=== PATIENT | female | born 1950 | race Caucasian/White ===

== ENCOUNTER 2021-02-03 12:51 | Inpatient (IN) | payer MEDICARE, MEDICAID, SELFPAY ==
--- NOTE | ~2021-02-03 | XR_ITS ---
EXAMINATION: XR HAND, RIGHT CLINICAL INFORMATION: CAD bite COMPARISON: None TECHNIQUE: PA, lateral, and oblique views of the right hand. FINDINGS: Visualized bones and joint space is maintained normal. No radiopaque foreign body seen. There is no soft tissue gas or soft tissue swelling seen. XR/XR hand RT 2V IMPRESSION: Unremarkable right hand exam.
[2021-02-03 14:16] VITALS: BP 129/49; PULSE 67; RESP 17; TEMP 35.9; BMI 33.6
--- NOTE | 2021-02-03 15:43 | ED_ITS ---
HPI - Animal Bite General Chief Complaint: Animal Bite Stated Complaint: cat bite Time Seen by Provider: 02/03/21 15:22 Source: patient Mode of arrival: ambulatory Limitations: no limitations History of Present Illness HPI narrative: 70-year-old female presents for cap bite to her right hand that occurred 2 days ago. She has had these cats for 2 months, they were straight A's that she took in, they are not ever had shots. Patient has had no fevers. However, her right hand is red, swollen, warm, and tender. MD complaint: animal bite Onset (ago): day(s) (2) Animal: cat Description of animal: household pet Mechanism: bite Location - Extremities: right: hand Pain description: dull Severity scale (1-10): 3 Context: unprovoked Associated symptoms: erythema and rash Related Data Patient tetanus UTD: No Home Medications Medication Instructions Recorded Confirmed insulin lispro protamine-lispro 30 unit SUBCUT BID 02/03/21 02/03/21 100 unit/mL (75-25) subcutaneous pen (Humalog Mix 75-25 KwikPen) levothyroxine 137 mcg tablet 1 tab PO DAILY 02/03/21 02/03/21 pramipexole 0.125 mg tablet 1 tab PO DAILY 02/03/21 02/03/21 sertraline 100 mg tablet 1 tab PO DAILY 02/03/21 02/03/21 simvastatin 40 mg tablet 1 tab PO BEDTIME 02/03/21 02/03/21 tizanidine 2 mg tablet 2 mg PO TID PRN 02/03/21 02/03/21 Allergies Allergy/AdvReac Type Severity Reaction Status Date / Time No Known Allergies Allergy Verified 02/03/21 15:34 Review of Systems Constitutional: Constitutional: Denies body ache(s), Denies chills, Denies fatigue, Denies fever(s), Denies headache(s), Denies malaise and Denies weakness Eyes: Eyes: Denies diplopia ENT: Denies vertigo, Denies dizziness, Denies otalgia, Denies headache(s), Denies mouth pain, Denies post nasal drip, Denies sinus pain, Denies sinus pressure, Denies sore throat and Denies throat swelling Cardiovascular: Cardiovascular: Denies chest pain, Denies syncope, Denies leg edema, Denies lightheadedness, Denies Loss of Consciousness, Denies palpitations and Denies dyspnea Respiratory: Respiratory: Denies chest congestion, Denies cough and Denies dyspnea Gastrointestinal: Gastrointestinal: Reports abdominal pain, Denies hematochezia, Denies constipation, Denies diarrhea and Denies vomiting Musculoskeletal: Musculoskeletal: Reports no additional musculoskeletal complaints Integumentary/Breasts: Skin/Breast: Reports erythema, Reports rash, Reports skin pain, Reports skin swelling and Reports wounds Neurologic: Denies confusion, Denies vertigo, Denies dizziness, Denies syncope, Denies headache(s) and Denies weakness Psychiatric: Psychiatric: Denies anxiety, Denies confusion and Denies depression Endocrine: Endocrine: Denies fatigue and Denies palpitations Allergic/Immunologic: Allergic/Immunologic: Denies throat swelling PMFSH Past Medical History Medical History Anxiety Depression Diabetes Hypothyroidism Social History Social History Advance Directives: No Advance Directives Information Provided: No Physical Exam Vital Signs: Vital Signs: Last Vital Signs Temp 98.6 F 02/03/21 17:39 Pulse 64 02/03/21 17:39 Resp 16 02/03/21 17:39 BP 143/60 H 02/03/21 17:39 Pulse Ox 96 02/03/21 17:39 Body Mass Index 33.6 Const: General: no acute distress, alert and awake; No confusion Nutritional Appearance: obese centrally obese Orientation/consciousness: patient oriented x3 and No confusion Limitations: no limitations HENMT: Head: Yes normal to inspection, Yes normocephalic and Yes atraumatic Ears: other ([place] General nose exam: Normal external nose present Face and sinus: Yes normal facial exam Mouth: Normal oral and palatal mucosa present Eyes: Conjunctivae: conjunctivae normal Pupils: Equal, round and reactive pupils present EOM: EOMs intact bilaterally Neck: Neck: Yes full ROM, Yes no lymphadenopathy and Yes supple Resp: Effort & Inspection: normal respiratory effort and able to speak in complete sentences Auscultation: clear to auscultation bilaterally, no crackles, no rales, no rhonchi and no wheezes Cardio: Rate: regular rate Rhythm: regular rhythm Heart sounds: S1 normal heart sound present and S2 normal heart sound present GI: Inspection: Yes normal to inspection Palpation (GI): Soft to palpation, nontender, no guarding and not rigid Percussion: Yes normal to percussion Auscultation: normal bowel sounds Skin: Other: Red, warm, swollen dorsum of right hand, redness extends to right thumb, and right 2nd 3rd and 4th fingers. Patient swollen at right thumb MCP joint, exquisitely tender to palpation there. Patient has reduced range of motion of fingers. Intact right upper extremity pulses and sensations. Neuro: General: patient oriented x3 and No confusion Cranial nerves: Yes Equal, round and reactive pupils present Extrem: General: Yes normal to inspection and Yes full ROM Psych: Appearance: grossly normal Affect: normal affect Attitude: cooperative Thought process: Normal thought process present Course Course Course Narrative: 70-year-old diabetic female who was bitten by a cat that has never had any rabies shots 2 days ago presents with right hand pain. No fevers. On exam, red, warm, swollen dorsum of right hand, redness extends to right thumb, and right 2nd 3rd and 4th fingers. Patient swollen at right thumb MCP joint, exquisitely tender to palpation there. Gave tetanus, rabies vaccination, rabies immunoglobulin. Getting blood cultures, lactic acid, labs. Getting x-ray of right hand. Will start antibiotics once blood cultures are drawn. Discussed with Dr. Pham, orthopedics, who agrees that patient needs to be admitted for IV antibiotics. Patient states she has an allergy to a food, but she does not know what food that is. No known drug allergies Reevaluation(s) Reevaluation #1: XR shows: Visualized bones and joint space is maintained normal. No radiopaque foreign body seen. There is no soft tissue gas or soft tissue swelling seen. Reevaluation #2: Patient given Vanco and Zosyn, admitted to the hospitalist serv [facility] - Animal Bite Lab Data Result diagrams: 02/03/21 16:00 02/03/21 16:00 Labs: Lab Results 02/03/21 02/03/21 02/03/21 Range/Units 16:00 16:00 16:00 WBC 11.3 H (4.8-10.8) X10*3/uL RBC 4.38 (4.20-5.50) X10*6/uL Hgb 13.3 (12.0-16.0) g/dl Hct 39.8 (37-47) % MCV 90.9 (80-98) fL MCH 30.4 (27.0-33.0) pg MCHC 33.4 (31.0-35.0) g/dl RDW 13.4 (11.0-16.0) % Plt Count 260 (160-400) X10*3/uL MPV 10.6 (9.4-12.3) fL Immature Gran % (Auto) 0.4 (0.0-0.4) % Neut % (Auto) 67.9 (45-73) % Lymph % (Auto) 22.0 (20-40) % [place] % (Auto) 6.8 (2-11) % Eos % (Auto) 2.3 (0-4) % Baso % (Auto) 0.6 (0-2) % Lymph # (Auto) 2.5 (1.2-4.9) X10*3/uL [place] # (Auto) 0.8 (0.1-1.2) X10*3/uL Eos # (Auto) 0.3 (0.0-0.4) X10*3/uL Baso # (Auto) 0.1 (0.0-0.2) X10*3/uL Abs Immat Gran (auto) 0.04 H (0.00-0.03) X10*3/uL Absolute Neuts (auto) 7.7 (2.0-8.3) X10*3/uL Absolute Nucleated RBC 0.000 (0.0-0.012) X10*3/uL Nucleated RBC % (auto) 0.0 (0.0-0.2) /100WBC Sodium 137 (135-145) mmol/L Potassium 4.1 (3.3-5.1) mmol/L Chloride 102 (96-108) mmol/L Carbon Dioxide 25 (22-29) mmol/L Anion Gap 14 (12-20) BUN 18 H (9-16) mg/dL Creatinine 0.96 (0.5-1.4) mg/dL Estim Creat Clear Calc 60.1 Estimated GFR 57 Random Glucose 217 H (60-115) mg/dL Lactic Acid 1.7 (0.5-2.0) mmol/L Calcium 9.4 (8.4-10.2) mg/dL Total Bilirubin 0.7 (0.0-1.0) mg/dL AST 15 (5-31) U/L ALT 12 (0-31) U/L Alkaline Phosphatase 85 (39-117) U/L C-Reactive Protein 3.62 H (< or = 0.50) mg/dL Total Protein 7.2 (6.5-8.0) g/dL Albumin 4.5 (3.5-5.0) g/dL COVID-19 (LINDA) (Negative) COVID-19 Clin Com 02/03/21 Range/Units 17:39 WBC (4.8-10.8) X10*3/uL RBC (4.20-5.50) X10*6/uL Hgb (12.0-16.0) g/dl Hct (37-47) % MCV (80-98) fL MCH (27.0-33.0) pg MCHC (31.0-35.0) g/dl RDW (11.0-16.0) % Plt Count (160-400) X10*3/uL MPV (9.4-12.3) fL Immature Gran % (Auto) (0.0-0.4) % Neut % (Auto) (45-73) % Lymph % (Auto) (20-40) % [place] % (Auto) (2-11) % Eos % (Auto) (0-4) % Baso % (Auto) (0-2) % Lymph # (Auto) (1.2-4.9) X10*3/uL [place] # (Auto) (0.1-1.2) X10*3/uL Eos # (Auto) (0.0-0.4) X10*3/uL Baso # (Auto) (0.0-0.2) X10*3/uL Abs Immat Gran (auto) (0.00-0.03) X10*3/uL Absolute Neuts (auto) (2.0-8.3) X10*3/uL Absolute Nucleated RBC (0.0-0.012) X10*3/uL Nucleated RBC % (auto) (0.0-0.2) /100WBC Sodium (135-145) mmol/L Potassium (3.3-5.1) mmol/L Chloride (96-108) mmol/L Carbon Dioxide (22-29) mmol/L Anion Gap (12-20) BUN (9-16) mg/dL Creatinine (0.5-1.4) mg/dL Estim Creat Clear Calc Estimated GFR Random Glucose (60-115) mg/dL Lactic Acid (0.5-2.0) mmol/L Calcium (8.4-10.2) mg/dL Total Bilirubin (0.0-1.0) mg/dL AST (5-31) U/L ALT (0-31) U/L Alkaline Phosphatase (39-117) U/L C-Reactive Protein (< or = 0.50) mg/dL Total Protein (6.5-8.0) g/dL Albumin (3.5-5.0) g/dL COVID-19 (LINDA) Negative (Negative) COVID-19 Clin Com See Note Discharge Plan Discharge Clinical Impression: Cat bite Qualifiers: Encounter type: initial encounter Qualified Code(s): W55.01XA - Bitten by cat, initial encounter Cellulitis Qualifiers: Site of cellulitis: extremity Site of cellulitis of extremity: upper extremity Laterality: right Qualified Code(s): L03.113 - Cellulitis of right upper limb Patient Disposition: Admitted As Inpatient
[2021-02-03] MEDS: 0.9 % Sodium Chloride 1,000 ML 999 ML IV (16:03)
[2021-02-03 16:08] LABS: MANUAL DIFF FLAG NO
[2021-02-03 16:10] VITALS: BP 146/65; PULSE 68; RESP 20; TEMP 37; O2SAT 98
[2021-02-03 16:15] LABS: Basophils Absolute Auto 0.1 X10*3/uL (0.0-0.2); Basophils Percent Auto 0.6 % (0-2); Eosinophils Absolute Auto 0.3 X10*3/uL (0.0-0.4); Eosinophils Percent Auto 2.3 % (0-4); Hematocrit 39.8 % (37-47); Hemoglobin 13.3 g/dl (12.0-16.0); Imm Gran Abs Auto 0.04 X10*3/uL (0.00-0.03); Imm Gran Pct Auto 0.4 % (0.0-0.4); Lymphocytes Absolute Auto 2.5 X10*3/uL (1.2-4.9); Mean Corpuscular HGB Conc 33.4 g/dl (31.0-35.0); Mean Corpuscular Hemoglobin 30.4 pg (27.0-33.0); Mean Corpuscular Volume 90.9 fL (80-98); Mean Platelet Volume 10.6 fL (9.4-12.3); Monocytes Absolute Auto 0.8 X10*3/uL (0.1-1.2); Monocytes Percent Auto 6.8 % (2-11); Neutrophils Absolute Auto 7.7 X10*3/uL (2.0-8.3); Neutrophils Percent Auto 67.9 % (45-73); Platelet Count 260 X10*3/uL (160-400); Red Blood Count 4.38 X10*6/uL (4.20-5.50); Red Cell Distribution Width 13.4 % (11.0-16.0); White Blood Count 11.3 X10*3/uL (4.8-10.8)
[2021-02-03 16:22] LABS: Lactic Acid 1.7 mmol/L (0.5-2.0)
[2021-02-03 16:27] LABS: Alanine Aminotransferase 12 U/L (0-31); Albumin Level 4.5 g/dL (3.5-5.0); Alkaline Phosphatase 85 U/L (39-117); Anion Gap 14 (12-20); Aspartate Amino Transferase 15 U/L (5-31); Bilirubin Total 0.7 mg/dL (0.0-1.0); Blood Urea Nitrogen 18 mg/dL (9-16); Calcium 9.4 mg/dL (8.4-10.2); Carbon Dioxide 25 mmol/L (22-29); Chloride 102 mmol/L (96-108); Creatinine Clr Calc Pharmacy 60.1; Estimated Glomerular Filt Rate 57; Glucose Random 217 mg/dL (60-115); Potassium 4.1 mmol/L (3.3-5.1); Sodium 137 mmol/L (135-145); Total Protein 7.2 g/dL (6.5-8.0)
[2021-02-03] MEDS: Piperacillin Sodium/Tazobactam 3.375 GM in 0.9 % Sodium Chloride 50 ML IV ×2 (17:17→23:44)
[2021-02-03] MEDS: Diphth,Pertus(ACell),Tet Adult 0.5 ML SYRINGE IM (17:18)
--- NOTE | 2021-02-03 17:20 | PHA.MEDREC ---
Pharmacy Consult ? Medication Reconciliation Pharmacy has completed the medication reconciliation. Patient reports she has no started the trulicity yet, it is a new prescription. She reports she has not taken any pills in over a week. Indu Pedroza, PharmD
[2021-02-03] MEDS: Rabies Vaccine (PCEC)/PF 1 ML VIAL IM (17:28)
[2021-02-03] MEDS: Rabies Immune Globulin/PF 900 UNIT/3 ML VIAL 1832.52 UNIT IM (17:34)
--- NOTE | 2021-02-03 17:36 | PC.NURSE ---
pt transferred to t/w from [facility] for admit to the hospital. pt brought over with medications already put in and due. late admin necessary.
[2021-02-03 17:39] VITALS: BP 143/60; PULSE 64; RESP 16; TEMP 37; O2SAT 96
[2021-02-03] MEDS: vancomycin HCL 1,250 MG in 0.9 % Sodium Chloride 250 ML 166.67 MG IV (17:50)
--- NOTE | 2021-02-03 17:58 | P.HPHOSP_ITS ---
History of Present Illness Date of Service: 02/03/21 Attending physician on admission: Odilia Kunz Chief Complaint: right hand cellulitis/tinosynovitis 70-year-old female with history of diabetes, hyperlipidemia, hypothyroidism, rest rest leg syndrome: She said that 2 days back she was scratched by her cat- subsequently she had could scratch on the both hands-her left hand seems to be fine but her right hand is now having lot of pain and swelling as well, as erythema. She says her cat is domestic but not well behaved. She says from last 2 days is slowly is becoming difficult move her rigth hand pain, erythema, swelling and movements of right hand. She denies any fever but has chills. Denies any new complaint of chest pain or shortness of breath or abdominal pain or nausea or vomiting Denies any recent travel or any family member with similar symptoms, or any new rash Denies any cough Denies any weakness or numbness. Past medical history as above. Denies any past surgical history. Lives alone. Denies any smoking, recreational drugs, alcohol use. Family history lacy: Her sister had diabetes as per the patient. Lab imaging data personally reviewed and interpreted-patient has mild leukocytosis, mild tachycardia-does not qualify for sepsis. Hand x-ray: Seems unremarkable. ED physician given Susan and discussed the case with Dr. Pham from [facility] recommended admission for inpatient hospitalist service. Review of Systems Review of Systems: Yes all other systems are reviewed and are negative [facility] Medical History Anxiety Depression Diabetes Hypothyroidism Pertinent family history: As above. Sister has diabetes Social History Advance Directives: No Advance Directives Information Provided: No Meds Allergies Allergy/AdvReac Type Severity Reaction Status Date / Time No Known Allergies Allergy Verified 02/03/21 15:34 Active Medications: Current Medications Dextrose (Dextrose 50 % 25 Gm/50 Ml Vial) 25 gm IVPUSH Q15M PRN; Protocol PRN Reason: per Hypoglycemia Standing Ord. Enoxaparin Sodium (Enoxaparin Sodium 40 Mg/0.4 Ml Syringe) 40 mg SUBCUT DAILY VITALIY Glucose (Glucose Gel 15 Gm Gel..Gram.) 15 gm PO Q15M PRN; Protocol PRN Reason: per Hypoglycemia Standing Ord. Vancomycin HCl 1,250 mg/ (Sodium Chloride) 250 mls @ 166.667 mls/hr IV ONCE ONE Stop: 02/03/21 18:42 Last Admin: 02/03/21 17:50 Dose: 166.67 mls/hr Documented by: Lactated Ringer's (Lr) 1,000 mls @ 80 mls/hr IVCONT .[id number] [facility] Piperacillin Sod/Tazobactam (Sod 3.375 gm/ Sodium Chloride) 50 mls @ 100 mls/hr IV Q6H [facility] Insulin Human Lispro (Insulin Lispro 100 Unit/Ml 3 Ml Vial) 0 unit SUBCUT QIDACHS VITALIY; Protocol Non-Formulary Medication (Levothyroxine) 1 tab PO DAILY [facility] Non-Formulary Medication (Simvastatin) 1 tab PO BEDTIME [facility] Pharmacy Consult (Consult Rx Perform Med Rec) 1 each MISCELLANE ONCE PRN PRN Reason: Consult order Pharmacy Consult (Consult Rx Vancomycin Dosing) 1 each MISCELLANE DAILY PRN PRN Reason: Consult order Pharmacy Consult (Consult Rx Vancomycin Dosing) 1 each MISCELLANE DAILY PRN PRN Reason: Consult order Pramipexole Dihydrochloride (Pramipexole Di-Hcl 0.125 Mg Tablet) 0.125 mg PO DAILY [facility] Sertraline HCl (Sertraline Hcl 100 Mg Tablet) 100 mg PO DAILY [facility] Tizanidine HCl (Tizanidine Hcl 4 Mg Tablet) 2 mg PO TID PRN PRN Reason: Muscle Spasm Home Medications Medication Instructions Recorded Confirmed Last Taken Type insulin lispro protamine-lispro 30 unit SUBCUT BID 02/03/21 02/03/21 02/03/21 History 100 unit/mL (75-25) subcutaneous pen (Humalog Mix 75-25 KwikPen) levothyroxine 137 mcg tablet 1 tab PO DAILY 02/03/21 02/03/21 01/27/21 History pramipexole 0.125 mg tablet 1 tab PO DAILY 02/03/21 02/03/21 01/27/21 History sertraline 100 mg tablet 1 tab PO DAILY 02/03/21 02/03/21 01/27/21 History simvastatin 40 mg tablet 1 tab PO BEDTIME 02/03/21 02/03/21 01/27/21 History tizanidine 2 mg tablet 2 mg PO TID PRN 02/03/21 02/03/21 Unknown History Physical Exam Vital Signs and Narrative: Vital Signs: Last Vital Signs Temp 98.6 F 02/03/21 17:39 Pulse 64 02/03/21 17:39 Resp 16 02/03/21 17:39 BP 143/60 H 02/03/21 17:39 Pulse Ox 96 02/03/21 17:39 Body Mass Index 33.6 Physical exam: Appearance: Alert.? Oriented X3.? not in distress.? Eyes: Pupils equal, round and reactive to light.? Sclera nonicteric.? ENT: Pharynx normal.? Moist mucous membranes. cvs: rrr, [id number] , no murmur res: clear to auscultation ,no rhonchii or wheezing abd: no rebound or guarding ,nt, bs present. ext pulses present , no cyanosis ,Gait well balanced well coordinated. right hand -swelling , erythema , espcially rigght thumb area-extension still seems somewhat intact but flexion is particularly difficult, could able to make the fist but cannot hold the thumb due to pain. Has erythema and swelling of lower thumb back as well as hand area. neuro: axo3 , nonfocal. Results Labs CBC and Chem 7: 02/03/21 16:00 02/03/21 16:00 Labs: Laboratory Results - last 24 hr 02/03/21 02/03/21 02/03/21 16:00 16:00 16:00 MCV 90.9 MCH 30.4 MCHC 33.4 RDW 13.4 Plt Count 260 MPV 10.6 Immature Gran % (Auto) 0.4 Neut % (Auto) 67.9 Lymph % (Auto) 22.0 [place] % (Auto) 6.8 Eos % (Auto) 2.3 Baso % (Auto) 0.6 Lymph # (Auto) 2.5 [place] # (Auto) 0.8 Eos # (Auto) 0.3 Baso # (Auto) 0.1 Abs Immat Gran (auto) 0.04 H Absolute Neuts (auto) 7.7 Absolute Nucleated RBC 0.000 Nucleated RBC % (auto) 0.0 Anion Gap 14 Estim Creat Clear Calc 60.1 Estimated GFR 57 Random Glucose 217 H Lactic Acid 1.7 Calcium 9.4 Total Bilirubin 0.7 AST 15 ALT 12 Alkaline Phosphatase 85 Total Protein 7.2 Albumin 4.5 Imaging Radiologist's Impressions: Impressions Hand X-Ray 02/03/21 15:34 IMPRESSION: Unremarkable right hand exam. Assessment and Plan (1) Cellulitis: Qualifiers: Laterality: right Site of cellulitis: extremity Site of cellulitis of extremity: upper extremity Qualified Code(s): L03.113 - Cellulitis of right upper limb Status: Acute (2) Cat bite: Qualifiers: Encounter type: initial encounter Qualified Code(s): W55.01XA - Bitten by cat, initial encounter Status: Acute 1. Cellulitis of right hand /cat scartech/ Tenosynovitis: wbc 11k , mild tachy lactic acid normal, blood cultures sent no sepsis ed started patient on vanco zosyn , iv f ID and ortho evaluation in the morning. 2. Diabetes: Diabetic diet Fingersticks with sliding scale coverage 3. Hyperlipidemia: continue statin 4. Hypothyroidism: Continue levothyroxine. 5. Rest rest leg syndrome: Continue pramipexole. DVT prophylaxis with Lovenox. Above management discussed with the patient in detail length including cellu litis and possibility of tenosynovitis-it is also explained to her that she might need to stay couple of days you depending upon how she respond to antibiotic, also antibiotic side effect discussed in detail -total time is in assessment and plan coordination as well as counseling was around 70 minutes. Quality Stroke Does the patient have a stroke diagnosis?: No VTE Prior VTE?: No VTE Risk Level:: Medical - moderate - high VTE Device Contraindication: N/A - Device Ordered VTE Drug Contraindication: N/A - Med Ordered
[2021-02-03 18:14] LABS: COVID-19 Test Negative (Negative)
[2021-02-03 18:24] LABS: C Reactive Protein 3.62 mg/dL (< or = 0.50)
--- NOTE | 2021-02-03 18:27 | PHA.PROG ---
Admission Date/Time: February 03, 2021 17:47 Indication: Skin & Soft Tissue Weight in k.626 kg Adjusted body weight in K.85 mg [place] body weight in K kg Obesity Dosing Indication % IBW: Y - 157 % Serum Creatinine - Last 168 Hours 02/03/21 16:00 Creatinine 0.96 Estimated CrCl and GFR - Last 168 Hours 02/03/21 16:00 Estim Creat Clear Calc 60.1 Estimated GFR 57 Vancomycin Loading Dose: N/A - one dose 1250 mg given in the ED at 1755 Current Vancomycin Dosing Regimen: 1250 mg Q24H Date and Time for next Vancomycin Level to be drawn: 02/06 @ 1600 Pharmacist Comments on Vancomycin Plan: Start vanco 1250 mg Q24H. Expected AUC 537 with a trough of 14.6 Will monitor SCr daily trough to be drawn 02/06 @ 1600 before 4th dose Indu Pedroza PharmD Vancomycin dosing will take advantage of [employer] as a clinical decision support tool that uses Bayesian modeling to calculate individual patient's pharmacokinetic parameters and forecast the patient's drug concentration time course with the target goal AUC 24 range of 400 - 600 mg/L/hr.
[2021-02-03] MEDS: Enoxaparin Sodium 40 MG/0.4 ML SYRINGE SUBCUT (18:52)
[2021-02-03] MEDS: Lactated Ringers 1,000 ML 80 ML IVCONT (18:54)
[2021-02-03 18:57] VITALS: RESP 20; O2SAT 97
[2021-02-03 19:00] LABS: Glucose, Whole Blood 121 mg/dL (60-115)
[2021-02-03 19:29] LABS: Erythrocyte Sedimentation Rate 32 MM/HR (0-20)
[2021-02-03 20:52] VITALS: BP 160/66; PULSE 71; RESP 17; TEMP 36.3; O2SAT 98
[2021-02-03 21:02] VITALS: BMI 35.3
[2021-02-03 21:03] LABS: Glucose, Whole Blood 190 mg/dL (60-115)
[2021-02-03] MEDS: Insulin Lispro 100 UNIT/ML 3 ML VIAL SUBCUT (21:17)
[2021-02-03] MEDS: Atorvastatin Calcium 20 MG TABLET PO (21:20)
[2021-02-04] VITALS (14 sets, daily range): BP systolic 121–155; BP diastolic 47–70; PULSE 58–84; RESP 16–20; TEMP 36–37.2; O2SAT 90–100
[2021-02-04 05:52] LABS: Creatinine Clr Calc Pharmacy 70.5; Estimated Glomerular Filt Rate > 60
[2021-02-04] MEDS: Lactated Ringers 1,000 ML 80 ML IVCONT ×3 (05:52→21:18)
[2021-02-04] MEDS: Piperacillin Sodium/Tazobactam 3.375 GM in 0.9 % Sodium Chloride 50 ML IV ×2 (05:53→09:54)
[2021-02-04] MEDS: Levothyroxine Sodium 25 MCG TABLET PO (05:53)
[2021-02-04] MEDS: Levothyroxine Sodium 112 MCG TABLET PO (05:53)
[2021-02-04 07:13] LABS: Glucose, Whole Blood 223 mg/dL (60-115)
[2021-02-04] MEDS: Insulin Lispro 100 UNIT/ML 3 ML VIAL SUBCUT ×4 (08:03→21:18)
[2021-02-04] MEDS: Enoxaparin Sodium 40 MG/0.4 ML SYRINGE SUBCUT (08:05)
[2021-02-04] MEDS: Sertraline HCL 100 MG TABLET PO (08:09)
--- NOTE | 2021-02-04 09:16 | MHC.CM.PN ---
CM met with Patient at bedside. Patient lives alone in a condo and she uses a cane on occasion, to assist with mobility. Patient's Niece/Heidy @ [phone] and Niece/Alice @ [phone] are the HCP. PCP is Dr. Beatriz Nichole. Patient's goal is to return home/no services and CM has initiated and will follow for dc planning.
[2021-02-04] MEDS: Pramipexole Di-HCL 0.25 MG TABLET 0.125 MG PO (09:52)
--- NOTE | 2021-02-04 10:24 | PM.CNOR ---
History of Present Illness HPI Consult date: 02/04/21 Chief complaint: R hand cat bite Narrative: 70 yo female s/p selwyn bite 2 days ago. She states the cat bit her and would not release. She was able to get it off. She noticed increased redness, swelling and pain with movement of the hand. She came to the ED yesterday and was admitted on IV abx. Orthopedics consulted for further recommendations. She is NPO. Review of Systems Review of Systems: Yes all other systems are reviewed and are negative [facility] Past Medical History Medical History Anxiety Depression Diabetes Hypothyroidism Social History Social History Household Members: None Housing: Apartment Do you presently have visiting nurse or other home services: No Patient Tobacco Use Status: Former Tobacco user Tobacco use type: Cigarette Substance Use Type: Marijuana service: No Current occupational status: retired [employer] Allergies Allergy/AdvReac Type Severity Reaction Status Date / Time No Known Allergies Allergy Verified 02/03/21 15:34 Active Medications: Current Medications Atorvastatin Calcium (Atorvastatin Calcium 20 Mg Tablet) 20 mg PO BEDTIME [facility] Last Admin: 02/03/21 21:20 Dose: 20 mg Documented by: Dextrose (Dextrose 50 % 25 Gm/50 Ml Vial) 25 gm IVPUSH Q15M PRN; Protocol PRN Reason: per Hypoglycemia Standing Ord. Enoxaparin Sodium (Enoxaparin Sodium 40 Mg/0.4 Ml Syringe) 40 mg SUBCUT DAILY [facility] Last Admin: 02/04/21 08:05 Dose: 40 mg Documented by: Glucose (Glucose Gel 15 Gm Gel..Gram.) 15 gm PO Q15M PRN; Protocol PRN Reason: per Hypoglycemia Standing Ord. Lactated Ringer's (Lr) 1,000 mls @ 80 mls/hr IVCONT .[id number] [facility] Last Admin: 02/04/21 08:15 Dose: 80 mls/hr Documented by: Vancomycin HCl 1,250 mg/ (Sodium Chloride) 250 mls @ 166.667 mls/hr IV Q24H [facility] Piperacillin Sod/Tazobactam (Sod 3.375 gm/ Sodium Chloride) 50 mls @ 100 mls/hr IV Q6H [facility] Last Admin: 02/04/21 09:54 Dose: 100 mls/hr Documented by: Insulin Human Lispro (Insulin Lispro 100 Unit/Ml 3 Ml Vial) 0 unit SUBCUT QIDACHS [facility]; Protocol Last Admin: 02/04/21 08:03 Dose: 4 unit Documented by: Levothyroxine Sodium (Levothyroxine Sodium 112 Mcg Tablet) 112 mcg PO DAILY@0600 [facility] Last Admin: 02/04/21 05:53 Dose: 112 mcg Documented by: Levothyroxine Sodium (Levothyroxine Sodium 25 Mcg Tablet) 25 mcg PO DAILY@0600 [facility] Last Admin: 02/04/21 05:53 Dose: 25 mcg Documented by: Pharmacy Consult (Consult Rx Perform Med Rec) 1 each MISCELLANE ONCE PRN PRN Reason: Consult order Pharmacy Consult (Consult Rx Vancomycin Dosing) 1 each MISCELLANE DAILY PRN PRN Reason: Consult order Pramipexole Dihydrochloride (Pramipexole Di-Hcl 0.25 Mg Tablet) 0.125 mg PO DAILY [facility] Last Admin: 02/04/21 09:52 Dose: 0.125 mg Documented by: Sertraline HCl (Sertraline Hcl 100 Mg Tablet) 100 mg PO DAILY [facility] Last Admin: 02/04/21 08:09 Dose: 100 mg Documented by: Tizanidine HCl (Tizanidine Hcl 4 Mg Tablet) 2 mg PO TID PRN PRN Reason: Muscle Spasm Home Medications Medication Instructions Recorded Confirmed Last Taken Type insulin lispro protamine-lispro 30 unit SUBCUT BID 02/03/21 02/03/21 02/03/21 History 100 unit/mL (75-25) subcutaneous pen (Humalog Mix 75-25 KwikPen) levothyroxine 137 mcg tablet 1 tab PO DAILY 02/03/21 02/03/21 01/27/21 History pramipexole 0.125 mg tablet 1 tab PO DAILY 02/03/21 02/03/21 01/27/21 History sertraline 100 mg tablet 1 tab PO DAILY 02/03/21 02/03/21 01/27/21 History simvastatin 40 mg tablet 1 tab PO BEDTIME 02/03/21 02/03/21 01/27/21 History tizanidine 2 mg tablet 2 mg PO TID PRN 02/03/21 02/03/21 Unknown History Physical Exam Vital Signs: Vital Signs: Last Vital Signs Temp 98.3 F 02/04/21 07:03 Pulse 61 02/04/21 07:03 Resp 16 02/04/21 07:03 BP 125/61 02/04/21 07:03 Pulse Ox 98 02/04/21 07:03 Body Mass Index 35.3 Const: General: cooperative, healthy appearing, comfortable, no acute distress, well developed and alert Orientation/consciousness: patient oriented x3 HENMT: Head: Yes normal to inspection, Yes normocephalic and Yes atraumatic Eyes: General: appearance normal, both eyes and all related structures Neck: Neck: Yes normal visual inspection and Yes no lymphadenopathy Resp: Effort & Inspection: normal respiratory effort and able to speak in complete sentences Cardio: Rate: regular rate Peripheral pulses: Peripheral pulses 2+ throughout GI: Inspection: Yes normal to inspection Palpation (GI): Soft to palpation Skin: General skin exam: no rashes or lesions noted Neuro: General: patient oriented x3 Extrem: Other: Right hand is red , warm, swollen, redness extends to right thumb and travels proximally.? MCP joint is tender, no significant tenderness with axial loading. More tenderness over the soft tissue of the hand. No pain along the felxor tendons or thenar space. Patient has reduced range of motion of the index and thumb.? Intact right upper extremity pulses and sensations. Psych: Appearance: grossly normal Mental Status: mental status grossly normal Results Labs Result Diagrams: 02/03/21 16:00 02/04/21 05:14 Labs: Abnormal lab results 02/03/21 02/03/21 02/03/21 Range/Units 16:00 16:00 16:00 WBC 11.3 H (4.8-10.8) X10*3/uL Abs Immat Gran (auto) 0.04 H (0.00-0.03) X10*3/uL ESR 32 H (0-20) MM/HR BUN 18 H (9-16) mg/dL POC Glucose (60-115) mg/dL Random Glucose 217 H (60-115) mg/dL C-Reactive Protein 3.62 H (< or = 0.50) mg/dL 02/03/21 02/03/21 02/04/21 Range/Units 18:56 20:57 07:06 WBC (4.8-10.8) X10*3/uL Abs Immat Gran (auto) (0.00-0.03) X10*3/uL ESR (0-20) MM/HR BUN (9-16) mg/dL POC Glucose 121 H 190 H 223 H (60-115) mg/dL Random Glucose (60-115) mg/dL C-Reactive Protein (< or = 0.50) mg/dL H & H 02/03/21 Range/Units 16:00 Hgb 13.3 (12.0-16.0) g/dl Hct 39.8 (37-47) % All other labs normal. Assessment and Plan (1) Infection of right hand due to bite: Status: Acute Dr Harris was available to see the patient with me at bedside. We discussed the extent of the injury to the patient and options available. Given the extent of the infection and possibility for worsening symptoms without intervention, it is recommended to under go I&D in the OR. We discussed risk , benefits and alternatives, risk including but not limited to ongoing infection, pain, swelling, nerve or or tissue damage. She is content with this plan and would like to proceed. Procedures Date of Service Date of Service: 02/04/21
--- NOTE | 2021-02-04 10:34 | P.PNIM_ITS ---
Subjective Subjective Date of Service: 02/05/21 Interval History: f/u on cat scrath cellulitis Review of Systems no fever pain in the hand Physical Exam Vital Signs: Vital Signs: Last Vital Signs Temp 98.3 F 02/04/21 07:03 Pulse 61 02/04/21 07:03 Resp 16 02/04/21 07:03 BP 125/61 02/04/21 07:03 Pulse Ox 98 02/04/21 07:03 Body Mass Index 35.3 General: AO X 3, no acute distress Resp: CTA bilateral CVS: S1,S2,RRR GI: +BS, NT, no distention Skin: No rash, right hand -swelling , erythema , espcially rigght thumb area- extension still seems somewhat intact but flexion is particularly difficult, difficulty to make fist Neuro: motor grossly intact Psych: appropriate affect Objective Data Active Medications Atorvastatin Calcium (Atorvastatin Calcium 20 Mg Tablet) 20 mg PO BEDTIME [facility] Last Admin: 02/03/21 21:20 Dose: 20 mg Documented by: VANDANA Dextrose (Dextrose 50 % 25 Gm/50 Ml Vial) 25 gm IVPUSH Q15M PRN; Protocol PRN Reason: per Hypoglycemia Standing Ord. Enoxaparin Sodium (Enoxaparin Sodium 40 Mg/0.4 Ml Syringe) 40 mg SUBCUT DAILY [facility] Last Admin: 02/04/21 08:05 Dose: 40 mg Documented by: TOREY Glucose (Glucose Gel 15 Gm Gel..Gram.) 15 gm PO Q15M PRN; Protocol PRN Reason: per Hypoglycemia Standing Ord. Lactated Ringer's (Lr) 1,000 mls @ 80 mls/hr IVCONT .[id number] [facility] Last Admin: 02/04/21 08:15 Dose: 80 mls/hr Documented by: TOREY Vancomycin HCl 1,250 mg/ (Sodium Chloride) 250 mls @ 166.667 mls/hr IV Q24H [facility] Piperacillin Sod/Tazobactam (Sod 3.375 gm/ Sodium Chloride) 50 mls @ 100 mls/hr IV Q6H [facility] Last Admin: 02/04/21 09:54 Dose: 100 mls/hr Documented by: TOREY Insulin Human Lispro (Insulin Lispro 100 Unit/Ml 3 Ml Vial) 0 unit SUBCUT QIDACHS [facility]; Protocol Last Admin: 02/04/21 08:03 Dose: 4 unit Documented by: TOREY Levothyroxine Sodium (Levothyroxine Sodium 112 Mcg Tablet) 112 mcg PO DAILY@0600 [facility] Last Admin: 02/04/21 05:53 Dose: 112 mcg Documented by: VANDANA Levothyroxine Sodium (Levothyroxine Sodium 25 Mcg Tablet) 25 mcg PO DAILY@0600 [facility] Last Admin: 02/04/21 05:53 Dose: 25 mcg Documented by: VANDANA Pharmacy Consult (Consult Rx Perform Med Rec) 1 each MISCELLANE ONCE PRN PRN Reason: Consult order Pharmacy Consult (Consult Rx Vancomycin Dosing) 1 each MISCELLANE DAILY PRN PRN Reason: Consult order Pramipexole Dihydrochloride (Pramipexole Di-Hcl 0.25 Mg Tablet) 0.125 mg PO DAILY [facility] Last Admin: 02/04/21 09:52 Dose: 0.125 mg Documented by: TOREY Sertraline HCl (Sertraline Hcl 100 Mg Tablet) 100 mg PO DAILY [facility] Last Admin: 02/04/21 08:09 Dose: 100 mg Documented by: TOREY Tizanidine HCl (Tizanidine Hcl 4 Mg Tablet) 2 mg PO TID PRN PRN Reason: Muscle Spasm Labs CBC & Chem 7: 02/03/21 16:00 02/04/21 05:14 Assessment and Plan (1) Infection of right hand due to bite: Status: Acute (2) Cat bite: Status: Acute (3) Cellulitis: Status: Acute Assessment and Plan: ? 70/ with diabetes here with cat scrath cellulitis and possible tenosynovitis 1. Cellulitis of right hand /cat scartech and possible Tenosynovitis: -Continue Zosyn, DC Vanco -ID and Ortho consult pending. 2. Diabetes: SSI, diabetic diet 3. Hyperlipidemia: continue statin 4. Hypothyroidism:? Continue levothyroxine. 5. Rest rest leg syndrome:? Continue pramipexole. DVT prophylaxis with Lovenox. Quality Stroke Does the patient have a stroke diagnosis?: No VTE Prior VTE?: No VTE Risk Level:: Medical - moderate - high VTE Device Contraindication: N/A - Device Ordered VTE Drug Contraindication: N/A - Med Ordered
[2021-02-04 11:18] LABS: Glucose, Whole Blood 200 mg/dL (60-115)
--- NOTE | 2021-02-04 13:42 | MHC.SHP ---
Pre-Procedural Eval Section A Date of Service: 02/04/21 The patient is an INPATIENT: Yes Changes since office visit: No Cold of Flu in the past 2 weeks, No New Medical Problems, No Changes in Medication and No Patient answered all questions Section B Chief Complaint: R hand cat bite Details of Present Illness: The patient is a 70-year-old woman who was bitten by a cat about 3 days ago. The bite wound involves the dorsal radial aspect of her right hand. She developed increasing swelling redness and tenderness primarily over the dorsal aspect of the 1st metacarpal of her right hand. She was admitted to the hospital on the hospitalist service and placed on IV antibiotics. Allergies: Allergies Allergy/AdvReac Type Severity Reaction Status Date / Time No Known Allergies Allergy Verified 02/03/21 15:34 Exam Exam Comment: Regarding her right Hand: Sensation is intact to the tips of all digits. She can extend all of her fingers and bring them closed to a fist. She can also actively flex and extend her right thumb. She has no tenderness along the flexor tendon sheath of the right thumb and no tenderness over the thenar eminence. She has erythema and swelling over the dorsal aspect of the 1st metacarpal. There are several bite wounds over the dorsal aspect of the 1st and 2nd metacarpals. The area of swelling is primarily over the 1st metacarpal, and there was an infected wound with a localized area of swelling in this area. No tenderness over the 1st dorsal compartment tendon sheath. Mild tenderness over the bite wounds over the 2nd metacarpal. She did not appear to have pain with axial loading of the thumb through the IP MCP and basal joints. Plan I have reviewed the history and physical and performed a pertinent physical examination on my patient. No changes have occurred unless specified. 1. Right hand infection secondary to a cat bite with evidence of a possible abscess over the dorsal aspect of the 1st metacarpal. I educated the patient about this condition We discussed operative and non operative treatment options I am recommending an I and D The risks and benefits of operative treatment were discussed with the patient and the patient wishes to proceed with surgery. These risks include, but are not limited to risk of damage to blood vessels, nerves, tendons, infection, recurrence, incomplete relief of preoperative symptoms, persistent pain, possible need for further surgery and the risks associated with regional blocks and anesthesia. The plan is to take the patient to the operating room today for the following procedures: 1. Right hand I&D 2. [ ] All of the preoperative paperwork including the consent was filled out today. All the patient's questions were answered. The patient understands that they will be contacted by our regulatory intern soon to schedule this procedure
--- NOTE | 2021-02-04 13:48 | W.PM.OPN ---
Operative Note Operative Note Date of Service: 02/04/21 Narrative: Operative Note Narrative: Preop diagnosis: 1. Right hand infection secondary to cat bite Postop diagnosis: Same Procedure: 1. Right hand I&D Surgeon: Lyn Harris MD Anesthesia: Mac plus regional block Findings: Opaque orange fluid dorsal to the 1st and 2nd metacarpals Tourniquet time: 15 minutes EBL: 5.0 ml Specimen: Cultures from right hand wound over dorsal aspect of 1st metacarpal Drains: Iodoform x2 Complications: None Disposition: Brought to the recovery room in stable condition Plan: Admit back to floor, continue IV antibiotics per Infectious Disease recommendations. Check cultures Wound check tomorrow Indications: The patient is a 70 year old woman with right hand infection primarily over the dorsal aspect of the 1st metacarpal secondary to a cat bite . The risks and benefits of operative treatment, including but not limited to risk of damage to blood vessels, nerves, tendons, infection, recurrence, persistent pain or numbness, incomplete resolution of preoperative symptoms, or need for further surgery were discussed with the patient and they wished to proceed with surgery. Procedure: Once consent was obtained patient was brought back to the operating suite and placed in the operating table in a supine position. Anesthesia was administered by the anesthesia team. A tourniquet was applied to the proximal aspect of the right upper extremity and the limb was prepped and draped in a standard surgical fashion. The limb was elevated and the tourniquet inflated to 250 mm of mercury for a total tourniquet time of 15 minutes. There is a 5 mm wide longitudinal laceration over the dorsal base of the 1st metacarpal. I then extended this distally radially and proximally ulnarly by about 5 mm on each end. The incisions were made using a 15. Blade through the skin to the subcutaneous tissues. I then carefully dissected down into the subcutaneous tissue and down to the 1st metacarpal. There was a copious amount of our [place] opaque fluid in this area. Cultures were taken. There is a 2nd bite wound over the dorsal aspect of the 2nd metacarpal. I made a 1 cm longitudinal incision over the center of this bite wound using a 15. Blade. I then carefully dissected down to the level of the 2nd metacarpal. Again I found copious amounts of orange opaque fluid. Both wounds were copiously irrigated with normal saline. Each wound had 1 5 0 Prolene suture placed for loose reapproximation of the skin. In each wound was placed and iodoform gauze drain. At this point the tourniquet was deflated and hemostasis obtained with a brief period of local pressure . A local block was performed by infiltrating with some 1% lidocaine with epinephrine about the superficial radial nerve at the wrist for postop pain control and a sterile dressing was applied. The patient appears to have tolerated the procedure well and with no complications. All digits were well vascularized conclusion of the case.
--- NOTE | 2021-02-04 14:19 | HO.ANESPROP2 ---
HPI - Anesthesia Eval Consult details Narrative: 70 yo female patient for I&D of Right hand PMFSH Active Problems Active Problems: All Active Problems (Updated 02/04/21 @ 10:29 by Dejon Winter PA-C) Infection of right hand due to bite (Acute) Cat bite (Acute) Cellulitis (Acute) Increased BMI Hearing aid Past Medical History Medical History Anxiety Depression Diabetes Hypothyroidism Family History Family history of problems with anesthesia: No Surgical History Surgical History (Updated 02/04/21 @ 14:28 by Isabela Lara MD) History of ankle surgery History of carpal tunnel surgery History of tonsillectomy and adenoidectomy History of Problems with Anesthesia: No Social History Social History Household Members: None Housing: Apartment Do you presently have visiting nurse or other home services: No Patient Tobacco Use Status: Former Tobacco user Tobacco use type: Cigarette Substance Use Type: Marijuana service: No Current occupational status: retired [employer] Allergies Allergy/AdvReac Type Severity Reaction Status Date / Time No Known Allergies Allergy Verified 02/03/21 15:34 Active Medications: Current Medications Atorvastatin Calcium (Atorvastatin Calcium 20 Mg Tablet) 20 mg PO BEDTIME [facility] Last Admin: 02/03/21 21:20 Dose: 20 mg Documented by: Dextrose (Dextrose 50 % 25 Gm/50 Ml Vial) 25 gm IVPUSH Q15M PRN; Protocol PRN Reason: per Hypoglycemia Standing Ord. Enoxaparin Sodium (Enoxaparin Sodium 40 Mg/0.4 Ml Syringe) 40 mg SUBCUT DAILY [facility] Last Admin: 02/04/21 08:05 Dose: 40 mg Documented by: Glucose (Glucose Gel 15 Gm Gel..Gram.) 15 gm PO Q15M PRN; Protocol PRN Reason: per Hypoglycemia Standing Ord. Lactated Ringer's (Lr) 1,000 mls @ 80 mls/hr IVCONT .[id number] [facility] Last Admin: 02/04/21 08:15 Dose: 80 mls/hr Documented by: Insulin Human Lispro (Insulin Lispro 100 Unit/Ml 3 Ml Vial) 0 unit SUBCUT QIDACHS [facility]; Protocol Last Admin: 02/04/21 11:36 Dose: 2 unit Documented by: Levothyroxine Sodium (Levothyroxine Sodium 112 Mcg Tablet) 112 mcg PO DAILY@0600 [facility] Last Admin: 02/04/21 05:53 Dose: 112 mcg Documented by: Levothyroxine Sodium (Levothyroxine Sodium 25 Mcg Tablet) 25 mcg PO DAILY@0600 [facility] Last Admin: 02/04/21 05:53 Dose: 25 mcg Documented by: Pharmacy Consult (Consult Rx Perform Med Rec) 1 each MISCELLANE ONCE PRN PRN Reason: Consult order Pharmacy Consult (Consult Rx Vancomycin Dosing) 1 each MISCELLANE DAILY PRN PRN Reason: Consult order Pramipexole Dihydrochloride (Pramipexole Di-Hcl 0.25 Mg Tablet) 0.125 mg PO DAILY [facility] Last Admin: 02/04/21 09:52 Dose: 0.125 mg Documented by: Sertraline HCl (Sertraline Hcl 100 Mg Tablet) 100 mg PO DAILY [facility] Last Admin: 02/04/21 08:09 Dose: 100 mg Documented by: Tizanidine HCl (Tizanidine Hcl 4 Mg Tablet) 2 mg PO TID PRN PRN Reason: Muscle Spasm Home Medications Medication Instructions Recorded Confirmed Last Taken Type insulin lispro protamine-lispro 30 unit SUBCUT BID 02/03/21 02/03/21 02/03/21 History 100 unit/mL (75-25) subcutaneous pen (Humalog Mix 75-25 KwikPen) levothyroxine 137 mcg tablet 1 tab PO DAILY 02/03/21 02/03/21 01/27/21 History pramipexole 0.125 mg tablet 1 tab PO DAILY 02/03/21 02/03/21 01/27/21 History sertraline 100 mg tablet 1 tab PO DAILY 02/03/21 02/03/21 01/27/21 History simvastatin 40 mg tablet 1 tab PO BEDTIME 02/03/21 02/03/21 01/27/21 History tizanidine 2 mg tablet 2 mg PO TID PRN 02/03/21 02/03/21 Unknown History Exam Exam Date and Time: February 04, 2021 141 Height,Weight and Vital Signs: Height 5 ft 5 in Weight 96.3 kg Last Vital Signs Temp 97.8 F 02/04/21 13:42 Pulse 84 02/04/21 13:42 Resp 16 02/04/21 13:42 BP 137/63 02/04/21 13:42 Pulse Ox 95 02/04/21 13:42 Pertinent Lab Results Pertinent Lab Results: Laboratory Tests 02/03/21 02/03/21 02/03/21 16:00 16:00 16:00 WBC 11.3 H RBC 4.38 Hgb 13.3 Hct 39.8 MCV 90.9 MCH 30.4 MCHC 33.4 RDW 13.4 Plt Count 260 MPV 10.6 Immature Gran % (Auto) 0.4 Neut % (Auto) 67.9 Lymph % (Auto) 22.0 [place] % (Auto) 6.8 Eos % (Auto) 2.3 Baso % (Auto) 0.6 Lymph # (Auto) 2.5 [place] # (Auto) 0.8 Eos # (Auto) 0.3 Baso # (Auto) 0.1 Abs Immat Gran (auto) 0.04 H Absolute Neuts (auto) 7.7 Absolute Nucleated RBC 0.000 Nucleated RBC % (auto) 0.0 ESR Sodium 137 Potassium 4.1 Chloride 102 Carbon Dioxide 25 Anion Gap 14 BUN 18 H Creatinine 0.96 Estim Creat Clear Calc 60.1 Estimated GFR 57 POC Glucose Random Glucose 217 H Lactic Acid 1.7 Calcium 9.4 Total Bilirubin 0.7 AST 15 ALT 12 Alkaline Phosphatase 85 C-Reactive Protein 3.62 H Total Protein 7.2 Albumin 4.5 COVID-19 (LINDA) COVID-[employer] 02/03/21 02/03/21 02/03/21 16:00 17:39 18:56 WBC RBC Hgb Hct MCV MCH MCHC RDW Plt Count MPV Immature Gran % (Auto) Neut % (Auto) Lymph % (Auto) [place] % (Auto) Eos % (Auto) Baso % (Auto) Lymph # (Auto) [place] # (Auto) Eos # (Auto) Baso # (Auto) Abs Immat Gran (auto) Absolute Neuts (auto) Absolute Nucleated RBC Nucleated RBC % (auto) ESR 32 H Sodium Potassium Chloride Carbon Dioxide Anion Gap BUN Creatinine Estim Creat Clear Calc Estimated GFR POC Glucose 121 H Random Glucose Lactic Acid Calcium Total Bilirubin AST ALT Alkaline Phosphatase C-Reactive Protein Total Protein Albumin COVID-19 (LINDA) Negative COVID-19 Clin Com See Note 02/03/21 02/04/21 02/04/21 20:57 05:14 07:06 WBC RBC Hgb Hct MCV MCH MCHC RDW Plt Count MPV Immature Gran % (Auto) Neut % (Auto) Lymph % (Auto) [place] % (Auto) Eos % (Auto) Baso % (Auto) Lymph # (Auto) [place] # (Auto) Eos # (Auto) Baso # (Auto) Abs Immat Gran (auto) Absolute Neuts (auto) Absolute Nucleated RBC Nucleated RBC % (auto) ESR Sodium Potassium Chloride Carbon Dioxide Anion Gap BUN Creatinine 0.84 Estim Creat Clear Calc 70.5 Estimated GFR > 60 POC Glucose 190 H 223 H Random Glucose Lactic Acid Calcium Total Bilirubin AST ALT Alkaline Phosphatase C-Reactive Protein Total Protein Albumin COVID-19 (LINDA) COVID-19 [employer] 02/04/21 11:13 WBC RBC Hgb Hct MCV MCH MCHC RDW Plt Count MPV Immature Gran % (Auto) Neut % (Auto) Lymph % (Auto) [place] % (Auto) Eos % (Auto) Baso % (Auto) Lymph # (Auto) [place] # (Auto) Eos # (Auto) Baso # (Auto) Abs Immat Gran (auto) Absolute Neuts (auto) Absolute Nucleated RBC Nucleated RBC % (auto) ESR Sodium Potassium Chloride Carbon Dioxide Anion Gap BUN Creatinine Estim Creat Clear Calc Estimated GFR POC Glucose 200 H Random Glucose Lactic Acid Calcium Total Bilirubin AST ALT Alkaline Phosphatase C-Reactive Protein Total Protein Albumin COVID-19 (LINDA) COVID-19 [employer] Com Airway Mallampati Class: II TM Dist: >3cm Neck ROM: Full Denture: Upper and Lower Heart: RRR Lungs: CTAB Assessment and Plan Assessment Anesthesia Assessment: Anesthesia Plan Discussed and Chart Reviewed Final Anesthetic Review Family History of Problems with Anesthesia: No History of Problems with Anesthesia: No NPO: Yes ASA Class: II Final Preanesthetic Review: No Changes in Pt Med Stat, Meds/Allgs Chart Reviewed, Consent Obtained/Reviewed and Anes Risks/Benef Reviewed Patient Risk: Low Procedure Risk: Low Assessment/Block/Sedation in SS: Assess/Block/Sedation-SS Anesthetic Plan Anesthetic Plan: GA Disposition: Standard PACU and Inp. Admit - Standard Bed
[2021-02-04 16:31] LABS: Glucose, Whole Blood 301 mg/dL (60-115)
[2021-02-04] MEDS: Lactated Ringers 1,000 ML 100 ML IVCONT (17:20)
[2021-02-04] MEDS: Clindamycin Phosphate/D5W 600 MG/50 ML PIGGYBACK 100 MG IV (17:20)
[2021-02-04] MEDS: HYDROcodone Bit/Acetam 5/325 TABLET 2 TAB PO (17:23)
[2021-02-04 20:31] LABS: Glucose, Whole Blood 381 mg/dL (60-115)
[2021-02-04] MEDS: Atorvastatin Calcium 20 MG TABLET PO (21:18)
[2021-02-05] MEDS: Clindamycin Phosphate/D5W 600 MG/50 ML PIGGYBACK 100 MG IV ×3 (00:28→16:15)
[2021-02-05] MEDS: HYDROcodone Bit/Acetam 5/325 TABLET 2 TAB PO ×3 (00:28→19:23)
[2021-02-05 03:29] VITALS: BP 120/58; PULSE 68; RESP 16; TEMP 36.6; O2SAT 93
[2021-02-05] MEDS: levoFLOXacin/D5W 750 MG/150 ML PIGGYBACK 100 MG IV ×2 (03:35→21:44)
[2021-02-05] MEDS: oxyCODONE HCl Immed Release 5 MG TABLET PO (03:35)
[2021-02-05] MEDS: Levothyroxine Sodium 112 MCG TABLET PO (05:51)
[2021-02-05] MEDS: Levothyroxine Sodium 25 MCG TABLET PO (05:51)
[2021-02-05 07:10] VITALS: BP 108/47; PULSE 68; RESP 16; TEMP 37.2; O2SAT 96
[2021-02-05 07:26] LABS: Glucose, Whole Blood 315 mg/dL (60-115)
[2021-02-05] MEDS: Pramipexole Di-HCL 0.25 MG TABLET 0.125 MG PO (07:42)
[2021-02-05] MEDS: Enoxaparin Sodium 40 MG/0.4 ML SYRINGE SUBCUT (07:42)
[2021-02-05] MEDS: Sertraline HCL 100 MG TABLET PO (07:43)
[2021-02-05] MEDS: Insulin Lispro 100 UNIT/ML 3 ML VIAL SUBCUT ×4 (07:43→21:44)
--- NOTE | 2021-02-05 09:43 | HO.PM.IMPN ---
Subjective Subjective Date of Service: 02/05/21 Interval History: Seen in f/u for cat scratch cellulitis of the right hand, s/p I and D yesterday, has excruciating pain toda Review of Systems No fever right hand pain Physical Exam Vital Signs: Vital Signs: Last Vital Signs Temp 98.9 F 02/05/21 07:10 Pulse 68 02/05/21 07:10 Resp 16 02/05/21 07:10 BP 108/47 L 02/05/21 07:10 Pulse Ox 96 02/05/21 07:10 Body Mass Index 35.3 General: AO X 3, no acute distress Resp: CTA bilateral CVS: S1,S2,RRR GI: +BS, NT, no distention Skin: right hand dressing was just done by ortho--see their exam, finger look fine Neuro: motor grossly intact Psych: appropriate affect Objective Data Active Medications Acetaminophen (Acetaminophen 325 Mg Tablet) 650 mg PO ONCE PRN PRN Reason: Pain, Mild (Pain Scale 1-3) Hydrocodone Bitart/Acetaminophen (Hydrocodone Bit/Acetam 5/325 Tablet) 2 tab PO Q6H PRN PRN Reason: Pain, Moderate (Pain Scale 4-6 Last Admin: 02/05/21 07:42 Dose: 2 tab Documented by: TANVI Atorvastatin Calcium (Atorvastatin Calcium 20 Mg Tablet) 20 mg PO BEDTIME [facility] Last Admin: 02/04/21 21:18 Dose: 20 mg Documented by: VANDANA Dextrose (Dextrose 50 % 25 Gm/50 Ml Vial) 25 gm IVPUSH Q15M PRN; Protocol PRN Reason: per Hypoglycemia Standing Ord. Enoxaparin Sodium (Enoxaparin Sodium 40 Mg/0.4 Ml Syringe) 40 mg SUBCUT DAILY [facility] Last Admin: 02/05/21 07:42 Dose: 40 mg Documented by: TANVI Fentanyl (Fentanyl Citrate/Pf 100 Mcg/2 Ml Vial) 25 mcg IVPUSH Q5M PRN; Protocol PRN Reason: Pain, Moderate (Pain Scale 4-6 Glucose (Glucose Gel 15 Gm Gel..Gram.) 15 gm PO Q15M PRN; Protocol PRN Reason: per Hypoglycemia Standing Ord. Lactated Ringer's (Lr) 1,000 mls @ 80 mls/hr IVCONT .[id number] [facility] Last Admin: 02/05/21 07:43 Dose: Not Given Documented by: TANVI Non-Admin Reason: IV Running Lactated Ringer's (Lr) 1,000 mls @ 100 mls/hr IVCONT .Q10H [facility] Last Infusion: 02/05/21 04:35 Dose: 100 mls/hr Documented by: VANDANA Clindamycin Phosphate (Cleocin) 600 mg in 50 mls @ 100 mls/hr IV Q8H [facility] Last Infusion: 02/05/21 08:19 Dose: 0 mls/hr Documented by: TANVI Levofloxacin (Levaquin) 750 mg in 150 mls @ 100 mls/hr IV Q24H [facility] Insulin Human Lispro (Insulin Lispro 100 Unit/Ml 3 Ml Vial) 0 unit SUBCUT QIDACHS [facility]; Protocol Last Admin: 02/05/21 07:43 Dose: 8 unit Documented by: TANVI Levothyroxine Sodium (Levothyroxine Sodium 112 Mcg Tablet) 112 mcg PO DAILY@0600 [facility] Last Admin: 02/05/21 05:51 Dose: 112 mcg Documented by: VANDANA Levothyroxine Sodium (Levothyroxine Sodium 25 Mcg Tablet) 25 mcg PO DAILY@0600 [facility] Last Admin: 02/05/21 05:51 Dose: 25 mcg Documented by: VANDANA Ondansetron HCl (Ondansetron Hcl 4 Mg/2 Ml Vial) 4 mg IVPUSH ONCE PRN PRN Reason: Nausea and Vomiting Pharmacy Consult (Consult Rx Perform Med Rec) 1 each MISCELLANE ONCE PRN PRN Reason: Consult order Pharmacy Consult (Consult Rx Vancomycin Dosing) 1 each MISCELLANE DAILY PRN PRN Reason: Consult order Pramipexole Dihydrochloride (Pramipexole Di-Hcl 0.25 Mg Tablet) 0.125 mg PO DAILY [facility] Last Admin: 02/05/21 07:42 Dose: 0.125 mg Documented by: TANVI Sertraline HCl (Sertraline Hcl 100 Mg Tablet) 100 mg PO DAILY [facility] Last Admin: 02/05/21 07:43 Dose: 100 mg Documented by: TANVI Tizanidine HCl (Tizanidine Hcl 4 Mg Tablet) 2 mg PO TID PRN PRN Reason: Muscle Spasm Labs CBC & Chem 7: 02/03/21 16:00 02/04/21 05:14 Labs: Laboratory Results - last 24 hr 02/04/21 02/04/21 02/04/21 11:13 16:26 20:24 POC Glucose 200 H 301 H 381 H* 02/05/21 07:13 POC Glucose 315 H Microbiology Microbiology Results: Microbiology 02/03/21 16:41 Blood Culture - Preliminary Blood - Venous No growth after 24 hours. 02/03/21 16:00 Blood Culture - Preliminary Blood - Venous No growth after 24 hours. Assessment and Plan (1) Infection of right hand due to bite: Status: Acute (2) Cat bite: Status: Acute (3) Cellulitis: Status: Acute Assessment and Plan: ? 70/ with diabetes here with cat scrath cellulitis and possible tenosynovitis 1. Cellulitis of right hand /cat scartech and possible Tenosynovitis s/p I and D in OR yesterday -ID changed Vanco and Zosyn to Levaquin and Clindamycin -ID and Ortho following 2. Diabetes: SSI, diabetic diet 3. Hyperlipidemia: continue statin 4. Hypothyroidism:? Continue levothyroxine. 5. Rest rest leg syndrome:? Continue pramipexole. DVT prophylaxis with Lovenox. Quality Stroke Does the patient have a stroke diagnosis?: No VTE Prior VTE?: No VTE Risk Level:: Medical - moderate - high VTE Device Contraindication: N/A - Device Ordered VTE Drug Contraindication: N/A - Med Ordered
--- NOTE | 2021-02-05 09:43 | PM.EVENT ---
Event Note Date of Service: 02/05/21 Event Note: Postop day 1 status post I and D of the right hand. Patient denies worsening symptoms. Denies fever or chills. Right hand packing removed. No drainage. There is resolving redness and swelling. She is able to move all fingers with limitations in the index finger and thumb due to pain. Dry dressing applied. She will continue IV antibiotics. Recommend motion of the hand as tolerated. Will continue to follow.
[2021-02-05 11:19] VITALS: BP 106/46; PULSE 85; RESP 17; TEMP 36.3; O2SAT 97
[2021-02-05] MEDS: Lactated Ringers 1,000 ML 100 ML IVCONT ×2 (11:20→19:23)
--- NOTE | 2021-02-05 11:20 | HO.POSTANES ---
Post Anesthesia Evaluation Post Anesthesia Evaluation Vital Signs: Vital Signs Temp Pulse Resp BP Pulse Ox 02/05/21 11:19 97.4 F 85 17 106/46 L 97 02/05/21 07:10 98.9 F 68 16 108/47 L 96 02/05/21 03:29 98 F 68 16 120/58 L 93 02/04/21 23:57 97.8 F 59 18 136/61 93 Anesthesia: General Mental Status: Awake Pain Control: Satisfactory Nausea/Vomiting: None Hydration: Adequate Anesthesia-Related Issues: No Anes. Related Issues
[2021-02-05 11:36] LABS: Glucose, Whole Blood 310 mg/dL (60-115)
[2021-02-05 15:22] VITALS: BP 116/57; PULSE 81; RESP 18; TEMP 36.9; O2SAT 96
[2021-02-05 16:17] LABS: Glucose, Whole Blood 326 mg/dL (60-115)
[2021-02-05 19:14] VITALS: BP 117/49; PULSE 73; RESP 18; TEMP 36.8; O2SAT 96
[2021-02-05 20:13] LABS: Glucose, Whole Blood 337 mg/dL (60-115)
[2021-02-05] MEDS: Atorvastatin Calcium 20 MG TABLET PO (21:44)
[2021-02-05 23:53] VITALS: BP 121/53; PULSE 67; RESP 16; TEMP 37.2; O2SAT 93
[2021-02-06] MEDS: Clindamycin Phosphate/D5W 600 MG/50 ML PIGGYBACK 100 MG IV ×3 (01:09→16:12)
[2021-02-06 03:44] VITALS: BP 109/52; PULSE 65; RESP 16; TEMP 36.6; O2SAT 95
[2021-02-06] MEDS: Levothyroxine Sodium 112 MCG TABLET PO (05:49)
[2021-02-06] MEDS: Levothyroxine Sodium 25 MCG TABLET PO (05:49)
[2021-02-06 07:31] VITALS: BP 137/64; PULSE 65; RESP 18; TEMP 36.2; O2SAT 95
[2021-02-06 07:34] LABS: Glucose, Whole Blood 370 mg/dL (60-115)
[2021-02-06] MEDS: Insulin Lispro 100 UNIT/ML 3 ML VIAL SUBCUT ×3 (07:41→21:12)
[2021-02-06] MEDS: Pramipexole Di-HCL 0.25 MG TABLET 0.125 MG PO (07:42)
[2021-02-06] MEDS: Enoxaparin Sodium 40 MG/0.4 ML SYRINGE SUBCUT (07:43)
[2021-02-06] MEDS: Lactated Ringers 1,000 ML 100 ML IVCONT ×2 (07:45→18:19)
[2021-02-06] MEDS: ondansetron HCL 4 MG/2 ML VIAL IVPUSH (07:45)
[2021-02-06] MEDS: Sertraline HCL 100 MG TABLET PO (07:56)
--- NOTE | 2021-02-06 09:55 | PM.EVENT ---
Event Note Date of Service: 02/06/21 Event Note: Patient seen today at bedside status post I and D of the right hand Pain and swelling continues to improve there is still some localized redness at the base of the thumb No drainage from either incision site She does have the ability to move the hands she cannot fully make a closed fist bringing the index and thumb down but it is at least 2 cm above the palm Continue antibiotics Culture show no growth after 2 days Will continue to follow as needed
--- NOTE | 2021-02-06 11:04 | P.PNIM_ITS ---
Subjective Subjective Date of Service: 02/06/21 Interval History: Seen in f/u for hand cellulitis as result of cat bite Review of Systems Pain in the hand no fever has some nausea Physical Exam Vital Signs: Vital Signs: Last Vital Signs Temp 97.2 F 02/06/21 07:31 Pulse 65 02/06/21 07:31 Resp 18 02/06/21 07:31 BP 137/64 02/06/21 07:31 Pulse Ox 95 02/06/21 07:31 Body Mass Index 35.3 Objective Data Active Medications Acetaminophen (Acetaminophen 325 Mg Tablet) 650 mg PO ONCE PRN PRN Reason: Pain, Mild (Pain Scale 1-3) Hydrocodone Bitart/Acetaminophen (Hydrocodone Bit/Acetam 5/325 Tablet) 2 tab PO Q6H PRN PRN Reason: Pain, Moderate (Pain Scale 4-6 Last Admin: 02/05/21 19:23 Dose: 2 tab Documented by: VANDANA Atorvastatin Calcium (Atorvastatin Calcium 20 Mg Tablet) 20 mg PO BEDTIME [facility] Last Admin: 02/05/21 21:44 Dose: 20 mg Documented by: VANDANA Dextrose (Dextrose 50 % 25 Gm/50 Ml Vial) 25 gm IVPUSH Q15M PRN; Protocol PRN Reason: per Hypoglycemia Standing Ord. Enoxaparin Sodium (Enoxaparin Sodium 40 Mg/0.4 Ml Syringe) 40 mg SUBCUT DAILY [facility] Last Admin: 02/06/21 07:43 Dose: 40 mg Documented by: JANETH Fentanyl (Fentanyl Citrate/Pf 100 Mcg/2 Ml Vial) 25 mcg IVPUSH Q5M PRN; Protocol PRN Reason: Pain, Moderate (Pain Scale 4-6 Glucose (Glucose Gel 15 Gm Gel..Gram.) 15 gm PO Q15M PRN; Protocol PRN Reason: per Hypoglycemia Standing Ord. Lactated Ringer's (Lr) 1,000 mls @ 80 mls/hr IVCONT .[id number] [facility] Last Admin: 02/06/21 07:03 Dose: Not Given Documented by: JANETH Non-Admin Reason: duplicate Lactated Ringer's (Lr) 1,000 mls @ 100 mls/hr IVCONT .Q10H [facility] Last Admin: 02/06/21 07:45 Dose: 100 mls/hr Documented by: JANETH Clindamycin Phosphate (Cleocin) 600 mg in 50 mls @ 100 mls/hr IV Q8H [facility] Last Infusion: 02/06/21 10:28 Dose: 100 mls/hr Documented by: JANETH Levofloxacin (Levaquin) 750 mg in 150 mls @ 100 mls/hr IV Q24H [facility] Last Infusion: 02/05/21 23:39 Dose: 0 mls/hr Documented by: VANDANA Insulin Human Lispro (Insulin Lispro 100 Unit/Ml 3 Ml Vial) 0 unit SUBCUT QIDACHS [facility]; Protocol Last Admin: 02/06/21 07:41 Dose: 10 unit Documented by: JANETH Levothyroxine Sodium (Levothyroxine Sodium 112 Mcg Tablet) 112 mcg PO DAILY@0600 [facility] Last Admin: 02/06/21 05:49 Dose: 112 mcg Documented by: VANDANA Levothyroxine Sodium (Levothyroxine Sodium 25 Mcg Tablet) 25 mcg PO DAILY@0600 [facility] Last Admin: 02/06/21 05:49 Dose: 25 mcg Documented by: VANDANA Ondansetron HCl (Ondansetron Hcl 4 Mg/2 Ml Vial) 4 mg IVPUSH ONCE PRN PRN Reason: Nausea and Vomiting Last Admin: 02/06/21 07:45 Dose: 4 mg Documented by: JANETH Pharmacy Consult (Consult Rx Perform Med Rec) 1 each MISCELLANE ONCE PRN PRN Reason: Consult order Pharmacy Consult (Consult Rx Vancomycin Dosing) 1 each MISCELLANE DAILY PRN PRN Reason: Consult order Pramipexole Dihydrochloride (Pramipexole Di-Hcl 0.25 Mg Tablet) 0.125 mg PO DAILY [facility] Last Admin: 02/06/21 07:42 Dose: 0.125 mg Documented by: JANETH Sertraline HCl (Sertraline Hcl 100 Mg Tablet) 100 mg PO DAILY [facility] Last Admin: 02/06/21 07:56 Dose: 100 mg Documented by: JANETH Tizanidine HCl (Tizanidine Hcl 4 Mg Tablet) 2 mg PO TID PRN PRN Reason: Muscle Spasm Labs CBC & Chem 7: 02/03/21 16:00 02/04/21 05:14 Labs: Laboratory Results - last 24 hr 02/05/21 02/05/21 02/05/21 11:16 16:09 20:09 POC Glucose 310 H 326 H 337 H 02/06/21 07:30 POC Glucose 370 H* Microbiology Microbiology Results: Microbiology 02/04/21 Unknown Gram Stain - Final Hand Right Routine Culture - Final No growth after 2 days 02/03/21 16:41 Blood Culture - Preliminary Blood - Venous No growth after 48 hours. 02/03/21 16:00 Blood Culture - Preliminary Blood - Venous No growth after 48 hours. Assessment and Plan (1) Infection of right hand due to bite: Status: Acute (2) Cat bite: Status: Acute (3) Cellulitis: Status: Acute Assessment and Plan: ? 70/ with diabetes here with cat scrath cellulitis and possible tenosynovitis 1. Cellulitis of right hand /cat scartech and possible Tenosynovitis--improving s/p I and D in OR yesterday -ID changed Vanco and Zosyn to Levaquin and Clindamycin -ID and Ortho following -IV Abx for one more day then change to PO 2. Diabetes: SSI, uncontrolled, give more insulin, at home she was on insulin 75/25 30 bid, will convert to Lantus 3. Hyperlipidemia: continue statin 4. Hypothyroidism:? Continue levothyroxine. 5. Rest rest leg syndrome:? Continue pramipexole. DVT prophylaxis with Lovenox. Quality Stroke Does the patient have a stroke diagnosis?: No VTE Prior VTE?: No VTE Risk Level:: Medical - moderate - high VTE Device Contraindication: N/A - Device Ordered VTE Drug Contraindication: N/A - Med Ordered
[2021-02-06 11:26] VITALS: BP 119/47; PULSE 70; RESP 17; TEMP 36.6; O2SAT 95
[2021-02-06 11:29] LABS: Glucose, Whole Blood 414 mg/dL (60-115)
[2021-02-06] MEDS: Insulin Lispro 100 UNIT/ML 3 ML VIAL 15 UNIT SUBCUT ×2 (12:22→17:18)
[2021-02-06 15:59] VITALS: BP 124/52; PULSE 65; RESP 18; TEMP 36.8; O2SAT 92
[2021-02-06] MEDS: HYDROcodone Bit/Acetam 5/325 TABLET 2 TAB PO (16:11)
[2021-02-06 16:34] LABS: Vancomycin Trough < 3.0 mcg/mL (10.0-20.0)
[2021-02-06 17:00] LABS: Glucose, Whole Blood 313 mg/dL (60-115)
[2021-02-06] MEDS: Rabies Vaccine (PCEC)/PF 1 ML VIAL IM (19:14)
[2021-02-06 19:48] VITALS: BP 119/58; PULSE 66; RESP 18; TEMP 36.8; O2SAT 93
[2021-02-06 20:52] LABS: Glucose, Whole Blood 280 mg/dL (60-115)
[2021-02-06] MEDS: Insulin Glargine,Hum.rec.anlog 100 UNIT/ML 10 ML VIAL 36 UNIT SUBCUT (21:11)
[2021-02-06] MEDS: levoFLOXacin/D5W 750 MG/150 ML PIGGYBACK 100 MG IV (21:13)
[2021-02-06] MEDS: Atorvastatin Calcium 20 MG TABLET PO (21:13)
[2021-02-06 23:58] VITALS: BP 129/60; PULSE 73; RESP 14; TEMP 36.2; O2SAT 93
[2021-02-07] MEDS: Clindamycin Phosphate/D5W 600 MG/50 ML PIGGYBACK 100 MG IV (00:08)
[2021-02-07] MEDS: Lactated Ringers 1,000 ML 100 ML IVCONT (03:09)
[2021-02-07] MEDS: HYDROcodone Bit/Acetam 5/325 TABLET 2 TAB PO ×2 (03:13→13:07)
[2021-02-07 03:51] VITALS: BP 119/58; PULSE 61; RESP 17; TEMP 36.2; O2SAT 93
[2021-02-07] MEDS: Levothyroxine Sodium 25 MCG TABLET PO (05:26)
[2021-02-07] MEDS: Levothyroxine Sodium 112 MCG TABLET PO (05:26)
[2021-02-07 07:27] LABS: Glucose, Whole Blood 219 mg/dL (60-115)
[2021-02-07 07:32] VITALS: BP 135/62; PULSE 63; RESP 16; TEMP 36.9; O2SAT 95
[2021-02-07] MEDS: Insulin Lispro 100 UNIT/ML 3 ML VIAL SUBCUT ×2 (08:59→12:10)
[2021-02-07] MEDS: Insulin Lispro 100 UNIT/ML 3 ML VIAL 15 UNIT SUBCUT (08:59)
[2021-02-07] MEDS: Enoxaparin Sodium 40 MG/0.4 ML SYRINGE SUBCUT (09:00)
[2021-02-07] MEDS: Clindamycin Phosphate/D5W 600 MG/50 ML PIGGYBACK 50 MG IV (09:00)
[2021-02-07] MEDS: Pramipexole Di-HCL 0.125 MG TABLET PO (09:02)
[2021-02-07] MEDS: Sertraline HCL 100 MG TABLET PO (09:03)
--- NOTE | 2021-02-07 11:11 | P.DS_ITS ---
DS: Providers Provider Date of Service: 02/07/21 Date of admission: 02/03/21 17:47 Primary care physician: Nonstaff Physician Consults: 02/03/21 17:49 Consult to Infectious Diseases Routine Consulting Provider: Kaitlin Villalobos Reason for consultation: hand cellulitis/cat bite, tinosynovitis Has provider been notified: No Consult to Orthopedics Routine Consulting Provider: Wale Pham Reason for consultation: hand cellulitis/tinosynovitis Has provider been notified: No DS: Diagnosis Discharge Diagnosis (1) Infection of right hand due to bite: Status: Acute (2) Cat bite: Status: Acute (3) Cellulitis: Status: Acute DS: Summary Hospital Course Hospital Course: Chief Complaint: right hand cellulitis/tinosynovitis 70-year-old female with history of diabetes, hyperlipidemia, hypothyroidism, rest rest leg syndrome:? She said that 2 days back she was scratched by her cat- subsequently she had could scratch on the both hands-her left hand seems to be fine but her right hand is now having lot of pain and swelling as well, as erythema.? She says her cat? is domestic but not well behaved. She says from last 2 days is slowly is becoming difficult move her rigth hand pain, erythema, swelling and movements of right hand. She denies any fever but has chills. Denies any new complaint of chest pain or shortness of breath or abdominal pain or nausea or vomiting Denies any recent travel or any family member with similar symptoms, or any new rash Denies any cough Denies any weakness or numbness. Past medical history as above. Denies any past surgical history. Lives alone.? Denies any smoking, recreational drugs, alcohol use. Family history lacy:? Her sister had diabetes as per the patient. Lab imaging data personally reviewed and interpreted-patient has mild leukocytosis, mild tachycardia-does not qualify for sepsis. Hand x-ray:? Seems unremarkable. ED physician given Vanco and Zosyn and discussed the case with Dr. Pham from [facility] recommended admission for inpatient hospitalist service. Hospital course: patient was admitted with cat scratch and possible bite that resulted in cellulitis of the right hand. She was initially treated with Zosyn and Vancomycin and subsequently changed to Levaquin and Clindamycin by ID. Patient underwent I and D of the wound the next day by Dr. Navarro, overall the erythema has sigificantly reduced, swelling has gone down. She is now able to move hand and fingers more. I am changing to oral Clindamycin for 1week and levaquin for total of 14 days per ID recommendation. Of note she was given rabies vaccine and will complete cousre on outpatient basis. Follow up with hand surgery in a week Time Spent with Patient Time attestation: Total time spent providing and/or coordinating discharge services: Discharge coordination time: Greater than 30 minutes Quality: Stroke Does the patient have a stroke diagnosis?: No Physical Exam Vital Signs: Vital Signs: Last Vital Signs Temp 98.5 F 02/07/21 07:32 Pulse 63 02/07/21 07:32 Resp 16 02/07/21 07:32 BP 135/62 02/07/21 07:32 Pulse Ox 95 02/07/21 07:32 Body Mass Index 35.3 DS: Data Data Completed and Pending Labs on day of discharge: Laboratory Results - last 24 hr 02/06/21 02/06/21 02/06/21 11:25 15:56 16:56 POC Glucose 414 H* 313 H Vancomycin Trough < 3.0 L 02/06/21 02/07/21 19:51 07:23 POC Glucose 280 H 219 H Vancomycin Trough Preliminary micro results at discharge 02/03/21 16:41 Blood Culture - Preliminary Blood - Venous No growth after 48 hours. 02/03/21 16:00 Blood Culture - Preliminary Blood - Venous No growth after 48 hours. Discharge Plan Discharge Anticipated Discharge Date/Time: 02/07/21 11:05 Patient Disposition: Home Health Service Discharge Diagnosis: Cellulitis of the right hand due to cat bite. Referrals: Physician,Nonstaff [Primary Care Provider] - 1 Week Lyn Harris MD [Physician] - 1 Week Discharge Medications: New levofloxacin 750 mg tablet 750 mg PO DAILY 7 Days Qty: 11 RF: 0 clindamycin HCl 300 mg capsule 300 mg PO Q8H 4 Days Qty: 12 RF: 0 Continued levothyroxine 137 mcg tablet 1 tab PO DAILY RF: 0 sertraline 100 mg tablet 1 tab PO DAILY RF: 0 simvastatin 40 mg tablet 1 tab PO BEDTIME RF: 0 pramipexole 0.125 mg tablet 1 tab PO DAILY RF: 0 insulin lispro protamin-lispro [Humalog Mix 75-25 KwikPen] 100 unit/mL (75-25) insulin pen 30 unit subcut BID RF: 0 tizanidine 2 mg Tablet 2 mg PO TID PRN (Reason: Muscle Spasm) RF: 0 Discharge Orders: Discharge Order (Routine); Ordered 02/07/21 Ordered By: Justin Zamora Diet: advance to usual diet Activity on Discharge: As tolerated Stand Alone Forms: Patient Portal Discharge page Care Plan Goals: Full recovery from CAT by cellulitis. Health Concerns: Cellulitis of the right hand due to cat bite Plan of Treatment: Take Clindamycin and Levaquin as directed and follow up with your primary care doctor, follow-up with Dr. Harris in hand surgeon. Keep dry dressing on the wound daily, if notice any worsening or increasing redness, please return to ED, Follow up with rabied shots as previously scheduled Assessment: As above.
[2021-02-07 11:29] LABS: Glucose, Whole Blood 212 mg/dL (60-115)
[2021-02-07 11:33] VITALS: BP 131/62; PULSE 71; RESP 18; TEMP 36.6; O2SAT 93
--- NOTE | 2021-02-07 12:55 | P.F2F_ITS ---
Service Date Service Date: 02/07/21 Reasons for Services Reason for chcf: wound care Homebound: Leaving the home is medically contraindicated at this time without the asist of a device and/or another person due th the listed conditions above and below. Homebound supporting statement: Wound bound due infected dominant righ hand with cellulitis due to cat scratch, unable to do ADLS and therefore needs the assistance of another person Certification: Based on the above findings, I certify that this patient is confined to the home and needs intermittent chcf care, physical therapy and/or speech therapy, or continues to need occupational therapy. The patient is under my care, and I have initiated the establishment of the plan of care. The patient will be followed by a physician who will periodically review the plan of care.
== END 2021-02-07 13:24 | disposition home health service (06) | DRG 603 ==
LOC: HO.ED 16:22 → HO.EDOVER 18:25 → HO.S3 18:40
PROVIDERS: Orthopaedic Surgery; Physician Assistant; Admitting Provider Internal Medicine; Emergency Provider Emergency Medicine; Visit Provider Internal Medicine
PROC: 0J9J0ZZ Drainage of Right Hand Subcutaneous Tissue and Fascia, Open Approach (ICD-10-PCS; CPT 26010; principal; 2021-02-04 14:30)
DX: L03.113 Cellulitis of right upper limb (principal); S61.431A Puncture wound without foreign body of right hand, initial encounter; W55.01XA Bitten by cat, initial encounter; Y93.9 Activity, unspecified; Y92.9 Unspecified place or not applicable; Y99.9 Unspecified external cause status; E03.9 Hypothyroidism, unspecified; E78.5 Hyperlipidemia, unspecified; E11.9 Type 2 diabetes mellitus without complications; G25.81 Restless legs syndrome; Z23 Encounter for immunization; Z20.822 Contact with and (suspected) exposure to COVID-19; Z87.891 Personal history of nicotine dependence; Z79.890 Hormone replacement therapy; Z79.899 Other long term (current) drug therapy
CPT/HCPCS: 26010; 36415; 73120; 80053; 80202; 82565; 82947; 83605; 85025; 85652; 86140; 87040; 87071; 87205; 87635; 90375; 90471; 90472; 90675; 90715; 96361; 96365; 96372; 96375; 99285; J1650; J1956; J2250; J2370; J2405; J2543; J3010; J3370

== ENCOUNTER → 2021-02-18 11:17 | Outpatient (BNVA) | payer OTHER, MEDICAID, SELFPAY | PROVIDERS: Visit Provider Physician Assistant ==

== ENCOUNTER → 2021-02-25 13:14 | Outpatient (BNVA) | payer OTHER, MEDICAID, SELFPAY | PROVIDERS: Visit Provider Physician Assistant ==

== ENCOUNTER 2021-08-14 15:14 | Emergency (ER) | payer MEDICARE, MEDICAID, SELFPAY ==
[2021-08-14 15:35] VITALS: BP 122/50; PULSE 72; RESP 18; TEMP 36.6; O2SAT 98; BMI 32.8
[2021-08-14 16:44] VITALS: BP 99/61; PULSE 78; RESP 16; TEMP 36.6; O2SAT 99
[2021-08-14] MEDS: Lidocaine HCl 2 % MPF 5 ML VIAL INFILTRATI (16:46)
--- NOTE | 2021-08-14 18:24 | ED.WOUNDLAC ---
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 Admits tetanus is up-to-date. Denies numbness, tingling, weakness, injury to the area. Admits can was dirty Onset (ago): hour(s) Related Data Home Medications Medication Instructions Recorded Confirmed insulin lispro protamine-lispro 30 unit SUBCUT BID 02/03/21 02/03/21 100 unit/mL (75-25) subcutaneous pen (Humalog Mix 75-25 KwikPen) levothyroxine 137 mcg tablet 1 tab PO DAILY 02/03/21 02/03/21 pramipexole 0.125 mg tablet 1 tab PO DAILY 02/03/21 02/03/21 sertraline 100 mg tablet 1 tab PO DAILY 02/03/21 02/03/21 simvastatin 40 mg tablet 1 tab PO BEDTIME 02/03/21 02/03/21 tizanidine 2 mg tablet 2 mg PO TID PRN 02/03/21 02/03/21 Previous Rx's Medication Instructions Recorded levofloxacin 750 mg tablet 750 mg PO DAILY 7 Days #11 tab 02/07/21 clindamycin HCl 300 mg capsule 300 mg PO Q8H 7 Days #21 cap 02/18/21 bacitracin 500 unit/gram topical 1 appl TOPICAL BID #30 g 08/14/21 ointment cephalexin 500 mg capsule 500 mg PO QID 5 Days #20 cap 08/14/21 Allergies Allergy/AdvReac Type Severity Reaction Status Date / Time No Known Allergies Allergy Verified 02/25/21 13:28 Review of Systems Review of Systems: Constitutional: No Fever, No Chills ENT/Mouth: No Ear Pain, No sore throat, No Rhinorrhea, No Swallowing Difficulty Cardiovascular: No Chest Pain, No SOB Respiratory: No Cough, No Sputum, No Wheezing Gastrointestinal: No Nausea, No Vomiting, No Diarrhea, No Constipation, No Abdominal pain Genitourinary:, No Dysuria, No Urinary Frequency, No Flank Pain Musculoskeletal: + joint pain, No Myalgias, No Joint Swelling Skin: + Skin Lesions, No rash Neuro: No Weakness, No Numbness, No Paresthesias Yes all other systems are reviewed and are negative Neurologic: Denies Sensory deficit (Neuro) [facility] Past Medical History Attestation statement: The following information was validated with the patient. Medical History Anxiety Cat bite Depression Diabetes Hypothyroidism Surgical History History of ankle surgery History of carpal tunnel surgery History of tonsillectomy and adenoidectomy Social History Social History Household Members: None Housing: Apartment Do you presently have visiting nurse or other home services: No Patient Tobacco Use Status: Former Tobacco user Tobacco use type: Cigarette Substance Use Type: Marijuana Advance Directives: No Advance Directives Information Provided: No service: No Current occupational status: retired Current occupation: rt handed Physical Exam Vital Signs: Vital Signs: Last Vital Signs Temp 97.8 F 08/14/21 16:44 Pulse 78 08/14/21 16:44 Resp 16 08/14/21 16:44 BP 99/61 08/14/21 16:44 Pulse Ox 99 08/14/21 16:44 BMI result Body Mass Index 32.8 Const: General: cooperative, healthy appearing and no acute distress Orientation/consciousness: patient oriented x3 Limitations: no limitations HEENT: Head: Yes normal to inspection and Yes atraumatic Ears: hearing grossly normal bilaterally General nose exam: Normal external nose present Face and sinus: Yes normal facial exam Eyes: General: appearance normal, both eyes and all related structures EOM: EOMs intact bilaterally Neck: Neck: Yes normal visual inspection and Yes no meningeal signs Resp: Effort & Inspection: normal respiratory effort and no respiratory distress Cardio: Rate: regular rate Peripheral pulses: radial pulses present Skin: Other: + 2 cm laceration noted to medial aspect of distal left thumb. No underlying structure involvement. Cap refill WNL. FROM intact. 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 On exam VSS, NAD/well-appearing, physical exam as above, will repair wound Differential Diagnosis Differential diagnosis: Likely laceration Medical Records Attestation: I reviewed the patient's medical records. Lab Data Attestation: I reviewed the patient's lab results. Procedures Laceration Laceration 1: Site: hand Side (If applicable): left Size (cm): 2 Description: linear Depth: simple, single layer Local Anesthetic: lidocaine 1% and other anesthetic (Digital block) Amount of anesthesia used (mL): 4 Pre-repair: wound explored, irrigated extensively and deep structures intact Size (cm): 4-0 Number of sutures: 8 Technique: simple, interrupted Discharge Plan Discharge Clinical Impression: Laceration Patient Disposition: Home, Self-Care Instructions: Laceration (ED) Additional Instructions: Return to any emergency department or urgent care in 7 to 10 days to have her sutures removed Apply bacitracin and Neosporin at home Keflex as an antibiotic please take as prescribed to prevent infection Keep a close eye on the area, if becomes red, has pus drainage, streaking, or you develop fever please return to the ED Please keep sutures dry and clean Prescriptions: New cephalexin 500 mg capsule 500 mg PO QID 5 Days Qty: 20 0RF bacitracin 500 unit/gram ointment 1 appl topical BID Qty: 30 0RF No Action levothyroxine 137 mcg tablet 1 tab PO DAILY 0RF sertraline 100 mg tablet 1 tab PO DAILY 0RF simvastatin 40 mg tablet 1 tab PO BEDTIME 0RF pramipexole 0.125 mg tablet 1 tab PO DAILY 0RF insulin lispro protamin-lispro [Humalog Mix 75-25 KwikPen] 100 unit/mL (75-25) insulin pen 30 unit subcut BID 0RF tizanidine 2 mg Tablet 2 mg PO TID PRN (Reason: Muscle Spasm) 0RF levofloxacin 750 mg tablet 750 mg PO DAILY 7 Days Qty: 11 0RF clindamycin HCl 300 mg capsule 300 mg PO Q8H 7 Days Qty: 21 0RF Referrals: Bucky Castle MD [Emergency Provider] - 1 week (7-10 days to have sutures removed)
== END 2021-08-14 18:32 | disposition home or self-care (01) ==
PROVIDERS: Emergency Provider Internal Medicine
DX: S61.012A Laceration without foreign body of left thumb without damage to nail, initial encounter (principal); W26.8XXA Contact with other sharp object(s), not elsewhere classified, initial encounter; E11.9 Type 2 diabetes mellitus without complications; Y93.89 Activity, other specified; Y92.9 Unspecified place or not applicable; Y99.9 Unspecified external cause status; Z79.4 Long term (current) use of insulin
CPT/HCPCS: 12001; 99283; 99284

== ENCOUNTER 2021-08-24 17:43 | Emergency (ER) | payer MEDICARE, MEDICAID, SELFPAY ==
[2021-08-24 17:58] VITALS: BP 134/41; PULSE 72; RESP 12; TEMP 36.1; O2SAT 94; BMI 33.4
--- NOTE | 2021-08-24 18:42 | ED.GENADULT ---
HPI - General Adult General Chief complaint: General Medical Stated complaint: suture removal Time Seen by Provider: 08/24/21 18:41 Source: patient Mode of arrival: ambulatory Limitations: no limitations History of Present Illness HPI narrative: 71-year-old female presenting to the emergency department for suture removal, sutures were placed to the left thumb on 08/14/2021. She denies any complaints. Area healed well. Denies numbness or tingling. Full range of motion. Relieving factors: none Exacerbating factors: none Associated symptoms: denies other symptoms Treatments prior to arrival: none Related Data Home Medications Medication Instructions Recorded Confirmed insulin lispro protamine-lispro 30 unit SUBCUT BID 02/03/21 02/03/21 100 unit/mL (75-25) subcutaneous pen (Humalog Mix 75-25 KwikPen) levothyroxine 137 mcg tablet 1 tab PO DAILY 02/03/21 02/03/21 pramipexole 0.125 mg tablet 1 tab PO DAILY 02/03/21 02/03/21 sertraline 100 mg tablet 1 tab PO DAILY 02/03/21 02/03/21 simvastatin 40 mg tablet 1 tab PO BEDTIME 02/03/21 02/03/21 tizanidine 2 mg tablet 2 mg PO TID PRN 02/03/21 02/03/21 Previous Rx's Medication Instructions Recorded levofloxacin 750 mg tablet 750 mg PO DAILY 7 Days #11 tab 02/07/21 clindamycin HCl 300 mg capsule 300 mg PO Q8H 7 Days #21 cap 02/18/21 bacitracin 500 unit/gram topical 1 appl TOPICAL BID #30 g 08/14/21 ointment cephalexin 500 mg capsule 500 mg PO QID 5 Days #20 cap 08/14/21 Allergies Allergy/AdvReac Type Severity Reaction Status Date / Time No Known Allergies Allergy Verified 08/24/21 18:41 Review of Systems Review of Systems: Constitutional : No Fever, No Chills, Cardiovascular : No Chest Pain, No SOB Respiratory : No Dyspnea Gastrointestinal : No abdominal pain Musculoskeletal : No Joint Swelling Skin : No rash, positive skin laceration with overlying suture Neuro : No Weakness, No Numbness Psych : No SI/HI Yes all other systems are reviewed and are negative PMFSH Past Medical History Attestation statement: The following information was validated with the patient. Source: old records reviewed and nursing notes reviewed Medical History Anxiety Cat bite Depression Diabetes Hypothyroidism Surgical History History of ankle surgery History of carpal tunnel surgery History of tonsillectomy and adenoidectomy Social History Social History Household Members: None Housing: Apartment Do you presently have visiting nurse or other home services: No Patient Tobacco Use Status: Former Tobacco user Tobacco use type: Cigarette Substance Use Type: Marijuana Advance Directives: No Advance Directives Information Provided: No service: No Current occupational status: retired Current occupation: rt handed Physical Exam ED Vital Signs: Vital Signs - 24 hr 08/24/21 17:58 Temperature 97 F Pulse Rate 72 Respiratory Rate 12 Blood Pressure 134/41 L Pulse Oximetry 94 BMI result Body Mass Index 33.4 Vital signs stable Appearance: Alert.? Oriented X3.? No acute distress.? Head: Normocephalic, atraumatic, no step-offs or deformities Eyes: Pupils equal, round and reactive to light.? Neck: Normal inspection.? Neck supple.? CVS: Normal heart rate and rhythm.? Pulses normal.? Respiratory: No respiratory distress.? Breath sounds normal.? Abdomen: Soft and nontender.? Skin: Skin warm and dry.? Normal skin color.? Normal skin turgor.? Extremities: No lower extremity edema.? No calf ttp. 5/5 strength to bilateral upper and lower extremities + 8 intact sutures to the left thumb, no overlying signs of infection, no discharge. Edges well approximated. Neuro: Oriented X 3.? No motor deficit.? No sensory deficit. CN 2-12 intact Course Reevaluation(s) Reevaluation #1: Successfully removed 8 sutures. No complications. At this time patient will be discharged home with PCP follow-up. Educated her on signs of infection. Comfortable discharge home. Neurovascular intact on discharge Time: 19:03 Medical Decision Making [facility] Narrative Medical decision making narrative: 1900 71 yo f presents for suture removal Physical exam with 8 intact sutures to the left thumb. No signs of infection. Plan at this time is suture removal Medical Records Medical records reviewed: Yes I reviewed the patient's medical records. Lab Data Lab results reviewed: Yes I reviewed the patient's lab results. Critical Care Time Critical Care Time Critical Care Time: No Discharge Plan Discharge Clinical Impression: Encounter for removal of sutures Patient Disposition: Home, Self-Care Instructions: Stitches Removal (ED) Additional Instructions: Take your medications as prescribed. If you were prescribed antibiotics today, it is important that you take your medication to their entirety, do not skip any doses, do not finish them early. Follow-up with your primary care provider this week. Return to the emergency department with new or worsening symptoms. Such as fevers, chills, chest pain, shortness of breath, nausea, vomiting, dizziness, headache, vision changes, lethargy In case of emergency call 911 Prescriptions: No Action levothyroxine 137 mcg tablet 1 tab PO DAILY 0RF sertraline 100 mg tablet 1 tab PO DAILY 0RF simvastatin 40 mg tablet 1 tab PO BEDTIME 0RF pramipexole 0.125 mg tablet 1 tab PO DAILY 0RF insulin lispro protamin-lispro [Humalog Mix 75-25 KwikPen] 100 unit/mL (75-25) insulin pen 30 unit subcut BID 0RF tizanidine 2 mg Tablet 2 mg PO TID PRN (Reason: Muscle Spasm) 0RF levofloxacin 750 mg tablet 750 mg PO DAILY 7 Days Qty: 11 0RF cephalexin 500 mg capsule 500 mg PO QID 5 Days Qty: 20 0RF bacitracin 500 unit/gram ointment 1 appl topical BID Qty: 30 0RF clindamycin HCl 300 mg capsule 300 mg PO Q8H 7 Days Qty: 21 0RF Referrals: Physician,Unknown J [Physician] - 3 days
== END 2021-08-24 19:21 | disposition home or self-care (01) ==
LOC: HO.ED 18:47
PROVIDERS: Emergency Provider Emergency Medicine Emergency Medical Services
DX: Z48.02 Encounter for removal of sutures (principal)
CPT/HCPCS: 99283

== ENCOUNTER 2022-04-23 21:38 | Observation (INO) | payer MEDICARE, OTHER, SELFPAY ==
[2022-04-23 21:49] VITALS: BP 100/56; PULSE 84; RESP 17; TEMP 37; O2SAT 94; BMI 34.9
--- NOTE | 2022-04-23 22:02 | ED.ALLEREA ---
HPI - Allergic Reaction General Chief complaint: Allergic Reaction Stated complaint: allergic reaction Time Seen by Provider: 04/23/22 21:54 Source: patient and EMS Mode of arrival: EMS Limitations: no limitations History of Present Illness HPI narrative: Patient comes to the emergency room complaining of tongue swelling. Patient states that 2 hours ago prior to arrival, patient was eating a frozen meal Hungry man , shortly after, patient started noticing some numbness and tingling in the tongue and swelling. Patient states that she has no difficulty breathing. Patient states that this has happened multiple times in the past, she has been asked by previews providers to get an allergy test which she has not done so. Patient states that approximately 2 weeks ago she had a similar episode, took 50 mg of Benadryl and her symptoms resolved. This time, patient took 50 mg of Benadryl at home, did not help, call 911. EMS gave her 0.3 mg of epinephrine. She denies any chest pain or shortness of breath. Related Data Home Medications Medication Instructions Recorded Confirmed insulin lispro protamine-lispro 30 unit subcut BID 02/03/21 02/03/21 100 unit/mL (75-25) subcutaneous pen (Humalog Mix 75-25 KwikPen) levothyroxine 137 mcg tablet 1 tab PO DAILY 02/03/21 02/03/21 pramipexole 0.125 mg tablet 1 tab PO DAILY 02/03/21 02/03/21 sertraline 100 mg tablet 1 tab PO DAILY 02/03/21 02/03/21 simvastatin 40 mg tablet 1 tab PO BEDTIME 02/03/21 02/03/21 tizanidine 2 mg tablet 2 mg PO TID PRN Muscle Spasm 02/03/21 02/03/21 Previous Rx's Medication Instructions Recorded levofloxacin 750 mg tablet 750 mg PO DAILY 7 days #11 tabs 02/07/21 clindamycin HCl 300 mg capsule 300 mg PO Q8H 7 days #21 caps 02/18/21 bacitracin 500 unit/gram topical 1 appl topical BID #30 grams 08/14/21 ointment cephalexin 500 mg capsule 500 mg PO QID 5 days #20 caps 08/14/21 Allergies Allergy/AdvReac Type Severity Reaction Status Date / Time No Known Allergies Allergy Verified 08/24/21 18:41 Review of Systems Review of Systems: Constitutional : No Weight loss, No Fever, No Chills, No Night Sweats, No Fatigue, No Malaise ENT/Mouth : No Hearing loss, No Ear Pain, No Nasal Congestion, No Sinus Pain, No Hoarseness, No sore throat, No Rhinorrhea, No Swallowing Difficulty, tongue swelling Eyes: No Eye Pain, No Swelling, No Redness, No Foreign Body, No Discharge, No Vision Changes Cardiovascular : No Chest Pain, No SOB, No Dyspnea on Exertion, No Orthopnea, No Edema, No Palpitations Respiratory : No Cough, No Sputum, No Wheezing, No Smoke Exposure, No Dyspnea Gastrointestinal : No Nausea, No Vomiting, No Diarrhea, No Constipation, No abdominal Pain, No Hematochezia, No Melena Genitourinary : no irregular bleeding, No Dysuria, No Urinary Frequency, No Hematuria, No Urinary Incontinence, No Urgency, No Flank Pain, No Urinary Flow Changes, No Hesitancy Musculoskeletal : No joint pain, No Myalgias, No Joint Swelling Skin : No Skin Lesions, No rash Neuro : No Weakness, No Numbness, No Paresthesias, No Loss of Consciousness, No Dizziness, No Headache Psych : No Anxiety/Panic, No Depression, No SI/HI/AH/VH, No Social Issues, Heme/Lymph: No Bruising, No Bleeding,No Lymphadenopathy Endocrine : No Polyuria, No Polydipsia, No Temperature Intolerance PMFSH Past Medical History Medical History Anxiety Cat bite Depression Diabetes Hypothyroidism Surgical History History of ankle surgery History of carpal tunnel surgery History of tonsillectomy and adenoidectomy Social History Social History Household Members: None Housing: Apartment Do you presently have visiting nurse or other home services: No Alcohol intake: never Patient Tobacco Use Status: Former Tobacco user Tobacco use type: Cigarette Smoked in Last 30 Days: No Use of substances other than those prescribed or required for medical reasons: Yes Substance Use Type: Marijuana Substance Use Frequency: Daily Advance Directives: No service: No Current occupational status: retired Current occupation: rt handed Physical Exam ED Vital Signs: Vital Signs - 24 hr 04/23/22 21:49 04/23/22 22:21 04/24/22 00:21 Temperature 98.6 F 98.7 F 97.9 F Pulse Rate 84 90 85 Respiratory Rate 17 12 18 Blood Pressure 100/56 L 133/58 L 118/40 L Pulse Oximetry 94 94 94 Oxygen Delivery Method Room Air Room Air Room Air BMI result Body Mass Index 34.9 Const Other: Appearance: Alert. Oriented X3. No acute distress. Eyes: Pupils equal, round and reactive to light. ENT: Moderate tongue swelling, no uvula edema, no lip swelling Neck: Normal inspection. Neck supple. No lymph nodes noted. No crepitus CVS: Normal heart rate and rhythm. Pulses normal. Normal S1 and S2 Respiratory: No respiratory distress. Breath sounds normal. No Wheezing. No rales Abdomen: Soft and nontender. No rigidity. No distention. Skin: Skin warm and dry. Normal skin color. Normal skin turgor. Extremities: No lower extremity edema. No Lacerations. No Rash Neuro: Oriented X 3. No motor deficit. No sensory deficit. Moving all extremities. No slurred speech. CN 2 through 12 grossly intact Psych: calm, cooperative, normal affect Course Course Course Narrative: At this time, the patient's tongue is moderately swelling, no lip swelling, no uvula swelling, patent airway, no respiratory distress. Patient already received 50 p.o. of Benadryl which self-medicated, 0.3 mg of epinephrine by EMS, no patient is receiving 125 mg of Solu-Medrol, 20 mg of Pepcid and 50 mg additional of IV Benadryl. I discussed with the patient that we will monitor her, if she has good response to the medication, she may be able to go home. However, if she has no good response to the medication, we will consider admitting her to the hospital. In the meantime, we will observe the patient in the ED and continue treatment. Patient's white blood cell count is elevated, likely secondary to IV steroids. Patient states that she feels overall better, states that now she is able to swallow comfortably. However, the tongue still enlarged. No airway compromise at this time Patient will benefit from more IV steroids. I discussed the patient with Dr. Malagon., patient will be admitted for observation and treatment Medications Administered Discontinued Medications Generic Name Dose Route Start Last Admin Trade Name Freq PRN Reason Stop Dose Admin Diphenhydramine HCl 50 mg 04/23/22 22:00 04/23/22 22:03 Diphenhydramine Hcl 50 Mg/Ml Vial IVPUSH 04/23/22 22:01 50 mg ONCE ONE Administration Famotidine 20 mg 04/23/22 22:00 04/23/22 22:03 Famotidine/Pf 20 Mg/2 Ml Vial IVPUSH 04/23/22 22:01 20 mg ONCE ONE Administration Famotidine 20 mg 04/24/22 00:03 04/24/22 00:07 Famotidine/Pf 20 Mg/2 Ml Vial IVPUSH 04/24/22 00:04 20 mg ONCE ONE Administration Methylprednisolone Sodium Succinate 125 mg 04/23/22 22:00 04/23/22 22:03 Methylprednisolone Sod Succ 125 Mg/2 Ml Vial IVPUSH 04/23/22 22:01 125 mg ONCE ONE Administration Medical Decision Making Differential Diagnosis Differential Diagnoses: The differential diagnosis associated with the presentation includes (Allergic reaction, hereditary angioedema) Admission/Observation Consideration of admission/observation: Escalation of care including admission/observation considered (Patient's tongue looks about the same. However, patient states that she is breathing comfortably, patient states that she is swallowing now comfortably, whereas before she was having trouble swallowing.) Consult Healthcare Provider Management of the patient was discussed with: Hospitalist I discussed the above-mentioned with our hospitalist, symptomatic, patient is feeling better. However, the tongue does not seem to be decreasing in size. Lab Data MDM Lab Attestation statement: I reviewed the patient's lab results. (White blood cell count likely secondary to steroids) Result Diagrams: 04/24/22 00:09 04/24/22 00:09 Labs: Lab Results 04/24/22 04/24/22 Range/Units 00:09 00:09 WBC 15.9 H (4.8-10.8) X10*3/uL RBC 3.97 L (4.20-5.50) X10*6/uL Hgb 11.8 L (12.0-16.0) g/dl Hct 35.6 L (37.0-47.0) % MCV 89.7 (80.0-98.0) fL MCH 29.7 (27.0-33.0) pg MCHC 33.1 (31.0-35.0) g/dl RDW 13.2 (11.0-16.0) % Plt Count 272 (160-400) X10*3/uL MPV 9.9 (9.4-12.3) fL Immature Gran % (Auto) 0.4 (0.0-0.4) % Neut % (Auto) 89.5 H (45-73) % Lymph % (Auto) 7.0 L (20-40) % [place] % (Auto) 2.5 (2-11) % Eos % (Auto) 0.3 (0-4) % Baso % (Auto) 0.3 (0-2) % Lymph # (Auto) 1.1 L (1.2-4.9) X10*3/uL [place] # (Auto) 0.4 (0.1-1.2) X10*3/uL Eos # (Auto) 0.0 (0.0-0.4) X10*3/uL Baso # (Auto) 0.1 (0.0-0.2) X10*3/uL Abs Immat Gran (auto) 0.06 H (0.00-0.03) X10*3/uL Absolute Neuts (auto) 14.2 H (2.0-8.3) x10*3/uL Absolute Nucleated RBC 0.000 (0.0-0.012) X10*3/uL Nucleated RBC % (auto) 0.0 (0.0-0.2) /100WBC Sodium 141 (135-145) mmol/L Potassium 3.3 (3.3-5.1) mmol/L Chloride 111 H (96-108) mmol/L Carbon Dioxide 23 (22-29) mmol/L Anion Gap 10 L (12-20) BUN 18 H (9-16) mg/dL Creatinine 0.76 (0.5-1.4) mg/dL Estim Creat Clear Calc 75.2 Estimated GFR > 60 Random Glucose 159 H (60-115) mg/dL Calcium 7.8 L D (8.4-10.2) mg/dL Tests considered The following testing was considered but not selected: CT scan of the soft neck tissue was considered. However, patient has symptomatic improvement, is swallowing more comfortably without any discomfort. Vital stable. Prescription Management I considered prescription management with: Other (FFP was considered and discussed with Dr. Malagon, overall, symptomatically patient is improving. If patient does not improve in the next few hours, we will consider giving FFP) Critical Care Time Critical Care Time Critical Care Time: Yes Total Critical Care Time: 60 Attestation: I have personally provided critical care time. Time includes review of lab data, radiology results, discussion with consultants, and monitoring for potential decompensation. Intervention performed as documented. Discharge Plan Discharge Clinical Impression: Allergic reaction, Angioedema Patient Disposition: Admitted as Observation
[2022-04-23] MEDS: diphenhydrAMINE HCL 50 MG/ML VIAL IVPUSH (22:03)
[2022-04-23] MEDS: Famotidine/PF 20 MG/2 ML VIAL IVPUSH (22:03)
[2022-04-23] MEDS: methylPREDNISolone Sod Succ 125 MG/2 ML VIAL IVPUSH (22:03)
--- NOTE | 2022-04-23 22:04 | PC.NURSE ---
Addendum entered by Mayda Henry RN 04/23/22 22:05: Patient on continuous telemetry and O2 monitoring. Original Note: Patient with significant tongue swelling, drooling. MD Pereira made aware and bedside. Anaphylaxis kit pulled from [employer]. O2 saturations >96% on room air, patient speaking full sentences with garbled voice. call paris within reach.
--- NOTE | 2022-04-23 22:20 | PC.NURSE ---
Patient resting quietly. No apparent distress. VS assessed.
[2022-04-23 22:21] VITALS: BP 133/58; PULSE 90; RESP 12; TEMP 37.1; O2SAT 94
--- NOTE | 2022-04-23 22:40 | PC.NURSE ---
Patient is able to speak in full sentences,absence of drooling, swelling of tongue showing improvement, call light within patient reach. No respiratory distress, no facial swelling, lips no longer swollen.
[2022-04-24] MEDS: Famotidine/PF 20 MG/2 ML VIAL IVPUSH ×2 (00:07→08:58)
[2022-04-24 00:16] LABS: MANUAL DIFF FLAG NO
[2022-04-24 00:17] LABS: Basophils Absolute Auto 0.1 X10*3/uL (0.0-0.2); Basophils Percent Auto 0.3 % (0-2); Eosinophils Percent Auto 0.3 % (0-4); Hematocrit 35.6 % (37.0-47.0); Hemoglobin 11.8 g/dl (12.0-16.0); Imm Gran Abs Auto 0.06 X10*3/uL (0.00-0.03); Imm Gran Pct Auto 0.4 % (0.0-0.4); Lymphocytes Absolute Auto 1.1 X10*3/uL (1.2-4.9); Mean Corpuscular HGB Conc 33.1 g/dl (31.0-35.0); Mean Corpuscular Hemoglobin 29.7 pg (27.0-33.0); Mean Corpuscular Volume 89.7 fL (80.0-98.0); Mean Platelet Volume 9.9 fL (9.4-12.3); Monocytes Absolute Auto 0.4 X10*3/uL (0.1-1.2); Monocytes Percent Auto 2.5 % (2-11); Neutrophils Absolute Auto 14.2 x10*3/uL (2.0-8.3); Neutrophils Percent Auto 89.5 % (45-73); Platelet Count 272 X10*3/uL (160-400); Red Blood Count 3.97 X10*6/uL (4.20-5.50); Red Cell Distribution Width 13.2 % (11.0-16.0); White Blood Count 15.9 X10*3/uL (4.8-10.8)
[2022-04-24 00:21] VITALS: BP 118/40; PULSE 85; RESP 18; TEMP 36.6; O2SAT 94
[2022-04-24 00:38] LABS: Anion Gap 10 (12-20); Blood Urea Nitrogen 18 mg/dL (9-16); Calcium 7.8 mg/dL (8.4-10.2); Carbon Dioxide 23 mmol/L (22-29); Chloride 111 mmol/L (96-108); Creatinine Clr Calc Pharmacy 75.2; Estimated Glomerular Filt Rate > 60; Glucose Random 159 mg/dL (60-115); Potassium 3.3 mmol/L (3.3-5.1); Sodium 141 mmol/L (135-145)
--- NOTE | 2022-04-24 00:48 | PC.NURSE ---
Patient asleep, no apparent distress. Patient awakened to view tongue swelling. Swelling of tongue continues to improve. Will continue to monitor.
--- NOTE | 2022-04-24 01:35 | PM.IMHP ---
History of Present Illness Date of Service: 04/24/22 Chief Complaint: tongue swelling 72-year-old female with past medical history of depression, diabetes, hypothyroidism, presents to the hospital with complaints of tongue swelling. Patient reports that she has history of angioedema unknown etiology, she was supposed to follow-up with lead mobile developer but has not, today about 4 hours prior to presentation started developing tongue swelling, she eventually starts developing swelling of her lives and difficulty swallowing. She denies any difficulty breathing. she believes he was because of eating chicken. she took Benadryl at home, received epinephrine by the EMS, On arrival to the ED patient received Solu-Medrol, Benadryl as well as Pepcid with improvement in her symptoms. Patient reports that she now is able to swallow, and feels that her systolic swelling is slightly less. She denies any chest pain, no shortness of breath, no cough, no your recent use of Duy inhibitors, denies any abdominal pain nausea or vomiting, no diarrhea constipation, no urinary symptoms and no lower extremity edema. On arrival hemodynamically stable and in no abnormal vitals labs are significant for WBC count of 15.9, hemoglobin of 11.8, hematocrit 35.6, patient given more Solu-Medrol will be admitted for further monitoring Review of Systems Review of Systems: Yes all other systems are reviewed and are negative [facility] Medical History Anxiety Cat bite Depression Diabetes Hypothyroidism Family History Other No family history of coronary artery disease Surgical History History of ankle surgery History of carpal tunnel surgery History of tonsillectomy and adenoidectomy Social History Household Members: None Housing: Apartment Do you presently have visiting nurse or other home services: No Alcohol intake: never Patient Tobacco Use Status: Former Tobacco user Tobacco use type: Cigarette Smoked in Last 30 Days: No Use of substances other than those prescribed or required for medical reasons: Yes Substance Use Type: Marijuana Substance Use Frequency: Daily Advance Directives: No Advance Directives Information Provided: No (declined) service: No Current occupational status: retired Current occupation: rt handed [employer] Allergies Allergy/AdvReac Type Severity Reaction Status Date / Time No Known Allergies Allergy Verified 08/24/21 18:41 Home Medications Medication Instructions Recorded Confirmed Last Taken Type insulin lispro protamine-lispro 30 unit subcut BID 02/03/21 02/03/21 02/03/21 History 100 unit/mL (75-25) subcutaneous pen (Humalog Mix 75-25 KwikPen) levothyroxine 137 mcg tablet 1 tab PO DAILY 02/03/21 02/03/21 01/27/21 History pramipexole 0.125 mg tablet 1 tab PO DAILY 02/03/21 02/03/21 01/27/21 History sertraline 100 mg tablet 1 tab PO DAILY 02/03/21 02/03/21 01/27/21 History simvastatin 40 mg tablet 1 tab PO BEDTIME 02/03/21 02/03/21 01/27/21 History tizanidine 2 mg tablet 2 mg PO TID PRN Muscle Spasm 02/03/21 02/03/21 Unknown History Physical Exam Vital Signs and Narrative: Vital Signs: Last Vital Signs Temp 97.9 F 04/24/22 00:21 Pulse 85 04/24/22 00:21 Resp 18 04/24/22 00:21 BP 118/40 L 04/24/22 00:21 Pulse Ox 94 04/24/22 00:21 O2 Del Method 04/24/22 00:21 BMI result Body Mass Index 34.9 Const: General: cooperative and no acute distress Orientation/consciousness: patient oriented x3 HEENT: Other: tongue swelling, no stridor, lips swollen, no drooling Eyes: General: appearance normal, both eyes and all related structures Pupils: Equal, round and reactive pupils present Resp: Other: no stridor Effort & Inspection: normal respiratory effort Auscultation: clear to auscultation bilaterally Cardio: Rate: regular rate Rhythm: regular rhythm GI: Palpation (GI): Soft to palpation Auscultation: normal bowel sounds Skin: General skin exam: no rashes or lesions noted Neuro: General: patient oriented x3 Cranial nerves: Yes Equal, round and reactive pupils present Cognition (Neuro): normal cognition Extrem: General: Yes normal to inspection and Yes no pedal edema Results Labs CBC and Chem 7: 04/24/22 00:09 04/24/22 00:09 Labs: Laboratory Results - last 24 hr 04/24/22 04/24/22 00:09 00:09 MCV 89.7 MCH 29.7 MCHC 33.1 RDW 13.2 Plt Count 272 MPV 9.9 Immature Gran % (Auto) 0.4 Neut % (Auto) 89.5 H Lymph % (Auto) 7.0 L [place] % (Auto) 2.5 Eos % (Auto) 0.3 Baso % (Auto) 0.3 Lymph # (Auto) 1.1 L [place] # (Auto) 0.4 Eos # (Auto) 0.0 Baso # (Auto) 0.1 Abs Immat Gran (auto) 0.06 H Absolute Neuts (auto) 14.2 H Absolute Nucleated RBC 0.000 Nucleated RBC % (auto) 0.0 Anion Gap 10 L Estim Creat Clear Calc 75.2 Estimated GFR > 60 Random Glucose 159 H Calcium 7.8 L D Assessment and Plan (1) Angioedema: Status: Acute Plan 72-year-old female with past medical history of diabetes, hypothyroidism, depression presents to the hospital with complaints of angioedema # angioedema - unclear underlying etiology - not on Duy inhibitors - patient was to be seen by lead mobile developer but has not made an appointment - received Solu-Medrol, Pepcid, Benadryl as well as epinephrine with improvement in her symptoms - no stridor - no difficulty swallowing at this time - will admit for monitoring - Pepcid b.i.d., Solu-Medrol b.i.d. # diabetes - continue insulin - low-dose sliding scale insulin # hypothyroidism - continue levothyroxine # depression - continue home medications DVT prophylaxis: Early ambulation Time Spent With Patient Time: Total time managing care of this patient today ____ minutes. Quality Stroke Does the patient have a stroke diagnosis?: No VTE Prior VTE?: No VTE Risk Level:: Medical - low VTE Device Contraindication: N/A - Device Ordered VTE Drug Contraindication: Treatment Not Indicated
[2022-04-24 02:11] LABS: COVID-19 Test Negative (Negative); IDNOW Serial# 16C4AD1C
--- NOTE | 2022-04-24 03:11 | PC.NURSE ---
Gave report to RONALD Freire ([id number]). Patiet to go to room 354-1.
--- NOTE | 2022-04-24 03:12 | PC.NURSE ---
Patient is a&o, no respiratory distress, denies difficulty breathing, able to speak in full sentences.
[2022-04-24 03:16] VITALS: BP 124/60; PULSE 81; RESP 12; TEMP 36.8; O2SAT 94
[2022-04-24 04:00] VITALS: BP 115/58; PULSE 63; RESP 17; TEMP 36.6; O2SAT 95
[2022-04-24 05:58] LABS: Basophils Percent Auto 0.2 % (0-2); Hematocrit 39.4 % (37.0-47.0); Hemoglobin 12.9 g/dl (12.0-16.0); Imm Gran Abs Auto 0.03 X10*3/uL (0.00-0.03); Imm Gran Pct Auto 0.3 % (0.0-0.4); Lymphocytes Absolute Auto 0.6 X10*3/uL (1.2-4.9); Lymphocytes Percent Auto 6.7 % (20-40); MANUAL DIFF FLAG SCAN; Mean Corpuscular HGB Conc 32.7 g/dl (31.0-35.0); Mean Corpuscular Volume 91.6 fL (80.0-98.0); Mean Platelet Volume 10.3 fL (9.4-12.3); Monocytes Absolute Auto 0.1 X10*3/uL (0.1-1.2); Monocytes Percent Auto 0.7 % (2-11); Neutrophils Absolute Auto 8.1 x10*3/uL (2.0-8.3); Neutrophils Percent Auto 92.1 % (45-73); Platelet Count 277 X10*3/uL (160-400); Red Cell Distribution Width 13.3 % (11.0-16.0); SCAN SMEAR FLAG 1; White Blood Count 8.8 X10*3/uL (4.8-10.8)
[2022-04-24 06:33] LABS: SLIDE REVIEW VERIFIED
[2022-04-24 06:39] LABS: Anion Gap 14 (12-20); Blood Urea Nitrogen 19 mg/dL (9-16); Calcium 9.4 mg/dL (8.4-10.2); Carbon Dioxide 25 mmol/L (22-29); Chloride 106 mmol/L (96-108); Creatinine Clr Calc Pharmacy 64.9; Estimated Glomerular Filt Rate > 60; Glucose Random 209 mg/dL (60-115); Potassium 5.4 mmol/L (3.3-5.1); Sodium 140 mmol/L (135-145)
--- NOTE | 2022-04-24 07:54 | PHA.MEDREC ---
Pharmacy Consult ? Medication Reconciliation Pharmacy has completed the medication reconciliation. Patient states she is taking pramipexole and simvastatin in spite of the fact that they have not been filled since July. It's unclear if she has had a gap in therapy and resumed taking them but she has the pills on her so she is still able to take them at this time (had them in a pill minder she brought from home). She is using the bacitracin that was prescribed for her on numerous areas that she says are not healing well without the bacitracin.
[2022-04-24 07:57] VITALS: BP 122/62; PULSE 67; RESP 18; TEMP 37.7; O2SAT 96
[2022-04-24] MEDS: methylPREDNISolone Sod Succ 40 MG/ML VIAL IVPUSH (08:58)
[2022-04-24] MEDS: 0.9 % Sodium Chloride Flush 3 ML SYRINGE IVFLUSH (09:00)
--- NOTE | 2022-04-24 10:13 | PM.DS ---
DS: Providers Provider Date of Service: 04/24/22 Date of admission: 04/24/22 01:30 Date of discharge: 04/24/22 Primary care physician: Unknown Physician DS: Diagnosis Discharge Diagnosis (1) Angioedema: Status: Acute DS: Summary Hospital Course Hospital Course: 72-year-old female with past medical history of depression, diabetes, hypothyroidism, presents to the hospital with complaints of tongue swelling.? Patient reports that she has history of angioedema unknown etiology, she was supposed to follow-up with high tension tester but has not, today about 4 hours prior to presentation started developing? tongue swelling, she eventually starts developing swelling of her lives and difficulty swallowing.? She denies any difficulty breathing.? she believes he was because of eating chicken. she took Benadryl at home, received epinephrine by the EMS, On arrival to the ED patient received Solu-Medrol, Benadryl as well as Pepcid with improvement in her symptoms.? Patient reports that she now is able to swallow, and feels that her systolic swelling is slightly less.? Hospital Course Admitted to general medical floor where she continued on IV Solu-Medrol and Pepcid. Over the 24 hours admission she has returned to normal and is wishing DC to home. Discussed at length the need for her to get an high tension tester to prevent this from happening again. She is instructed on completing a prednisone taper and will follow-up with her PCP as scheduled Time Spent with Patient Time attestation: Total time managing care of this patient today __30__ minutes. Discharge coordination time: Greater than 30 minutes Quality: Safe Use of Opioids Does Pt have an Active Cancer Diagnosis on the Problem List?: No Quality: Stroke Does the patient have a stroke diagnosis?: No Physical Exam Vital Signs: Vital Signs: Last Vital Signs Temp 99.8 F 04/24/22 07:57 Pulse 67 04/24/22 07:57 Resp 18 04/24/22 07:57 BP 122/62 04/24/22 07:57 Pulse Ox 96 04/24/22 07:57 O2 Del Method 04/24/22 07:57 BMI result Body Mass Index 34.9 Const: Other: Awake alert no respiratory distress HEENT: Other: No circumoral edema or tongue edema. Speech fluid without restriction. Resp: Other: Clear to auscultation bilaterally no rales rhonchi or wheezes Cardio: Other: No S4; positive S1-S2; no S3 murmurs rubs or gallops GI: Other: Soft nontender nondistended normoactive bowel sounds Extrem: Other: No edema bilaterally DS: Data Data Completed and Pending Completed studies during hospitalization [Text1]: Procedures Drainage of Right Hand Subcutaneous Tissue and Fascia, Open Approach (02/03/21) Labs on day of discharge: Laboratory Results - last 24 hr 04/24/22 04/24/22 04/24/22 00:09 00:09 01:43 WBC 15.9 H RBC 3.97 L Hgb 11.8 L Hct 35.6 L MCV 89.7 MCH 29.7 MCHC 33.1 RDW 13.2 Plt Count 272 MPV 9.9 Immature Gran % (Auto) 0.4 Neut % (Auto) 89.5 H Lymph % (Auto) 7.0 L Floyd % (Auto) 2.5 Eos % (Auto) 0.3 Baso % (Auto) 0.3 Lymph # (Auto) 1.1 L Floyd # (Auto) 0.4 Eos # (Auto) 0.0 Baso # (Auto) 0.1 Abs Immat Gran (auto) 0.06 H Absolute Neuts (auto) 14.2 H Absolute Nucleated RBC 0.000 Nucleated RBC % (auto) 0.0 Smear Tech's Comments Sodium 141 Potassium 3.3 Chloride 111 H Carbon Dioxide 23 Anion Gap 10 L BUN 18 H Creatinine 0.76 Estim Creat Clear Calc 75.2 Estimated GFR > 60 Random Glucose 159 H Calcium 7.8 L D COVID-19 (LINDA) Negative COVID-19 Clin Com See Note 04/24/22 04/24/22 05:37 05:37 WBC 8.8 RBC 4.30 Hgb 12.9 Hct 39.4 MCV 91.6 MCH 30.0 MCHC 32.7 RDW 13.3 Plt Count 277 MPV 10.3 Immature Gran % (Auto) 0.3 Neut % (Auto) 92.1 H Lymph % (Auto) 6.7 L Floyd % (Auto) 0.7 L Eos % (Auto) 0.0 Baso % (Auto) 0.2 Lymph # (Auto) 0.6 L Floyd # (Auto) 0.1 Eos # (Auto) 0.0 Baso # (Auto) 0.0 Abs Immat Gran (auto) 0.03 Absolute Neuts (auto) 8.1 Absolute Nucleated RBC 0.000 Nucleated RBC % (auto) 0.0 Smear Tech's Comments VERIFIED Sodium 140 Potassium 5.4 H D Chloride 106 Carbon Dioxide 25 Anion Gap 14 BUN 19 H Creatinine 0.88 Estim Creat Clear Calc 64.9 Estimated GFR > 60 Random Glucose 209 H Calcium 9.4 D COVID-19 (LINDA) COVID-19 Clin Com Discharge Plan Discharge Patient Disposition: Home, Self-Care Referrals: Physician,Unknown J [Primary Care Provider] - 1 Week Discharge Medications: New prednisone 20 mg tablet See Rx Instructions .Route .COMPLEX Qty: 18 0RF Rx Instructions: 20 mg orally; 3 tabs daily for 3 days, 2 tabs daily for 3 days, 1 tab daily for 3 days Continued levothyroxine 137 mcg tablet 137 mcg PO DAILY@0600 sertraline 100 mg tablet 100 mg PO DAILY bacitracin 500 unit/gram ointment 1 appl topical BID Qty: 30 0RF aspirin 81 mg tablet,chewable 81 mg PO DAILY@1700 insulin asp prt-insulin aspart [Novolog Mix 70-30FlexPen U-100] 100 unit/mL (70-30) insulin pen 38 unit subcut BID Trulicity 1.5 mg/0.5 mL pen injector 1.5 mg subcut WE simvastatin 40 mg tablet 40 mg PO BEDTIME pramipexole 0.125 mg tablet 0.125 mg PO DAILY@1800 Discharge Orders: Discharge Order (Routine); Ordered 04/24/22 Ordered By: Shimon Acosta Diet: Advance to usual diet Activity on Discharge: As tolerated Stand Alone Forms: Patient Portal Discharge page Care Plan Goals: Complete course of prednisone as ordered. Health Concerns: Follow-up with PCP; should seek an high tension tester Plan of Treatment: Resume all pre-hospital medications and therapies Assessment: See discharge summary
[2022-04-24 10:19] LABS: Glucose, Whole Blood 293 mg/dL (60-115)
[2022-04-24] MEDS: Insulin Lispro 100 UNIT/ML 3 ML VIAL SUBCUT ×2 (11:04→12:07)
[2022-04-24] MEDS: Levothyroxine Sodium 25 MCG TABLET PO (11:05)
[2022-04-24] MEDS: Levothyroxine Sodium 112 MCG TABLET PO (11:05)
--- NOTE | 2022-04-24 11:08 | MHC.CM.PN ---
IMM 04/24/22, Emr reviewed, pt admitted w/angioedema, cm met w/pt who reports she lives alone, is indep w/all care, has diabetic supplies and insulin for dme, no home services and still drives and would like [facility] home, pt discharging today home no services w/[facility] at 11:10am. Pt verifies [facility] x4, pcp as Beatriz Nichole and HCP is sister Lakeisha Lopez and alternate is elba Lopez, numbers on file as primary and secondary contacts.
[2022-04-24 11:38] LABS: Glucose, Whole Blood 411 mg/dL (60-115)
[2022-04-24 12:12] LABS: Glucose, Whole Blood 440 mg/dL (60-115)
== END 2022-04-24 13:31 | disposition home or self-care (01) ==
LOC: HO.ED 04-24 00:43 → HO.EDOVER 04-24 02:01 → HO.S3 04-24 02:31
PROVIDERS: Admitting Provider Internal Medicine; Emergency Provider Emergency Medicine; Visit Provider Hospitalist
DX: T78.3XXA Angioneurotic edema, initial encounter (principal); K14.0 Glossitis; E11.9 Type 2 diabetes mellitus without complications; F33.1 Major depressive disorder, recurrent, moderate; Z20.822 Contact with and (suspected) exposure to COVID-19; Z79.4 Long term (current) use of insulin; Z79.899 Other long term (current) drug therapy; Z87.891 Personal history of nicotine dependence; Z23 Encounter for immunization
CPT/HCPCS: 36415; 80048; 82947; 85025; 87635; 90471; 90686; 96372; 96374; 96375; 96376; 99218; 99284; J1200; J2920; J2930

== ENCOUNTER 2022-06-09 17:16 | Observation (INO) | payer MEDICARE, OTHER, SELFPAY ==
--- NOTE | ~2022-06-09 | CT_ITS ---
EXAMINATION: CTA CHEST CT ABDOMEN AND PELVIS WITH CONTRAST CLINICAL INFORMATION: Shortness of breath. Abdominal pain. Nausea and vomiting. COMPARISON: None. TECHNIQUE: A noncontrast localizer was performed, followed by the administration of 85 mL Omnipaque [address] of the chest was then performed. Coronal and sagittal reformatted and 3-D technique MIP images of the chest were completed at the CT scanner and reviewed on the PACS workstation. No adverse effects were reported. Images were then performed through the abdomen and pelvis. Coronal and sagittal reformatted images performed at CT scanner by technologist. [This CT examination was performed using dose optimization techniques as appropriate, variously including the following: *Automated exposure control *Adjustment of mA and/or kV according to patient size (this includes techniques or standardized protocols for targeted exams where dose is matched to indication/reason for exam; i.e. extremities or head) *Use of iterative reconstruction technique] DLP: 1061 mGy-cm. FINDINGS: CTA CHEST Vascular: The main pulmonary artery, secondary and tertiary branches of the pulmonary artery are normally opacified with no evidence of pulmonary embolism. No aneurysm of the thoracic aorta. Small volume of scattered vascular calcifications of aortic arch. Mediastinum: No mediastinal mass. No significant lymphadenopathy. There is no pericardial effusion. CORONARY ARTERIES: Volume of coronary calcification:Small volume of Lungs: The lungs are clear. No nodule or infiltrate. Central bronchial airways open. Fluid: There is no pericardial effusion. There is no pleural effusion. Axilla: No significant lymphadenopathy. CT SCAN ABDOMEN/PELVIS: Liver, Gallbladder and Biliary Tree: No focal liver lesion. No intrahepatic bile duct dilatation. The gallbladder is unremarkable with no evidence of radiopaque gallstones, gallbladder wall thickening, or obvious pericholecystic inflammatory changes. Pancreas: Unremarkable. Spleen: Unremarkable. Adrenal Glands: Unremarkable. Kidneys and Ureters: Kidneys and ureter are normal. There is normal enhancement of the kidneys. No calculus or hydronephrosis. No renal mass. Bladder: Unremarkable. Gastrointestinal Tract: The small and large bowel are unremarkable. The appendix is unremarkable. Abdominal Wall: No significant hernia is appreciated. Lymph Nodes: Normal. Vascular: Atherosclerotic vascular calcifications in abdomen and pelvis. No aneurysm. Pelvic Viscera: Unremarkable. Osseous Structures: Unremarkable. CT/CT angio chest PE protocol IMPRESSION: CT CHEST: No evidence of pulmonary embolism. No acute abnormality of the chest. CT ABDOMEN PELVIS: No acute abnormality the abdomen or pelvis.
--- NOTE | ~2022-06-09 | XR_ITS ---
EXAMINATION: XR CHEST CLINICAL INFORMATION: 72-year-old female with chest pain COMPARISON: None TECHNIQUE: Frontal view of the chest was obtained. FINDINGS: No significant abnormality is noted involving the heart, lungs, mediastinum, bony thorax or soft tissues. XR/XR chest 1V IMPRESSION: Unremarkable examination.
--- NOTE | 2022-06-09 17:35 | ECG_ITS ---
Test Reason : VOMITTING Blood Pressure : / mmHG Vent. Rate : 066 BPM Atrial Rate : 066 BPM P-R Int : 136 ms QRS Dur : 080 ms QT Int : 428 ms P-R-T Axes : 032 -22 051 degrees QTc Int : 448 ms Normal sinus rhythm Normal ECG No previous ECGs available Referred By: Sujata Mueller Electronically Signed By:Montez Hollins
--- NOTE | 2022-06-09 17:38 | ED.NAVMDI ---
HPI - Nausea/Vomiting/Diarrhea General Chief complaint: General Medical Stated complaint: NAUSEA,VOMITING SINCE THIS AM PER EMS Time Seen by Provider: 06/09/22 17:24 History of Present Illness HPI Narrative: Patient is a 72-year-old female with a history of diabetes, hypertension, hyperlipidemia, history of angioedema in the past. Presents today with having nausea all day. Vomiting food content. Positive generalized malaise. Patient denies any abdominal surgery in the past. No hysterectomy no cholecystectomy no appendectomy no bowel surgery. No abdominal pain. [place] short of breath. Patient from home. No history of blood clots in the past. No new leg swelling. No changes to her medications. Related Data Home Medications Medication Instructions Recorded Confirmed levothyroxine 137 mcg tablet 137 mcg PO DAILY@0600 02/03/21 04/24/22 sertraline 100 mg tablet 100 mg PO DAILY 02/03/21 04/24/22 aspirin 81 mg chewable tablet 81 mg PO DAILY@1700 04/24/22 04/24/22 dulaglutide 1.5 mg/0.5 mL 1.5 mg subcut WE 04/24/22 04/24/22 subcutaneous pen injector (Trulicity) insulin aspar prot-insulin aspart 38 unit subcut BID 04/24/22 04/24/22 100 unit/mL (70-30) subcutaneous pen (Novolog Mix 70-30FlexPen U-100) pramipexole 0.125 mg tablet 0.125 mg PO DAILY@1800 04/24/22 04/24/22 simvastatin 40 mg tablet 40 mg PO BEDTIME 04/24/22 04/24/22 Previous Rx's Medication Instructions Recorded bacitracin 500 unit/gram topical 1 appl topical BID #30 grams 08/14/21 ointment prednisone 20 mg tablet See Rx Instructions .Route 04/24/22 .COMPLEX #18 tabs Allergies Allergy/AdvReac Type Severity Reaction Status Date / Time No Known Allergies Allergy Verified 08/24/21 18:41 Review of Systems Review of Systems: Positive nausea positive shortness of breath positive generalized malaise positive history of anxiety Yes all other systems are reviewed and are negative PMFSH Past Medical History Attestation statement: The following information was validated with the patient. Medical History Anxiety Cat bite Depression Diabetes Hypothyroidism Surgical History History of ankle surgery History of carpal tunnel surgery History of tonsillectomy and adenoidectomy Family History Family History Other No family history of coronary artery disease Social History Social History Household Members: None Housing: Apartment Do you presently have visiting nurse or other home services: No Alcohol intake: never Patient Tobacco Use Status: Former Tobacco user Tobacco use type: Cigarette Smoked in Last 30 Days: No Use of substances other than those prescribed or required for medical reasons: Yes Substance Use Type: Marijuana Advance Directives: No Advance Directives Information Provided: Yes service: No Current occupational status: retired Current occupation: rt handed Physical Exam Vital Signs: Vital Signs: Last Vital Signs Temp 98.1 F 06/09/22 23:50 Pulse 79 06/09/22 23:50 Resp 17 06/09/22 23:50 BP 147/70 H 06/09/22 23:50 Pulse Ox 96 06/09/22 23:50 O2 Del Method 06/09/22 23:50 BMI result Body Mass Index 31.2 Medications Administered Discontinued Medications Generic Name Dose Route Start Last Admin Trade Name Freq PRN Reason Stop Dose Admin Sodium Chloride 1,000 mls @ 999 mls/hr 06/09/22 17:45 06/09/22 19:00 Ns IV 06/09/22 18:45 Infused .Q1H1M VITALIY Infusion Sodium Chloride 500 mls @ 999 mls/hr 06/09/22 22:15 06/09/22 22:15 Ns IV 06/09/22 22:45 999 mls/hr .Q31M VITALIY Administration Iohexol 100 ml 06/09/22 22:48 06/09/22 22:48 Iohexol 350 Mg/Ml 100 Ml Infus..Btl IV 06/09/22 22:49 85 ml ONCE ONE Administration Lorazepam 0.5 mg 06/09/22 17:34 06/09/22 18:19 Lorazepam 2 Mg/Ml Vial IVPUSH 06/09/22 17:35 0.5 mg ONCE ONE Administration Metoclopramide HCl 10 mg 06/09/22 22:14 06/09/22 22:19 Metoclopramide Hcl 10 Mg/2 Ml Vial IVPUSH 06/09/22 22:15 10 mg ONCE ONE Administration Ondansetron HCl 4 mg 06/09/22 17:34 06/09/22 18:19 Ondansetron Hcl 4 Mg/2 Ml Vial IVPUSH 06/09/22 17:35 4 mg ONCE ONE Administration Ondansetron HCl 4 mg 06/09/22 20:29 06/09/22 20:36 Ondansetron Hcl 4 Mg/2 Ml Vial IVPUSH 06/09/22 20:30 4 mg ONCE ONE Administration Medical Decision Making Medical Decision Making MDM Narrative: Patient presented in extremis with increased heart rate, increased respiratory rate complaining of extreme nausea. Chest x-ray showed no focal infiltrate no pneumothorax. Patient's EKG showed a sinus pattern heart rate is 70 NC QRS QT within normal limits there is no acute ST segment elevation noted. Patient's D-dimer was slightly elevated. A CTA of the chest was done. It did not show any acute evidence of pulmonary emboli. There is no pneumonia there is no pneumothorax there is no rib fractures noted. Patient's BNP is 67. No evidence for congestive heart failure. Patient has a repetitive nausea vomiting. CT of the abdomen pelvis was done. There is no evidence of obstruction abscess perforation. Question gastroparesis. Given multiple doses of Zofran and also Reglan with only moderate relief. Will admit patient for observation. Case discussed with hospitalist team. Patient's hemoglobin is 14.8 no evidence for severe GI bleed. Differential Diagnosis Differential Diagnoses: The differential diagnosis associated with the presentation includes PE, pneumonia, rib fracture, obstruction, abscess, perforation Admission/Observation Consideration of admission/observation: Escalation of care including admission/observation considered Because patient is unable to keep down fluids patient be admitted for observation Consult Healthcare Provider Management of the patient was discussed with: Hospitalist Lab Data [facility] Lab Attestation statement: I reviewed the patient's lab results. 06/09/22 18:13 06/09/22 19:18 Labs: Lab Results 06/09/22 06/09/22 06/09/22 Range/Units 17:49 18:13 18:13 WBC 11.1 H (4.8-10.8) X10*3/uL RBC 4.96 (4.20-5.50) X10*6/uL Hgb 14.8 (12.0-16.0) g/dl Hct 43.3 (37.0-47.0) % MCV 87.3 (80.0-98.0) fL MCH 29.8 (27.0-33.0) pg MCHC 34.2 (31.0-35.0) g/dl RDW 13.2 (11.0-16.0) % Plt Count 264 (160-400) X10*3/uL MPV 11.5 (9.4-12.3) fL Immature Gran % (Auto) 0.5 H (0.0-0.4) % Neut % (Auto) 82.5 H (45-73) % Lymph % (Auto) 11.8 L (20-40) % Mchenry % (Auto) 4.1 (2-11) % Eos % (Auto) 0.6 (0-4) % Baso % (Auto) 0.5 (0-2) % Lymph # (Auto) 1.3 (1.2-4.9) X10*3/uL Mchenry # (Auto) 0.5 (0.1-1.2) X10*3/uL Eos # (Auto) 0.1 (0.0-0.4) X10*3/uL Baso # (Auto) 0.1 (0.0-0.2) X10*3/uL Abs Immat Gran (auto) 0.05 H (0.00-0.03) X10*3/uL Absolute Neuts (auto) 9.1 H (2.0-8.3) x10*3/uL Absolute Nucleated RBC 0.000 (0.0-0.012) X10*3/uL Nucleated RBC % (auto) 0.0 (0.0-0.2) /100WBC D-Dimer High Sensitivty NG/ML Sodium (135-145) mmol/L Potassium (3.3-5.1) mmol/L Chloride (96-108) mmol/L Carbon Dioxide (22-29) mmol/L Anion Gap (12-20) BUN (9-16) mg/dL Creatinine (0.5-1.4) mg/dL Estim Creat Clear Calc Estimated GFR POC Glucose 220 H (60-115) mg/dL Random Glucose (60-115) mg/dL Calcium (8.4-10.2) mg/dL Total Bilirubin (0.0-1.0) mg/dL Direct Bilirubin (0.0-0.5) mg/dL AST (5-31) U/L ALT (0-31) U/L Alkaline Phosphatase (39-117) U/L Troponin I High Sens (<3.5-17.0) ng/L B-Natriuretic Peptide 67 (<100) pg/mL Total Protein (6.5-8.0) g/dL Albumin (3.5-5.0) g/dL Lipase (8-78) U/L TSH (0.32-4.0) uIU/mL Influenza Type A (PCR) (Negative) Influenza Type B (PCR) (Negative) RSV RNA Qual (PCR) (Negative) SARS-CoV-2 RNA (RT-PCR) (Negative) 06/09/22 06/09/22 06/09/22 Range/Units 18:13 19:09 19:18 WBC (4.8-10.8) X10*3/uL RBC (4.20-5.50) X10*6/uL Hgb (12.0-16.0) g/dl Hct (37.0-47.0) % MCV (80.0-98.0) fL MCH (27.0-33.0) pg MCHC (31.0-35.0) g/dl RDW (11.0-16.0) % Plt Count (160-400) X10*3/uL MPV (9.4-12.3) fL Immature Gran % (Auto) (0.0-0.4) % Neut % (Auto) (45-73) % Lymph % (Auto) (20-40) % Mchenry % (Auto) (2-11) % Eos % (Auto) (0-4) % Baso % (Auto) (0-2) % Lymph # (Auto) (1.2-4.9) X10*3/uL Mchenry # (Auto) (0.1-1.2) X10*3/uL Eos # (Auto) (0.0-0.4) X10*3/uL Baso # (Auto) (0.0-0.2) X10*3/uL Abs Immat Gran (auto) (0.00-0.03) X10*3/uL Absolute Neuts (auto) (2.0-8.3) x10*3/uL Absolute Nucleated RBC (0.0-0.012) X10*3/uL Nucleated RBC % (auto) (0.0-0.2) /100WBC D-Dimer High Sensitivty 396 NG/ML Sodium 140 (135-145) mmol/L Potassium 4.2 D (3.3-5.1) mmol/L Chloride 103 (96-108) mmol/L Carbon Dioxide 20 L (22-29) mmol/L Anion Gap 21 H (12-20) BUN 28 H (9-16) mg/dL Creatinine 0.90 (0.5-1.4) mg/dL Estim Creat Clear Calc 59.9 Estimated GFR > 60 POC Glucose (60-115) mg/dL Random Glucose 240 H (60-115) mg/dL Calcium 9.8 (8.4-10.2) mg/dL Total Bilirubin 0.9 (0.0-1.0) mg/dL Direct Bilirubin 0.2 (0.0-0.5) mg/dL AST 19 (5-31) U/L ALT 14 (0-31) U/L Alkaline Phosphatase 86 (39-117) U/L Troponin I High Sens (<3.5-17.0) ng/L B-Natriuretic Peptide (<100) pg/mL Total Protein 6.9 (6.5-8.0) g/dL Albumin 4.4 (3.5-5.0) g/dL Lipase 15 (8-78) U/L TSH (0.32-4.0) uIU/mL Influenza Type A (PCR) NEGATIVE (Negative) Influenza Type B (PCR) NEGATIVE (Negative) RSV RNA Qual (PCR) NEGATIVE (Negative) SARS-CoV-2 RNA (RT-PCR) NEGATIVE (Negative) 06/09/22 06/09/22 Range/Units 19:18 19:18 WBC (4.8-10.8) X10*3/uL RBC (4.20-5.50) X10*6/uL Hgb (12.0-16.0) g/dl Hct (37.0-47.0) % MCV (80.0-98.0) fL MCH (27.0-33.0) pg MCHC (31.0-35.0) g/dl RDW (11.0-16.0) % Plt Count (160-400) X10*3/uL MPV (9.4-12.3) fL Immature Gran % (Auto) (0.0-0.4) % Neut % (Auto) (45-73) % Lymph % (Auto) (20-40) % Mchenry % (Auto) (2-11) % Eos % (Auto) (0-4) % Baso % (Auto) (0-2) % Lymph # (Auto) (1.2-4.9) X10*3/uL Mchenry # (Auto) (0.1-1.2) X10*3/uL Eos # (Auto) (0.0-0.4) X10*3/uL Baso # (Auto) (0.0-0.2) X10*3/uL Abs Immat Gran (auto) (0.00-0.03) X10*3/uL Absolute Neuts (auto) (2.0-8.3) x10*3/uL Absolute Nucleated RBC (0.0-0.012) X10*3/uL Nucleated RBC % (auto) (0.0-0.2) /100WBC D-Dimer High Sensitivty NG/ML Sodium (135-145) mmol/L Potassium (3.3-5.1) mmol/L Chloride (96-108) mmol/L Carbon Dioxide (22-29) mmol/L Anion Gap (12-20) BUN (9-16) mg/dL Creatinine (0.5-1.4) mg/dL Estim Creat Clear Calc Estimated GFR POC Glucose (60-115) mg/dL Random Glucose (60-115) mg/dL Calcium (8.4-10.2) mg/dL Total Bilirubin (0.0-1.0) mg/dL Direct Bilirubin (0.0-0.5) mg/dL AST (5-31) U/L ALT (0-31) U/L Alkaline Phosphatase (39-117) U/L Troponin I High Sens 3.8 (<3.5-17.0) ng/L B-Natriuretic Peptide (<100) pg/mL Total Protein (6.5-8.0) g/dL Albumin (3.5-5.0) g/dL Lipase (8-78) U/L TSH 0.64 (0.32-4.0) uIU/mL Influenza Type A (PCR) (Negative) Influenza Type B (PCR) (Negative) RSV RNA Qual (PCR) (Negative) SARS-CoV-2 RNA (RT-PCR) (Negative) Independent Interpretation I performed an independent interpretation of an: EKG Interpretation: Patient's EKG showed a sinus pattern NC QRS QT within normal limits is no acute ST segment elevation. Radiology Impression Discussion of test interpretation with radiology: I have reviewed the radiologist's reading. Independent Historian Clinical information obtained from an independent historian. History obtained from or confirmed by: EMS External Record Review External record reviewed: Inpatient record Chronic Conditions Patient?s care impacted by: Diabetes and Hypertension Social Determinants Patient?s care significantly limited by Social Determinants of Health including: Problems related to primary support group Critical Care Time Critical Care Time Critical Care Time: Yes Total Critical Care Time: 40 Attestation: I have personally provided 40 minutes of critical care time exclusive of time spent on separately billable procedures. Time includes review of lab data, radiology results, discussion with consultants, and monitoring for potential decompensation. Interventions were performed as documented above Discharge Plan Discharge Clinical Impression: Vomiting Patient Disposition: Admitted as Observation Prescriptions: No Action levothyroxine 137 mcg tablet 137 mcg PO DAILY@0600 sertraline 100 mg tablet 100 mg PO DAILY bacitracin 500 unit/gram ointment 1 appl topical BID Qty: 30 0RF aspirin 81 mg tablet,chewable 81 mg PO DAILY@1700 insulin asp prt-insulin aspart [Novolog Mix 70-30FlexPen U-100] 100 unit/mL (70-30) insulin pen 38 unit subcut BID Trulicity 1.5 mg/0.5 mL pen injector 1.5 mg subcut WE simvastatin 40 mg tablet 40 mg PO BEDTIME pramipexole 0.125 mg tablet 0.125 mg PO DAILY@1800 prednisone 20 mg tablet See Rx Instructions .Route .COMPLEX Qty: 18 0RF Rx Instructions: 20 mg orally; 3 tabs daily for 3 days, 2 tabs daily for 3 days, 1 tab daily for 3 days
[2022-06-09 17:45] VITALS: BP 180/90; PULSE 66; PULSE 67; RESP 16; TEMP 36.4; O2SAT 100; BMI 31.2
[2022-06-09 17:52] LABS: Glucose, Whole Blood 220 mg/dL (60-115)
[2022-06-09 18:18] LABS: MANUAL DIFF FLAG NO
[2022-06-09 18:19] LABS: Basophils Absolute Auto 0.1 X10*3/uL (0.0-0.2); Basophils Percent Auto 0.5 % (0-2); Eosinophils Absolute Auto 0.1 X10*3/uL (0.0-0.4); Eosinophils Percent Auto 0.6 % (0-4); Hematocrit 43.3 % (37.0-47.0); Hemoglobin 14.8 g/dl (12.0-16.0); Imm Gran Abs Auto 0.05 X10*3/uL (0.00-0.03); Imm Gran Pct Auto 0.5 % (0.0-0.4); Lymphocytes Absolute Auto 1.3 X10*3/uL (1.2-4.9); Lymphocytes Percent Auto 11.8 % (20-40); Mean Corpuscular HGB Conc 34.2 g/dl (31.0-35.0); Mean Corpuscular Hemoglobin 29.8 pg (27.0-33.0); Mean Corpuscular Volume 87.3 fL (80.0-98.0); Mean Platelet Volume 11.5 fL (9.4-12.3); Monocytes Absolute Auto 0.5 X10*3/uL (0.1-1.2); Monocytes Percent Auto 4.1 % (2-11); Neutrophils Absolute Auto 9.1 x10*3/uL (2.0-8.3); Neutrophils Percent Auto 82.5 % (45-73); Platelet Count 264 X10*3/uL (160-400); Red Blood Count 4.96 X10*6/uL (4.20-5.50); Red Cell Distribution Width 13.2 % (11.0-16.0); White Blood Count 11.1 X10*3/uL (4.8-10.8)
[2022-06-09] MEDS: 0.9 % Sodium Chloride 1,000 ML 999 ML IV (18:19)
[2022-06-09] MEDS: LORazepam 2 MG/ML VIAL 0.5 MG IVPUSH (18:19)
[2022-06-09] MEDS: ondansetron HCL 4 MG/2 ML VIAL IVPUSH ×2 (18:19→20:36)
[2022-06-09 18:26] LABS: D Dimer High Sensitivity 396 NG/ML
[2022-06-09 18:49] LABS: B Type Natriuretic Peptide 67 pg/mL (<100)
[2022-06-09 19:50] LABS: Influenza A PCR NEGATIVE (Negative); Influenza B PCR NEGATIVE (Negative); Resp Syncy Virus RNA Qual PCR NEGATIVE (Negative); SARS COV2 PCR INHOUSE NEGATIVE (Negative)
[2022-06-09 19:52] LABS: Troponin-I High Sensitivity 3.8 ng/L (<3.5-17.0)
[2022-06-09 20:05] LABS: TSH reflex Free T4 0.64 uIU/mL (0.32-4.0)
[2022-06-09 20:10] VITALS: BP 168/60; PULSE 60; RESP 12; TEMP 36.8; O2SAT 99
[2022-06-09 21:59] LABS: Alanine Aminotransferase 14 U/L (0-31); Albumin Level 4.4 g/dL (3.5-5.0); Alkaline Phosphatase 86 U/L (39-117); Anion Gap 21 (12-20); Aspartate Amino Transferase 19 U/L (5-31); Bilirubin Direct 0.2 mg/dL (0.0-0.5); Bilirubin Total 0.9 mg/dL (0.0-1.0); Blood Urea Nitrogen 28 mg/dL (9-16); Calcium 9.8 mg/dL (8.4-10.2); Carbon Dioxide 20 mmol/L (22-29); Chloride 103 mmol/L (96-108); Creatinine Clr Calc Pharmacy 59.9; Estimated Glomerular Filt Rate > 60; Glucose Random 240 mg/dL (60-115); Lipase 15 U/L (8-78); Potassium 4.2 mmol/L (3.3-5.1); Sodium 140 mmol/L (135-145); Total Protein 6.9 g/dL (6.5-8.0)
[2022-06-09] MEDS: 0.9 % Sodium Chloride 500 ML 999 ML IV (22:15)
[2022-06-09] MEDS: Metoclopramide HCl 10 MG/2 ML VIAL IVPUSH (22:19)
[2022-06-09] MEDS: iohexoL 350 MG/ML 100 ML INFUS..BTL IV (22:48)
[2022-06-09 23:50] VITALS: BP 147/70; PULSE 79; RESP 17; TEMP 36.7; O2SAT 96
--- NOTE | 2022-06-10 00:56 | P.HPHOSP_ITS ---
History of Present Illness Date of Service: 06/10/22 Chief Complaint: Nausea/vomiting This is a 72-year-old female with pertinent history of mood disorder, gvx-xdbleah-kqlsmqgdp diabetes mellitus, hypothyroidism, mixed hyperlipidemia who presents to the emergency department for evaluation of nausea and vomiting. She states she started having nausea and nonbloody emesis yesterday. No provoking factor. No abdominal pain. No fever or chills. Patient states since yesterday she has not been able to keep anything down due to nausea and nonbloody emesis. Patient denies any abdominal surgery in the recent past. Had a normal bowel movement yesterday morning. No changes to medication. Patient denies chest discomfort, palpitations, shortness of breath, changes in urinary habits In the emergency department, patient with nausea and vomiting even after IV Zofran x2. Review of Systems Constitutional: Constitutional: Reports lethargy and Reports malaise Cardiovascular: Cardiovascular: Reports no additional cardiovascular complaints Respiratory: Respiratory: Reports no additional respiratory complaints Gastrointestinal: Gastrointestinal: Reports nausea and Reports vomiting Genitourinary: Genitourinary: Reports no additional female genitourinary complaints [facility] Medical History Anxiety Cat bite Depression Diabetes Hypothyroidism Family History Other No family history of coronary artery disease Surgical History History of ankle surgery History of carpal tunnel surgery History of tonsillectomy and adenoidectomy Social History Household Members: None Housing: Apartment Do you presently have visiting nurse or other home services: No Alcohol intake: never Patient Tobacco Use Status: Former Tobacco user Tobacco use type: Cigarette Smoked in Last 30 Days: No Use of substances other than those prescribed or required for medical reasons: Yes Substance Use Type: Marijuana Advance Directives: No Advance Directives Information Provided: Yes service: No Current occupational status: retired Current occupation: rt handed Meds Allergies Allergy/AdvReac Type Severity Reaction Status Date / Time No Known Allergies Allergy Verified 08/24/21 18:41 Active Medications: Current Medications Pharmacy Consult (Consult Rx Perform Med Rec) 1 each MISCELLANE ONCE PRN PRN Reason: Consult order Home Medications Medication Instructions Recorded Confirmed Last Taken Type levothyroxine 137 mcg tablet 137 mcg PO DAILY@0600 02/03/21 04/24/22 04/23/22 History sertraline 100 mg tablet 100 mg PO DAILY 02/03/21 04/24/22 04/23/22 History aspirin 81 mg chewable tablet 81 mg PO DAILY@1700 04/24/22 04/24/22 04/23/22 History dulaglutide 1.5 mg/0.5 mL 1.5 mg subcut WE 04/24/22 04/24/22 04/22/22 History subcutaneous pen injector (Trulicity) insulin aspar prot-insulin aspart 38 unit subcut BID 04/24/22 04/24/22 04/23/22 History 100 unit/mL (70-30) subcutaneous pen (Novolog Mix 70-30FlexPen U-100) pramipexole 0.125 mg tablet 0.125 mg PO DAILY@1800 04/24/22 04/24/22 04/23/22 History simvastatin 40 mg tablet 40 mg PO BEDTIME 04/24/22 04/24/22 04/23/22 History Physical Exam Vital Signs and Narrative: Vital Signs: Last Vital Signs Temp 98.1 F 06/09/22 23:50 Pulse 79 06/09/22 23:50 Resp 17 06/09/22 23:50 BP 147/70 H 06/09/22 23:50 Pulse Ox 96 06/09/22 23:50 O2 Del Method 06/09/22 23:50 BMI result Body Mass Index 31.2 Elderly female lying in bed in mild distress Neck supple, no JVD Regular rate and rhythm, S1-S2 heard Regular breath sounds bilaterally, no wheezing or crackles appreciated Abdomen soft nontender, no guarding, no rigidity, no rebound tenderness Patient is awake, alert and oriented to self, place, time and person ; no focal motor deficit Psych: Normal mood No pedal edema Results Labs 06/09/22 18:13 06/09/22 19:18 Labs: Laboratory Results - last 24 hr 06/09/22 06/09/22 06/09/22 17:49 18:13 18:13 MCV 87.3 MCH 29.8 MCHC 34.2 RDW 13.2 Plt Count 264 MPV 11.5 Immature Gran % (Auto) 0.5 H Neut % (Auto) 82.5 H Lymph % (Auto) 11.8 L Morehouse % (Auto) 4.1 Eos % (Auto) 0.6 Baso % (Auto) 0.5 Lymph # (Auto) 1.3 Morehouse # (Auto) 0.5 Eos # (Auto) 0.1 Baso # (Auto) 0.1 Abs Immat Gran (auto) 0.05 H Absolute Neuts (auto) 9.1 H Absolute Nucleated RBC 0.000 Nucleated RBC % (auto) 0.0 D-Dimer High Sensitivty Anion Gap Estim Creat Clear Calc Estimated GFR POC Glucose 220 H Random Glucose Calcium Total Bilirubin Direct Bilirubin AST ALT Alkaline Phosphatase Troponin I High Sens B-Natriuretic Peptide 67 Total Protein Albumin Lipase TSH Influenza Type A (PCR) Influenza Type B (PCR) RSV RNA Qual (PCR) SARS-CoV-2 RNA (RT-PCR) 06/09/22 06/09/22 06/09/22 18:13 19:09 19:18 MCV MCH MCHC RDW Plt Count MPV Immature Gran % (Auto) Neut % (Auto) Lymph % (Auto) Morehouse % (Auto) Eos % (Auto) Baso % (Auto) Lymph # (Auto) Morehouse # (Auto) Eos # (Auto) Baso # (Auto) Abs Immat Gran (auto) Absolute Neuts (auto) Absolute Nucleated RBC Nucleated RBC % (auto) D-Dimer High Sensitivty 396 Anion Gap 21 H Estim Creat Clear Calc 59.9 Estimated GFR > 60 POC Glucose Random Glucose 240 H Calcium 9.8 Total Bilirubin 0.9 Direct Bilirubin 0.2 AST 19 ALT 14 Alkaline Phosphatase 86 Troponin I High Sens B-Natriuretic Peptide Total Protein 6.9 Albumin 4.4 Lipase 15 TSH Influenza Type A (PCR) NEGATIVE Influenza Type B (PCR) NEGATIVE RSV RNA Qual (PCR) NEGATIVE SARS-CoV-2 RNA (RT-PCR) NEGATIVE 06/09/22 06/09/22 19:18 19:18 MCV MCH MCHC RDW Plt Count MPV Immature Gran % (Auto) Neut % (Auto) Lymph % (Auto) Morehouse % (Auto) Eos % (Auto) Baso % (Auto) Lymph # (Auto) Morehouse # (Auto) Eos # (Auto) Baso # (Auto) Abs Immat Gran (auto) Absolute Neuts (auto) Absolute Nucleated RBC Nucleated RBC % (auto) D-Dimer High Sensitivty Anion Gap Estim Creat Clear Calc Estimated GFR POC Glucose Random Glucose Calcium Total Bilirubin Direct Bilirubin AST ALT Alkaline Phosphatase Troponin I High Sens 3.8 B-Natriuretic Peptide Total Protein Albumin Lipase TSH 0.64 Influenza Type A (PCR) Influenza Type B (PCR) RSV RNA Qual (PCR) SARS-CoV-2 RNA (RT-PCR) Imaging Radiologist's Impressions: Impressions Chest X-Ray 06/09/22 17:49 IMPRESSION: Unremarkable examination. Abdomen/Pelvis CT 06/09/22 22:40 IMPRESSION: CT CHEST: No evidence of pulmonary embolism. No acute abnormality of the chest. CT ABDOMEN PELVIS: No acute abnormality the abdomen or pelvis. Chest CTA 06/09/22 22:40 IMPRESSION: CT CHEST: No evidence of pulmonary embolism. No acute abnormality of the chest. CT ABDOMEN PELVIS: No acute abnormality the abdomen or pelvis. Assessment and Plan (1) Vomiting: Status: Acute Plan This is a 72-year-old female with pertinent history of mood disorder, fyz-aqniost-zgmpxjlyj diabetes mellitus, hypothyroidism, mixed hyperlipidemia who presents to the emergency department for evaluation of nausea and vomiting. #. Intractable nausea and vomiting, likely acute viral gastritis: Will admit patient for observation. IV Zofran p.r.n. Full liquid diet and advance as tolerated. Resuscitated with IV crystalloid in the ER. Imaging without any acute abnormality. No concern for bacterial superinfection, defer antibiotics #. Sum-kokqdwn-putwpbytk diabetes mellitus with hyperglycemia: Initiate Accu- Cheks with sliding scale insulin. Reduce basal regimen #. Hypothyroidism: On Synthroid. Obtain TSH #. Mood disorder: Continue home p.o. medications #. Mixed hyperlipidemia: On statin Med rec pending DVT prophylaxis: Lovenox 40 mg daily Full code Full liquid diet. Advance as tolerated Time Spent With Patient Time: Total time managing care of this patient today ____ minutes. Quality Stroke Does the patient have a stroke diagnosis?: No VTE Prior VTE?: No VTE Risk Level:: Medical - moderate - high VTE Device Contraindication: Treatment Not Indicated VTE Drug Contraindication: N/A - Med Ordered
--- NOTE | 2022-06-10 00:59 | PC.NURSE ---
Re- assessment: Pt's is on the monitor and it shows NSR, Pt is hypertensive on the monitor. Pt was changed due to pt was projectile vomiting w/ blood. Provider was at bedside. Pt IVF are running as order. Pt meds were administered. [facility] nurse install a commode on her left side for her to utilized and avoid accidents.
[2022-06-10] MEDS: Insulin Glargine,Hum.rec.anlog 100 UNIT/ML 10 ML VIAL 35 UNIT SUBCUT ×2 (01:40→21:06)
[2022-06-10] MEDS: Pantoprazole Sodium 40 MG/10 ML VIAL 80 MG IVPUSH (01:41)
[2022-06-10] MEDS: 0.9 % Sodium Chloride 1,000 ML 100 ML IVCONT ×3 (01:42→23:24)
[2022-06-10 01:52] VITALS: BP 167/47; PULSE 78; RESP 20; TEMP 37.7; O2SAT 96
[2022-06-10 05:55] LABS: MANUAL DIFF FLAG NO
[2022-06-10 06:10] LABS: Basophils Percent Auto 0.2 % (0-2); Hemoglobin 12.7 g/dl (12.0-16.0); Imm Gran Abs Auto 0.03 X10*3/uL (0.00-0.03); Imm Gran Pct Auto 0.3 % (0.0-0.4); Lymphocytes Absolute Auto 1.1 X10*3/uL (1.2-4.9); Lymphocytes Percent Auto 11.2 % (20-40); Mean Corpuscular HGB Conc 32.6 g/dl (31.0-35.0); Mean Corpuscular Hemoglobin 29.4 pg (27.0-33.0); Mean Corpuscular Volume 90.3 fL (80.0-98.0); Mean Platelet Volume 12.8 fL (9.4-12.3); Monocytes Absolute Auto 0.3 X10*3/uL (0.1-1.2); Monocytes Percent Auto 3.1 % (2-11); Neutrophils Percent Auto 85.2 % (45-73); Platelet Count 172 X10*3/uL (160-400); Red Blood Count 4.32 X10*6/uL (4.20-5.50); Red Cell Distribution Width 13.5 % (11.0-16.0); White Blood Count 9.3 X10*3/uL (4.8-10.8)
[2022-06-10 06:25] LABS: Anion Gap 23 (12-20); Blood Urea Nitrogen 27 mg/dL (9-16); Carbon Dioxide 15 mmol/L (22-29); Chloride 106 mmol/L (96-108); Creatinine Clr Calc Pharmacy 46.9; Estimated Glomerular Filt Rate 46; Glucose Random 350 mg/dL (60-115); Sodium 139 mmol/L (135-145)
--- NOTE | 2022-06-10 06:58 | PC.NURSE ---
assumed care of patient, pt resting comfortably in bed, VSS, awaiting inpt bed
[2022-06-10 07:01] VITALS: BP 121/34; PULSE 78; RESP 20; O2SAT 96
[2022-06-10 07:13] LABS: Glucose, Whole Blood 317 mg/dL (60-115)
[2022-06-10 07:13] LABS: Glucose, Whole Blood 325 mg/dL (60-115)
[2022-06-10] MEDS: Insulin Lispro 100 UNIT/ML 3 ML VIAL SUBCUT ×4 (07:17→21:07)
--- NOTE | 2022-06-10 08:39 | PHA.MEDREC ---
Pharmacy Consult ? Medication Reconciliation Pharmacy has completed the medication reconciliation. Pt unarousable when I went to speak with her twice, I reviewed the med rec done by nursing however the pramipexole has not been filled since July of 2021 and the prednisone taper was filled 04/24/22 for a short taper supply. Left these unacknowledged.
--- NOTE | 2022-06-10 08:43 | MHC.CM.PN ---
Addendum entered by Ronda Salinas 06/11/22 10:16: CM MET WITH PT THIS MORNING, PT REPORTS SHE DOES NOT HAVE A PCP IN THE AREA SHE SAYS SHE HAS A PROVIDER IN [facility] FOLLOWING HER BUT HAS BEEN TRYING TO GET TRANSFERRED FOR SEVERAL MONTHS SHE ASKS IF SHE COULD BE [facility] THE [facility] SHE IS ALSO WILLING TO GO TO [facility] TASK SENT TO [facility] TO ASSIST IN SCHEDULING A NEW PCP APPT SHE CONFIRMS SHE HAS A CANE A WALKER AT HOME SHE HAS NO SERVICES IN THE HOME Original Note: CM ATTEMPTED TO WAKE PT SEVERAL TIMES, PT DOES NOT WAKE NOTES FROM PREVIOUS VISIT INDICATE PTS SISTER, MARCY [phone] IS HER HCP CM CALLED MARCY WHO REPORTS THE PT LIVES ALONE SHE SAYS SHE THINKS THE PT HAS SOME KIND OF SERVICES, BUT SHE DOES NOT KNOW WHAT SHE DOES NOT BELIEVE THE PT HAS A PCP AND WANTS HER TO BE CONNECTED WITH ONE MARCY DOES NOT HAVE A COPY OF PTS HCP PT HAS DM SUPPLIES, MARCY ALSO THINKS SHE HAS A CANE AND WALKER PT IS COVID VAX AND BOOSTED OBSERVATION NOTICE DELIVERED VIA T/C, COPY PLACED BEDSIDE FOR PT REVIEW, AND COPY SENT TO [facility] CURRENT DC PLAN IS HOME WITH NO NEW SERVICES PT MAY NEED TRANSPORT
[2022-06-10 10:13] LABS: Venous Blood Gas Refer to POC result
[2022-06-10 10:13] LABS: VBG Base Excess -0.5 mmol/L; VBG HCO3 22 mmol/L (22-26); VBG pCO2 33 mmHg; VBG pH 7.44 (7.32-7.43); VBG pO2 100 mmHg
[2022-06-10 10:25] LABS: Lactic Acid 1.8 mmol/L (0.5-2.0)
[2022-06-10 10:32] LABS: Acetone, serum QL Negative (Negative)
--- NOTE | 2022-06-10 10:36 | PM.GICN ---
History of Present Illness Data of Consult Service Date: 06/10/22 Requesting physician: Nikolas Leahy Primary Care Provider: Unknown Physician HPI Reason for consult: Hematemesis This is a 72-year-old female with past medical history of type 2 diabetes, hypothyroidism, hyperlipidemia, depression, who presented to the hospital for nausea and vomiting complicated by hematemesis. States that on the day of presentation to the hospital, she had a bowl of cereal for breakfast, and within a couple hours started having projectile vomiting without any abdominal pain, fevers, chills, diarrhea. By the time she came to the hospital, she had 3-4 episodes. In the hospital, she had 2 more episodes of vomiting which were noted to be coffee grounds, whereas previous episodes at home were non-bloody per patient's report. Vitals remained stable overnight, in fact a bit hypertensive. Labs were significant for hemoconcentration on arrival, and this morning, back to baseline hemoglobin. LFTs and lipase normal, BG high in 200s on arrival and progressively increased to 300s. CT Abd/pelvis without evidence of gastric distention/GOO, or enteritis. Patient currently reports no further episodes of nausea or vomiting since this morning, was noted to be resting comfortably in the stretcher. Lives by herself, does not recall any sick contacts in the last few days. Review of Systems Review of Systems: Yes all other systems are reviewed and are negative [facility] Past Medical History Medical History Anxiety Cat bite Depression Diabetes Hypothyroidism Family History Family History Other No family history of coronary artery disease Surgical History Surgical History History of ankle surgery History of carpal tunnel surgery History of tonsillectomy and adenoidectomy Social History Social History Household Members: None Housing: Apartment Do you presently have visiting nurse or other home services: No Alcohol intake: never Patient Tobacco Use Status: Former Tobacco user Tobacco use type: Cigarette Smoked in Last 30 Days: No Use of substances other than those prescribed or required for medical reasons: Yes Substance Use Type: Marijuana Advance Directives: No Advance Directives Information Provided: Yes service: No Current occupational status: retired Current occupation: rt handed Meds Allergies Allergy/AdvReac Type Severity Reaction Status Date / Time No Known Allergies Allergy Verified 08/24/21 18:41 Active Medications: Current Medications Acetaminophen (Acetaminophen 325 Mg Tablet) 650 mg PO Q6H PRN PRN Reason: Pain, Mild (Pain Scale 1-3) Aspirin (Aspirin 81 Mg Tab.Chew) 81 mg PO DAILY@1700 [facility] Atorvastatin Calcium (Atorvastatin Calcium 20 Mg Tablet) 20 mg PO BEDTIME [facility] Dextrose (Dextrose 50 % 25 Gm/50 Ml Syringe) 25 gm IVPUSH Q15M PRN; Protocol PRN Reason: per Hypoglycemia Standing Ord. Glucose (Glucose Gel 15 Gm Gel..Gram.) 15 gm PO Q15M PRN; Protocol PRN Reason: per Hypoglycemia Standing Ord. Sodium Chloride (Ns) 1,000 mls @ 100 mls/hr IVCONT .Q10H [facility] Last Infusion: 06/10/22 10:36 Dose: Infused Insulin Glargine (Insulin Glargine,Hum.Rec.Anlog 100 Unit/Ml 10 Ml Vial) 35 unit SUBCUT BEDTIME [facility] Last Admin: 06/10/22 01:40 Dose: 35 unit Insulin Human Lispro (Insulin Lispro 100 Unit/Ml 3 Ml Vial) 0.1 - 10 unit SUBCUT QIDACHS [facility]; Protocol Last Admin: 06/10/22 07:17 Dose: 8 unit Levothyroxine Sodium (Levothyroxine Sodium 112 Mcg Tablet) 112 mcg PO DAILY@0600 [facility] Levothyroxine Sodium (Levothyroxine Sodium 25 Mcg Tablet) 25 mcg PO DAILY@0600 [facility] Melatonin (Melatonin 3 Mg Tablet) 6 mg PO BEDTIME PRN PRN Reason: Insomnia Ondansetron HCl (Ondansetron Hcl 4 Mg/2 Ml Vial) 4 mg IVPUSH Q8H PRN PRN Reason: Nausea and Vomiting Pharmacy Consult (Consult Rx Perform Med Rec) 1 each MISCELLANE ONCE PRN PRN Reason: Consult order Sertraline HCl (Sertraline Hcl 100 Mg Tablet) 100 mg PO DAILY [facility] Sodium Chloride (0.9 % Sodium Chloride Flush 3 Ml Syringe) 3 ml IVFLUSH QSHIFT [facility] Last Admin: 06/10/22 07:06 Dose: Not Given Home Medications Medication Instructions Recorded Confirmed Last Taken Type levothyroxine 137 mcg tablet 137 mcg PO DAILY@0600 02/03/21 06/10/22 04/23/22 History sertraline 100 mg tablet 100 mg PO DAILY 02/03/21 06/10/22 04/23/22 History aspirin 81 mg chewable tablet 81 mg PO DAILY@1700 04/24/22 06/10/22 04/23/22 History dulaglutide 1.5 mg/0.5 mL 1.5 mg subcut WE 04/24/22 06/10/22 04/22/22 History subcutaneous pen injector (Trulicity) insulin aspar prot-insulin aspart 38 unit subcut BID 04/24/22 06/10/22 04/23/22 History 100 unit/mL (70-30) subcutaneous pen (Novolog Mix 70-30FlexPen U-100) pramipexole 0.125 mg tablet 0.125 mg PO DAILY@1800 04/24/22 04/24/22 04/23/22 History simvastatin 40 mg tablet 40 mg PO BEDTIME 04/24/22 06/10/22 04/23/22 History Physical Exam Vital Signs: Vital Signs: Last Vital Signs Temp 99.8 F 06/10/22 01:52 Pulse 78 06/10/22 07:01 Resp 20 06/10/22 07:01 BP 121/34 L 06/10/22 07:01 Pulse Ox 96 06/10/22 07:01 O2 Del Method 06/10/22 07:01 BMI result Body Mass Index 31.2 Gen appear: No acute distress, well nourished HEENT: no icterus, no cervical lymphadenopathy Chest: No overt resp distress CVS: S1/S2, regular Abd: soft, nontender, nondistended Psych: Stable affect, answering questions appropriately Neuro: A/Ox3, hard of hearing, noted to move all extremities spontaneously Ext: no peripheral edema Results Labs 06/10/22 05:40 06/10/22 05:40 Labs: Short CBC 06/09/22 06/10/22 Range/Units 18:13 05:40 WBC 11.1 H 9.3 (4.8-10.8) X10*3/uL Hgb 14.8 12.7 (12.0-16.0) g/dl Hct 43.3 39.0 (37.0-47.0) % Plt Count 264 172 D (160-400) X10*3/uL BMP 06/09/22 06/10/22 19:18 05:40 Sodium 140 139 Potassium 4.2 D 5.0 Chloride 103 106 Carbon Dioxide 20 L 15 L BUN 28 H 27 H Creatinine 0.90 1.15 Calcium 9.8 9.0 D Liver Function 06/09/22 Range/Units 19:18 Total Bilirubin 0.9 (0.0-1.0) mg/dL Direct Bilirubin 0.2 (0.0-0.5) mg/dL AST 19 (5-31) U/L ALT 14 (0-31) U/L Alkaline Phosphatase 86 (39-117) U/L Albumin 4.4 (3.5-5.0) g/dL Assessment and Plan (1) Vomiting: Status: Acute (2) Coffee ground emesis: Status: Acute Plan Overall presentation consistent with low-grade upper GI bleeding likely from Hortencia-Saxena tear versus mild esophagitis secondary to vomiting. Bleeding does not appear to be clinically significant given vitals and labs. Anticipate this to resolve now that pt is not having any further N/V. Her self limiting N/V itself was likely secondary to food-borne illness/infectious gastritis. Recommendations: - Ensure x2 peripheral IV access at all times - Active type and screen - CLD - Protonix can be switched to PO - Add sucralfate 1g QID liquid x 1 week - EGD can be considered if develops clinically significant overt GI bleeding Thank you for allowing me to participate in her care. Please do not hesitate to reach out for any questions or concerns. Time Spent With Patient Time: Total time managing care of this patient today ____ minutes. Procedures Date of Service Date of Service: 06/10/22
[2022-06-10 11:55] LABS: Glucose, Whole Blood 367 mg/dL (60-115)
--- NOTE | 2022-06-10 14:18 | P.PNIM_ITS ---
Subjective Subjective Date of Service: 06/10/22 Interval History: cc: n/v interval history:improving Physical Exam Vital Signs: Vital Signs: Last Vital Signs Temp 99.8 F 06/10/22 01:52 Pulse 78 06/10/22 07:01 Resp 20 06/10/22 07:01 BP 121/34 L 06/10/22 07:01 Pulse Ox 96 06/10/22 07:01 O2 Del Method 06/10/22 07:01 BMI result Body Mass Index 31.2 General: AO X 3, no acute distress Resp: CTA bilateral, no accessory muscles used CVS: S1,S2,RRR GI: soft, non tender, non distended Neuro: motor grossly intact, alert Psych: appropriate affect, appropriate insight Objective Data Active Medications Acetaminophen (Acetaminophen 325 Mg Tablet) 650 mg PO Q6H PRN PRN Reason: Pain, Mild (Pain Scale 1-3) Aspirin (Aspirin 81 Mg Tab.Chew) 81 mg PO DAILY@1700 [facility] Atorvastatin Calcium (Atorvastatin Calcium 20 Mg Tablet) 20 mg PO BEDTIME [facility] Dextrose (Dextrose 50 % 25 Gm/50 Ml Syringe) 25 gm IVPUSH Q15M PRN; Protocol PRN Reason: per Hypoglycemia Standing Ord. Glucose (Glucose Gel 15 Gm Gel..Gram.) 15 gm PO Q15M PRN; Protocol PRN Reason: per Hypoglycemia Standing Ord. Sodium Chloride (Ns) 1,000 mls @ 100 mls/hr IVCONT .Q10H [facility] Last Admin: 06/10/22 10:46 Dose: 100 mls/hr Documented By: PEPITO Insulin Glargine (Insulin Glargine,Hum.Rec.Anlog 100 Unit/Ml 10 Ml Vial) 35 unit SUBCUT BEDTIME [facility] Last Admin: 06/10/22 01:40 Dose: 35 unit Documented By: NAZIA Comments: POC 325 Insulin Human Lispro (Insulin Lispro 100 Unit/Ml 3 Ml Vial) 0.1 - 10 unit SUBCUT QIDACHS [facility]; Protocol Last Admin: 06/10/22 12:20 Dose: 10 unit Documented By: PEPITO Levothyroxine Sodium (Levothyroxine Sodium 112 Mcg Tablet) 112 mcg PO DAILY@0600 [facility] Levothyroxine Sodium (Levothyroxine Sodium 25 Mcg Tablet) 25 mcg PO DAILY@0600 [facility] Melatonin (Melatonin 3 Mg Tablet) 6 mg PO BEDTIME PRN PRN Reason: Insomnia Ondansetron HCl (Ondansetron Hcl 4 Mg/2 Ml Vial) 4 mg IVPUSH Q8H PRN PRN Reason: Nausea and Vomiting Pantoprazole Sodium (Pantoprazole Sodium 40 Mg/10 Ml Vial) 40 mg IVPUSH BID@0630,1630 [facility] Pharmacy Consult (Consult Rx Perform Med Rec) 1 each MISCELLANE ONCE PRN PRN Reason: Consult order Sertraline HCl (Sertraline Hcl 100 Mg Tablet) 100 mg PO DAILY [facility] Sodium Chloride (0.9 % Sodium Chloride Flush 3 Ml Syringe) 3 ml IVFLUSH QSHIFT [facility] Last Admin: 06/10/22 07:06 Dose: Not Given Documented By: PEPITO Non-Admin Reason: IV Running Sucralfate (Sucralfate Oral Suspension 1 Gm/10 Ml Oral.Susp) 1 gm PO QIDACHS [facility] Last Admin: 06/10/22 12:34 Dose: Not Given Documented By: PEPITO Non-Admin Reason: Patient Asleep Labs 06/10/22 05:40 06/10/22 05:40 Labs: Laboratory Results - last 24 hr 06/09/22 06/09/22 06/09/22 17:49 18:13 18:13 MCV 87.3 MCH 29.8 MCHC 34.2 RDW 13.2 Plt Count 264 MPV 11.5 Immature Gran % (Auto) 0.5 H Neut % (Auto) 82.5 H Lymph % (Auto) 11.8 L [place] % (Auto) 4.1 Eos % (Auto) 0.6 Baso % (Auto) 0.5 Lymph # (Auto) 1.3 [place] # (Auto) 0.5 Eos # (Auto) 0.1 Baso # (Auto) 0.1 Abs Immat Gran (auto) 0.05 H Absolute Neuts (auto) 9.1 H Absolute Nucleated RBC 0.000 Nucleated RBC % (auto) 0.0 D-Dimer High Sensitivty VBG pH VBG pCO2 VBG pO2 VBG HCO3 VBG O2 Saturation VBG Base Excess Anion Gap Estim Creat Clear Calc Estimated GFR POC Glucose 220 H Random Glucose Lactic Acid Calcium Total Bilirubin Direct Bilirubin AST ALT Alkaline Phosphatase Troponin I High Sens B-Natriuretic Peptide 67 Total Protein Albumin Lipase TSH Acetone, Qual Influenza Type A (PCR) Influenza Type B (PCR) RSV RNA Qual (PCR) SARS-CoV-2 RNA (RT-PCR) 06/09/22 06/09/22 06/09/22 18:13 19:09 19:18 MCV MCH MCHC RDW Plt Count MPV Immature Gran % (Auto) Neut % (Auto) Lymph % (Auto) [place] % (Auto) Eos % (Auto) Baso % (Auto) Lymph # (Auto) [place] # (Auto) Eos # (Auto) Baso # (Auto) Abs Immat Gran (auto) Absolute Neuts (auto) Absolute Nucleated RBC Nucleated RBC % (auto) D-Dimer High Sensitivty 396 VBG pH VBG pCO2 VBG pO2 VBG HCO3 VBG O2 Saturation VBG Base Excess Anion Gap 21 H Estim Creat Clear Calc 59.9 Estimated GFR > 60 POC Glucose Random Glucose 240 H Lactic Acid Calcium 9.8 Total Bilirubin 0.9 Direct Bilirubin 0.2 AST 19 ALT 14 Alkaline Phosphatase 86 Troponin I High Sens B-Natriuretic Peptide Total Protein 6.9 Albumin 4.4 Lipase 15 TSH Acetone, Qual Influenza Type A (PCR) NEGATIVE Influenza Type B (PCR) NEGATIVE RSV RNA Qual (PCR) NEGATIVE SARS-CoV-2 RNA (RT-PCR) NEGATIVE 06/09/22 06/09/22 06/10/22 19:18 19:18 01:40 MCV MCH MCHC RDW Plt Count MPV Immature Gran % (Auto) Neut % (Auto) Lymph % (Auto) [place] % (Auto) Eos % (Auto) Baso % (Auto) Lymph # (Auto) [place] # (Auto) Eos # (Auto) Baso # (Auto) Abs Immat Gran (auto) Absolute Neuts (auto) Absolute Nucleated RBC Nucleated RBC % (auto) D-Dimer High Sensitivty VBG pH VBG pCO2 VBG pO2 VBG HCO3 VBG O2 Saturation VBG Base Excess Anion Gap Estim Creat Clear Calc Estimated GFR POC Glucose 325 H Random Glucose Lactic Acid Calcium Total Bilirubin Direct Bilirubin AST ALT Alkaline Phosphatase Troponin I High Sens 3.8 B-Natriuretic Peptide Total Protein Albumin Lipase TSH 0.64 Acetone, Qual Influenza Type A (PCR) Influenza Type B (PCR) RSV RNA Qual (PCR) SARS-CoV-2 RNA (RT-PCR) 06/10/22 06/10/22 06/10/22 05:40 05:40 07:01 MCV 90.3 MCH 29.4 MCHC 32.6 RDW 13.5 Plt Count 172 D MPV 12.8 H Immature Gran % (Auto) 0.3 Neut % (Auto) 85.2 H Lymph % (Auto) 11.2 L [place] % (Auto) 3.1 Eos % (Auto) 0.0 Baso % (Auto) 0.2 Lymph # (Auto) 1.1 L [place] # (Auto) 0.3 Eos # (Auto) 0.0 Baso # (Auto) 0.0 Abs Immat Gran (auto) 0.03 Absolute Neuts (auto) 8.0 Absolute Nucleated RBC 0.000 Nucleated RBC % (auto) 0.0 D-Dimer High Sensitivty VBG pH VBG pCO2 VBG pO2 VBG HCO3 VBG O2 Saturation VBG Base Excess Anion Gap 23 H Estim Creat Clear Calc 46.9 Estimated GFR 46 POC Glucose 317 H Random Glucose 350 H* Lactic Acid Calcium 9.0 D Total Bilirubin Direct Bilirubin AST ALT Alkaline Phosphatase Troponin I High Sens B-Natriuretic Peptide Total Protein Albumin Lipase TSH Acetone, Qual Influenza Type A (PCR) Influenza Type B (PCR) RSV RNA Qual (PCR) SARS-CoV-2 RNA (RT-PCR) 06/10/22 06/10/22 06/10/22 10:05 10:05 10:07 MCV MCH MCHC RDW Plt Count MPV Immature Gran % (Auto) Neut % (Auto) Lymph % (Auto) [place] % (Auto) Eos % (Auto) Baso % (Auto) Lymph # (Auto) [place] # (Auto) Eos # (Auto) Baso # (Auto) Abs Immat Gran (auto) Absolute Neuts (auto) Absolute Nucleated RBC Nucleated RBC % (auto) D-Dimer High Sensitivty VBG pH 7.44 H VBG pCO2 33 VBG pO2 100 VBG HCO3 22 VBG O2 Saturation 99.0 VBG Base Excess -0.5 Anion Gap Estim Creat Clear Calc Estimated GFR POC Glucose Random Glucose Lactic Acid 1.8 Calcium Total Bilirubin Direct Bilirubin AST ALT Alkaline Phosphatase Troponin I High Sens B-Natriuretic Peptide Total Protein Albumin Lipase TSH Acetone, Qual Negative Influenza Type A (PCR) Influenza Type B (PCR) RSV RNA Qual (PCR) SARS-CoV-2 RNA (RT-PCR) 06/10/22 11:50 MCV MCH MCHC RDW Plt Count MPV Immature Gran % (Auto) Neut % (Auto) Lymph % (Auto) [place] % (Auto) Eos % (Auto) Baso % (Auto) Lymph # (Auto) [place] # (Auto) Eos # (Auto) Baso # (Auto) Abs Immat Gran (auto) Absolute Neuts (auto) Absolute Nucleated RBC Nucleated RBC % (auto) D-Dimer High Sensitivty VBG pH VBG pCO2 VBG pO2 VBG HCO3 VBG O2 Saturation VBG Base Excess Anion Gap Estim Creat Clear Calc Estimated GFR POC Glucose 367 H* Random Glucose Lactic Acid Calcium Total Bilirubin Direct Bilirubin AST ALT Alkaline Phosphatase Troponin I High Sens B-Natriuretic Peptide Total Protein Albumin Lipase TSH Acetone, Qual Influenza Type A (PCR) Influenza Type B (PCR) RSV RNA Qual (PCR) SARS-CoV-2 RNA (RT-PCR) Assessment and Plan (1) Coffee ground emesis: Status: Acute Plan 72-year-old female with pertinent history of mood disorder, fmr-[id number] diabetes mellitus, hypothyroidism, mixed hyperlipidemia who presented to the emergency department for evaluation of nausea and vomiting. Intractable nausea and vomiting hydration, antiemetics hematemesis monitor h and h likely Hortencia jaramillo ppi, carafate, clears, gi following DM insulin hypothryoid synthroid ?Mood disorder zoloft Mixed hyperlipidemia statin DVT prophylaxis:? mechanical due to hematemesis Full code reason for continued hospitalization:hematemesis Time Spent With Patient Time: Total time managing care of this patient today ____ minutes. Quality Stroke Does the patient have a stroke diagnosis?: No VTE Prior VTE?: No VTE Risk Level:: Medical - moderate - high VTE Device Contraindication: Treatment Not Indicated VTE Drug Contraindication: N/A - Med Ordered
[2022-06-10] MEDS: Pantoprazole Sodium 40 MG/10 ML VIAL IVPUSH (17:07)
[2022-06-10] MEDS: Sucralfate Oral Suspension 1 GM/10 ML ORAL.SUSP PO ×2 (17:07→21:06)
[2022-06-10 18:06] LABS: Glucose, Whole Blood 206 mg/dL (60-115)
--- NOTE | 2022-06-10 20:32 | PC.NURSE ---
Assumed care of pt. at 1900. Pt. resting in bed at this time with no complaints. Pt. assigned a room in [facility]. Floor RN will call for report shortly.
[2022-06-10 20:42] VITALS: BP 106/54; PULSE 68; RESP 20; TEMP 36.8; O2SAT 97
[2022-06-10 20:53] LABS: Glucose, Whole Blood 229 mg/dL (60-115)
[2022-06-10] MEDS: Atorvastatin Calcium 20 MG TABLET PO (21:05)
[2022-06-11 03:34] VITALS: BP 116/56; PULSE 65; RESP 17; TEMP 36.2; O2SAT 92
[2022-06-11] MEDS: Pantoprazole Sodium 40 MG/10 ML VIAL IVPUSH (05:45)
[2022-06-11] MEDS: Levothyroxine Sodium 112 MCG TABLET PO (05:50)
[2022-06-11] MEDS: Levothyroxine Sodium 25 MCG TABLET PO (05:50)
[2022-06-11 07:15] VITALS: BP 113/46; PULSE 64; RESP 17; TEMP 37.5; O2SAT 92
[2022-06-11 07:40] LABS: Glucose, Whole Blood 79 mg/dL (60-115)
[2022-06-11 07:40] LABS: Hematocrit 36.6 % (37.0-47.0); Mean Corpuscular HGB Conc 32.8 g/dl (31.0-35.0); Mean Corpuscular Hemoglobin 29.6 pg (27.0-33.0); Mean Corpuscular Volume 90.4 fL (80.0-98.0); Mean Platelet Volume 10.8 fL (9.4-12.3); Platelet Count 226 X10*3/uL (160-400); Red Blood Count 4.05 X10*6/uL (4.20-5.50); Red Cell Distribution Width 13.8 % (11.0-16.0)
[2022-06-11] MEDS: 0.9 % Sodium Chloride Flush 3 ML SYRINGE IVFLUSH (07:47)
[2022-06-11] MEDS: Sucralfate Oral Suspension 1 GM/10 ML ORAL.SUSP PO (07:47)
[2022-06-11] MEDS: Sertraline HCL 100 MG TABLET PO (07:47)
[2022-06-11 08:06] LABS: Anion Gap 11 (12-20); Blood Urea Nitrogen 19 mg/dL (9-16); Carbon Dioxide 29 mmol/L (22-29); Chloride 108 mmol/L (96-108); Creatinine Clr Calc Pharmacy 62.7; Estimated Glomerular Filt Rate > 60; Glucose Fasting 74 mg/dL (60-99); Potassium 3.8 mmol/L (3.3-5.1); Sodium 144 mmol/L (135-145)
--- NOTE | 2022-06-11 09:19 | PM.DS ---
DS: Providers Provider Date of Service: 06/11/22 Date of admission: 06/10/22 00:54 Primary care physician: Unknown Physician Consults: 06/10/22 01:17 Consult to Gastroenterology Routine Consulting Provider: Trudy Solomon Reason for consultation: hematemesis DS: Diagnosis Discharge Diagnosis (1) Coffee ground emesis: Status: Acute DS: Summary Hospital Course Hospital Course: from initial hpi: Chief Complaint: Nausea/vomiting This is a 72-year-old female with pertinent history of mood disorder, uzp-ewiigjj-ddjihwxpv diabetes mellitus, hypothyroidism, mixed hyperlipidemia who presents to the emergency department for evaluation of nausea and vomiting.? She states she started having nausea and nonbloody emesis yesterday.? No provoking factor. No abdominal pain.? No fever or chills.? Patient states since yesterday she has not been able to keep anything down due to nausea and nonbloody emesis.? Patient denies any abdominal surgery in the recent past.? Had a normal bowel movement yesterday morning.? No changes to medication.? Patient denies chest discomfort, palpitations, shortness of breath, changes in urinary habits In the emergency department, patient with nausea and vomiting even after IV Zofran x2. hospital course: Patient was admitted for intractable nausea vomiting complicated by hematemesis and metabolic acidosis. Patient was given antiemetics and hydration, as well as PPI and Carafate. Nausea vomiting resolved, hemoglobin remained stable, patient no further hematemesis. She is now tolerating solid diet. For diabetes shoes continue insulin. For hypothyroidism she was continued on Synthroid. For mood disorder she was still Zoloft. Hyperlipidemia she was continued on statin. Patient is feeling better will be discharged home. Time Spent with Patient Time attestation: Total time managing care of this patient today ____ minutes. Discharge coordination time: Greater than 30 minutes Quality: Safe Use of Opioids Does Pt have an Active Cancer Diagnosis on the Problem List?: No Quality: Stroke Does the patient have a stroke diagnosis?: No Physical Exam Vital Signs: Vital Signs: Last Vital Signs Temp 99.5 F 06/11/22 07:15 Pulse 64 06/11/22 07:15 Resp 17 06/11/22 07:15 BP 113/46 L 06/11/22 07:15 Pulse Ox 92 06/11/22 07:15 O2 Del Method 06/11/22 07:15 BMI result Body Mass Index 31.2 General: AO X 3, no acute distress Resp: CTA bilateral, no accessory muscles used CVS: S1,S2,RRR GI: soft, non tender, non distended Neuro: motor grossly intact, alert Psych: appropriate affect, appropriate insight DS: Data Data Completed and Pending Completed studies during hospitalization [Text1]: Procedures Drainage of Right Hand Subcutaneous Tissue and Fascia, Open Approach (02/03/21) Labs on day of discharge: Laboratory Results - last 24 hr 06/10/22 06/10/22 06/10/22 10:05 10:05 10:07 WBC RBC Hgb Hct MCV MCH MCHC RDW Plt Count MPV Absolute Nucleated RBC Nucleated RBC % (auto) VBG pH 7.44 H VBG pCO2 33 VBG pO2 100 VBG HCO3 22 VBG O2 Saturation 99.0 VBG Base Excess -0.5 Sodium Potassium Chloride Carbon Dioxide Anion Gap BUN Creatinine Estim Creat Clear Calc Estimated GFR POC Glucose Fasting Glucose Lactic Acid 1.8 Calcium Acetone, Qual Negative 06/10/22 06/10/22 06/10/22 11:50 18:01 20:48 WBC RBC Hgb Hct MCV MCH MCHC RDW Plt Count MPV Absolute Nucleated RBC Nucleated RBC % (auto) VBG pH VBG pCO2 VBG pO2 VBG HCO3 VBG O2 Saturation VBG Base Excess Sodium Potassium Chloride Carbon Dioxide Anion Gap BUN Creatinine Estim Creat Clear Calc Estimated GFR POC Glucose 367 H* 206 H 229 H Fasting Glucose Lactic Acid Calcium Acetone, Qual 06/11/22 06/11/22 06/11/22 06:53 06:53 07:30 WBC 8.0 RBC 4.05 L Hgb 12.0 Hct 36.6 L MCV 90.4 MCH 29.6 MCHC 32.8 RDW 13.8 Plt Count 226 D MPV 10.8 Absolute Nucleated RBC 0.000 Nucleated RBC % (auto) 0.0 VBG pH VBG pCO2 VBG pO2 VBG HCO3 VBG O2 Saturation VBG Base Excess Sodium 144 Potassium 3.8 D Chloride 108 Carbon Dioxide 29 Anion Gap 11 L BUN 19 H Creatinine 0.86 Estim Creat Clear Calc 62.7 Estimated GFR > 60 POC Glucose 79 Fasting Glucose 74 Lactic Acid Calcium 9.0 Acetone, Qual Discharge Plan Discharge Anticipated Discharge Date/Time: 06/11/22 09:17 Patient Disposition: Home, Self-Care Discharge Diagnosis: n/v Referrals: Physician,Unknown J [Primary Care Provider] - 1 Week Discharge Medications: Continued levothyroxine 137 mcg tablet 137 mcg PO DAILY@0600 sertraline 100 mg tablet 100 mg PO DAILY bacitracin 500 unit/gram ointment 1 appl topical BID Qty: 30 0RF aspirin 81 mg tablet,chewable 81 mg PO DAILY@1700 insulin asp prt-insulin aspart [Novolog Mix 70-30FlexPen U-100] 100 unit/mL (70-30) insulin pen 38 unit subcut BID Trulicity 1.5 mg/0.5 mL pen injector 1.5 mg subcut WE simvastatin 40 mg tablet 40 mg PO BEDTIME pramipexole 0.125 mg tablet 0.125 mg PO DAILY@1800 prednisone 20 mg tablet See Rx Instructions .Route .COMPLEX Qty: 18 0RF Rx Instructions: 20 mg orally; 3 tabs daily for 3 days, 2 tabs daily for 3 days, 1 tab daily for 3 days Discharge Orders: Discharge Order (Routine); Ordered 06/11/22 Ordered By: Freddy Hancock Diet: Advance to usual diet Activity on Discharge: As tolerated Stand Alone Forms: Patient Portal Discharge page Care Plan Goals: recovery Health Concerns: n/v Plan of Treatment: monitor for hematemesis, advance diet as tolerated Assessment: see above
--- NOTE | 2022-06-11 10:31 | MHC.CM.PN ---
Addendum entered by Ronda Salinas 06/11/22 11:24: [facility] ARRANGED FOR 1215 HOURS. PT PROVIDED WITH A VOUCHER AND WILL WAIT IN THE DC LOUNGE Original Note: PT WILL DC HOME TODAY WITH NO SERVICES SHE WILL TAKE THE [facility]
== END 2022-06-11 11:19 | disposition home or self-care (01) ==
LOC: HO.ED 06-10 01:19 → HO.EDOVER 06-10 01:28 → HO.S3 06-10 18:58
PROVIDERS: Admitting Provider Student in an Organized Health Care Education/Training Program; Emergency Provider Emergency Medicine Emergency Medical Services; Visit Provider Internal Medicine
DX: K92.0 Hematemesis (principal); E11.9 Type 2 diabetes mellitus without complications; I10 Essential (primary) hypertension; E78.2 Mixed hyperlipidemia; E03.9 Hypothyroidism, unspecified; E87.20 Acidosis, unspecified; F39 Unspecified mood [affective] disorder; Z79.899 Other long term (current) drug therapy; Z20.822 Contact with and (suspected) exposure to COVID-19; Z79.4 Long term (current) use of insulin
CPT/HCPCS: 0241U; 36415; 71045; 71275; 74177; 80048; 80076; 82009; 82803; 82947; 83605; 83690; 83880; 84443; 84484; 85025; 85027; 85379; 93005; 96361; 96372; 96374; 96375; 96376; 99221; 99285; J2060; J2405; J2765; Q9967

== ENCOUNTER 2022-06-29 17:45 | Emergency (ER) | payer MEDICARE, SELFPAY ==
[2022-06-29 18:27] VITALS: BP 132/66; PULSE 71; RESP 18; TEMP 36.2; O2SAT 98; BMI 33.3
--- NOTE | 2022-06-29 18:28 | ED.ALLEREA ---
HPI - Allergic Reaction General Chief complaint: Allergic Reaction <LANG Garrett - Last Filed: 06/29/22 18:35> Stated complaint: allergic reaction <LANG Garrett - Last Filed: 06/29/22 18:35> Time Seen by Provider: 06/29/22 20:58 <LANG Garrett - Last Filed: 06/29/22 18:35> Source: patient <Aurelio Folrez MD - Last Filed: 06/29/22 21:24> Mode of arrival: ambulatory <Aurelio Florez MD - Last Filed: 06/29/22 21:24> Limitations: no limitations <Aurelio Florez MD - Last Filed: 06/29/22 21:24> History of Present Illness HPI narrative: 72-year-old female came in for evaluation of swallowing tongue and itchy throat after eating a bologna sandwich with tomato, onion, and linton patient is not known to be allergic to any of the ingredient of the sandwich, patient had this symptoms have been few months ago patient is arranging to see automatic gluing machine operator for further evaluation of allergy. Patient was given Benadryl and Solu-Medrol while patient in the ED patient is asymptomatic now with no throat symptoms or shortness of breath or difficulty breathing. Patient is diabetic blood sugar was 54 patient was given food in the emergency department which is tolerating very well. <Aurleio Florez MD - Last Filed: 06/29/22 21:24> Related Data Home medications: Home Medications Medication Instructions Recorded Confirmed levothyroxine 137 mcg tablet 137 mcg PO DAILY@0600 02/03/21 06/10/22 sertraline 100 mg tablet 100 mg PO DAILY 02/03/21 06/10/22 aspirin 81 mg chewable tablet 81 mg PO DAILY@1700 04/24/22 06/10/22 dulaglutide 1.5 mg/0.5 mL 1.5 mg subcut WE 04/24/22 06/10/22 subcutaneous pen injector (Trulicity) insulin aspar prot-insulin aspart 38 unit subcut BID 04/24/22 06/10/22 100 unit/mL (70-30) subcutaneous pen (Novolog Mix 70-30FlexPen U-100) pramipexole 0.125 mg tablet 0.125 mg PO DAILY@1800 04/24/22 04/24/22 simvastatin 40 mg tablet 40 mg PO BEDTIME 04/24/22 06/10/22 Previous Rx's Medication Instructions Recorded bacitracin 500 unit/gram topical 1 appl topical BID #30 grams 08/14/21 ointment prednisone 20 mg tablet See Rx Instructions .Route 04/24/22 .COMPLEX #18 tabs <LANG Garrett - Last Filed: 06/29/22 18:35> Allergies/adverse reactions: Allergies Allergy/AdvReac Type Severity Reaction Status Date / Time No Known Allergies Allergy Verified 08/24/21 18:41 <LANG Garrett - Last Filed: 06/29/22 18:35> Review of Systems Review of Systems: All other systems are reviewed and are negative Constitutional: Reports as per HPI and Reports no additional constitutional complaints Eyes: Reports as per HPI and Reports no additional eye complaints Reports system reviewed and no additional complaints, except as documented Cardiovascular: Reports as per HPI and Reports no additional cardiovascular complaints Respiratory: Reports as per HPI and Reports no additional respiratory complaints Gastrointestinal: Reports as per HPI and Reports no additional gastrointestinal complaints Genitourinary: Reports no additional female genitourinary complaints Musculoskeletal: Reports no additional musculoskeletal complaints Skin/Breast: Reports system reviewed and no additional complaints, except as docu Psychiatric: Reports no additional psychiatric complaints Endocrine: Reports no additional endocrine complaints Hematologic/Lymphatic: Reports no additional hematologic/lymphatic complaints Allergic/Immunologic: Reports no additional allergic/immunologic complaints Reports system reviewed and no additional complaints, except as documented and Reports Abnormal speech present <Aurelio Florez MD - Last Filed: 06/29/22 21:24> [facility] Past Medical History Medical History: Medical History Anxiety Cat bite Depression Diabetes Hypothyroidism <LANG Garrett - Last Filed: 06/29/22 18:35> Surgical History: Surgical History History of ankle surgery History of carpal tunnel surgery History of tonsillectomy and adenoidectomy <LANG Garrett - Last Filed: 06/29/22 18:35> Family History Family History: Family History Other No family history of coronary artery disease <LANG Garrett - Last Filed: 06/29/22 18:35> Social History Social History: Social History Household Members: None Housing: Apartment Do you presently have visiting nurse or other home services: No Alcohol intake: never Patient Tobacco Use Status: Never used Tobacco Tobacco use type: Cigarette Smoked in Last 30 Days: No Use of substances other than those prescribed or required for medical reasons: Yes Substance Use Type: Marijuana Advance Directives: No Advance Directives Information Provided: No service: No Current occupational status: retired Current occupation: rt handed <LANG Garrett - Last Filed: 06/29/22 18:35> Physical Exam ED Vital Signs: Vital Signs - 24 hr 06/29/22 18:27 06/29/22 18:44 06/29/22 20:44 Temperature 97.1 F 97.8 F Pulse Rate 71 68 Respiratory Rate 18 15 19 Blood Pressure 132/66 127/52 L Pulse Oximetry 98 95 Oxygen Delivery Method Room Air Room Air Room Air BMI result Body Mass Index 33.3 <LANG Garrett - Last Filed: 06/29/22 18:35> Vital Signs - 24 hr 06/29/22 18:27 06/29/22 18:44 06/29/22 20:44 Temperature 97.1 F 97.8 F Pulse Rate 71 68 Respiratory Rate 18 15 19 Blood Pressure 132/66 127/52 L Pulse Oximetry 98 95 Oxygen Delivery Method Room Air Room Air Room Air BMI result Body Mass Index 33.3 Vital signs have been reviewed as appeared to be correct. Blood pressure normal. Heart rate normal. Respiration rate normal. Temperature normal. Oxygen saturation normal. <Aurelio Florez MD - Last Filed: 06/29/22 21:24> Appearance: Alert. Oriented X3. No acute distress. Head: Normal external exam. Normocephalic. Atraumatic. No Dumont signs noted. No raccoon eyes noted Eyes: PERRLA. EOMI. Conjunctiva and sclera normal. Eyelids normal. ENT: TM's Normal. Pharynx normal. Uvula midline. Moist mucous membranes. No trismus noted. No drooling noted. No muffled voice noted. Neck: Normal inspection. Neck supple. FROM. No adenopathy. Thyroid Normal. No meningeal signs. No neck mass noted. CVS: Normal heart rate and rhythm. Heart sound normal. No murmurs noted. Pulses normal throughout. Respiratory: No respiratory distress. Painless inspiration. Breath sounds normal. No wheezes/rales/rhonchi noted. Chest nontender. No accessory muscle usage noted or decreased air movement noted. Abdomen: Soft and nontender. Bowel sounds normal in all 4 quadrants. No distention noted. No organomegaly noted. No visible injury noted. Back: No CVA tenderness. Full range of motion noted. Skin: Skin warm and dry. Normal skin color. Normal skin turgor. No rashes/lesions/lacerations noted. Extremities: No lower extremity edema. Extremities exhibit normal range of motion. Extremities nontender. Neuro: Oriented X 3. Cranial nerve exam: II-XII are grossly intact No motor deficit. No sensory deficit. Reflexes normal.. <Aurelio Florez MD - Last Filed: 06/29/22 21:24> Course Course Course Narrative: RME - 72 yo female presents to the ER for evaluation of tongue swelling that started 60-90s minutes ago after eating a bologna sandwich with tomato, onion, and linton - which she eats everyday. c/o mild SOB as well. No lip swelling or difficulty swallowing. took 50 mg benadryl and swelling stopped getting worse, but no improvement. here in April for the same, improved wtih steroids, H2RB and benadryl. Brought back to treatment room. <LANG Garrett - Last Filed: 06/29/22 18:35> Reevaluation(s) Reevaluation #1: 72-year-old female came in with allergic reaction after eating, patient is not known to be allergic to any food or medication, no recent change of her medication or change in her daily lifestyle. Will discharge and follow up with PCP. <Aurelio Florez MD - Last Filed: 06/29/22 21:24> Time: 21:22 <Aurelio Florez MD - Last Filed: 06/29/22 21:24> Medications Administered Discontinued Medications Generic Name Dose Route Start Last Admin Trade Name Freq PRN Reason Stop Dose Admin Famotidine 20 mg 06/29/22 18:39 06/29/22 19:30 Famotidine/Pf 20 Mg/2 Ml Vial IVPUSH 06/29/22 18:40 20 mg ONCE ONE Administration Methylprednisolone Sodium Succinate 125 mg 06/29/22 18:39 06/29/22 19:30 Methylprednisolone Sod Succ 125 Mg/2 Ml Vial IVPUSH 06/29/22 18:40 125 mg ONCE ONE Administration <LANG Garrett - Last Filed: 06/29/22 18:35> Medications Administered Discontinued Medications Generic Name Dose Route Start Last Admin Trade Name Freq PRN Reason Stop Dose Admin Famotidine 20 mg 06/29/22 18:39 06/29/22 19:30 Famotidine/Pf 20 Mg/2 Ml Vial IVPUSH 06/29/22 18:40 20 mg ONCE ONE Administration Methylprednisolone Sodium Succinate 125 mg 06/29/22 18:39 06/29/22 19:30 Methylprednisolone Sod Succ 125 Mg/2 Ml Vial IVPUSH 06/29/22 18:40 125 mg ONCE ONE Administration <Aurelio Florez MD - Last Filed: 06/29/22 21:24> Medical Decision Making Differential Diagnosis Differential Diagnoses: The differential diagnosis associated with the presentation includes (Allergic reaction to food, angioedema, upper airway compromise.) <Aurelio Florez MD - Last Filed: 06/29/22 21:24> Lab Data Labs: Lab Results 06/29/22 Range/Units 20:55 POC Glucose 53 L* (60-115) mg/dL <LANG Garrett - Last Filed: 06/29/22 18:35> Lab Results 06/29/22 Range/Units 20:55 POC Glucose 53 L* (60-115) mg/dL <Aurelio Florez MD - Last Filed: 06/29/22 21:24> Discharge Plan Discharge Clinical Impression: Allergic reaction <LANG Garrett - Last Filed: 06/29/22 18:35> Patient Disposition: Home, Self-Care <LANG Garrett - Last Filed: 06/29/22 18:35> Instructions: General Allergic Reaction (ED) <LANG Garrett - Last Filed: 06/29/22 18:35> Additional Instructions: Follow-up with the cnc specialist to find out what are you allergic to. <LANG Garrett - Last Filed: 06/29/22 18:35> Prescriptions: No Action levothyroxine 137 mcg tablet 137 mcg PO DAILY@0600 sertraline 100 mg tablet 100 mg PO DAILY bacitracin 500 unit/gram ointment 1 appl topical BID Qty: 30 0RF aspirin 81 mg tablet,chewable 81 mg PO DAILY@1700 insulin asp prt-insulin aspart [Novolog Mix 70-30FlexPen U-100] 100 unit/mL (70-30) insulin pen 38 unit subcut BID Trulicity 1.5 mg/0.5 mL pen injector 1.5 mg subcut WE simvastatin 40 mg tablet 40 mg PO BEDTIME pramipexole 0.125 mg tablet 0.125 mg PO DAILY@1800 prednisone 20 mg tablet See Rx Instructions .Route .COMPLEX Qty: 18 0RF Rx Instructions: 20 mg orally; 3 tabs daily for 3 days, 2 tabs daily for 3 days, 1 tab daily for 3 days <LANG Garrett - Last Filed: 06/29/22 18:35>
[2022-06-29 18:44] VITALS: BP 127/52; PULSE 68; RESP 15; TEMP 36.6; O2SAT 95
[2022-06-29] MEDS: Famotidine/PF 20 MG/2 ML VIAL IVPUSH (19:30)
[2022-06-29] MEDS: methylPREDNISolone Sod Succ 125 MG/2 ML VIAL IVPUSH (19:30)
--- NOTE | 2022-06-29 20:34 | PC.NURSE ---
pt resting quietly, reports in tongue swelling, vss. no new orders at this time.
[2022-06-29 20:44] VITALS: RESP 19
[2022-06-29 20:58] LABS: Glucose, Whole Blood 53 mg/dL (60-115)
[2022-06-29] MEDS: 0.9 % Sodium Chloride 1,000 ML 999 ML IV (21:44)
[2022-06-29 22:02] LABS: Glucose, Whole Blood 132 mg/dL (60-115)
== END 2022-06-29 23:25 | disposition home or self-care (01) ==
PROVIDERS: Emergency Provider Emergency Medicine
DX: L50.0 Allergic urticaria (principal); Z79.899 Other long term (current) drug therapy
CPT/HCPCS: 82947; 96361; 96374; 96375; 99284; J2930

== ENCOUNTER 2022-10-29 12:40 | Outpatient (REF) | payer MEDICARE, SELFPAY ==
--- NOTE | ~2022-10-29 | XR_ITS ---
EXAMINATION: XR LUMBOSACRAL SPINE CLINICAL INFORMATION: Back pain, chronic. COMPARISON: CT abdomen of 06/09/2022. TECHNIQUE: Three views of the lumbosacral spine. FINDINGS: There are 5 non-rib bearing lumbar vertebrae. There is significant disc space narrowing with some endplate irregularity L2 through L4 with marginal spurring. Pedicles appear intact. No acute fracture, spondylolisthesis, or spondylolysis identified. There is mild narrowing of the L5-S1 disc space. No definite evidence of sacroiliac joint fusion or widening with some spurring seen inferiorly. Aortic calcification present. Psoas margins intact. There is bilateral facet arthropathy L5-S1. XR/XR lumbar spine 2-3V IMPRESSION: Lumbar spondylosis as described without evidence of acute fracture, spondylolisthesis, or spondylolysis.
== END 2022-10-29 12:41 | disposition home or self-care (01) ==
LOC: HO.HHCX 12:40
PROVIDERS: Visit Provider Student in an Organized Health Care Education/Training Program
DX: M54.50 Low back pain, unspecified (principal)
CPT/HCPCS: 72100

== ENCOUNTER 2022-10-31 12:21 | Inpatient (IN) | payer MEDICARE, MEDICAID, SELFPAY ==
--- NOTE | ~2022-10-31 | XR_ITS ---
EXAMINATION: XR ABDOMEN KUB CLINICAL INDICATION: Vomiting, evaluate for obstruction COMPARISON: [employer] Operational Test film from CT dated 06/09/2022 TECHNIQUE: AP view of the abdomen. FINDINGS: Overall nonobstructive bowel pattern. Possible pelvic phleboliths. XR/XR KUB IMPRESSION: Nonobstructing bowel pattern.
--- NOTE | ~2022-10-31 | XR_ITS ---
EXAMINATION: XR CHEST CLINICAL INFORMATION: Vomiting COMPARISON: None available. TECHNIQUE: Frontal view of the chest was obtained. FINDINGS: Normal cardiac and mediastinal silhouette. Central vasculature is stable from previous. There is peribronchial hazy opacities in the right lower lung, appearing more prominent as compared to previous, concerning for infectious/inflammatory process. Mild peribronchial thickening in the left lower lung. No pleural effusion. No pulmonary edema or pneumothorax. XR/XR chest 1V IMPRESSION: Peribronchial hazy opacity in right lower lung, more prominent from previous. Peribronchial thickening in the left lower lung. Findings are concerning for infectious/inflammatory process.
[2022-10-31 12:32] VITALS: BP 150/90; BP 178/97; PULSE 65; PULSE 69; RESP 20; TEMP 36.5; O2SAT 100; O2SAT 99; BMI 30.9
[2022-10-31 12:42] VITALS: PULSE 69; RESP 20; TEMP 36.5; O2SAT 100
--- NOTE | 2022-10-31 13:11 | ECG_ITS ---
Test Reason : DYSPNEA Blood Pressure : / mmHG Vent. Rate : 060 BPM Atrial Rate : 000 BPM P-R Int : 000 ms QRS Dur : 080 ms QT Int : 434 ms P-R-T Axes : 000 002 053 degrees QTc Int : 434 ms Normal sinus rhythm Normal ECG When compared with ECG of 09-JUN-2022 17:53, No significant changes when compared with the previous EKG of 09 jun 2022 Referred By: Aurelio Florez Electronically Signed By:DEMARCUS OMER
--- NOTE | 2022-10-31 13:13 | ED_ITS ---
HPI - General Adult General Chief complaint: Dyspnea Stated complaint: Vomiting, SOB, dizziness Time Seen by Provider: 10/31/22 13:00 Source: patient and EMS Mode of arrival: EMS Limitations: no limitations History of Present Illness HPI narrative: A 72-year-old female came in for evaluation of vomiting. Patient's symptoms started since this morning, presented with intractable vomiting patient had small bowel movement then patient started to have nonbloody watery diarrhea bowel movements since this morning and passing flatus, declined any sick contacts, no history of eating bad foods, no recent use of antibiotic, no new medication was started. Patient declined CP, abdominal pain, Related Data Home Medications Medication Instructions Recorded Confirmed levothyroxine 137 mcg tablet 137 mcg PO DAILY@0600 02/03/21 06/10/22 sertraline 100 mg tablet 100 mg PO DAILY 02/03/21 06/10/22 aspirin 81 mg chewable tablet 81 mg PO DAILY@1700 04/24/22 06/10/22 dulaglutide 1.5 mg/0.5 mL 1.5 mg subcut WE 04/24/22 06/10/22 subcutaneous pen injector (Trulicity) insulin aspar prot-insulin aspart 38 unit subcut BID 04/24/22 06/10/22 100 unit/mL (70-30) subcutaneous pen (Novolog Mix 70-30FlexPen U-100) pramipexole 0.125 mg tablet 0.125 mg PO DAILY@1800 04/24/22 04/24/22 simvastatin 40 mg tablet 40 mg PO BEDTIME 04/24/22 06/10/22 Previous Rx's Medication Instructions Recorded bacitracin 500 unit/gram topical 1 appl topical BID #30 grams 08/14/21 ointment prednisone 20 mg tablet See Rx Instructions .Route 04/24/22 .COMPLEX #18 tabs Allergies Allergy/AdvReac Type Severity Reaction Status Date / Time metformin AdvReac Agitated Verified 10/31/22 12:41 Review of Systems Review of Systems: All other systems are reviewed and are negative Constitutional: Reports as per HPI and Reports no additional constitutional complaints Eyes: Reports as per HPI and Reports no additional eye complaints Reports system reviewed and no additional complaints, except as documented Cardiovascular: Reports as per HPI and Reports no additional cardiovascular comp laints Respiratory: Reports as per HPI and Reports no additional respiratory complaints Gastrointestinal: Reports as per HPI and Reports no additional gastrointestinal complaints Genitourinary: Reports no additional female genitourinary complaints Musculoskeletal: Reports no additional musculoskeletal complaints Skin/Breast: Reports system reviewed and no additional complaints, except as docu Psychiatric: Reports no additional psychiatric complaints Endocrine: Reports no additional endocrine complaints Hematologic/Lymphatic: Reports no additional hematologic/lymphatic complaints Allergic/Immunologic: Reports no additional allergic/immunologic complaints Reports system reviewed and no additional complaints, except as documented and Reports Abnormal speech present [facility] Past Medical History Medical History Anxiety Cat bite Depression Diabetes Hypothyroidism Surgical History History of ankle surgery History of carpal tunnel surgery History of tonsillectomy and adenoidectomy Family History Family History Other No family history of coronary artery disease Social History Social History Household Members: None Housing: Apartment Do you presently have visiting nurse or other home services: No Alcohol intake: never Patient Tobacco Use Status: Never used Tobacco Tobacco use type: Cigarette Smoked in Last 30 Days: No Use of substances other than those prescribed or required for medical reasons: Yes Substance Use Type: Marijuana Advance Directives: Yes Advance Directives Information Provided: No Advance Directives on File: No service: No Current occupational status: retired Current occupation: rt handed Physical Exam ED Vital Signs: Vital Signs - 24 hr 10/31/22 12:32 10/31/22 12:42 10/31/22 12:42 Temperature 97.7 F 97.7 F Pulse Rate 65 69 Respiratory Rate 20 20 20 Blood Pressure 178/97 H Pulse Oximetry 100 100 Oxygen Delivery Method Room Air Room Air 10/31/22 15:34 Temperature 98.1 F Pulse Rate 68 Respiratory Rate 22 H Blood Pressure 100/78 Pulse Oximetry 100 Oxygen Delivery Method Room Air BMI result Body Mass Index 30.9 Vital signs have been reviewed as appeared to be correct. Blood pressure normal. Heart rate normal. Respiration rate normal. Temperature normal. Oxygen saturation normal. Appearance: Alert. Oriented X3. No acute distress. Head: Normal external exam. Normocephalic. Atraumatic. No Dumont signs noted. No raccoon eyes noted Eyes: PERRLA. EOMI. Conjunctiva and sclera normal. Eyelids normal. ENT: TM's Normal. Pharynx normal. Uvula midline. Moist mucous membranes. No trismus noted. No drooling noted. No muffled voice noted. Neck: Normal inspection. Neck supple. FROM. No adenopathy. Thyroid Normal. No meningeal signs. No neck mass noted. CVS: Normal heart rate and rhythm. Heart sound normal. No murmurs noted. Pulses normal throughout. Respiratory: No respiratory distress. Painless inspiration. Breath sounds normal. No wheezes/rales/rhonchi noted. Chest nontender. No accessory muscle usage noted or decreased air movement noted. Abdomen: Soft and nontender. Bowel sounds normal in all 4 quadrants. No distention noted. No organomegaly noted. No visible injury noted. Back: No CVA tenderness. Full range of motion noted. Skin: Skin warm and dry. Normal skin color. Normal skin turgor. No rashes/lesions/lacerations noted. Extremities: No lower extremity edema. Extremities exhibit normal range of motion. Extremities nontender. Neuro: Oriented X 3. Cranial nerve exam: II-XII are grossly intact No motor deficit. No sensory deficit. Reflexes normal. Course Course Course Narrative: 72-year-old female smoker actively still smoking marijuana presented with intractable vomiting, patient has bilateral pneumonia no sirs criteria, will admit the patient for IV antibiotic and IV hydration with vomiting control. Medications Administered Generic Name Dose Route Start Last Admin Trade Name Freq PRN Reason Stop Dose Admin Azithromycin 500 mg/ Sodium 250 mls @ 125 mls/hr 10/31/22 15:02 10/31/22 15:41 Chloride IV 10/31/22 17:01 125 mls/hr ONCE ONE Administration Discontinued Medications Generic Name Dose Route Start Last Admin Trade Name Freq PRN Reason Stop Dose Admin Al Hydroxide/Mg Hydroxide 30 ml 10/31/22 13:10 10/31/22 15:42 Magnesium Hydrox/Alum Hydrox 30 Ml Oral.Susp PO 10/31/22 13:11 Not Given ONCE ONE Famotidine 20 mg 10/31/22 13:10 10/31/22 13:35 Famotidine/Pf 20 Mg/2 Ml Vial IVPUSH 10/31/22 13:11 20 mg ONCE ONE Administration Sodium Chloride 1,000 mls @ 999 mls/hr 10/31/22 13:10 10/31/22 13:35 Ns IV 10/31/22 14:10 999 mls/hr .Q1H1M ONE Administration Ceftriaxone Sodium 1 gm/ 50 mls @ 100 mls/hr 10/31/22 15:02 10/31/22 15:42 Sodium Chloride IV 10/31/22 15:31 100 mls/hr ONCE ONE Administration Metoclopramide HCl 10 mg 10/31/22 15:27 10/31/22 15:41 Metoclopramide Hcl 10 Mg/2 Ml Vial IVPUSH 10/31/22 15:28 10 mg ONCE ONE Administration Ondansetron HCl 4 mg 10/31/22 13:10 10/31/22 13:35 Ondansetron Hcl 4 Mg/2 Ml Vial IVPUSH 10/31/22 13:11 4 mg ONCE ONE Administration Medical Decision Making Differential Diagnosis Differential Diagnoses: The differential diagnosis associated with the presentation includes (Intractable vomiting, SBO, severe dehydration, electrolyte abnormalities, severe anemia, pneumonia, pneumothorax, sepsis.) Admission/Observation Consideration of admission/observation: Escalation of care including admission/observation considered Consult Healthcare Provider Management of the patient was discussed with: Hospitalist ( Dr. Malagon) Lab Data MDM Lab Attestation statement: I reviewed the patient's lab results. 10/31/22 13:23 10/31/22 13:23 Labs: Lab Results 10/31/22 10/31/22 10/31/22 Range/Units 13:23 13:23 13:23 WBC 9.6 (4.8-10.8) X10*3/uL RBC 4.50 (4.20-5.50) X10*6/uL Hgb 13.6 (12.0-16.0) g/dl Hct 39.6 (37.0-47.0) % MCV 88.0 (80.0-98.0) fL MCH 30.2 (27.0-33.0) pg MCHC 34.3 (31.0-35.0) g/dl RDW 13.2 (11.0-16.0) % Plt Count 263 (160-400) X10*3/uL MPV 10.6 (9.4-12.3) fL Immature Gran % (Auto) 0.3 (0.0-0.4) % Neut % (Auto) 78.9 H (45-73) % Lymph % (Auto) 14.3 L (20-40) % [place] % (Auto) 4.2 (2-11) % Eos % (Auto) 1.7 (0-4) % Baso % (Auto) 0.6 (0-2) % Lymph # (Auto) 1.4 (1.2-4.9) X10*3/uL [place] # (Auto) 0.4 (0.1-1.2) X10*3/uL Eos # (Auto) 0.2 (0.0-0.4) X10*3/uL Baso # (Auto) 0.1 (0.0-0.2) X10*3/uL Abs Immat Gran (auto) 0.03 (0.00-0.03) X10*3/uL Absolute Neuts (auto) 7.6 (2.0-8.3) x10*3/uL Absolute Nucleated RBC 0.000 (0.0-0.012) X10*3/uL Nucleated RBC % (auto) 0.0 (0.0-0.2) /100WBC Sodium 141 (135-145) mmol/L Potassium 3.9 (3.3-5.1) mmol/L Chloride 103 (96-108) mmol/L Carbon Dioxide 23 (22-29) mmol/L Anion Gap 19 (12-20) BUN 24 H (9-16) mg/dL Creatinine 0.96 (0.5-1.4) mg/dL Estim Creat Clear Calc 55.8 Estimated GFR 57 POC Glucose (60-115) mg/dL Random Glucose 239 H (60-115) mg/dL Calcium 10.4 H D (8.4-10.2) mg/dL Total Bilirubin 0.9 (0.0-1.0) mg/dL Direct Bilirubin 0.2 (0.0-0.5) mg/dL AST 19 (5-31) U/L ALT 15 (0-31) U/L Alkaline Phosphatase 81 (39-117) U/L Troponin I High Sens < 2.7 (<3.5-17.0) ng/L B-Natriuretic Peptide (<100) pg/mL Total Protein 7.3 (6.5-8.0) g/dL Albumin 4.4 (3.5-5.0) g/dL Lipase 38 (8-78) U/L Influenza Type A (PCR) (Negative) Influenza Type B (PCR) (Negative) RSV RNA Qual (PCR) (Negative) SARS-CoV-2 RNA (RT-PCR) (Negative) 10/31/22 10/31/22 10/31/22 Range/Units 13:23 13:23 15:33 WBC (4.8-10.8) X10*3/uL RBC (4.20-5.50) X10*6/uL Hgb (12.0-16.0) g/dl Hct (37.0-47.0) % MCV (80.0-98.0) fL MCH (27.0-33.0) pg MCHC (31.0-35.0) g/dl RDW (11.0-16.0) % Plt Count (160-400) X10*3/uL MPV (9.4-12.3) fL Immature Gran % (Auto) (0.0-0.4) % Neut % (Auto) (45-73) % Lymph % (Auto) (20-40) % [place] % (Auto) (2-11) % Eos % (Auto) (0-4) % Baso % (Auto) (0-2) % Lymph # (Auto) (1.2-4.9) X10*3/uL [place] # (Auto) (0.1-1.2) X10*3/uL Eos # (Auto) (0.0-0.4) X10*3/uL Baso # (Auto) (0.0-0.2) X10*3/uL Abs Immat Gran (auto) (0.00-0.03) X10*3/uL Absolute Neuts (auto) (2.0-8.3) x10*3/uL Absolute Nucleated RBC (0.0-0.012) X10*3/uL Nucleated RBC % (auto) (0.0-0.2) /100WBC Sodium (135-145) mmol/L Potassium (3.3-5.1) mmol/L Chloride (96-108) mmol/L Carbon Dioxide (22-29) mmol/L Anion Gap (12-20) BUN (9-16) mg/dL Creatinine (0.5-1.4) mg/dL Estim Creat Clear Calc Estimated GFR POC Glucose 222 H (60-115) mg/dL Random Glucose (60-115) mg/dL Calcium (8.4-10.2) mg/dL Total Bilirubin (0.0-1.0) mg/dL Direct Bilirubin (0.0-0.5) mg/dL AST (5-31) U/L ALT (0-31) U/L Alkaline Phosphatase (39-117) U/L Troponin I High Sens (<3.5-17.0) ng/L B-Natriuretic Peptide 47 (<100) pg/mL Total Protein (6.5-8.0) g/dL Albumin (3.5-5.0) g/dL Lipase (8-78) U/L Influenza Type A (PCR) NEGATIVE (Negative) Influenza Type B (PCR) NEGATIVE (Negative) RSV RNA Qual (PCR) NEGATIVE (Negative) SARS-CoV-2 RNA (RT-PCR) NEGATIVE (Negative) Independent Interpretation I performed an independent interpretation of an: Plain X-Ray (Possible infiltrate to both lungs.) Radiology Impression Discussion of test interpretation with radiology: I have reviewed the radiologist's reading. Discharge Plan Discharge Clinical Impression: Vomiting, Pneumonia Patient Disposition: Admitted As Inpatient
[2022-10-31 13:26] LABS: MANUAL DIFF FLAG NO
[2022-10-31 13:34] LABS: Basophils Absolute Auto 0.1 X10*3/uL (0.0-0.2); Basophils Percent Auto 0.6 % (0-2); Eosinophils Absolute Auto 0.2 X10*3/uL (0.0-0.4); Eosinophils Percent Auto 1.7 % (0-4); Hematocrit 39.6 % (37.0-47.0); Hemoglobin 13.6 g/dl (12.0-16.0); Imm Gran Abs Auto 0.03 X10*3/uL (0.00-0.03); Imm Gran Pct Auto 0.3 % (0.0-0.4); Lymphocytes Absolute Auto 1.4 X10*3/uL (1.2-4.9); Lymphocytes Percent Auto 14.3 % (20-40); Mean Corpuscular HGB Conc 34.3 g/dl (31.0-35.0); Mean Corpuscular Hemoglobin 30.2 pg (27.0-33.0); Mean Platelet Volume 10.6 fL (9.4-12.3); Monocytes Absolute Auto 0.4 X10*3/uL (0.1-1.2); Monocytes Percent Auto 4.2 % (2-11); Neutrophils Absolute Auto 7.6 x10*3/uL (2.0-8.3); Neutrophils Percent Auto 78.9 % (45-73); Platelet Count 263 X10*3/uL (160-400); Red Cell Distribution Width 13.2 % (11.0-16.0); White Blood Count 9.6 X10*3/uL (4.8-10.8)
[2022-10-31] MEDS: ondansetron HCL 4 MG/2 ML VIAL IVPUSH ×2 (13:35→22:01)
[2022-10-31] MEDS: Famotidine/PF 20 MG/2 ML VIAL IVPUSH (13:35)
[2022-10-31] MEDS: 0.9 % Sodium Chloride 1,000 ML 999 ML IV (13:35)
--- NOTE | 2022-10-31 13:37 | PC.NURSE ---
Addendum entered by Azeb Ring 10/31/22 13:38: awaits X ray not CT Original Note: continues to actively dry heave. Is inducing vomiting repeatedly with fingers down her mouth. slightly diaphoretic. labored resp only after vomiting. aware ofplan of care. awaits ct.
[2022-10-31 13:43] LABS: Alanine Aminotransferase 15 U/L (0-31); Albumin Level 4.4 g/dL (3.5-5.0); Alkaline Phosphatase 81 U/L (39-117); Anion Gap 19 (12-20); Aspartate Amino Transferase 19 U/L (5-31); Bilirubin Direct 0.2 mg/dL (0.0-0.5); Bilirubin Total 0.9 mg/dL (0.0-1.0); Blood Urea Nitrogen 24 mg/dL (9-16); Calcium 10.4 mg/dL (8.4-10.2); Carbon Dioxide 23 mmol/L (22-29); Chloride 103 mmol/L (96-108); Creatinine Clr Calc Pharmacy 55.8; Estimated Glomerular Filt Rate 57; Glucose Random 239 mg/dL (60-115); Lipase 38 U/L (8-78); Potassium 3.9 mmol/L (3.3-5.1); Sodium 141 mmol/L (135-145); Total Protein 7.3 g/dL (6.5-8.0)
[2022-10-31 13:49] LABS: B Type Natriuretic Peptide 47 pg/mL (<100)
[2022-10-31 13:52] LABS: Troponin-I High Sensitivity < 2.7 ng/L (<3.5-17.0)
[2022-10-31 14:16] LABS: Influenza A PCR NEGATIVE (Negative); Influenza B PCR NEGATIVE (Negative); Resp Syncy Virus RNA Qual PCR NEGATIVE (Negative); SARS COV2 PCR INHOUSE NEGATIVE (Negative)
[2022-10-31 15:34] VITALS: BP 100/78; PULSE 68; RESP 22; TEMP 36.7; O2SAT 100
[2022-10-31] MEDS: Metoclopramide HCl 10 MG/2 ML VIAL IVPUSH (15:41)
[2022-10-31] MEDS: Azithromycin 500 MG in 0.9 % Sodium Chloride 250 ML 125 MG IV (15:41)
[2022-10-31 15:42] LABS: Glucose, Whole Blood 222 mg/dL (60-115)
[2022-10-31] MEDS: cefTRIAXone sodium 1 GM in 0.9 % Sodium Chloride 50 ML IV (15:42)
--- NOTE | 2022-10-31 16:00 | P.HPHOSP_ITS ---
History of Present Illness Date of Service: 10/31/22 Chief Complaint: Shortness of breath 72-year-old woman with history of diabetes mellitus, hypothyroidism presenting with with cough, nausea and vomiting that started this morning. She denied recent travel or improperly cooked foods. She reported she has had this issue with nausea for a few years and usually goes along with constipation. She reported constipation for 2 days. In the ER, labs all within acceptable limits, vital signs stable, no fever leukocytosis noted. CXR showing peribronchial hazy opacity in the right lower lung suggestive of infectious versus inflammatory process. normal KUB. She was given Rocephin, azithromycin, IV Pepcid, Zofran, Reglan and IV fluids. She will be admitted for further management and treatment of community-acquired pneumonia. Review of Systems Review of Systems: Denies any recent fever chills or decrease in appetite respiratory denies any shortness of breath coverage production cardiovascular denied chest pain gastrointestinal denies any dysphagia abdominal pain nausea vomiting or diarrhea genitourinary denies any dysuria frequency or hematuria musculoskeletal denies any joint pain or swelling neuropsych denies any weakness or seizures all other systems reviewed are negative [facility] Medical History Anxiety Cat bite Depression Diabetes Hypothyroidism Family History Other No family history of coronary artery disease Surgical History History of ankle surgery History of carpal tunnel surgery History of tonsillectomy and adenoidectomy Social History Household Members: None Housing: Condominium Do you presently have visiting nurse or other home services: No Alcohol intake: never Patient Tobacco Use Status: Former Tobacco user Tobacco use type: Cigarette Cigarette Packs Per Day: 1 Cigarettes Per Day: 20.0 Years Smoked: 55 Smoked in Last 30 Days: No Patient Interested in Nicotine Replacement: No Patient Given Instructions on How to Stop Smoking: No Second Hand Smoke Exposure: No Use of substances other than those prescribed or required for medical reasons: Yes Substance Use Type: Marijuana Substance Use Frequency: Daily Last Used Substance: Just Prior to Admission Currently Displaying Signs/Symptoms of Drug Intoxication Withdrawal: No Any prior treatment program specific to substance use: No Have you been hit, kicked, punched, or otherwise hurt by someone within the past year? If so, by whom?: No Do you feel safe in your current relationship?: Yes Is there a partner from a previous relationship who is making you feel unsafe now?: No Are you made to feel afraid or neglected: No Advance Directives: No (pt has info at home and is working on it.) Advance Directives Information Provided: No Advance Directives on File: No Do you have thoughts of harming others: None Do you have a plan to hurt others: No Plan Recently lost weight without trying: Yes How much weight loss: 2-13 pounds Eating poorly because of decreased appetite: No Nutrition screen score: 3 Nutrition Risks: Acute nausea or vomiting x1 week Patient : No : No Poor oral hygiene: No service: No Current occupational status: retired Current occupation: rt handed Meds Allergies Allergy/AdvReac Type Severity Reaction Status Date / Time adhesive tape AdvReac Blister Verified 11/01/22 05:28 metformin AdvReac Agitated Verified 10/31/22 12:41 Active Medications: Current Medications Azithromycin 500 mg/ Sodium (Chloride) 250 mls @ 125 mls/hr IV ONCE ONE Stop: 10/31/22 17:01 Last Admin: 10/31/22 15:41 Dose: 125 mls/hr Home Medications Medication Instructions Recorded Confirmed Last Taken Type sertraline 100 mg tablet 100 mg PO DAILY 02/03/21 10/31/22 04/23/22 History aspirin 81 mg chewable tablet 81 mg PO DAILY@1700 04/24/22 10/31/22 04/23/22 History dulaglutide 1.5 mg/0.5 mL 1.5 mg subcut WE 04/24/22 10/31/22 04/22/22 History subcutaneous pen injector (Trulicity) insulin aspar prot-insulin aspart 42 unit subcut BID 04/24/22 10/31/22 04/23/22 History 100 unit/mL (70-30) subcutaneous pen (Novolog Mix 70-30FlexPen U-100) pramipexole 0.125 mg tablet 0.125 mg PO DAILY@1800 04/24/22 10/31/22 04/23/22 History atorvastatin 40 mg tablet 40 mg PO DAILY 10/31/22 10/31/22 Unknown History levothyroxine 150 mcg tablet 150 mcg PO DAILY 10/31/22 10/31/22 Unknown History multivitamin with folic acid 400 1 tab PO DAILY 10/31/22 10/31/22 Unknown Hi story mcg tablet (Daily-Johny (with folic acid)) Physical Exam Vital Signs and Narrative: Vital Signs: Last Vital Signs Temp 98.1 F 10/31/22 15:34 Pulse 68 10/31/22 15:34 Resp 22 H 10/31/22 15:34 BP 100/78 10/31/22 15:34 Pulse Ox 100 10/31/22 15:34 O2 Del Method Room Air 10/31/22 15:34 BMI result Body Mass Index 30.9 Appearing in no acute distress head is normocephalic atraumatic eyes pupils are PERRLA sclera is anicteric mouth throat mucous membranes are intact and moist neck is supple no lymphadenopathy, no JVD noted lung sounds are clear to auscultation heart regular rate rhythm, clear S1, S2 positive bowel sounds, abdomen is soft, nontender neuro patient is alert x3, no focal deficits Results Labs 10/31/22 13:23 10/31/22 13:23 Labs: Laboratory Results - last 24 hr 10/31/22 10/31/22 10/31/22 13:23 13:23 13:23 MCV 88.0 MCH 30.2 MCHC 34.3 RDW 13.2 Plt Count 263 MPV 10.6 Immature Gran % (Auto) 0.3 Neut % (Auto) 78.9 H Lymph % (Auto) 14.3 L [place] % (Auto) 4.2 Eos % (Auto) 1.7 Baso % (Auto) 0.6 Lymph # (Auto) 1.4 [place] # (Auto) 0.4 Eos # (Auto) 0.2 Baso # (Auto) 0.1 Abs Immat Gran (auto) 0.03 Absolute Neuts (auto) 7.6 Absolute Nucleated RBC 0.000 Nucleated RBC % (auto) 0.0 Anion Gap 19 Estim Creat Clear Calc 55.8 Estimated GFR 57 POC Glucose Random Glucose 239 H Calcium 10.4 H D Total Bilirubin 0.9 Direct Bilirubin 0.2 AST 19 ALT 15 Alkaline Phosphatase 81 Troponin I High Sens < 2.7 B-Natriuretic Peptide Total Protein 7.3 Albumin 4.4 Lipase 38 Influenza Type A (PCR) Influenza Type B (PCR) RSV RNA Qual (PCR) SARS-CoV-2 RNA (RT-PCR) 10/31/22 10/31/22 10/31/22 13:23 13:23 15:33 MCV MCH MCHC RDW Plt Count MPV Immature Gran % (Auto) Neut % (Auto) Lymph % (Auto) [place] % (Auto) Eos % (Auto) Baso % (Auto) Lymph # (Auto) [place] # (Auto) Eos # (Auto) Baso # (Auto) Abs Immat Gran (auto) Absolute Neuts (auto) Absolute Nucleated RBC Nucleated RBC % (auto) Anion Gap Estim Creat Clear Calc Estimated GFR POC Glucose 222 H Random Glucose Calcium Total Bilirubin Direct Bilirubin AST ALT Alkaline Phosphatase Troponin I High Sens B-Natriuretic Peptide 47 Total Protein Albumin Lipase Influenza Type A (PCR) NEGATIVE Influenza Type B (PCR) NEGATIVE RSV RNA Qual (PCR) NEGATIVE SARS-CoV-2 RNA (RT-PCR) NEGATIVE Imaging Radiologist's Impressions: Impressions Chest X-Ray 10/31/22 14:15 IMPRESSION: Peribronchial hazy opacity in right lower lung, more prominent from previous. Peribronchial thickening in the left lower lung. Findings are concerning for infectious/inflammatory process. Assessment and Plan (1) Pneumonia: Status: Acute (2) Vomiting: Status: Acute Plan 72 year old women admitted with CAP and intractable nausea CAP Rocephin and azithromycin supplemental oxygen and DuoNebs as needed Nausea and vomtiting mostly foam and some bile antemetics normal KUB PPI DM2 ss, ada diet Hypothyroidism Continue levothyroxine Hyperlipidemia Continue aspirin and statin Mental health Continue home medications DVT prophylaxis with heparin Full code Two inpatient midnights for treatment of community-acquired pneumonia requiring IV antibiotics Time Spent With Patient Time: Total time managing care of this patient today ____ minutes. Quality Stroke Does the patient have a stroke diagnosis?: No VTE Prior VTE?: No VTE Risk Level:: Medical - moderate - high VTE Device Contraindication: Treatment Not Indicated VTE Drug Contraindication: N/A - Med Ordered
--- NOTE | 2022-10-31 16:12 | PC.NURSE ---
Pt states she's feeling better. appears calmer. vomiting has stopped. skin pwd. axox3.
--- NOTE | 2022-10-31 16:15 | PHA.MEDREC ---
Pharmacy Consult ? Medication Reconciliation Pharmacy has completed the medication reconciliation. SPOKE with pt
[2022-10-31 17:04] VITALS: BP 179/71; PULSE 64; RESP 12; TEMP 36.8; O2SAT 100
[2022-10-31 17:21] LABS: Lactic Acid 3.4 mmol/L (0.5-2.0)
--- NOTE | 2022-10-31 17:21 | PC.NURSE ---
rn to rn with Ericka on med surg
[2022-10-31] MEDS: Metoclopramide HCl 10 MG/2 ML VIAL 5 MG IVPUSH (17:27)
[2022-10-31 17:31] LABS: Appearance Urine Clear; Color Urine Yellow; Glucose Urine UA >=1000 mg/dL (Negative); Leukocyte Esterase Urine Trace (Negative); Nitrite Urine Negative (Negative); UMIC TRIGGER UACC YES; Urine Blood Trace (Negative); Urine Ketones 15 mg/dL (Negative); Urine Protein Negative (Neg-Trace)
[2022-10-31 17:33] LABS: Bacteria Urine None Seen (None Seen); Hyaline Casts Urine 0-2 /LPF (0-2); Squamous Epithelial Cell Urine 0-2 /HPF (0-2); WBC Urine 0-5 /HPF (0-5)
[2022-10-31 18:32] LABS: Reflex Lactate? Lactic Acid Added
[2022-10-31] MEDS: Heparin Sodium,Porcine 5,000 UNIT/ML VIAL 5000 UNIT SUBCUT (18:49)
[2022-10-31] MEDS: Pramipexole Di-HCL 0.125 MG TABLET PO (18:49)
[2022-10-31] MEDS: Aspirin 81 MG TAB.CHEW PO (18:55)
[2022-10-31 18:59] VITALS: BP 122/74; PULSE 61; RESP 14; TEMP 36.7; O2SAT 98
[2022-10-31 19:27] LABS: ~Lactic Acid-LAB USE ONLY 1.8 mmol/L (0.5-2.0)
[2022-10-31 19:34] LABS: Glucose, Whole Blood 230 mg/dL (60-115)
[2022-10-31] MEDS: 0.9 % Sodium Chloride 1,000 ML 100 ML IVCONT (20:47)
[2022-10-31 23:01] LABS: Glucose, Whole Blood 286 mg/dL (60-115)
[2022-11-01] VITALS: BP 109/49; PULSE 86; RESP 20; TEMP 36.7; O2SAT 95
[2022-11-01] MEDS: Insulin Glargine,Hum.rec.anlog 100 UNIT/ML 10 ML VIAL 47 UNIT SUBCUT (00:05)
[2022-11-01 03:26] VITALS: BP 123/55; PULSE 78; RESP 20; TEMP 36.7; O2SAT 94
[2022-11-01 04:00] VITALS: BMI 31.9
--- NOTE | 2022-11-01 05:30 | PC.NURSE ---
pt arrived to unit and oriented to staff, room, and plan. She initially was nauseated with vomiting clear mucousy emesis. IV was not patent upon arrival and new L f/a iv placed. IV fluids and unfinished azithromax completed. Zofran given with patient sleeping shortly after. Pt woke this am stating she feels great. she ambulated with steady gait to for urination. she states the feeling of rectal pressure she had yesterday has gone. She has tolerated 2 diet erick eliu's, some ice water, and a few saltines this am with no further c/o nausea. will ctm+t.....
[2022-11-01] MEDS: Levothyroxine Sodium 150 MCG TABLET PO (06:04)
[2022-11-01] MEDS: Heparin Sodium,Porcine 5,000 UNIT/ML VIAL 5000 UNIT SUBCUT (06:04)
[2022-11-01] MEDS: 0.9 % Sodium Chloride 1,000 ML 100 ML IVCONT (06:05)
[2022-11-01 06:45] LABS: MANUAL DIFF FLAG NO
[2022-11-01 06:48] LABS: Basophils Percent Auto 0.3 % (0-2); Eosinophils Percent Auto 0.1 % (0-4); Hematocrit 35.6 % (37.0-47.0); Hemoglobin 11.8 g/dl (12.0-16.0); Imm Gran Abs Auto 0.03 X10*3/uL (0.00-0.03); Imm Gran Pct Auto 0.3 % (0.0-0.4); Lymphocytes Absolute Auto 1.7 X10*3/uL (1.2-4.9); Lymphocytes Percent Auto 18.8 % (20-40); Mean Corpuscular HGB Conc 33.1 g/dl (31.0-35.0); Mean Corpuscular Hemoglobin 29.9 pg (27.0-33.0); Mean Corpuscular Volume 90.1 fL (80.0-98.0); Mean Platelet Volume 10.3 fL (9.4-12.3); Monocytes Absolute Auto 0.9 X10*3/uL (0.1-1.2); Monocytes Percent Auto 9.4 % (2-11); Neutrophils Absolute Auto 6.4 x10*3/uL (2.0-8.3); Neutrophils Percent Auto 71.1 % (45-73); Platelet Count 234 X10*3/uL (160-400); Red Blood Count 3.95 X10*6/uL (4.20-5.50); Red Cell Distribution Width 13.4 % (11.0-16.0)
[2022-11-01 07:04] LABS: Anion Gap 13 (12-20); Blood Urea Nitrogen 19 mg/dL (9-16); Carbon Dioxide 26 mmol/L (22-29); Chloride 108 mmol/L (96-108); Creatinine Clr Calc Pharmacy 51.9; Estimated Glomerular Filt Rate 51; Glucose Random 249 mg/dL (60-115); Potassium 4.5 mmol/L (3.3-5.1); Sodium 142 mmol/L (135-145)
[2022-11-01 07:07] VITALS: BP 119/58; PULSE 73; RESP 18; TEMP 38.2; O2SAT 97
[2022-11-01 07:16] LABS: Calcium 9.2 mg/dL (8.4-10.2)
[2022-11-01] MEDS: Sertraline HCL 100 MG TABLET PO (07:28)
[2022-11-01] MEDS: polyethylene glycoL 3350 17 GM POWD.PACK PO (07:29)
[2022-11-01] MEDS: Atorvastatin Calcium 40 MG TABLET PO (07:29)
[2022-11-01] MEDS: Multivitamin TABLET 1 TAB PO (07:29)
[2022-11-01 07:47] LABS: Glucose, Whole Blood 240 mg/dL (60-115)
[2022-11-01] MEDS: Insulin Lispro 100 UNIT/ML 3 ML VIAL SUBCUT (08:24)
[2022-11-01] MEDS: Insulin Lispro 100 UNIT/ML 3 ML VIAL 12 UNIT SUBCUT (08:24)
--- NOTE | 2022-11-01 08:33 | MHC.CM.PN ---
IMM DELIVERED PT LIVES ALONE IN AN APT. INDEPENDENT AT BASELINE WITH NO SERVICES IN THE HOME. + COVID VAX NO HCP BUT WILL WORK ON ONE WITH HER PCP. PCP TIMOTHY HINES AT [facility]. DP: PT HAS BEEN MEDICALLY CLEARED FOR DC HOME, NO SERVICES. WILL NEED A LYFT RIDE BOOKED. RN AWARE.
--- NOTE | 2022-11-02 14:31 | PM.DS ---
DS: Providers Provider Date of Service: 11/01/22 Date of admission: 10/31/22 15:57 Primary care physician: Nayeli Flores MD DS: Diagnosis Discharge Diagnosis (1) Pneumonia: Status: Acute (2) Vomiting: Status: Acute DS: Summary Hospital Course Hospital Course: 72-year-old woman with history of diabetes mellitus, hypothyroidism presenting with with cough, nausea and vomiting that started this morning. She denied recent travel or improperly cooked foods. She reported she has had this issue with nausea for a few years and usually goes along with constipation. She reported constipation for 2 days. In the ER, labs all within acceptable limits, vital signs stable, no fever leukocytosis noted. CXR showing peribronchial hazy opacity in the right lower lung suggestive of infectious versus inflammatory process. normal KUB. ? She was given Rocephin, azithromycin, IV Pepcid, Zofran, Reglan and IV fluids.? She will be admitted for further management and treatment of community-acquired pneumonia. CAP Rocephin and azithromycin supplemental oxygen Home with doxycycline and Augmentin Nausea and vomtiting mostly foam and some bile antemetics normal KUB PPI DM2 Continue medications Hypothyroidism Continue levothyroxine Hyperlipidemia Continue aspirin and statin Mental health Continue home medications Time Spent with Patient Time attestation: Total time managing care of this patient today ____ minutes. Discharge coordination time: Greater than 30 minutes Quality: Safe Use of Opioids Does Pt have an Active Cancer Diagnosis on the Problem List?: No Quality: Stroke Does the patient have a stroke diagnosis?: No Physical Exam Vital Signs: Vital Signs: Last Vital Signs Temp 100.8 F H 11/01/22 07:07 Pulse 73 11/01/22 07:07 Resp 18 11/01/22 07:07 BP 119/58 L 11/01/22 07:07 Pulse Ox 97 11/01/22 07:07 O2 Del Method Room Air 11/01/22 07:07 BMI result Body Mass Index 31.9 Appearing in no acute distress head is normocephalic atraumatic eyes pupils are PERRLA sclera is anicteric mouth throat mucous membranes are intact and moist neck is supple no lymphadenopathy, no JVD noted lung sounds are clear to auscultation heart regular rate rhythm, clear S1, S2 positive bowel sounds, abdomen is soft, nontender neuro patient is alert x3, no focal deficits DS: Data Data Completed and Pending Completed studies during hospitalization [Text1]: Procedures Drainage of Right Hand Subcutaneous Tissue and Fascia, Open Approach (02/03/21) Labs on day of discharge: Preliminary micro results at discharge 10/31/22 13:15 Blood Culture - Preliminary Blood - Venous No growth after 24 hours. 10/31/22 16:24 Blood Culture - Preliminary Blood - Venous No growth after 24 hours. Discharge Plan Discharge Anticipated Discharge Date/Time: 11/01/22 08:42 Patient Disposition: Home, Self-Care Discharge Diagnosis: Nausea and vomiting possible gastritis Aspiration pneumonia Referrals: Nayeli Bahena MD [Primary Care Provider] - 1 Week Discharge Medications: New amoxicillin-pot clavulanate 875-125 mg tablet 1 tab PO BID Qty: 12 0RF doxycycline hyclate 100 mg tablet 100 mg PO BID Qty: 12 0RF Continued sertraline 100 mg tablet 100 mg PO DAILY aspirin 81 mg tablet,chewable 81 mg PO DAILY@1700 insulin asp prt-insulin aspart [Novolog Mix 70-30FlexPen U-100] 100 unit/mL (70-30) insulin pen 42 unit subcut BID Trulicity 1.5 mg/0.5 mL pen injector 1.5 mg subcut WE pramipexole 0.125 mg tablet 0.125 mg PO DAILY@1800 atorvastatin 40 mg tablet 40 mg PO DAILY levothyroxine 150 mcg tablet 150 mcg PO DAILY multivitamin with folic acid [Daily-Johny (with folic acid)] 400 mcg tablet 1 tab PO DAILY No Action promethazine 25 mg tablet 25 mg PO TID Qty: 14 0RF Discharge Orders: Discharge Order (Routine); Ordered 11/01/22 Ordered By: Nataliia De Los Santos Diet: Advance to usual diet Activity on Discharge: As tolerated Stand Alone Forms: Patient Portal Discharge page Care Plan Goals: Complete resolution of symptoms Health Concerns: Nausea and vomiting possible gastritis Aspiration pneumonia Plan of Treatment: With primary care provider as needed Take all medications as prescribed Assessment: See discharge summary Discharge Date/Time: 11/01/22 09:30
== END 2022-11-01 09:30 | disposition home or self-care (01) | DRG 195 ==
LOC: HO.ED 15:50 → HO.EDOVER 16:02 → HO.IMC 16:56
PROVIDERS: Admitting Provider Nurse Practitioner Acute Care; Emergency Provider Emergency Medicine; PCP Student in an Organized Health Care Education/Training Program; Visit Provider Nurse Practitioner Acute Care
DX: J18.9 Pneumonia, unspecified organism (principal); E03.9 Hypothyroidism, unspecified; F32.A Depression, unspecified; E78.5 Hyperlipidemia, unspecified; F41.9 Anxiety disorder, unspecified; E11.9 Type 2 diabetes mellitus without complications; F12.10 Cannabis abuse, uncomplicated; Z20.822 Contact with and (suspected) exposure to COVID-19; Z79.82 Long term (current) use of aspirin; Z79.4 Long term (current) use of insulin; Z79.890 Hormone replacement therapy; Z79.899 Other long term (current) drug therapy
CPT/HCPCS: 0241U; 36415; 71045; 74018; 80048; 80076; 81001; 82947; 83605; 83690; 83880; 84484; 85025; 87040; 93005; 99222; 99285; J0456; J0696; J1643; J2405; J2765

== ENCOUNTER 2022-11-02 08:00 | Observation (INO) | payer MEDICARE, MEDICAID, SELFPAY ==
--- NOTE | ~2022-11-02 | XR_ITS ---
EXAMINATION: XR CHEST CLINICAL INFORMATION: Recent pneumonia, vomiting COMPARISON: Examination of 2 days previous. TECHNIQUE: 2 views of the chest were obtained. FINDINGS: No significant abnormality is noted involving the heart, lungs, mediastinum, bony thorax or soft tissues. XR/XR chest 2V IMPRESSION: Unremarkable examination.
--- NOTE | 2022-11-02 08:04 | ED.SOB ---
HPI - SOB/Dyspnea General Chief Complaint: Nausea/Vomiting/Diarrhea Stated Complaint: DIFFICULTY BREATHING Time Seen by Provider: 11/02/22 08:03 Source: patient and EMS Mode of arrival: EMS Limitations: no limitations History of Present Illness HPI Narrative: 72 year old female with history of diabetes presents today via EMS with nausea and vomiting. Per EMS, they were called to her home for difficulty breathing . Upon arrival, the patient met them outside her home. Vitals were stable and patient denied o2. Unable to obtain POC glucose. En route, patient has been dry heaving and complaining of N/V. States she has been vomiting all morning. She was seen here 2 days ago and admitted for PNA. Related Data Home Medications Medication Instructions Recorded Confirmed sertraline 100 mg tablet 100 mg PO DAILY 02/03/21 10/31/22 aspirin 81 mg chewable tablet 81 mg PO DAILY@1700 04/24/22 10/31/22 dulaglutide 1.5 mg/0.5 mL 1.5 mg subcut WE 04/24/22 10/31/22 subcutaneous pen injector (Trulicity) insulin aspar prot-insulin aspart 42 unit subcut BID 04/24/22 10/31/22 100 unit/mL (70-30) subcutaneous pen (Novolog Mix 70-30FlexPen U-100) pramipexole 0.125 mg tablet 0.125 mg PO DAILY@1800 04/24/22 10/31/22 atorvastatin 40 mg tablet 40 mg PO DAILY 10/31/22 10/31/22 levothyroxine 150 mcg tablet 150 mcg PO DAILY 10/31/22 10/31/22 multivitamin with folic acid 400 1 tab PO DAILY 10/31/22 10/31/22 mcg tablet (Daily-Johny (with folic acid)) Previous Rx's Medication Instructions Recorded amoxicillin 875 mg-potassium 1 tab PO BID #12 tabs 11/01/22 clavulanate 125 mg tablet doxycycline hyclate 100 mg tablet 100 mg PO BID #12 tabs 11/01/22 promethazine 25 mg tablet 25 mg PO TID #14 tabs 11/02/22 Allergies Allergy/AdvReac Type Severity Reaction Status Date / Time adhesive tape AdvReac Blister Verified 11/02/22 08:18 metformin AdvReac Agitated Verified 11/02/22 08:18 Review of Systems Review of Systems: Yes all other systems are reviewed and are negative [facility] Past Medical History Medical History Anxiety Cat bite Depression Diabetes Hypothyroidism Surgical History History of ankle surgery History of carpal tunnel surgery History of tonsillectomy and adenoidectomy Family History Family History Other No family history of coronary artery disease Social History Social History Household Members: None [facility] Do you presently have visiting nurse or other home services: No Alcohol intake: never Patient Tobacco Use Status: Former Tobacco user Tobacco use type: Cigarette Cigarette Packs Per Day: 1 Cigarettes Per Day: 20.0 Years Smoked: 55 Smoked in Last 30 Days: No Second Hand Smoke Exposure: No Use of substances other than those prescribed or required for medical reasons: No Substance Use Type: Marijuana Advance Directives: No Advance Directives Information Provided: Yes service: No Current occupational status: retired Current occupation: rt handed Physical Exam Vital Signs: Vital Signs: Last Vital Signs Temp 99.7 F 11/02/22 10:10 Pulse 77 11/02/22 10:10 Resp 20 11/02/22 10:10 BP 164/62 H 11/02/22 10:10 Pulse Ox 91 L 11/02/22 10:10 O2 Del Method Room Air 11/02/22 10:10 BMI result Body Mass Index 32.2 Const: Other: female looking older than stated age, violently reching, diaphoretic Nutritional Appearance: average body habitus Orientation/consciousness: oriented to person and patient oriented x3 Limitations: no limitations HEENT: Head: Yes normal to inspection Ears: external ears normal General nose exam: Normal external nose present Mouth: Normal oral and palatal mucosa present and oropharynx normal Throat: Yes posterior oropharynx normal Eyes: General: appearance normal, both eyes and all related structures Neck: Other: supple Neck: Yes normal visual inspection Chest: Chest palpation & inspection: normal inspection of the chest Resp: Auscultation: clear to auscultation bilaterally Cardio: Jugular venous distension: no JVD Rate: regular rate Rhythm: regular rhythm Heart sounds: S1 normal heart sound present and S2 normal heart sound present GI: Inspection: Yes normal to inspection Palpation (GI): Soft to palpation, nontender and No hepatosplenomegaly present Auscultation: normal bowel sounds : General: Yes no CVA tenderness Back/Spine/Pelvis: Back: no CVA tenderness Skin: General skin exam: no rashes or lesions noted Neuro: General: oriented to person and patient oriented x3 Cranial nerves: Yes CN's II-XII intact bilaterally Motor exam (neuro): 5/5 motor strength present throughout Extrem: General: Yes normal to inspection Psych: Appearance: grossly normal Course Reevaluation(s) Reevaluation #1: No PNA on xray, labs normal. Vomiting improved with phenergan. Will d/c home with cyclical vomiting. Time: 10:46 Medications Administered Discontinued Medications Generic Name Dose Route Start Last Admin Trade Name Freq PRN Reason Stop Dose Admin Sodium Chloride 1,000 mls @ 500 mls/hr 11/02/22 08:15 11/02/22 08:43 Ns IVCONT 11/02/22 10:14 500 mls/hr .Q2H VITALIY Administration Promethazine HCl 25 mg/ Sodium 51 mls @ 204 mls/hr 11/02/22 09:31 11/02/22 09:50 Chloride IV 11/02/22 09:32 Infused ONCE ONE Infusion Insulin Human Lispro 2 unit 11/02/22 10:06 11/02/22 10:38 Insulin Lispro 100 Unit/Ml 3 Ml Vial SUBCUT 11/02/22 10:07 2 unit ONCE ONE Administration Ondansetron HCl 4 mg 11/02/22 08:06 11/02/22 08:42 Ondansetron Hcl 4 Mg/2 Ml Vial IVPUSH 11/02/22 08:07 4 mg ONCE ONE Administration Medical Decision Making Differential Diagnosis Differential Diagnoses: The differential diagnosis associated with the presentation includes (pneumonia, cyclical vomiting, hyperosmolar nonketotic were considered) Admission/Observation Consideration of admission/observation: Escalation of care including admission/observation considered (72 year old diagnosed recently with pna, presents with intractable vomiting, was considered for admission upon arrival. ) Lab Data MDM Lab Attestation statement: I reviewed the patient's lab results. Only significant finding was the hyperglycemia. 11/02/22 08:36 06/26/23 09:26 Labs: Lab Results 11/02/22 11/02/22 11/02/22 Range/Units 08:36 09:12 09:26 WBC 9.2 (4.8-10.8) X10*3/uL RBC 4.24 (4.20-5.50) X10*6/uL Hgb 12.9 (12.0-16.0) g/dl Hct 37.6 (37.0-47.0) % MCV 88.7 (80.0-98.0) fL MCH 30.4 (27.0-33.0) pg MCHC 34.3 (31.0-35.0) g/dl RDW 13.2 (11.0-16.0) % Plt Count 259 (160-400) X10*3/uL MPV 10.4 (9.4-12.3) fL Immature Gran % (Auto) 0.8 H (0.0-0.4) % Neut % (Auto) 86.5 H (45-73) % Lymph % (Auto) 9.8 L (20-40) % [place] % (Auto) 2.7 (2-11) % Eos % (Auto) 0.0 (0-4) % Baso % (Auto) 0.2 (0-2) % Lymph # (Auto) 0.9 L (1.2-4.9) X10*3/uL [place] # (Auto) 0.3 (0.1-1.2) X10*3/uL Eos # (Auto) 0.0 (0.0-0.4) X10*3/uL Baso # (Auto) 0.0 (0.0-0.2) X10*3/uL Abs Immat Gran (auto) 0.07 H (0.00-0.03) X10*3/uL Absolute Neuts (auto) 7.9 (2.0-8.3) x10*3/uL Absolute Nucleated RBC 0.000 (0.0-0.012) X10*3/uL Nucleated RBC % (auto) 0.0 (0.0-0.2) /100WBC Sodium 141 (135-145) mmol/L Potassium 3.8 (3.3-5.1) mmol/L Chloride 103 (96-108) mmol/L Carbon Dioxide 25 (22-29) mmol/L Anion Gap 17 (12-20) BUN 20 H (9-16) mg/dL Creatinine 0.95 (0.5-1.4) mg/dL Estim Creat Clear Calc 57.7 Estimated GFR 58 POC Glucose 260 H (60-115) mg/dL Random Glucose 295 H (60-115) mg/dL Calcium 9.1 (8.4-10.2) mg/dL Total Bilirubin 0.8 (0.0-1.0) mg/dL Direct Bilirubin 0.2 (0.0-0.5) mg/dL AST 34 H (5-31) U/L ALT 19 (0-31) U/L Alkaline Phosphatase 73 (39-117) U/L Total Protein 6.8 (6.5-8.0) g/dL Albumin 4.1 (3.5-5.0) g/dL Lipase 9 (8-78) U/L Independent Interpretation I performed an independent interpretation of an: Plain X-Ray (CXR: no infiltrates) Radiology Impression Discussion of test interpretation with radiology: I have reviewed the radiologist's reading. Independent Historian Clinical information obtained from an independent historian. History obtained from or confirmed by: EMS External Record Review External record reviewed: Inpatient record (was reviewed.) Tests considered The following testing was considered but not selected: CT abd considered however patient's abd was soft, normal vitals and labs. Chronic Conditions Patient?s care impacted by: Diabetes Discharge Plan Discharge Clinical Impression: Cyclical vomiting Patient Disposition: Home, Self-Care Instructions: Acute Nausea and Vomiting (ED) Additional Instructions: Stop smoking marijuana. Prescriptions: New promethazine 25 mg tablet 25 mg PO TID Qty: 14 0RF No Action sertraline 100 mg tablet 100 mg PO DAILY aspirin 81 mg tablet,chewable 81 mg PO DAILY@1700 insulin asp prt-insulin aspart [Novolog Mix 70-30FlexPen U-100] 100 unit/mL (70-30) insulin pen 42 unit subcut BID Trulicity 1.5 mg/0.5 mL pen injector 1.5 mg subcut WE pramipexole 0.125 mg tablet 0.125 mg PO DAILY@1800 atorvastatin 40 mg tablet 40 mg PO DAILY levothyroxine 150 mcg tablet 150 mcg PO DAILY multivitamin with folic acid [Daily-Johny (with folic acid)] 400 mcg tablet 1 tab PO DAILY amoxicillin-pot clavulanate 875-125 mg tablet 1 tab PO BID Qty: 12 0RF doxycycline hyclate 100 mg tablet 100 mg PO BID Qty: 12 0RF Referrals: Physician,Unknown J [Primary Care Provider] - 1 week
[2022-11-02 08:09] VITALS: BP 120/86; BP 131/96; PULSE 74; PULSE 88; RESP 20; O2SAT 98; O2SAT 99; BMI 32.2
[2022-11-02 08:40] LABS: MANUAL DIFF FLAG NO
[2022-11-02 08:41] LABS: Basophils Percent Auto 0.2 % (0-2); Hematocrit 37.6 % (37.0-47.0); Hemoglobin 12.9 g/dl (12.0-16.0); Imm Gran Abs Auto 0.07 X10*3/uL (0.00-0.03); Imm Gran Pct Auto 0.8 % (0.0-0.4); Lymphocytes Absolute Auto 0.9 X10*3/uL (1.2-4.9); Lymphocytes Percent Auto 9.8 % (20-40); Mean Corpuscular HGB Conc 34.3 g/dl (31.0-35.0); Mean Corpuscular Hemoglobin 30.4 pg (27.0-33.0); Mean Corpuscular Volume 88.7 fL (80.0-98.0); Mean Platelet Volume 10.4 fL (9.4-12.3); Monocytes Absolute Auto 0.3 X10*3/uL (0.1-1.2); Monocytes Percent Auto 2.7 % (2-11); Neutrophils Absolute Auto 7.9 x10*3/uL (2.0-8.3); Neutrophils Percent Auto 86.5 % (45-73); Platelet Count 259 X10*3/uL (160-400); Red Blood Count 4.24 X10*6/uL (4.20-5.50); Red Cell Distribution Width 13.2 % (11.0-16.0); White Blood Count 9.2 X10*3/uL (4.8-10.8)
[2022-11-02] MEDS: ondansetron HCL 4 MG/2 ML VIAL IVPUSH (08:42)
[2022-11-02] MEDS: 0.9 % Sodium Chloride 1,000 ML 500 ML IVCONT ×2 (08:43→15:35)
--- NOTE | 2022-11-02 08:46 | PC.NURSE ---
20g iv inserted L WRIST. med and fluids given as ordered.
[2022-11-02 09:16] LABS: Glucose, Whole Blood 260 mg/dL (60-115)
--- NOTE | 2022-11-02 09:26 | PC.NURSE ---
pt aox4, reporting nausea and vomiting since 1999 last night. reports no pain but discomfort. [place] [facility] [place] and reports feeling damn good at home yesterday. They had some noodle soup for dinner last night with no problem, but then experienced nausea and vomiting all night long. fluids infusing per jul. recollect drawn by [facility].
--- NOTE | 2022-11-02 09:37 | PC.NURSE ---
MD aware of pt POC BG and continued nausea/vomiting. per order, infusing phenergan. will ctm
[2022-11-02 09:50] LABS: Alanine Aminotransferase 19 U/L (0-31); Albumin Level 4.1 g/dL (3.5-5.0); Alkaline Phosphatase 73 U/L (39-117); Anion Gap 17 (12-20); Aspartate Amino Transferase 34 U/L (5-31); Bilirubin Direct 0.2 mg/dL (0.0-0.5); Bilirubin Total 0.8 mg/dL (0.0-1.0); Blood Urea Nitrogen 20 mg/dL (9-16); Calcium 9.1 mg/dL (8.4-10.2); Carbon Dioxide 25 mmol/L (22-29); Chloride 103 mmol/L (96-108); Creatinine Clr Calc Pharmacy 57.7; Estimated Glomerular Filt Rate 58; Glucose Random 295 mg/dL (60-115); Lipase 9 U/L (8-78); Potassium 3.8 mmol/L (3.3-5.1); Sodium 141 mmol/L (135-145); Total Protein 6.8 g/dL (6.5-8.0)
[2022-11-02 10:10] VITALS: BP 164/62; PULSE 77; RESP 20; TEMP 37.6; O2SAT 91
[2022-11-02] MEDS: Insulin Lispro 100 UNIT/ML 3 ML VIAL SUBCUT ×2 (10:38→21:44)
--- NOTE | 2022-11-02 10:39 | PC.NURSE ---
pt reports feeling much better and that nausea is subsiding.
--- NOTE | 2022-11-02 13:16 | PC.NURSE ---
pt does not feel well enough to be discharged home, resting at this time with continued nausea. MD aware.
[2022-11-02 14:25] VITALS: BP 163/66; PULSE 61; RESP 18; TEMP 37.5; O2SAT 96
[2022-11-02] MEDS: diphenhydrAMINE HCL 50 MG/ML VIAL 25 MG IVPUSH (15:35)
[2022-11-02] MEDS: Haloperidol Lactate 5 MG/ML VIAL IVPUSH (15:36)
--- NOTE | 2022-11-02 15:37 | PC.NURSE ---
pt remains nauseous and vomiting. MD aware. ordered haldol, Benadryl and NS. Infusing per MAR. will ctm
--- NOTE | 2022-11-02 19:45 | P.HPHOSP_ITS ---
Patient seen and examined for cyclic vomiting syndrome, refusing to stop marijuana. At this time will treat with IV fluids, antiemetics, for full H&P please see below History of Present Illness Date of Service: 11/02/22 Attending physician on admission: July Malagon Chief Complaint: Intractable nausea and vomit Pt is a 72-year-old female with a PMH significant for?insulin-dependent diabetes type 2, hypothyroidism, HTN, and mood disorder who re-presents to the ED with?intractable nausea and vomiting. Patient initially presented to the emergency room with similar symptoms two days prior on 10/31/2022 and was admitted to the hospital for treatment of community-acquired pneumonia and possible gastritis. Patient was discharged home yesterday on 11/01/2022 on a 6- day supply of Augmentin and doxycycline. Patient states she felt fine when she went home but soon developed nausea and vomiting again last night, which continued throughout the night so she re-presented to the emergency room this morning. Had accompanying headache but no other symptoms. Patient denies hemat emesis or abdominal pain. Denies shortness of breath, cough. No chest pain/pressure, palpitations. Patient states she has had an issue with intractable nausea and vomiting for some years now and has presented to the hospital with similar symptoms in the past. Patient initially thought her nausea was related to constipation, however patient also admits to daily marijuana use for ?many years?. Upon further questioning patient also reports that while she did not eat any food yesterday afternoon when she went home, she did smoke some marijuana a few hours before her nausea and vomiting returned. In the ED labs were largely unremarkable except for glucose of 295. CXR was unremarkable. Pt was treated with ondansetron, IVF, promethazine, insulin, diphenhydramine, and Haldol. Pt will be admitted to the hospital under observation for treatment of cyclic vomiting syndrome likely secondary to chronic cannabis use. Review of Systems Review of Systems: Intractable nausea and vomiting Denies hematemesis, streaks of blood in emesis No abdominal pain Denies fever, chills No chest pain/pressure, palpitations Denies shortness of breath, cough Yes all other systems are reviewed and are negative [facility]LY [facility] Medical History (Updated 11/02/22 @ 20:44 by LANG Andrews) Anxiety Cannabis use disorder Cat bite Depression Diabetes Hypothyroidism Family History Other No family history of coronary artery disease Surgical History History of ankle surgery History of carpal tunnel surgery History of tonsillectomy and adenoidectomy Social History Household Members: None Housing: Condominium Do you presently have visiting nurse or other home services: No Alcohol intake: never Patient Tobacco Use Status: Former Tobacco user Tobacco use type: Cigarette Cigarette Packs Per Day: 1 Cigarettes Per Day: 20.0 Years Smoked: 55 Smoked in Last 30 Days: No Second Hand Smoke Exposure: No Use of substances other than those prescribed or required for medical reasons: No Substance Use Type: Marijuana Advance Directives: No Advance Directives Information Provided: Yes service: No Current occupational status: retired Current occupation: rt handed Meds Allergies Allergy/AdvReac Type Severity Reaction Status Date / Time adhesive tape AdvReac Blister Verified 11/02/22 08:18 metformin AdvReac Agitated Verified 11/02/22 08:18 Home Medications Medication Instructions Recorded Confirmed Last Taken Type sertraline 100 mg tablet 100 mg PO DAILY 02/03/21 11/02/22 04/23/22 History aspirin 81 mg chewable tablet 81 mg PO DAILY@1700 04/24/22 11/02/22 04/23/22 History dulaglutide 1.5 mg/0.5 mL 1.5 mg subcut WE 04/24/22 11/02/22 04/22/22 History subcutaneous pen injector (Trulicity) insulin aspar prot-insulin aspart 42 unit subcut BID 04/24/22 11/02/22 04/23/22 History 100 unit/mL (70-30) subcutaneous pen (Novolog Mix 70-30FlexPen U-100) pramipexole 0.125 mg tablet 0.125 mg PO DAILY@1800 04/24/22 11/02/22 04/23/22 Hi story atorvastatin 40 mg tablet 40 mg PO DAILY 10/31/22 11/02/22 Unknown History levothyroxine 150 mcg tablet 150 mcg PO DAILY 10/31/22 11/02/22 Unknown History multivitamin with folic acid 400 1 tab PO DAILY 10/31/22 11/02/22 Unknown History mcg tablet (Daily-Johny (with folic acid)) Physical Exam Vital Signs and Narrative: Vital Signs: Last Vital Signs Temp 99.5 F 11/02/22 14:25 Pulse 61 11/02/22 14:25 Resp 18 11/02/22 14:25 BP 163/66 H 11/02/22 14:25 Pulse Ox 96 11/02/22 14:25 O2 Del Method Room Air 11/02/22 14:25 BMI result Body Mass Index 32.2 Constitutional: Alert, in no acute distress. Mental Status: Oriented to person, place and time. Eyes: Pupils are equal, round, and reactive to light. Ear, Nose, and Throat: Oropharynx clear, mucous membranes moist. Ears and nose without deformities. Trachea midline. Respiratory: Clear to auscultation bilaterally. No wheezing, rales, or rhonchi. Cardiovascular: S1, S2 regular. No murmurs, rubs, or gallops. Gastrointestinal: Abdomen soft, non-tender, non-distended. Normal bowel sounds. Neurologic: Cranial nerves II-XII are grossly intact bilaterally. No focal neurological deficits. Moves all extremities spontaneously. Skin: No rashes or lesions noted. Musculoskeletal: No cyanosis or clubbing. Extremities: No edema. Psychiatric: Normal mood and affect. Results Labs 11/02/22 08:36 11/02/22 09:26 Labs: Laboratory Results - last 24 hr 11/02/22 11/02/22 11/02/22 08:36 09:12 09:26 MCV 88.7 MCH 30.4 MCHC 34.3 RDW 13.2 Plt Count 259 MPV 10.4 Immature Gran % (Auto) 0.8 H Neut % (Auto) 86.5 H Lymph % (Auto) 9.8 L [place] % (Auto) 2.7 Eos % (Auto) 0.0 Baso % (Auto) 0.2 Lymph # (Auto) 0.9 L [place] # (Auto) 0.3 Eos # (Auto) 0.0 Baso # (Auto) 0.0 Abs Immat Gran (auto) 0.07 H Absolute Neuts (auto) 7.9 Absolute Nucleated RBC 0.000 Nucleated RBC % (auto) 0.0 Anion Gap 17 Estim Creat Clear Calc 57.7 Estimated GFR 58 POC Glucose 260 H Random Glucose 295 H Calcium 9.1 Total Bilirubin 0.8 Direct Bilirubin 0.2 AST 34 H ALT 19 Alkaline Phosphatase 73 Total Protein 6.8 Albumin 4.1 Lipase 9 Imaging Radiologist's Impressions: Impressions Chest X-Ray 11/02/22 08:59 IMPRESSION: Unremarkable examination. Assessment and Plan (1) Cyclical vomiting: Status: Acute (2) Cannabis use disorder: Status: Acute Plan Pt is a 72-year-old female with a PMH significant for?insulin-dependent diabetes type 2, hypothyroidism, HTN, and mood disorder who re-presents to the ED with?intractable nausea and vomiting. Patient initially presented to the emergency room with intractable nausea and vomiting 2 days prior on 10/31/2022 and was admitted to the hospital for treatment of intractable nausea and vomiting possibly secondary to gastritis and community-acquired pneumonia. Patient was discharged home yesterday on 11/01/2022 on a 6 day supply of Augmentin and doxycycline. Patient states that she felt fine when she went home but soon developed nausea and vomiting again last night. Pt will be admitted to the hospital under observation for treatment of cyclic vomiting syndrome likely secondary to chronic cannabis use. Cyclic vomiting syndrome Patient re-presents to the ED with intractable nausea and vomiting less than 24 hours after last discharge Likely secondary to chronic cannabis use Patient states she smokes marijuana daily, smoked marijuana upon returning home after discharge yesterday a few hours prior to nausea and vomiting returning IVF: Lactated Ringer's due to elevated blood glucose Clear liquid diet for now, advance as tolerated Ondansetron p.r.n. Pepcid 20 mg b.i.d. Tylenol for pain Community-acquired pneumonia Patient was admitted 2 days ago and found to have pneumonia Discharged yesterday on Augmentin and doxycycline Continue p.o. antibiotics Insulin-dependent diabetes type 2 Hold home meds Sliding-scale insulin Hold long-acting insulin for now due to patient's decreased p.o. intake Hypothyroidism Continue levothyroxine HLD Continue aspirin, statin Mood disorder Continue home medications Full Code Attending:?Dr. Malagon DVT Prophylaxis: Heparin Patient be admitted to the hospital under observation for treatment of cyclic vomiting syndrome likely secondary to chronic cannabis use. Time Spent With Patient Time: Total time managing care of this patient today ____ minutes. Quality Stroke Does the patient have a stroke diagnosis?: No VTE Prior VTE?: No VTE Risk Level:: Medical - moderate - high VTE Device Contraindication: Treatment Not Indicated VTE Drug Contraindication: N/A - Med Ordered
[2022-11-02 20:00] VITALS: BP 125/51; BP 150/50; PULSE 53; PULSE 67; RESP 15; RESP 18; TEMP 37; TEMP 37.2; O2SAT 94; O2SAT 96
--- NOTE | 2022-11-02 20:29 | PHA.MEDREC ---
Pharmacy Consult ? Medication Reconciliation Pharmacy has completed the medication reconciliation. Patient just discharged 11/01/22 from the Medical-Telemetry unit. Utilized discharge summary for med rec. Indu Pedroza, ErnieD
--- NOTE | 2022-11-02 20:35 | PC.NURSE ---
Attempted to call report to [phone]. Answering democrat stated that Nurse was in another room at this time.
--- NOTE | 2022-11-02 20:39 | PC.NURSE ---
Report given to Teresa CARDENAS. via callback from her. Verbalized no questions and is ready to accept patient.
[2022-11-02] MEDS: Lactated Ringers 1,000 ML 100 ML IVCONT (21:14)
[2022-11-02 21:22] VITALS: BP 124/52; PULSE 64; RESP 18; TEMP 36.9; O2SAT 92
[2022-11-02 21:28] LABS: Glucose, Whole Blood 272 mg/dL (60-115)
[2022-11-02] MEDS: Heparin Sodium,Porcine 5,000 UNIT/ML VIAL 5000 UNIT SUBCUT (21:45)
[2022-11-02] MEDS: Amoxicillin/Potassium Clav 875 MG TABLET PO (21:45)
[2022-11-02] MEDS: Famotidine 20 MG TABLET PO (21:45)
[2022-11-02] MEDS: Doxycycline Monohydrate 100 MG CAPSULE PO (21:45)
[2022-11-02] MEDS: Aspirin 81 MG TAB.CHEW PO (21:45)
[2022-11-02 23:34] VITALS: BP 125/45; PULSE 58; RESP 18; TEMP 36.6; O2SAT 93
[2022-11-03 04:00] VITALS: BP 132/54; PULSE 62; RESP 20; TEMP 36.4; O2SAT 93
[2022-11-03] MEDS: Heparin Sodium,Porcine 5,000 UNIT/ML VIAL 5000 UNIT SUBCUT ×2 (05:53→12:01)
[2022-11-03] MEDS: Levothyroxine Sodium 150 MCG TABLET PO (05:53)
[2022-11-03] MEDS: Lactated Ringers 1,000 ML 100 ML IVCONT (05:58)
[2022-11-03 06:47] LABS: Anion Gap 12 (12-20); Blood Urea Nitrogen 18 mg/dL (9-16); Calcium 8.6 mg/dL (8.4-10.2); Carbon Dioxide 26 mmol/L (22-29); Chloride 108 mmol/L (96-108); Estimated Glomerular Filt Rate > 60; Glucose Random 202 mg/dL (60-115); Potassium 3.7 mmol/L (3.3-5.1); Sodium 142 mmol/L (135-145)
[2022-11-03 06:50] LABS: Hematocrit 34.1 % (37.0-47.0); Hemoglobin 11.3 g/dl (12.0-16.0); Mean Corpuscular HGB Conc 33.1 g/dl (31.0-35.0); Mean Corpuscular Hemoglobin 30.5 pg (27.0-33.0); Mean Corpuscular Volume 91.9 fL (80.0-98.0); Mean Platelet Volume 10.5 fL (9.4-12.3); Platelet Count 204 X10*3/uL (160-400); Red Blood Count 3.71 X10*6/uL (4.20-5.50); Red Cell Distribution Width 13.5 % (11.0-16.0)
[2022-11-03 07:40] VITALS: BP 123/89; PULSE 65; RESP 20; TEMP 36.7; O2SAT 96
[2022-11-03 07:40] LABS: Glucose, Whole Blood 193 mg/dL (60-115)
[2022-11-03] MEDS: Sertraline HCL 100 MG TABLET PO (08:02)
[2022-11-03] MEDS: Amoxicillin/Potassium Clav 875 MG TABLET PO (08:02)
[2022-11-03] MEDS: Multivitamin TABLET 1 TAB PO (08:02)
[2022-11-03] MEDS: Atorvastatin Calcium 40 MG TABLET PO (08:02)
[2022-11-03] MEDS: Famotidine 20 MG TABLET PO (08:02)
[2022-11-03] MEDS: Doxycycline Monohydrate 100 MG CAPSULE PO (08:02)
[2022-11-03] MEDS: Insulin Lispro 100 UNIT/ML 3 ML VIAL SUBCUT ×2 (08:03→12:01)
[2022-11-03] MEDS: 0.9 % Sodium Chloride Flush 3 ML SYRINGE IVFLUSH (08:07)
--- NOTE | 2022-11-03 08:21 | MHC.CM.PN ---
CM met with Patient at bedside and addressed WALLER with her, providing her with the original and placing a copy on the chart. Patient lives alone in a condo and she required no services nor DME PLASTIC ROLLER. Home/self care is the goal and CM has initiated and will follow for dc planning. Patient is Alexa sykes'd x 4 and her PCP is Dr. Redmond.
[2022-11-03 11:10] VITALS: BP 130/60; PULSE 60; RESP 20; TEMP 36.8; O2SAT 95
[2022-11-03 11:12] LABS: Glucose, Whole Blood 213 mg/dL (60-115)
--- NOTE | 2022-11-03 12:57 | P.DS_ITS ---
DS: Providers Provider Date of Service: 11/03/22 Date of admission: 11/02/22 20:16 Date of discharge: 11/03/22 Primary care physician: Nayeli Flores MD DS: Diagnosis Discharge Diagnosis (1) Cyclical vomiting: Status: Acute (2) Cannabis use disorder: Status: Acute DS: Summary Hospital Course Hospital Course: from admission H+P by hospitalist LANG Andrews, 11/02/22: Pt is a 72-year-old female with a PMH significant for?insulin-dependent diabetes type 2, hypothyroidism, HTN, and mood disorder who re-presents to the ED with?intractable nausea and vomiting.? Patient initially presented to the emergency room with similar symptoms two days prior on 10/31/2022 and was admitted to the hospital for treatment of community-acquired pneumonia and possible gastritis.? Patient was discharged home yesterday on 11/01/2022 on a 6- day supply of Augmentin and doxycycline.? Patient states she felt fine when she went home but soon developed nausea and vomiting again last night, which lyndsay nued throughout the night so she re-presented to the emergency room this morning.? Had accompanying headache but no other symptoms. Patient denies hematemesis or abdominal pain.? Denies shortness of breath, cough.? No chest pain/pressure, palpitations.?Patient states she has had an issue with intractable nausea and vomiting for some years now and has presented to the hospital with similar symptoms in the past.? Patient initially thought her nausea was related to constipation, however patient also admits to daily marijuana use for ?many years?.? Upon further questioning patient also reports that while she did not eat any food yesterday afternoon when she went home, she did smoke some marijuana a few hours before her nausea and vomiting returned. In the ED labs were largely unremarkable except for glucose of 295. CXR was unremarkable. Pt was treated with ondansetron, IVF, promethazine, insulin, diphenhydramine, and Haldol. Pt will be admitted to the hospital under observation for treatment of cyclic vomiting syndrome likely secondary to chronic cannabis use. She was readmitted under observation for suspected cannabinoid hyperemesis syndrome. She was treated with bowel rest, IV fluids, and IV emetics and improved quickly. Once she tolerated a solid diet, she was discharged home with instructions to avoid cannabis and to complete the previously prescribed antibiotics. Time Spent with Patient Time attestation: Total time managing care of this patient today __25__ minutes. Discharge coordination time: Less than 30 minutes Quality: Safe Use of Opioids Does Pt have an Active Cancer Diagnosis on the Problem List?: No Quality: Stroke Does the patient have a stroke diagnosis?: No Physical Exam Vital Signs: Vital Signs: Last Vital Signs Temp 98.3 F 11/03/22 11:10 Pulse 60 11/03/22 11:10 Resp 20 11/03/22 11:10 BP 130/60 11/03/22 11:10 Pulse Ox 95 11/03/22 11:10 O2 Del Method Room Air 11/03/22 11:10 BMI result Body Mass Index 32.2 Gen: in no acute distress HEENT: sclera anicteric, moist mucus membranes Neck: supple Lungs: clear to auscultation bilaterally Heart: regular rate and rhythm, no murmurs Abd: soft, non-tender, non-distended Ext: no edema Skin: warm/well-perfused Neuro: alert and oriented x3, no focal findings Psych: appropriate affect DS: Data Data Completed and Pending Completed studies during hospitalization [Text1]: Laboratory Results WBC 9.0 X10*3/uL (4.8-10.8) 11/03/22 06:14 RBC 3.71 X10*6/uL (4.20-5.50) L 11/03/22 06:14 Hgb 11.3 g/dl (12.0-16.0) L 11/03/22 06:14 Hct 34.1 % (37.0-47.0) L 11/03/22 06:14 MCV 91.9 fL (80.0-98.0) 11/03/22 06:14 MCH 30.5 pg (27.0-33.0) 11/03/22 06:14 MCHC 33.1 g/dl (31.0-35.0) 11/03/22 06:14 RDW 13.5 % (11.0-16.0) 11/03/22 06:14 Plt Count 204 X10*3/uL (160-400) 11/03/22 06:14 MPV 10.5 fL (9.4-12.3) 11/03/22 06:14 Immature Gran % (Auto) 0.8 % (0.0-0.4) H 11/02/22 08:36 Neut % (Auto) 86.5 % (45-73) H 11/02/22 08:36 Lymph % (Auto) 9.8 % (20-40) L 11/02/22 08:36 [place] % (Auto) 2.7 % (2-11) 11/02/22 08:36 Eos % (Auto) 0.0 % (0-4) 11/02/22 08:36 Baso % (Auto) 0.2 % (0-2) 11/02/22 08:36 Lymph # (Auto) 0.9 X10*3/uL (1.2-4.9) L 11/02/22 08:36 [place] # (Auto) 0.3 X10*3/uL (0.1-1.2) 11/02/22 08:36 Eos # (Auto) 0.0 X10*3/uL (0.0-0.4) 11/02/22 08:36 Baso # (Auto) 0.0 X10*3/uL (0.0-0.2) 11/02/22 08:36 Abs Immat Gran (auto) 0.07 X10*3/uL (0.00-0.03) H 11/02/22 08:36 Absolute Neuts (auto) 7.9 x10*3/uL (2.0-8.3) 11/02/22 08:36 Absolute Nucleated RBC 0.000 X10*3/uL (0.0-0.012) 11/03/22 06:14 Nucleated RBC % (auto) 0.0 /100WBC (0.0-0.2) 11/03/22 06:14 Sodium 142 mmol/L (135-145) 11/03/22 06:14 Potassium 3.7 mmol/L (3.3-5.1) 11/03/22 06:14 Chloride 108 mmol/L (96-108) 11/03/22 06:14 Carbon Dioxide 26 mmol/L (22-29) 11/03/22 06:14 Anion Gap 12 (12-20) 11/03/22 06:14 BUN 18 mg/dL (9-16) H 11/03/22 06:14 Creatinine 0.83 mg/dL (0.5-1.4) 11/03/22 06:14 Estim Creat Clear Calc 66.0 11/03/22 06:14 Estimated GFR > 60 11/03/22 06:14 POC Glucose 213 mg/dL (60-115) H 11/03/22 10:54 Random Glucose 202 mg/dL (60-115) H 11/03/22 06:14 Calcium 8.6 mg/dL (8.4-10.2) 11/03/22 06:14 Total Bilirubin 0.8 mg/dL (0.0-1.0) 11/02/22 09:26 Direct Bilirubin 0.2 mg/dL (0.0-0.5) 11/02/22 09:26 AST 34 U/L (5-31) H 11/02/22 09:26 ALT 19 U/L (0-31) 11/02/22 09:26 Alkaline Phosphatase 73 U/L (39-117) 11/02/22 09:26 Total Protein 6.8 g/dL (6.5-8.0) 11/02/22 09:26 Albumin 4.1 g/dL (3.5-5.0) 11/02/22 09:26 Lipase 9 U/L (8-78) 11/02/22 09:26 Impressions Chest X-Ray 11/02/22 08:59 IMPRESSION: Unremarkable examination. Discharge Plan Discharge Patient Disposition: Home, Self-Care Discharge Diagnosis: cannabinoid hyperemesis syndrome Referrals: Nayeli Bahena MD [Primary Care Provider] - 1 Week Physician,Unknown J [Physician] - 1 week Discharge Medications: New promethazine 25 mg tablet 25 mg PO TID Qty: 14 0RF Continued sertraline 100 mg tablet 100 mg PO DAILY aspirin 81 mg tablet,chewable 81 mg PO DAILY@1700 insulin asp prt-insulin aspart [Novolog Mix 70-30FlexPen U-100] 100 unit/mL (70-30) insulin pen 42 unit subcut BID Trulicity 1.5 mg/0.5 mL pen injector 1.5 mg subcut WE pramipexole 0.125 mg tablet 0.125 mg PO DAILY@1800 atorvastatin 40 mg tablet 40 mg PO DAILY levothyroxine 150 mcg tablet 150 mcg PO DAILY multivitamin with folic acid [Daily-Johny (with folic acid)] 400 mcg tablet 1 tab PO DAILY amoxicillin-pot clavulanate 875-125 mg tablet 1 tab PO BID Qty: 12 0RF doxycycline hyclate 100 mg tablet 100 mg PO BID Qty: 12 0RF Discharge Orders: Discharge Order (Routine); Ordered 11/03/22 Ordered By: Serina Brian Diet: Diabetic diet Activity on Discharge: As tolerated Stand Alone Forms: Patient Portal Discharge page Activity Restrictions/Additional Instructions: Stop smoking marijuana. Care Plan Goals: relief of nausea and vomiting Health Concerns: cannabinoid hyperemesis syndrome Plan of Treatment: avoid cannabis promethazine as needed for nausea/vomiting take antibiotics for pneumonia as previously prescribed Please follow up with your primary care doctor within 1 week. Return to the hospital if you experience recurrent or worsening symptoms. Assessment: See Discharge Summary. Patient Instructions: Acute Nausea and Vomiting (ED)
--- NOTE | 2022-11-03 13:10 | MHC.CM.PN ---
Patient has been medically cleared for dc to home today, self care. Patient will dc to home today via [facility] at 3PM.
== END 2022-11-03 14:43 | disposition home or self-care (01) ==
LOC: HO.ED 19:20 → HO.EDOVER 20:27 → HO.IMC 20:32
PROVIDERS: Emergency Medicine; Internal Medicine; Admitting Provider Student in an Organized Health Care Education/Training Program; Emergency Provider Emergency Medicine Emergency Medical Services; PCP Student in an Organized Health Care Education/Training Program; Visit Provider Family Medicine
DX: R11.15 Cyclical vomiting syndrome unrelated to migraine (principal); J18.9 Pneumonia, unspecified organism; F12.90 Cannabis use, unspecified, uncomplicated; E03.9 Hypothyroidism, unspecified; E11.9 Type 2 diabetes mellitus without complications; I10 Essential (primary) hypertension; Z79.4 Long term (current) use of insulin; Z79.899 Other long term (current) drug therapy
CPT/HCPCS: 36415; 71046; 80048; 80076; 82947; 83690; 85025; 85027; 96361; 96372; 96374; 96375; 99222; 99285; J1200; J1643; J2405; J2550

== ENCOUNTER → 2022-11-12 14:15 | Outpatient (BNV) | payer MEDICARE, MEDICAID, SELFPAY | PROVIDERS: PCP Student in an Organized Health Care Education/Training Program; Visit Provider Radiology Diagnostic Radiology | DX: Z12.31 Encounter for screening mammogram for malignant neoplasm of breast (principal) | CPT/HCPCS: 77063; 77067 ==

== ENCOUNTER 2022-11-12 14:46 | Outpatient (REF) | payer MEDICARE, MEDICAID, SELFPAY ==
--- NOTE | ~2022-11-12 | MM_ITS ---
EXAMINATION: MM SCREENING DIGITAL BREAST TOMOSYNTHESIS, BILATERAL CLINICAL INFORMATION: Screening. Asymptomatic. The lifetime risk of breast cancer based on the Tyrer-Cuzick Model is 4%. COMPARISON: Mammography: There are no prior mammograms for comparison in the last 10 years. No earlier mammograms are available. This study will function as a new baseline mammogram. TECHNIQUE: Digital breast tomosynthesis is performed in both the craniocaudal and mediolateral oblique views along with computer-aided detection (CAD). Synthesized 2D images are generated from the tomosynthesis. FINDINGS: The breasts are heterogeneously dense, which may obscure small masses (ACR BI-RADS breast composition Category c). There are no significant masses, abnormal calcifications, or other abnormalities. MM/MM tomosynthesis screening BI IMPRESSION: No mammographic evidence of malignancy. ASSESSMENT: BI-RADS BI-RADS 1 - Negative RECOMMENDATION: Routine annual mammography screening. 1 year F/U This examination should not preclude the clinical evaluation of a suspicious palpable abnormality. This patient's information was entered into a reminder system with a target due date for their next mammogram.
== END 2022-11-12 14:47 | disposition home or self-care (01) ==
LOC: HO.MAMMO 14:46
PROVIDERS: PCP Student in an Organized Health Care Education/Training Program; Visit Provider Student in an Organized Health Care Education/Training Program
DX: Z12.31 Encounter for screening mammogram for malignant neoplasm of breast (principal)
CPT/HCPCS: 77063; 77067

== ENCOUNTER 2022-12-04 15:22 | Outpatient (REF) | payer MEDICARE, MEDICAID, SELFPAY ==
[2022-12-04 16:36] LABS: Basophils Absolute Auto 0.1 X10*3/uL (0.0-0.2); Basophils Percent Auto 0.5 % (0-2); Eosinophils Percent Auto 22.6 % (0-4); Hematocrit 39.7 % (37.0-47.0); Imm Gran Abs Auto 0.16 X10*3/uL (0.00-0.03); Imm Gran Pct Auto 1.2 % (0.0-0.4); Lymphocytes Absolute Auto 3.3 X10*3/uL (1.2-4.9); Lymphocytes Percent Auto 25.3 % (20-40); MANUAL DIFF FLAG SCAN; Mean Corpuscular HGB Conc 32.7 g/dl (31.0-35.0); Mean Corpuscular Hemoglobin 30.2 pg (27.0-33.0); Mean Corpuscular Volume 92.1 fL (80.0-98.0); Mean Platelet Volume 10.1 fL (9.4-12.3); Monocytes Absolute Auto 0.8 X10*3/uL (0.1-1.2); Monocytes Percent Auto 5.8 % (2-11); Neutrophils Absolute Auto 5.9 x10*3/uL (2.0-8.3); Neutrophils Percent Auto 44.6 % (45-73); Platelet Count 317 X10*3/uL (160-400); Red Blood Count 4.31 X10*6/uL (4.20-5.50); Red Cell Distribution Width 13.5 % (11.0-16.0); SCAN SMEAR FLAG 1; White Blood Count 13.2 X10*3/uL (4.8-10.8)
[2022-12-04 16:57] LABS: SLIDE REVIEW VERIFIED
[2022-12-04 17:03] LABS: Iron 64 mcg/dL (30-160); Percent Iron Saturation 25 % (15-50); Total Iron Binding Capacity 252 mcg/dL (228-428); Unsaturated Iron Binding 188 ug/dL
[2022-12-04 17:22] LABS: Ferritin 197 ng/mL (10-250); Free T4 (Free Thyroxine) 1.31 ng/dL (0.71-1.85); T4 Thyroxine 11.8 ug/dL (4.5-12.0); Thyroid Stimulating Hormone 1.35 uIU/mL (0.32-4.0)
== END 2022-12-04 15:23 | disposition home or self-care (01) ==
LOC: HO.HHCL 15:22
PROVIDERS: Visit Provider Student in an Organized Health Care Education/Training Program
DX: E03.9 Hypothyroidism, unspecified (principal); D64.9 Anemia, unspecified
CPT/HCPCS: 36415; 82728; 83540; 84436; 84439; 84443; 85025

== ENCOUNTER 2022-12-25 16:05 | Outpatient (REF) | payer MEDICARE, MEDICAID, SELFPAY | END 2022-12-25 16:06 | disposition home or self-care (01) | LOC: HO.HHCL 16:05 | PROVIDERS: Visit Provider Student in an Organized Health Care Education/Training Program | DX: Z13.89 Encounter for screening for other disorder (principal) ==

== ENCOUNTER 2022-12-25 18:52 | Outpatient (REF) | payer MEDICARE, MEDICAID, SELFPAY | END 2022-12-25 18:53 | disposition home or self-care (01) | LOC: HO.HHCLNP 18:52 | PROVIDERS: Visit Provider Student in an Organized Health Care Education/Training Program | DX: D64.9 Anemia, unspecified (principal) | CPT/HCPCS: 82274 ==

== ENCOUNTER 2023-01-07 15:41 | Outpatient (REF) | payer MEDICARE, MEDICAID, SELFPAY ==
[2023-01-07 17:32] LABS: MANUAL DIFF FLAG NO
[2023-01-07 18:19] LABS: Basophils Absolute Auto 0.1 X10*3/uL (0.0-0.2); Basophils Percent Auto 0.7 % (0-2); Eosinophils Absolute Auto 0.3 X10*3/uL (0.0-0.4); Eosinophils Percent Auto 3.7 % (0-4); Hematocrit 38.1 % (37.0-47.0); Hemoglobin 12.7 g/dl (12.0-16.0); Imm Gran Abs Auto 0.01 X10*3/uL (0.00-0.03); Imm Gran Pct Auto 0.1 % (0.0-0.4); Lymphocytes Absolute Auto 2.1 X10*3/uL (1.2-4.9); Lymphocytes Percent Auto 31.2 % (20-40); Mean Corpuscular HGB Conc 33.3 g/dl (31.0-35.0); Mean Corpuscular Hemoglobin 30.2 pg (27.0-33.0); Mean Corpuscular Volume 90.7 fL (80.0-98.0); Mean Platelet Volume 10.5 fL (9.4-12.3); Monocytes Absolute Auto 0.5 X10*3/uL (0.1-1.2); Monocytes Percent Auto 7.2 % (2-11); Neutrophils Absolute Auto 3.9 x10*3/uL (2.0-8.3); Neutrophils Percent Auto 57.1 % (45-73); Platelet Count 242 X10*3/uL (160-400); Red Cell Distribution Width 12.9 % (11.0-16.0); White Blood Count 6.8 X10*3/uL (4.8-10.8)
[2023-01-07 19:35] LABS: Basophils Abs Manual 0.1 X10*3/uL (0.0-0.2); Basophils Percent Manual 1 % (0-2); Eosinophils Absolute Manual 0.1 X10*3/uL (0.0-0.4); Eosinophils Percent Manual 1 % (0-4); Lymphocytes Absolute Manual 1.8 X10*3/uL (1.2-4.9); Lymphocytes Percent Manual 26 % (20-40); Monocytes Absolute Manual 0.3 X10*3/uL (0.1-1.2); Monocytes Percent Manual 4 % (2-11); Neutrophils Percent Manual 68 % (45-73)
[2023-01-07 19:37] LABS: Burr Cells 1+ (0-2) /OIF; Platelet Estimate NORMAL (NORMAL); Platelet Morphology Comment NORMAL; RBC Morphology NOTED
[2023-01-16 20:39] LABS: Strongyloides Antibody IgG NEGATIVE
== END 2023-01-07 15:42 | disposition home or self-care (01) ==
LOC: HO.HHCL 15:41
PROVIDERS: PCP Student in an Organized Health Care Education/Training Program; Visit Provider Student in an Organized Health Care Education/Training Program
DX: D72.19 Other eosinophilia (principal)
CPT/HCPCS: 83520; 85007; 85025; 86682

== ENCOUNTER 2023-01-14 13:57 | Outpatient (REF) | payer MEDICARE, MEDICAID, SELFPAY ==
--- NOTE | ~2023-01-14 | MM_ITS ---
EXAMINATION: BONE DENSITOMETRY CLINICAL INDICATION: Asymptomatic menopausal state. COMPARISON: This is the patient's baseline examination. TECHNIQUE: Using a [employer] DXA System (software version: 13.1) manufactured by [employer], dual-energy x-ray absorptiometry was performed of the lumbar spine and left hip. The images are of good technical quality. Summary results are attached. FINDINGS: AP SPINE L1-L4: BMD 1.657 g/cm2, Z-score 5.0, T-score 4.0, normal. LEFT FEMUR, NECK: BMD 1.200 g/cm2, Z-score 2.6, T-score 1.2, normal. LEFT FEMUR, TOTAL: BMD 1.123 g/cm2, Z-score 2.1, T-score 0.9, normal. IDENTIFIED RISK FACTORS: Secondary osteoporosis, family history (parental hip fracture), history of fracture (adult), menopause. HISTORY OF FRACTURE: Other. MEDICATIONS: Calcium or multivitamin. MM/XR DEXA axial skeleton IMPRESSION: 1. DIAGNOSIS: Normal bone density based on the lowest T-score value of 0.9 in the total femur applying World Health Organization criteria. 2. 10-YEAR FRACTURE RISK PREDICTION, FRAX: According to the guidelines, FRAX calculation should only be performed on patients in the osteopenia bone density category. Therefore, FRAX was not performed on this patient. 3. Treatment Recommendations: NOF guidelines recommend consideration for treatment in postmenopausal women and men age 50 and older presenting with the following: -A hip or vertebral (clinical or morphometric) fracture. -T-score less than or equal to -2.5 at the femoral neck or spine after appropriate evaluation to exclude secondary causes. -Low bone mass at the hip or spine and a 10-year fracture probability by FRAX of greater than or equal to 3% for hip fracture or greater than or equal to 20% for major osteoporotic fracture based on the [place] adapted WHO algorithm. 4. Other Recommendations: All treatment decisions require clinical judgment and consideration of individual patient factors, including patient preferences, comorbidities, previous drug use, risk factors not captured in the FRAX model (e.g. frailty, falls, vitamin D deficiency, increased bone turnover, interval significant decline in bone density) and possible under or overestimation of fracture risk by FRAX. FUTURE SCAN RECOMMENDATION: People with diagnosed cases of osteoporosis or at high risk for fracture should have regular bone mineral density tests. For patients eligible for Medicare, routine testing is allowed once every 2 years. The testing frequency can be increased to one year for patients who have rapidly progressing disease, those who are receiving or discontinuing medical therapy to restore bone mass, or have additional risk factors.
== END 2023-01-14 13:58 | disposition home or self-care (01) ==
LOC: HO.MAMMO 13:57
PROVIDERS: Visit Provider Student in an Organized Health Care Education/Training Program
DX: Z13.820 Encounter for screening for osteoporosis (principal); Z78.0 Asymptomatic menopausal state
CPT/HCPCS: 77080

== ENCOUNTER → 2023-01-14 14:00 | Outpatient (BNV) | payer MEDICARE, MEDICAID, SELFPAY | PROVIDERS: Visit Provider Radiology Diagnostic Radiology | DX: N95.1 Menopausal and female climacteric states (principal) | CPT/HCPCS: 77080 ==

== ENCOUNTER 2023-01-20 22:51 | Emergency (ER) | payer MEDICARE, MEDICAID, SELFPAY ==
[2023-01-20 22:56] VITALS: BP 137/58; PULSE 84; RESP 16; TEMP 36.7; O2SAT 94; BMI 31.1
[2023-01-20] MEDS: Famotidine/PF 20 MG/2 ML VIAL IVPUSH (23:11)
[2023-01-20] MEDS: diphenhydrAMINE HCL 50 MG/ML VIAL 25 MG IVPUSH (23:11)
[2023-01-20] MEDS: methylPREDNISolone Sod Succ 125 MG/2 ML VIAL IVPUSH (23:11)
[2023-01-20 23:12] VITALS: BP 139/66; PULSE 77
[2023-01-20] MEDS: EPINEPHrine 1 MG/ML VIAL 0.3 MG IM (23:12)
--- NOTE | 2023-01-20 23:15 | PC.NURSE ---
Pt A&Ox4, ambulated from triage, reports eating potato chips and feeling tongue swelling. Pt speaking in full sentences, muffled voice, tongue swelling noted, Spo2 96% on RA, lung sounds clear. IV line placed, Pt placed on bedside monitor. Meds given as documented.
--- NOTE | 2023-01-20 23:55 | ED_ITS ---
HPI - Allergic Reaction General Chief complaint: Allergic Reaction Stated complaint: allergic reaction, sob, hives. no epi Time Seen by Provider: 01/20/23 23:08 Source: patient and old records reviewed Mode of arrival: ambulatory Limitations: no limitations History of Present Illness HPI narrative: 72 yo female with PMH of allergic reaction with visits in past has epi pen - blames food but has not seen contract designer, DM, HTN, hypothyroidism, not on ASHLEY-i here with c/o 30 min lip swelling, dyspnea, n/v and not feeling well after eating potato chips at home. Took benadryl but did not feel better and oral swelling started did not take her epi pen complaint: allergic reaction, hives and facial swelling Onset (ago): minute(s) (30) Exposure: food Symptoms: rash, itching, facial swelling, lip swelling, difficulty swallowing, tongue swelling and vomiting Severity: moderate Treatment prior to arrival: benadryl Previous Allergic Reaction History: prior ED visit(s) Related Data Home Medications Medication Instructions Recorded Confirmed sertraline 100 mg tablet 100 mg PO DAILY 02/03/21 11/02/22 aspirin 81 mg chewable tablet 81 mg PO DAILY@1700 04/24/22 11/02/22 dulaglutide 1.5 mg/0.5 mL 1.5 mg subcut WE 04/24/22 11/02/22 subcutaneous pen injector (Trulicity) insulin aspar prot-insulin aspart 42 unit subcut BID 04/24/22 11/02/22 100 unit/mL (70-30) subcutaneous pen (Novolog Mix 70-30FlexPen U-100) pramipexole 0.125 mg tablet 0.125 mg PO DAILY@1800 04/24/22 11/02/22 atorvastatin 40 mg tablet 40 mg PO DAILY 10/31/22 11/02/22 levothyroxine 150 mcg tablet 150 mcg PO DAILY 10/31/22 11/02/22 multivitamin with folic acid 400 1 tab PO DAILY 10/31/22 11/02/22 mcg tablet (Daily-Johny (with folic acid)) Previous Rx's Medication Instructions Recorded amoxicillin 875 mg-potassium 1 tab PO BID #12 tabs 11/01/22 clavulanate 125 mg tablet doxycycline hyclate 100 mg tablet 100 mg PO BID #12 tabs 11/01/22 promethazine 25 mg tablet 25 mg PO TID #14 tabs 11/02/22 Allergies Allergy/AdvReac Type Severity Reaction Status Date / Time adhesive tape AdvReac Blister Verified 11/02/22 08:18 metformin AdvReac Agitated Verified 11/02/22 08:18 Review of Systems Review of Systems: Constitutional : No Fever, No Chills ENT/Mouth : positive oral swelling, pos Hoarseness, No Swallowing Difficulty Eyes: No Eye Pain, No Swelling, No Redness Cardiovascular : No Chest Pain, No SOB Respiratory : No Cough, No Sputum, No Wheezing, No Smoke Exposure, No Dyspnea Gastrointestinal : pos Nausea, No Vomiting, No Diarrhea, No abdominal Pain Genitourinary : No Dysuria, No Urinary Frequency, No Hematuria Musculoskeletal : No joint pain, No Myalgias, No Joint Swelling Skin : No Skin Lesions, positive rash Neuro : No Weakness, No Numbness, No Headache Psych : No Anxiety/Panic, No Depression Heme/Lymph: No Bruising, No Lymphadenopathy Endocrine : No Polyuria, No Polydipsia All other systems reviewed and are negative [facility] Past Medical History Attestation statement: The following information was validated with the patient. Medical History Cannabis use disorder Cat bite Anxiety Hypothyroidism Depression Diabetes Surgical History History of carpal tunnel surgery History of ankle surgery History of tonsillectomy and adenoidectomy Family History Family History Other No family history of coronary artery disease Social History Social History Household Members: None Housing: Condominium Do you presently have visiting nurse or other home services: No Alcohol intake: never Patient Tobacco Use Status: Former Tobacco user Tobacco use type: Cigarette Cigarette Packs Per Day: 1 Cigarettes Per Day: 20.0 Years Smoked: 55 Second Hand Smoke Exposure: No Substance Use Type: Marijuana Advance Directives: No Advance Directives Information Provided: No service: No Current occupational status: retired Current occupation: rt handed Physical Exam ED Vital Signs: Vital Signs - 24 hr 01/20/23 22:56 01/20/23 23:12 01/21/23 00:18 Temperature 98.1 F 98.3 F Pulse Rate 84 77 66 Respiratory Rate 16 16 Blood Pressure 137/58 L 139/66 131/53 L Pulse Oximetry 94 97 Oxygen Delivery Method Room Air Room Air Oxygen Flow Rate 01/21/23 01:37 01/21/23 01:41 01/21/23 03:44 Temperature 98.5 F 98.0 F Pulse Rate 72 70 Respiratory Rate 18 18 Blood Pressure 115/48 L 111/46 L Pulse Oximetry 89 L 95 96 Oxygen Delivery Method Room Air Nasal Cannula Nasal Cannula Oxygen Flow Rate 2 2 BMI result Body Mass Index 31.1 Appearance: Alert. Oriented X3. No acute distress. Eyes: Pupils equal, round and reactive to light. ENT: Pharynx swelling to lips mild and soft palate with mild edema to uvula Neck: Normal inspection. Neck supple. no stridor CVS: Normal heart rate and rhythm. Pulses normal. Respiratory: No respiratory distress. Breath sounds normal. Abdomen: Soft and nontender. Skin: Skin warm and dry. Normal skin color. skin around face and neck is flushed Extremities: No lower extremity edema. No calf ttp Neuro: Oriented X 3. No motor deficit. No sensory deficit. Course Course Course Narrative: symptoms improving Reevaluation(s) Reevaluation #1: improved stable for DC Reevaluation #2: only desaturated while sleeping likely post benadryl will be stable for DC in AM Medications Administered Discontinued Medications Generic Name Dose Route Start Last Admin Trade Name Freq PRN Reason Stop Dose Admin Diphenhydramine HCl 25 mg 01/20/23 23:09 01/20/23 23:11 Diphenhydramine Hcl 50 Mg/Ml Vial IVPUSH 01/20/23 23:10 25 mg ONCE ONE Administration Epinephrine 0.3 mg 01/20/23 23:09 01/20/23 23:12 Epinephrine 1 Mg/Ml Vial IM 01/20/23 23:10 0.3 mg STAT STA Administration Famotidine 20 mg 01/20/23 23:09 01/20/23 23:11 Famotidine/Pf 20 Mg/2 Ml Vial IVPUSH 01/20/23 23:10 20 mg ONCE ONE Administration Methylprednisolone Sodium Succinate 125 mg 01/20/23 23:09 01/20/23 23:11 Methylprednisolone Sod Succ 125 Mg/2 Ml Vial IVPUSH 01/20/23 23:10 125 mg ONCE ONE Administration Medical Decision Making Medical Decision Making MDM Narrative: 72 yo female with PMH of allergic reaction with visits in past has epi pen - blames food but has not seen contract designer, DM, HTN, hypothyroidism, not on ASHLEY-i here with c/o anaphylaxis symptoms at this time will need IV steroids pepcid benadryl and IM epi. Will need observation until symptoms improved. Has epi pen at home. Differential Diagnosis Differential Diagnoses: The differential diagnosis associated with the presentation includes food allergy Admission/Observation Consideration of admission/observation: Escalation of care including admission/observation considered observe for improvement on epi External Record Review External record reviewed: Inpatient record Prescription Management I considered prescription management with: Other Critical Care Time Critical Care Time Critical Care Time: Yes Total Critical Care Time: 45 Attestation: repeat assessments, IM epi, anaphylaxis, angioedema treatment I attest to this time spent taking care of the patient Discharge Plan Discharge Clinical Impression: Anaphylaxis Qualifiers: Encounter type: initial encounter Qualified Code(s): T78.2XXA - Anaphylactic shock, unspecified, initial encounter Angioedema Qualifiers: Encounter type: initial encounter Qualified Code(s): T78.3XXA - Angioneurotic edema, initial encounter Patient Disposition: Home, Self-Care Instructions: Angioedema (ED), General Allergic Reaction (ED) Additional Instructions: avoid allergens. carry epi pen with you at all times. return for worsening swelling, difficulty breathing, dizziness or any other concerns. please see an contract designer Prescriptions: No Action sertraline 100 mg tablet 100 mg PO DAILY aspirin 81 mg tablet,chewable 81 mg PO DAILY@1700 insulin asp prt-insulin aspart [Novolog Mix 70-30FlexPen U-100] 100 unit/mL (70-30) insulin pen 42 unit subcut BID Trulicity 1.5 mg/0.5 mL pen injector 1.5 mg subcut WE pramipexole 0.125 mg tablet 0.125 mg PO DAILY@1800 promethazine 25 mg tablet 25 mg PO TID Qty: 14 0RF atorvastatin 40 mg tablet 40 mg PO DAILY levothyroxine 150 mcg tablet 150 mcg PO DAILY multivitamin with folic acid [Daily-Johny (with folic acid)] 400 mcg tablet 1 tab PO DAILY amoxicillin-pot clavulanate 875-125 mg tablet 1 tab PO BID Qty: 12 0RF doxycycline hyclate 100 mg tablet 100 mg PO BID Qty: 12 0RF
[2023-01-21 00:18] VITALS: BP 131/53; PULSE 66; RESP 16; TEMP 36.8; O2SAT 97
--- NOTE | 2023-01-21 01:28 | PC.NURSE ---
pt ambulatory to and from bathroom with a steady gait in no apparent respiratory distress. pt asking to go home but educated on the importance of keeping her longer for observation as her tongue is still swollen and there is risk for airway involvement. patient understands risks and agrees to staying. placed back in stretcher on hasher operator and o2 probe. plan of care ongoing
[2023-01-21 01:37] VITALS: BP 115/48; PULSE 72; RESP 18; TEMP 36.9; O2SAT 89
[2023-01-21 01:41] VITALS: O2SAT 95
[2023-01-21 03:44] VITALS: BP 111/46; PULSE 70; RESP 18; TEMP 36.7; O2SAT 96
--- NOTE | 2023-01-21 04:00 | PC.NURSE ---
patient asleep comfortably on stretcher in no apparent distress respirations even and unlabored equal chest rise and fall. call paris within reach. on crime scene evidence technician, plan of care ongoing
[2023-01-21 05:30] VITALS: BP 108/45; PULSE 68; RESP 19; TEMP 36.6; O2SAT 99
[2023-01-21 05:58] VITALS: O2SAT 94
== END 2023-01-21 05:59 | disposition home or self-care (01) ==
PROVIDERS: Emergency Provider Emergency Medicine
DX: T78.2XXA Anaphylactic shock, unspecified, initial encounter (principal); T78.3XXA Angioneurotic edema, initial encounter; T78.1XXA Other adverse food reactions, not elsewhere classified, initial encounter; T78.49XA Other allergy, initial encounter; X58.XXXA Exposure to other specified factors, initial encounter; R13.10 Dysphagia, unspecified; Z79.899 Other long term (current) drug therapy; Z87.891 Personal history of nicotine dependence
CPT/HCPCS: 96372; 96374; 96375; 99284; J0171; J1200; J2930

== ENCOUNTER 2023-03-03 14:01 | Outpatient (REF) | payer MEDICARE, SELFPAY ==
--- NOTE | 2023-03-03 16:25 | MHC.AU.HAS ---
Hearing Aid Evaluation Date of Visit: 03/03/23 Historical Information: Description of Hearing: Moderate sloping to severe sensorineural hearing loss bilaterally. Summary: Maia came in today for an audiologic evaluation. She has previously worn ITE hearing aids, which she originally got in 2012. She has been unable to wear them for about a year though because they broke. She is very interested in getting new hearing aids to help alleviate the communication difficulties that she is experiencing, such as having a hard time communicating easily with her family. Maia would like to remain with an ITE style of aid, and she is interested in having the option of Bluetooth connectivity with her Android phone. Given these considerations, we decided on a pair of Phonak Virto [id number] ITC hearing aids. Maia had deep, near occluding wax in her right ear today so ear mold impressions could not be taken. She was instructed to make an appointment with her PCP to have the wax removed and then contact us to schedule an appointment to take the impressions. Hearing Aid Prescription: Based on the individual?s shared listening needs, communication environments, dexterity, desire for connectivity, and personal preferences, the following prescription for amplification has been made: Right ear: Miscellaneous Machine Operator: Phonak Model: Virto P70-312 Battery Size: 312 Color: [place] Left ear: Left ear prescription to be same as Right Hearing Aid above: Miscellaneous Machine Operator: Phonak Model: Virto P70-312 Battery Size: 312 Color: [place] Plan of Care: Patient wishes to purchase hearing aids as prescribed Action Taken/Action Needed: Prior authorization to be requested Medical Clearance to be requested from PCP/ENT Hearing Instrument Fitting to be scheduled when materials arrive Primary Diagnosis: H90.3 Bilateral Sensorineural Hearing Loss Signature: Student/Clinical Fellow: Yes: Jaime Starks, HIS Photograph Mounter I have reviewed/agreed with student/fellow documentation: Yes Provider: Eddie Dick, [facility]
--- NOTE | 2023-03-03 16:30 | MHC.AU.MED ---
Medical Clearance for Hearing Instrumentation Date: 03/03/23 Patient Name: Maia Marley Date of : 1950 Primary Care Provider: Referring Provider: Nayeli Flores MD We have seen your patient on 03/03/23 and have determined that they are a candidate for amplification (See accompanying report). Specifically, they would benefit from: Hearing aid use in the right ear Hearing aid use in the left ear Hearing aid use in both ears There is a statute that addresses Medical Evaluation Requirements prior to fitting a patient with a hearing aid. According to [place] statute 265 CMR:6.03(1), (a) General. Except as provided in 265 CMR 6.03(1)(b), a shearing machine operator shall not sell a hearing aid unless the prospective user has presented to the shearing machine operator a written statement signed by a licensed physician that states that the patient's hearing loss has been medically evaluated and the patient may be considered a candidate for a hearing aid. The medical evaluation must have taken place within the preceding six months. Please note: Due to the [place] Statute referenced above, we cannot accept a signature other than that of a licensed physician. LIGHTING ADVISER and PA signatures cannot be accepted. I am in agreement with the above recommendation. There is no medical contraindication for hearing instrumentation. Physician Signature Date Physician Name (Printed)
--- NOTE | 2023-03-03 16:30 | MHC.AU.MED ---
Medical Clearance for Hearing Instrumentation Date: 03/03/23 Patient Name: Maia Marley Date of : 1950 Referring Provider: Nayeli Flores MD We have seen your patient on 03/03/23 and have determined that they are a candidate for amplification (See accompanying report). Specifically, they would benefit from: Hearing aid use in both ears There is a statute that addresses Medical Evaluation Requirements prior to fitting a patient with a hearing aid. According to [place] statute 265 CMR:6.03(1), (a) General. Except as provided in 265 CMR 6.03(1)(b), a dietary assistant shall not sell a hearing aid unless the prospective user has presented to the dietary assistant a written statement signed by a licensed physician that states that the patient's hearing loss has been medically evaluated and the patient may be considered a candidate for a hearing aid. The medical evaluation must have taken place within the preceding six months. Please note: Due to the [place] Statute referenced above, we cannot accept a signature other than that of a licensed physician. BRIDGES AND BUILDINGS SUPERVISOR and PA signatures cannot be accepted. I am in agreement with the above recommendation. There is no medical contraindication for hearing instrumentation. Physician Signature Date Physician Name (Printed)
== END 2023-03-03 14:02 | disposition home or self-care (01) ==
LOC: HO.SH 14:01
PROVIDERS: Visit Provider Student in an Organized Health Care Education/Training Program
DX: Z01.118 Encounter for examination of ears and hearing with other abnormal findings (principal); Z46.1 Encounter for fitting and adjustment of hearing aid; H90.3 Sensorineural hearing loss, bilateral
CPT/HCPCS: 92557; 92567; 92591

== ENCOUNTER 2023-04-08 14:48 | Outpatient (REF) | payer MEDICARE, MEDICAID, SELFPAY ==
--- NOTE | ~2023-04-08 | MR_ITS ---
MRI OF THE BRAIN WITHOUT IV CONTRAST INDICATION: Memory loss. COMPARISON: None available. TECHNIQUE: Multiplanar multisequence MR imaging of the brain was obtained without IV contrast. FINDINGS: There is no hydrocephalus, extra-axial surface collection, or herniation. There is global cerebral volume loss and there is mild chronic microangiopathy. The major flow voids at the skull base are preserved. There is no acute infarct on diffusion-weighted imaging. There is no intracranial hemorrhage on the gradient recalled echo acquisition. The midline structures are normal. The cerebellar tonsils are normally positioned. The cerebellum and brainstem are normal. The craniocervical junction is normal. Osseous marrow signal intensity is homogenous. The visualized soft tissues are unremarkable. MR/MR head/brain wo con IMPRESSION: No acute intracranial findings. There is global cerebral volume loss and there is mild chronic microangiopathy.
== END 2023-04-08 14:49 | disposition home or self-care (01) ==
LOC: HO.MRI 14:48
PROVIDERS: Visit Provider Student in an Organized Health Care Education/Training Program
DX: R41.3 Other amnesia (principal)
CPT/HCPCS: 70551

== ENCOUNTER 2023-04-08 17:03 | Emergency (ER) | payer MEDICARE, SELFPAY ==
[2023-04-08 17:13] VITALS: BP 135/68; PULSE 85
[2023-04-08] MEDS: EPINEPHrine 1 MG/ML VIAL 0.3 MG IM (17:13)
--- NOTE | 2023-04-08 17:13 | PC.NURSE ---
pt comes in from [facility] via wheelchair d/t allergic reaction. pt consumed grapes at home about 1 hour ago. pt administered 4 benadryl's (unknown dose) and 0.3mg of IM epinephrine prior to arrival. pt verbalizes feeling itchy all over body and feeling SOB. sob/wob noted at this time. respirations uneven and labored. wheezing noted upon auscultation. pt able to speak in full sentences but slightly unclear/has some difficulty. provider bedside. RT bedside.
--- NOTE | 2023-04-08 17:15 | ED.ALLEREA ---
HPI - Allergic Reaction General Chief complaint: Allergic Reaction Stated complaint: allergic reaction Time Seen by Provider: 04/08/23 17:09 Source: patient Mode of arrival: wheelchair Limitations: no limitations History of Present Illness HPI narrative: Patient comes to the emergency room complaining of an allergic reaction. Patient states that prior to arrival, patient was eating grapes, shortly after a few bites, patient started becoming very itchy throughout the body, sensation that her throat was closing, no shortness of breath. Patient gave herself an epinephrine injection and 1 Benadryl dose prior to arrival. Related Data Home Medications Medication Instructions Recorded Confirmed sertraline 100 mg tablet 100 mg PO DAILY 02/03/21 11/02/22 aspirin 81 mg chewable tablet 81 mg PO DAILY@1700 04/24/22 11/02/22 dulaglutide 1.5 mg/0.5 mL 1.5 mg subcut WE 04/24/22 11/02/22 subcutaneous pen injector (Trulicity) insulin aspar prot-insulin aspart 42 unit subcut BID 04/24/22 11/02/22 100 unit/mL (70-30) subcutaneous pen (Novolog Mix 70-30FlexPen U-100) pramipexole 0.125 mg tablet 0.125 mg PO DAILY@1800 04/24/22 11/02/22 atorvastatin 40 mg tablet 40 mg PO DAILY 10/31/22 11/02/22 levothyroxine 150 mcg tablet 150 mcg PO DAILY 10/31/22 11/02/22 multivitamin with folic acid 400 1 tab PO DAILY 10/31/22 11/02/22 mcg tablet (Daily-Johny (with folic acid)) Previous Rx's Medication Instructions Recorded amoxicillin 875 mg-potassium 1 tab PO BID #12 tabs 11/01/22 clavulanate 125 mg tablet doxycycline hyclate 100 mg tablet 100 mg PO BID #12 tabs 11/01/22 promethazine 25 mg tablet 25 mg PO TID #14 tabs 11/02/22 epinephrine 0.3 mg/0.3 mL 0.3 mg (0.3 mL) IM Q4H PRN 04/08/23 injection, auto-injector (EpiPen) anaphylaxis #2 ea Allergies Allergy/AdvReac Type Severity Reaction Status Date / Time adhesive tape AdvReac Blister Verified 04/08/23 17:22 metformin AdvReac Agitated Verified 04/08/23 17:22 Review of Systems Review of Systems: Constitutional : No Weight loss, No Fever, No Chills, No Night Sweats, No Fatigue, No Malaise ENT/Mouth: complaining of tongue swelling, No Hearing loss, No Ear Pain, No Nasal Congestion, No Sinus Pain, No Hoarseness, foreign body sensation in the throat, No sore throat, No Rhinorrhea, No Swallowing Difficulty Eyes: No Eye Pain, No Swelling, No Redness, No Foreign Body, No Discharge, No Vision Changes Cardiovascular : No Chest Pain, No SOB, No Dyspnea on Exertion, No Orthopnea, No Edema, No Palpitations Respiratory : No Cough, No Sputum, No Wheezing, No Smoke Exposure, No Dyspnea Gastrointestinal : No Nausea, No Vomiting, No Diarrhea, No Constipation, No abdominal Pain, No Hematochezia, No Melena Genitourinary : no irregular bleeding, No Dysuria, No Urinary Frequency, No Hematuria, No Urinary Incontinence, No Urgency, No Flank Pain, No Urinary Flow Changes, No Hesitancy Musculoskeletal : No joint pain, No Myalgias, No Joint Swelling Skin : Diffuse hives and itching No Skin Lesions, No rash Neuro : No Weakness, No Numbness, No Paresthesias, No Loss of Consciousness, No Dizziness, No Headache Psych : No Anxiety/Panic, No Depression, No SI/HI/AH/VH, No Social Issues, Heme/Lymph: No Bruising, No Bleeding,No Lymphadenopathy Endocrine : No Polyuria, No Polydipsia, No Temperature Intolerance PMFSH Past Medical History Medical History Cannabis use disorder Cat bite Anxiety Hypothyroidism Depression Diabetes Surgical History History of carpal tunnel surgery History of ankle surgery History of tonsillectomy and adenoidectomy Family History Family History Other No family history of coronary artery disease Social History Social History Household Members: None [facility] Do you presently have visiting nurse or other home services: No Alcohol intake: never Patient Tobacco Use Status: Former Tobacco user Tobacco use type: Cigarette Cigarette Packs Per Day: 1 Cigarettes Per Day: 20.0 Years Smoked: 55 Smoked in Last 30 Days: No Second Hand Smoke Exposure: No Use of substances other than those prescribed or required for medical reasons: Yes Substance Use Type: Marijuana Advance Directives: No service: No Current occupational status: retired Current occupation: rt handed Physical Exam ED Vital Signs: Vital Signs - 24 hr 04/08/23 17:13 04/08/23 17:27 Pulse Rate 85 79 Respiratory Rate 18 Blood Pressure 135/68 138/57 L Pulse Oximetry 99 Oxygen Delivery Method Room Air BMI result Body Mass Index 31.1 Const Other: Appearance: Alert. Oriented X3. Very anxious Eyes: Pupils equal, round and reactive to light. ENT: Pharynx normal. Tongue slightly swollen, facial cheeks a bit swollen and erythematous, normal uvula, speaking in full sentences Neck: Normal inspection. Neck supple. No lymph nodes noted. No crepitus CVS: Normal heart rate and rhythm. Pulses normal. Normal S1 and S2 Respiratory: No respiratory distress. Breath sounds normal. No Wheezing. No rales Abdomen: Soft and nontender. No rigidity. No distention. Skin: Skin warm and dry. Normal skin color. Normal skin turgor. Diffuse hives. Also, on physical exam it was noted that patient has a tick in the back Extremities: No lower extremity edema. No Lacerations. No Rash Neuro: Oriented X 3. No motor deficit. No sensory deficit. Moving all extremities. No slurred speech. CN 2 through 12 grossly intact Psych: calm, cooperative, normal affect Course Course Course Narrative: -patient was given on arrival IM epinephrine. Patient was given also IV fluids, diphenhydramine, famotidine and Solu-Medrol Medications Administered Discontinued Medications Generic Name Dose Route Start Last Admin Trade Name Freq PRN Reason Stop Dose Admin Diphenhydramine HCl 25 mg 04/08/23 17:09 04/08/23 17:19 Diphenhydramine Hcl 50 Mg/Ml Vial IVPUSH 04/08/23 17:10 25 mg ONCE ONE Administration Epinephrine 0.3 mg 04/08/23 17:09 04/08/23 17:13 Epinephrine 1 Mg/Ml Vial IM 04/08/23 17:10 0.3 mg STAT STA Administration Famotidine 20 mg 04/08/23 17:09 04/08/23 17:19 Famotidine/Pf 20 Mg/2 Ml Vial IVPUSH 04/08/23 17:10 20 mg ONCE ONE Administration Sodium Chloride 1,000 mls @ 999 mls/hr 04/08/23 17:10 04/08/23 18:19 Ns IVCONT 04/08/23 18:10 Infused .Q1H1M ONE Infusion Methylprednisolone Sodium Succinate 125 mg 04/08/23 17:09 04/08/23 17:18 Methylprednisolone Sod Succ 125 Mg/2 Ml Vial IVPUSH 04/08/23 17:10 125 mg ONCE ONE Administration Medical Decision Making Medical Decision Making [facility] Narrative: -after the above-mentioned treatment, patient states that she feels much better. -on physical exam, there is no swelling of the face or erythema, no hives, tongue his normal size, uvula midline, no phlegm in over angioedema -the tick was removed, patient was given a dose of 200 mg doxycycline 1 dose -patient states that she has an appointment pending with an mechanic helper in September of 2023 -of note, patient was eating grapes just before she notice all the allergy symptoms. Patient states that she has had multiple allergic reactions in the past. Patient instructed to avoid eating foods that she is known to be allergic to now including grapes. Also, there is a small possibility that patient may have anaphylaxis reaction to tick bites Differential Diagnosis Differential Diagnoses: The differential diagnosis associated with the presentation includes (Allergic reaction, hypersensitivity reaction, tick) Admission/Observation Consideration of admission/observation: Escalation of care including admission/observation considered (Given patient's initial presentation, admission was considered) Critical Care Time Critical Care Time Critical Care Time: Yes Total Critical Care Time: 60 Attestation: I have personally provided critical care time. Time includes review of lab data, radiology results, discussion with consultants, and monitoring for potential decompensation. Intervention performed as documented. Discharge Plan Discharge Clinical Impression: Anaphylaxis, Tick bite Patient Disposition: Home, Self-Care Instructions: Tick Bite (ED), Anaphylaxis (ED) Additional Instructions: Please follow-up with your primary care physician tomorrow. If you have any worsening or new symptoms, please return to the emergency room or call 911 Prescriptions: New epinephrine [EpiPen] 0.3 mg/0.3 mL auto-injector 0.3 mg IM Q4H PRN (Reason: anaphylaxis) Qty: 2 0RF No Action sertraline 100 mg tablet 100 mg PO DAILY aspirin 81 mg tablet,chewable 81 mg PO DAILY@1700 insulin asp prt-insulin aspart [Novolog Mix 70-30FlexPen U-100] 100 unit/mL (70-30) insulin pen 42 unit subcut BID Trulicity 1.5 mg/0.5 mL pen injector 1.5 mg subcut WE pramipexole 0.125 mg tablet 0.125 mg PO DAILY@1800 promethazine 25 mg tablet 25 mg PO TID Qty: 14 0RF atorvastatin 40 mg tablet 40 mg PO DAILY levothyroxine 150 mcg tablet 150 mcg PO DAILY multivitamin with folic acid [Daily-Johny (with folic acid)] 400 mcg tablet 1 tab PO DAILY amoxicillin-pot clavulanate 875-125 mg tablet 1 tab PO BID Qty: 12 0RF doxycycline hyclate 100 mg tablet 100 mg PO BID Qty: 12 0RF
[2023-04-08] MEDS: 0.9 % Sodium Chloride 1,000 ML 999 ML IVCONT (17:18)
[2023-04-08] MEDS: methylPREDNISolone Sod Succ 125 MG/2 ML VIAL IVPUSH (17:18)
[2023-04-08] MEDS: Famotidine/PF 20 MG/2 ML VIAL IVPUSH (17:19)
[2023-04-08] MEDS: diphenhydrAMINE HCL 50 MG/ML VIAL 25 MG IVPUSH (17:19)
--- NOTE | 2023-04-08 17:20 | PC.NURSE ---
medication administered per provider order. pt states feeling less SOB post epinephrine administration. respirations are now even and unlabored at this time. pt now able to speak in full/clear sentences w/o difficulty. lung sounds clear throughout. no sob/wob noted. call paris placed within reach.
[2023-04-08 17:22] VITALS: BMI 31.1
[2023-04-08 17:27] VITALS: BP 138/57; PULSE 79; RESP 18; O2SAT 99
--- NOTE | 2023-04-08 17:59 | PC.NURSE ---
pt continues to rest in no apparent distress at this time. respirations remain even and unlabored. sob/wob no longer noted at this time. pt states she is feeling much better at this time.
--- NOTE | 2023-04-08 18:50 | PC.NURSE ---
pt continues to rest in no apparent distress. respirations remain even and unlabored. pt was ambulating to bathroom when pt asked this RN to check back - when checking back - this RN observed tick in the center of pt's scapula - head intact; provider notified/aware at this time.
[2023-04-08] MEDS: Doxycycline Monohydrate 100 MG CAPSULE 200 MG PO (19:21)
[2023-04-08 19:22] VITALS: BP 122/53; PULSE 85; RESP 16; O2SAT 94
--- NOTE | 2023-04-08 19:22 | PC.NURSE ---
tick removed by provider. medication administered per provider order. vss and up to date. respirations remain even and unlabored.
== END 2023-04-08 19:37 | disposition home or self-care (01) ==
PROVIDERS: Emergency Provider Emergency Medicine
DX: K12.1 Other forms of stomatitis (principal); T78.04XA Anaphylactic reaction due to fruits and vegetables, initial encounter; T78.49XA Other allergy, initial encounter; Z79.899 Other long term (current) drug therapy; Z87.891 Personal history of nicotine dependence
CPT/HCPCS: 96361; 96372; 96374; 96375; 99284; J0171; J1200; J2930

== ENCOUNTER 2023-04-21 16:05 | Outpatient (REF) | payer MEDICARE, SELFPAY ==
--- NOTE | 2023-04-22 08:26 | MHC.AU.HA3 ---
Hearing Instrument Follow-Up- Binaural Date of Visit: 04/21/23 Follow-Up Summary: Maia returned for ear mold impressions. She reportedly saw her PCP for wax removal as recommended at her hearing aid consultation. Otoscopy was clear in the left ear but still nearly occluding, deep cerumen in the right ear. Could not take impressions. Discussed talking to PCP about referral to ENT for full wax removal as well as inquiring about medical clearance which has not been signed yet. Maia will reattempt to get wax removed then schedule another appointment for KRUNAL. Recommendations: Maia will call to schedule an appointment for KRUNAL following wax removal. She will also contact her PCP to inquire about signing and returning medical clearance. Diagnosis Code(s): Primary Diagnosis: H90.3 Bilateral Sensorineural Hearing Loss Signature: Provider: Eddie Dick, [facility]
== END 2023-04-21 16:06 | disposition home or self-care (01) ==
LOC: HO.HAP 16:05
PROVIDERS: Visit Provider Internal Medicine
DX: Z13.89 Encounter for screening for other disorder (principal)

== ENCOUNTER 2023-07-13 15:30 | Outpatient (REF) | payer MEDICARE, SELFPAY ==
[2023-07-13 17:31] LABS: MANUAL DIFF FLAG NO
[2023-07-13 17:41] LABS: Basophils Absolute Auto 0.1 X10*3/uL (0.0-0.2); Basophils Percent Auto 0.8 % (0-2); Eosinophils Absolute Auto 0.2 X10*3/uL (0.0-0.4); Eosinophils Percent Auto 3.5 % (0-4); Hematocrit 38.6 % (37.0-47.0); Hemoglobin 12.9 g/dl (12.0-16.0); Imm Gran Abs Auto 0.04 X10*3/uL (0.00-0.03); Imm Gran Pct Auto 0.6 % (0.0-0.4); Lymphocytes Absolute Auto 1.9 X10*3/uL (1.2-4.9); Lymphocytes Percent Auto 30.6 % (20-40); Mean Corpuscular HGB Conc 33.4 g/dl (31.0-35.0); Mean Corpuscular Hemoglobin 30.9 pg (27.0-33.0); Mean Corpuscular Volume 92.3 fL (80.0-98.0); Mean Platelet Volume 10.8 fL (9.4-12.3); Monocytes Absolute Auto 0.4 X10*3/uL (0.1-1.2); Monocytes Percent Auto 6.1 % (2-11); Neutrophils Absolute Auto 3.6 x10*3/uL (2.0-8.3); Neutrophils Percent Auto 58.4 % (45-73); Platelet Count 254 X10*3/uL (160-400); Red Blood Count 4.18 X10*6/uL (4.20-5.50); Red Cell Distribution Width 13.6 % (11.0-16.0); White Blood Count 6.2 X10*3/uL (4.8-10.8)
[2023-07-13 17:57] LABS: Alanine Aminotransferase 14 U/L (0-31); Albumin Level 4.1 g/dL (3.5-5.0); Alkaline Phosphatase 79 U/L (39-117); Anion Gap 10 (12-20); Aspartate Amino Transferase 16 U/L (5-31); Bilirubin Total 0.4 mg/dL (0.0-1.0); Blood Urea Nitrogen 23 mg/dL (9-16); Calcium 9.8 mg/dL (8.4-10.2); Carbon Dioxide 32 mmol/L (22-29); Chloride 103 mmol/L (96-108); Estimated Glomerular Filt Rate 49; Glucose Random 242 mg/dL (60-115); Potassium 4.6 mmol/L (3.3-5.1); Sodium 140 mmol/L (135-145)
[2023-07-15 14:08] LABS: Immunoglobulin E 171 kU/L (<OR=114)
[2023-07-15 19:49] LABS: Complement C3 84 mg/dL (83-193)
[2023-07-19 20:13] LABS: Allergen, Galactose-Alpha 1,3 <0.10 kU/L (<0.10)
[2023-07-24 05:18] LABS: C1 Esterase Inhibitor >100 % (>=68)
== END 2023-07-13 15:31 | disposition home or self-care (01) ==
LOC: HO.HHCL 15:30
PROVIDERS: Visit Provider Allergy & Immunology
DX: T78.3XXD Angioneurotic edema, subsequent encounter (principal)
CPT/HCPCS: 36415; 80053; 82785; 83520; 85025; 86003; 86008; 86160; 86161

== ENCOUNTER 2023-10-12 04:37 | Emergency (ER) | payer MEDICARE, SELFPAY ==
[2023-10-12] VITALS (7 sets, daily range): BP systolic 106–172; BP diastolic 42–63; PULSE 56–78; RESP 13–22; TEMP 36.3–37.1; O2SAT 93–98; BMI 29.7
[2023-10-12 05:08] LABS: Basophils Absolute Auto 0.1 X10*3/uL (0.0-0.2); Basophils Percent Auto 0.4 % (0-2); Eosinophils Percent Auto 0.1 % (0-4); Hematocrit 39.4 % (37.0-47.0); Hemoglobin 13.4 g/dl (12.0-16.0); Imm Gran Abs Auto 0.05 X10*3/uL (0.00-0.03); Imm Gran Pct Auto 0.4 % (0.0-0.4); Lymphocytes Absolute Auto 1.4 X10*3/uL (1.2-4.9); Lymphocytes Percent Auto 10.4 % (20-40); MANUAL DIFF FLAG NO; Mean Corpuscular Hemoglobin 30.7 pg (27.0-33.0); Mean Corpuscular Volume 90.2 fL (80.0-98.0); Mean Platelet Volume 10.5 fL (9.4-12.3); Monocytes Absolute Auto 0.7 X10*3/uL (0.1-1.2); Monocytes Percent Auto 5.5 % (2-11); Neutrophils Absolute Auto 11.1 x10*3/uL (2.0-8.3); Neutrophils Percent Auto 83.2 % (45-73); Platelet Count 264 X10*3/uL (160-400); Red Blood Count 4.37 X10*6/uL (4.20-5.50); Red Cell Distribution Width 13.1 % (11.0-16.0); White Blood Count 13.4 X10*3/uL (4.8-10.8)
[2023-10-12 05:27] LABS: Anion Gap 23 (12-20); Blood Urea Nitrogen 26 mg/dL (9-16); Calcium 9.4 mg/dL (8.4-10.2); Carbon Dioxide 22 mmol/L (22-29); Chloride 96 mmol/L (96-108); Creatinine Clr Calc Pharmacy 44.3; Estimated Glomerular Filt Rate 45; Potassium 4.2 mmol/L (3.3-5.1); Sodium 137 mmol/L (135-145)
[2023-10-12 05:30] LABS: Glucose Random 483 mg/dL (60-115)
[2023-10-12 05:46] LABS: Influenza A PCR NEGATIVE (Negative); Influenza B PCR NEGATIVE (Negative); Resp Syncy Virus RNA Qual PCR NEGATIVE (Negative); SARS COV2 PCR INHOUSE NEGATIVE (Negative)
[2023-10-12 07:00] LABS: Appearance Urine Clear; Color Urine Yellow; Glucose Urine UA >=1000 mg/dL (Negative); Leukocyte Esterase Urine Negative (Negative); Nitrite Urine Negative (Negative); PH 5.5 (5.0-9.0); Specific Gravity - Urine >= 1.030 (1.005-1.025); UMIC TRIGGER UACC YES; Urine Blood Negative (Negative); Urine Ketones >=160 mg/dL (Negative); Urine Protein Negative (Neg-Trace)
[2023-10-12 07:05] LABS: Bacteria Urine None Seen (None Seen); Hyaline Casts Urine 0-2 /LPF (0-2); RBC Urine 0-2 /HPF (0-2); Squamous Epithelial Cell Urine 0-2 /HPF (0-2); WBC Urine 0-5 /HPF (0-5)
--- NOTE | 2023-10-12 07:07 | ED_ITS ---
HPI - Nausea/Vomiting/Diarrhea General Chief complaint: Abdominal Pain Stated complaint: PT feels like they're dying Time Seen by Provider: 10/12/23 07:00 Source: patient and old records reviewed Mode of arrival: ambulatory Limitations: no limitations History of Present Illness ED Provider: ANDREE MOSLEY Narrative: 73 yo female with IDDM, cyclical vomiting here with c/o 3 days of n/v/d and abdominal cramps denies travel, sick contacts, food exposures, antibiotics. States this is the 3rd time this happens. She states she has not smoked in a while. She states she is taking her AM dose of insulin. MD elicited complaint: nausea, vomiting and diarrhea Pertinent past history: cyclical vomiting Onset (ago): day(s) (3) Description of vomiting: watery and bilious Description of diarrhea: watery Associated nausea: Yes Associated abdominal pain: Yes Location of pain: diffuse Radiation: diffuse Pain consistency: intermittent Severity: mild Quality: cramping Exacerbating factors: eating Relieving factors: none Context: marijuana use and other (reports 3rd episode she has had) Associated symptoms: myalgias, loss of appetite, malaise, nausea/vomiting, weakness and anxiety Related Data Home Medications ?Medication ?Instructions ?Recorded ?Confirmed sertraline 100 mg tablet 100 mg PO DAILY 02/03/21 11/02/22 aspirin 81 mg chewable tablet 81 mg PO DAILY@1700 04/24/22 11/02/22 dulaglutide 1.5 mg/0.5 mL 1.5 mg subcut WE 04/24/22 11/02/22 subcutaneous pen injector (Trulicity) insulin aspar prot-insulin aspart 42 unit subcut BID 04/24/22 11/02/22 100 unit/mL (70-30) subcutaneous pen (Novolog Mix 70-30FlexPen U-100) pramipexole 0.125 mg tablet 0.125 mg PO DAILY@1800 04/24/22 11/02/22 atorvastatin 40 mg tablet 40 mg PO DAILY 10/31/22 11/02/22 levothyroxine 150 mcg tablet 150 mcg PO DAILY 10/31/22 11/02/22 multivitamin with folic acid 400 1 tab PO DAILY 10/31/22 11/02/22 mcg tablet (Daily-Johny (with folic acid)) Previous Rx's ?Medication ?Instructions ?Recorded amoxicillin 875 mg-potassium 1 tab PO BID #12 tabs 11/01/22 clavulanate 125 mg tablet doxycycline hyclate 100 mg tablet 100 mg PO BID #12 tabs 11/01/22 promethazine 25 mg tablet 25 mg PO TID #14 tabs 11/02/22 epinephrine 0.3 mg/0.3 mL 0.3 mg (0.3 mL) IM Q4H PRN 04/08/23 injection, auto-injector (EpiPen) anaphylaxis #2 ea ondansetron 4 mg disintegrating 4 mg PO Q8H PRN nausea and 10/12/23 tablet vomiting #20 tabs Allergies Allergy/AdvReac Type Severity Reaction Status Date / Time adhesive tape AdvReac Blister Verified 10/12/23 04:51 metformin AdvReac Agitated Verified 10/12/23 04:51 Review of Systems 2 Review of Systems: Constitutional : No Fever, No Chills ENT/Mouth : No sore throat, No Rhinorrhea Eyes: No Swelling, No Redness Cardiovascular : No Chest Pain, No SOB, NoEdema Respiratory : No Cough, No Sputum, No Wheezing Gastrointestinal : Positive Nausea, Positive Vomiting, positive Diarrhea, positive abdominal Pain, No Hematochezia, No Melena Genitourinary : No Dysuria, No Urinary Frequency, No Hematuria, No Urgency Musculoskeletal : No joint pain, No Myalgias, No Joint Swelling Skin : No Skin Lesions, No rash Neuro : pos Weakness, No Numbness, No Dizziness, No Headache All other systems reviewed and are negative. Gastrointestinal: Gastrointestinal: Reports nausea PMFSH Past Medical History Attestation statement: The following information was validated with the patient. Source: old records reviewed Medical History Cannabis use disorder Cat bite Anxiety Hypothyroidism Depression Diabetes Surgical History History of carpal tunnel surgery History of ankle surgery History of tonsillectomy and adenoidectomy Family History Family History Other No family history of coronary artery disease Social History Social History Household Members: None Housing: Condominium Do you presently have visiting nurse or other home services: No Alcohol intake: never Patient Tobacco Use Status: Former Tobacco user Tobacco use type: Cigarette Cigarette Packs Per Day: 1 Cigarettes Per Day: 20.0 Years Smoked: 55 Second Hand Smoke Exposure: No Substance Use Type: Marijuana Advance Directives: Yes Advance Directives on File: No Do you have a plan to hurt others: No Plan service: No Current occupational status: retired Current occupation: rt handed Physical Exam 2 Vital Signs: Vital Signs: Last Vital Signs Temp 98.8 F 10/12/23 13:57 Pulse 75 10/12/23 13:57 Resp 14 10/12/23 13:57 BP 106/43 L 10/12/23 13:57 Pulse Ox 96 10/12/23 13:57 O2 Del Method Room Air 10/12/23 11:01 BMI result Body Mass Index 29.7 Appearance: Alert. Oriented X3. Mild acute distress. Eyes: Pupils equal, round and reactive to light. ENT: Pharynx very dry MM Neck: Normal inspection. Neck supple. CVS: Normal heart rate and rhythm. Pulses normal. Respiratory: No respiratory distress. Breath sounds normal. Abdomen: Soft and nontender. no rebound or guarding Skin: Skin warm and dry. Normal skin color. poor skin turgor. Extremities: No lower extremity edema. Neuro: Oriented X 3. No motor deficit. No sensory deficit. Course Course Course Narrative: repeat n/v given droperidol - qtc was wnl on initial check Reevaluation(s) Reevaluation #1: will place on insulin gtt at this time still with gap and sugars in 400s will recheck in 2 hours then likely admit Medications Administered Generic Name Dose Route Start Last Admin Trade Name Freq PRN Reason Stop Dose Admin Insulin Human Regular 100 unit in 100 mls @ 8 mls/hr 10/12/23 11:30 10/12/23 14:04 Myxredlin IVCONT 2 unit/hr .[id number] VITALIY 2 mls/hr Titration Protocol 8 UNIT/HR Sodium Chloride 1,000 mls @ 100 mls/hr 10/12/23 11:30 10/12/23 11:54 Ns IVCONT 100 mls/hr .Q10H VITALIY Administration Discontinued Medications Generic Name Dose Route Start Last Admin Trade Name Freq PRN Reason Stop Dose Admin Diphenhydramine HCl 25 mg 10/12/23 07:18 10/12/23 07:40 Diphenhydramine Hcl 50 Mg/Ml Vial IVPUSH 10/12/23 07:19 25 mg ONCE ONE Administration Droperidol 1.25 mg 10/12/23 10:17 10/12/23 10:22 Droperidol 5 Mg/2 Ml Vial IVPUSH 10/12/23 10:18 1.25 mg ONCE ONE Administration Lactated Ringer's 1,000 mls @ 999 mls/hr 10/12/23 07:06 10/12/23 08:36 Lr IV 10/12/23 08:06 Infused .Q1H1M ONE Infusion Lactated Ringer's 1,000 mls @ 999 mls/hr 10/12/23 07:06 10/12/23 09:19 Lr IV 10/12/23 08:06 Infused .Q1H1M ONE Infusion Lactated Ringer's 1,000 mls @ 999 mls/hr 10/12/23 07:19 10/12/23 10:25 Lr IV 10/12/23 08:19 Infused .Q1H1M ONE Infusion Insulin Human Regular 8 unit 10/12/23 07:06 10/12/23 07:38 Insulin Regular, Human 100 Unit/Ml 10 Ml Vial IVPUSH 10/12/23 07:07 8 unit ONCE ONE Administration Insulin Human Regular 10 unit 10/12/23 10:34 10/12/23 11:04 Insulin Regular, Human 100 Unit/Ml 10 Ml Vial IVPUSH 10/12/23 10:35 10 unit ONCE ONE Administration Metoclopramide HCl 10 mg 10/12/23 07:18 10/12/23 07:40 Metoclopramide Hcl 10 Mg/2 Ml Vial IVPUSH 10/12/23 07:19 10 mg ONCE ONE Administration Medical Decision Making Medical Decision Making MDM Narrative: 73 yo female with IDDM, cyclical vomiting here with c/o 3 days of n/v/d and abdominal cramps she reports this is the 3rd episode of this she has had in the past. At this given labs and mild gap will start on 3L of IVF, IV insulin, anti- emetics and after IVF bolus will repeat BMP likely combination of possible DKA and starvation ketoacidosis. No localized ttp to suggest acute abdominal pathology and she tells me she has had this before. Differential Diagnosis Differential Diagnoses: The differential diagnosis associated with the presentation includes DKA, starvation ketoacidosis, cyclical vomiting, dehydration, viral illness Admission/Observation Consideration of admission/observation: Escalation of care including admission/observation considered I offered admission after DKA corrected she is off gtt and tolerating PO states she feels great but she states she doesn't want to stay. I offered admission but she states she has done this before and feels fine now. She has been treated for 9 hours in the ED. She notes she has her machine at home and insulin. I asked her twice about staying we talked about DKA and how she would care for herself and she tells me she can manage this and feels ready and wants to go home. Lab Data MDM Lab Attestation statement: I reviewed the patient's lab results. 10/12/23 04:57 10/12/23 14:12 Labs: Lab Results 10/12/23 10/12/23 10/12/23 Range/Units 04:57 06:54 10:28 WBC 13.4 H (4.8-10.8) X10*3/uL RBC 4.37 (4.20-5.50) X10*6/uL Hgb 13.4 (12.0-16.0) g/dl Hct 39.4 (37.0-47.0) % MCV 90.2 (80.0-98.0) fL MCH 30.7 (27.0-33.0) pg MCHC 34.0 (31.0-35.0) g/dl RDW 13.1 (11.0-16.0) % Plt Count 264 (160-400) X10*3/uL MPV 10.5 (9.4-12.3) fL Immature Gran % (Auto) 0.4 (0.0-0.4) % Neut % (Auto) 83.2 H (45-73) % Lymph % (Auto) 10.4 L (20-40) % [place] % (Auto) 5.5 (2-11) % Eos % (Auto) 0.1 (0-4) % Baso % (Auto) 0.4 (0-2) % Lymph # (Auto) 1.4 (1.2-4.9) X10*3/uL [place] # (Auto) 0.7 (0.1-1.2) X10*3/uL Eos # (Auto) 0.0 (0.0-0.4) X10*3/uL Baso # (Auto) 0.1 (0.0-0.2) X10*3/uL Abs Immat Gran (auto) 0.05 H (0.00-0.03) X10*3/uL Absolute Neuts (auto) 11.1 H (2.0-8.3) x10*3/uL Absolute Nucleated RBC 0.000 (0.0-0.012) X10*3/uL Nucleated RBC % (auto) 0.0 (0.0-0.2) /100WBC VBG pH (7.32-7.43) VBG pCO2 mmHg VBG pO2 mmHg VBG HCO3 (22-26) mmol/L VBG O2 Saturation % VBG Base Excess mmol/L Sodium 137 (135-145) mmol/L Potassium 4.2 (3.3-5.1) mmol/L Chloride 96 (96-108) mmol/L Carbon Dioxide 22 (22-29) mmol/L Anion Gap 23 H (12-20) BUN 26 H (9-16) mg/dL Creatinine 1.17 (0.5-1.4) mg/dL Estim Creat Clear Calc 44.3 Estimated GFR 45 POC Glucose 415 H* (60-115) mg/dL Random Glucose 483 H* (60-115) mg/dL Calcium 9.4 (8.4-10.2) mg/dL Magnesium 2.0 (1.6-2.6) mg/dL Total Bilirubin 0.8 (0.0-1.0) mg/dL Direct Bilirubin 0.3 (0.0-0.5) mg/dL AST 19 (5-31) U/L ALT 17 (0-31) U/L Alkaline Phosphatase 86 (39-117) U/L Total Protein 6.7 (6.5-8.0) g/dL Albumin 4.0 (3.5-5.0) g/dL Lipase 35 (8-78) U/L Urine Color Yellow Urine Appearance Clear Urine pH 5.5 (5.0-9.0) Ur Specific [place] >= 1.030 H (1.005-1.025) Urine Protein Negative (Neg-Trace) mg/dL Urine Glucose (UA) >=1000 H (Negative) mg/dL Urine Ketones >=160 (Negative) mg/dL Urine Blood Negative (Negative) Urine Nitrite Negative (Negative) Ur Leukocyte Esterase Negative (Negative) Urine RBC 0-2 (0-2) /HPF Urine WBC 0-5 (0-5) /HPF Ur Squamous Epith Cells 0-2 (0-2) /HPF Urine Bacteria None Seen (None Seen) Hyaline Casts 0-2 (0-2) /LPF Urine Opiates Screen Not Detected (Not Detect) Ur Buprenorphine Scrn Not Detected (Not Detect) ng/mL Ur Oxycodone Screen Not Detected (Not Detect) ng/mL Urine Methadone Screen Not Detected (Not Detect) ng/mL Urine Fentanyl Screen Not Detected (Not Detect) Ur Barbiturates Screen Not Detected (Not Detect) Ur Phencyclidine Scrn Not Detected (Not Detect) Ur Amphetamines Screen Not Detected (Not Detect) U Benzodiazepines Scrn Not Detected (Not Detect) Urine Cocaine Screen Not Detected (Not Detect) U Marijuana (THC) Screen POSITIVE H (Not Detect) Influenza Type A (PCR) NEGATIVE (Negative) Influenza Type B (PCR) NEGATIVE (Negative) RSV RNA Qual (PCR) NEGATIVE (Negative) SARS-CoV-2 RNA (RT-PCR) NEGATIVE (Negative) 10/12/23 10/12/23 10/12/23 Range/Units 10:56 11:00 12:53 WBC (4.8-10.8) X10*3/uL RBC (4.20-5.50) X10*6/uL Hgb (12.0-16.0) g/dl Hct (37.0-47.0) % MCV (80.0-98.0) fL MCH (27.0-33.0) pg MCHC (31.0-35.0) g/dl RDW (11.0-16.0) % Plt Count (160-400) X10*3/uL MPV (9.4-12.3) fL Immature Gran % (Auto) (0.0-0.4) % Neut % (Auto) (45-73) % Lymph % (Auto) (20-40) % [place] % (Auto) (2-11) % Eos % (Auto) (0-4) % Baso % (Auto) (0-2) % Lymph # (Auto) (1.2-4.9) X10*3/uL [place] # (Auto) (0.1-1.2) X10*3/uL Eos # (Auto) (0.0-0.4) X10*3/uL Baso # (Auto) (0.0-0.2) X10*3/uL Abs Immat Gran (auto) (0.00-0.03) X10*3/uL Absolute Neuts (auto) (2.0-8.3) x10*3/uL Absolute Nucleated RBC (0.0-0.012) X10*3/uL Nucleated RBC % (auto) (0.0-0.2) /100WBC VBG pH 7.34 (7.32-7.43) VBG pCO2 37 mmHg VBG pO2 54 mmHg VBG HCO3 20 L (22-26) mmol/L VBG O2 Saturation 79.0 % VBG Base Excess -4.7 mmol/L Sodium 137 (135-145) mmol/L Potassium 5.0 (3.3-5.1) mmol/L Chloride 98 (96-108) mmol/L Carbon Dioxide 20 L (22-29) mmol/L Anion Gap 24 H (12-20) BUN 25 H (9-16) mg/dL Creatinine 1.17 (0.5-1.4) mg/dL Estim Creat Clear Calc 44.3 Estimated GFR 45 POC Glucose 325 H (60-115) mg/dL Random Glucose 453 H* (60-115) mg/dL Calcium 9.1 (8.4-10.2) mg/dL Magnesium (1.6-2.6) mg/dL Total Bilirubin (0.0-1.0) mg/dL Direct Bilirubin (0.0-0.5) mg/dL AST (5-31) U/L ALT (0-31) U/L Alkaline Phosphatase (39-117) U/L Total Protein (6.5-8.0) g/dL Albumin (3.5-5.0) g/dL Lipase (8-78) U/L Urine Color Urine Appearance Urine pH (5.0-9.0) Ur Specific [place] (1.005-1.025) Urine Protein (Neg-Trace) mg/dL Urine Glucose (UA) (Negative) mg/dL Urine Ketones (Negative) mg/dL Urine Blood (Negative) Urine Nitrite (Negative) Ur Leukocyte Esterase (Negative) Urine RBC (0-2) /HPF Urine WBC (0-5) /HPF Ur Squamous Epith Cells (0-2) /HPF Urine Bacteria (None Seen) Hyaline Casts (0-2) /LPF Urine Opiates Screen (Not Detect) Ur Buprenorphine Scrn (Not Detect) ng/mL Ur Oxycodone Screen (Not Detect) ng/mL Urine Methadone Screen (Not Detect) ng/mL Urine Fentanyl Screen (Not Detect) Ur Barbiturates Screen (Not Detect) Ur Phencyclidine Scrn (Not Detect) Ur Amphetamines Screen (Not Detect) U Benzodiazepines Scrn (Not Detect) Urine Cocaine Screen (Not Detect) U Marijuana (THC) Screen (Not Detect) Influenza Type A (PCR) (Negative) Influenza Type B (PCR) (Negative) RSV RNA Qual (PCR) (Negative) SARS-CoV-2 RNA (RT-PCR) (Negative) 10/12/23 10/12/23 Range/Units 13:54 14:12 WBC (4.8-10.8) X10*3/uL RBC (4.20-5.50) X10*6/uL Hgb (12.0-16.0) g/dl Hct (37.0-47.0) % MCV (80.0-98.0) fL MCH (27.0-33.0) pg MCHC (31.0-35.0) g/dl RDW (11.0-16.0) % Plt Count (160-400) X10*3/uL MPV (9.4-12.3) fL Immature Gran % (Auto) (0.0-0.4) % Neut % (Auto) (45-73) % Lymph % (Auto) (20-40) % [place] % (Auto) (2-11) % Eos % (Auto) (0-4) % Baso % (Auto) (0-2) % Lymph # (Auto) (1.2-4.9) X10*3/uL [place] # (Auto) (0.1-1.2) X10*3/uL Eos # (Auto) (0.0-0.4) X10*3/uL Baso # (Auto) (0.0-0.2) X10*3/uL Abs Immat Gran (auto) (0.00-0.03) X10*3/uL Absolute Neuts (auto) (2.0-8.3) x10*3/uL Absolute Nucleated RBC (0.0-0.012) X10*3/uL Nucleated RBC % (auto) (0.0-0.2) /100WBC VBG pH (7.32-7.43) VBG pCO2 mmHg VBG pO2 mmHg VBG HCO3 (22-26) mmol/L VBG O2 Saturation % VBG Base Excess mmol/L Sodium 142 (135-145) mmol/L Potassium 3.8 D (3.3-5.1) mmol/L Chloride 103 (96-108) mmol/L Carbon Dioxide 28 (22-29) mmol/L Anion Gap 15 (12-20) BUN 23 H (9-16) mg/dL Creatinine 1.03 (0.5-1.4) mg/dL Estim Creat Clear Calc 50.3 Estimated GFR 52 POC Glucose 249 H (60-115) mg/dL Random Glucose 259 H (60-115) mg/dL Calcium 9.0 (8.4-10.2) mg/dL Magnesium (1.6-2.6) mg/dL Total Bilirubin (0.0-1.0) mg/dL Direct Bilirubin (0.0-0.5) mg/dL AST (5-31) U/L ALT (0-31) U/L Alkaline Phosphatase (39-117) U/L Total Protein (6.5-8.0) g/dL Albumin (3.5-5.0) g/dL Lipase (8-78) U/L Urine Color Urine Appearance Urine pH (5.0-9.0) Ur Specific [place] (1.005-1.025) Urine Protein (Neg-Trace) mg/dL Urine Glucose (UA) (Negative) mg/dL Urine Ketones (Negative) mg/dL Urine Blood (Negative) Urine Nitrite (Negative) Ur Leukocyte Esterase (Negative) Urine RBC (0-2) /HPF Urine WBC (0-5) /HPF Ur Squamous Epith Cells (0-2) /HPF Urine Bacteria (None Seen) Hyaline Casts (0-2) /LPF Urine Opiates Screen (Not Detect) Ur Buprenorphine Scrn (Not Detect) ng/mL Ur Oxycodone Screen (Not Detect) ng/mL Urine Methadone Screen (Not Detect) ng/mL Urine Fentanyl Screen (Not Detect) Ur Barbiturates Screen (Not Detect) Ur Phencyclidine Scrn (Not Detect) Ur Amphetamines Screen (Not Detect) U Benzodiazepines Scrn (Not Detect) Urine Cocaine Screen (Not Detect) U Marijuana (THC) Screen (Not Detect) Influenza Type A (PCR) (Negative) Influenza Type B (PCR) (Negative) RSV RNA Qual (PCR) (Negative) SARS-CoV-2 RNA (RT-PCR) (Negative) Independent Interpretation I performed an independent interpretation of an: EKG Interpretation: Rate: 61 Rhythm: NSR Terry: normal Normal P waves. Normal ANDIE. Normal QRS complex. ST T wave : normal no WILLIAM qTC: 457 prior studies: The study has been interpreted contemporaneously by me. . External Record Review External record reviewed: Inpatient record Prescription Management I considered prescription management with: Other Critical Care Time Critical Care Time Critical Care Time: Yes Total Critical Care Time: 75 Attestation: repeat labs, IVF x 3L, insulin gtt, correction of DKA, lyte recheck I attest to this time spent taking care of the patient Discharge Plan Discharge Clinical Impression: Cyclical vomiting, Acute dehydration DKA (diabetic ketoacidosis) Qualifiers: Diabetes mellitus type: type 1 Diabetes mellitus complication detail: without coma Qualified Code(s): E10.10 - Type 1 diabetes mellitus with ketoacidosis without coma Patient Disposition: Home, Self-Care Instructions: Dehydration (ED), Acute Nausea and Vomiting (ED), Diabetic Hyperglycemia (ED) Additional Instructions: you were given lots of insulin and IV fluids while you were here you were in diabetic ketoacidosis if this happens again you need to return to the ED. you were offered admission but declined. you can come back at any time. return for vomiting, elevated blood sugars, weakness, or any other concerns. Prescriptions: New ondansetron 4 mg tablet,disintegrating 4 mg PO Q8H PRN (Reason: nausea and vomiting) Qty: 20 0RF No Action sertraline 100 mg tablet 100 mg PO DAILY aspirin 81 mg tablet,chewable 81 mg PO DAILY@1700 insulin asp prt-insulin aspart [Novolog Mix 70-30FlexPen U-100] 100 unit/mL (70-30) insulin pen 42 unit subcut BID Trulicity 1.5 mg/0.5 mL pen injector 1.5 mg subcut WE pramipexole 0.125 mg tablet 0.125 mg PO DAILY@1800 promethazine 25 mg tablet 25 mg PO TID Qty: 14 0RF atorvastatin 40 mg tablet 40 mg PO DAILY levothyroxine 150 mcg tablet 150 mcg PO DAILY multivitamin with folic acid [Daily-Johny (with folic acid)] 400 mcg tablet 1 tab PO DAILY amoxicillin-pot clavulanate 875-125 mg tablet 1 tab PO BID Qty: 12 0RF doxycycline hyclate 100 mg tablet 100 mg PO BID Qty: 12 0RF epinephrine [EpiPen] 0.3 mg/0.3 mL auto-injector 0.3 mg IM Q4H PRN (Reason: anaphylaxis) Qty: 2 0RF Print Language: Sinhala
--- NOTE | 2023-10-12 07:18 | ECG_ITS ---
Test Reason : qtc Blood Pressure : / mmHG Vent. Rate : 061 BPM Atrial Rate : 061 BPM P-R Int : 118 ms QRS Dur : 076 ms QT Int : 454 ms P-R-T Axes : 071 026 055 degrees QTc Int : 457 ms Normal sinus rhythm Normal ECG When compared with ECG of 31-OCT-2022 12:46, No significant change was found Referred By: Kathleen Cortez Electronically Signed By:GIL MO MD
[2023-10-12] MEDS: Lactated Ringers 1,000 ML 999 ML IV ×3 (07:27→09:19)
[2023-10-12] MEDS: Insulin Regular, Human 100 UNIT/ML 10 ML VIAL 8 UNIT IVPUSH (07:38)
[2023-10-12] MEDS: Metoclopramide HCl 10 MG/2 ML VIAL IVPUSH (07:40)
[2023-10-12] MEDS: diphenhydrAMINE HCL 50 MG/ML VIAL 25 MG IVPUSH (07:40)
[2023-10-12 07:53] LABS: Alanine Aminotransferase 17 U/L (0-31); Alkaline Phosphatase 86 U/L (39-117); Aspartate Amino Transferase 19 U/L (5-31); Bilirubin Direct 0.3 mg/dL (0.0-0.5); Bilirubin Total 0.8 mg/dL (0.0-1.0); Lipase 35 U/L (8-78); Total Protein 6.7 g/dL (6.5-8.0)
[2023-10-12] MEDS: droPERidol 5 MG/2 ML VIAL 1.25 MG IVPUSH (10:22)
[2023-10-12 10:31] LABS: Glucose, Whole Blood 415 mg/dL (60-115)
[2023-10-12 10:43] LABS: Amphetamine Screen Urine Not Detected (Not Detect); Barbiturates, Urine Not Detected (Not Detect); Benzodiazepines Screen Urine Not Detected (Not Detect); Buprenorphine Scr Not Detected (Not Detect); Cannabinoid Screen Urine POSITIVE (Not Detect); Cocaine Screen Urine Not Detected (Not Detect); Fentanyl, urine Not Detected (Not Detect); Methadone Screen, Urine Not Detected (Not Detect); Opiate Screen Urine Not Detected (Not Detect); Oxycodone Screen Urine Not Detected (Not Detect); Phencyclidine Screen Urine Not Detected (Not Detect)
[2023-10-12] MEDS: Insulin Regular, Human 100 UNIT/ML 10 ML VIAL 10 UNIT IVPUSH (11:04)
[2023-10-12 11:06] LABS: VBG Base Excess -4.7 mmol/L; VBG HCO3 20 mmol/L (22-26); VBG pCO2 37 mmHg; VBG pH 7.34 (7.32-7.43); VBG pO2 54 mmHg
[2023-10-12 11:06] LABS: Venous Blood Gas Refer to POC result
[2023-10-12 11:28] LABS: Anion Gap 24 (12-20); Blood Urea Nitrogen 25 mg/dL (9-16); Calcium 9.1 mg/dL (8.4-10.2); Carbon Dioxide 20 mmol/L (22-29); Chloride 98 mmol/L (96-108); Creatinine Clr Calc Pharmacy 44.3; Estimated Glomerular Filt Rate 45; Glucose Random 453 mg/dL (60-115); Sodium 137 mmol/L (135-145)
[2023-10-12] MEDS: Insulin Regular/NS 100 UNIT/100 ML PLAST..BAG 8 UNIT IVCONT (11:50)
[2023-10-12] MEDS: 0.9 % Sodium Chloride 1,000 ML 100 ML IVCONT (11:54)
[2023-10-12 12:55] LABS: Glucose, Whole Blood 325 mg/dL (60-115)
[2023-10-12 14:07] LABS: Glucose, Whole Blood 249 mg/dL (60-115)
[2023-10-12 14:33] LABS: Anion Gap 15 (12-20); Blood Urea Nitrogen 23 mg/dL (9-16); Carbon Dioxide 28 mmol/L (22-29); Chloride 103 mmol/L (96-108); Creatinine Clr Calc Pharmacy 50.3; Estimated Glomerular Filt Rate 52; Glucose Random 259 mg/dL (60-115); Potassium 3.8 mmol/L (3.3-5.1); Sodium 142 mmol/L (135-145)
--- NOTE | 2023-10-12 14:59 | PC.NURSE ---
patient provider requested that patient insulin drip be discontinued. patient glucose is stabilized at 209, patient is alert and oriented x3.
[2023-10-12 15:03] LABS: Glucose, Whole Blood 209 mg/dL (60-115)
== END 2023-10-12 15:31 | disposition home or self-care (01) ==
PROVIDERS: Emergency Provider Emergency Medicine; PCP Student in an Organized Health Care Education/Training Program
DX: E10.10 Type 1 diabetes mellitus with ketoacidosis without coma (principal); E86.0 Dehydration; R11.15 Cyclical vomiting syndrome unrelated to migraine; Z03.818 Encounter for observation for suspected exposure to other biological agents ruled out
CPT/HCPCS: 0241U; 36415; 80048; 80076; 80307; 81001; 81003; 82803; 82947; 83690; 83735; 85025; 93005; 96361; 96365; 96366; 96375; 96376; 99284; 99285; J1200; J1790; J2765; J7120

== ENCOUNTER → 2023-10-12 07:18 | Outpatient (BNV) | payer MEDICARE, SELFPAY | PROVIDERS: Emergency Provider Emergency Medicine; PCP Student in an Organized Health Care Education/Training Program; Visit Provider Internal Medicine Cardiovascular Disease | DX: I45.81 Long QT syndrome (principal) | CPT/HCPCS: 93010 ==

== ENCOUNTER 2023-11-05 10:27 | Outpatient (REF) | payer MEDICARE, SELFPAY ==
--- NOTE | 2023-11-05 12:35 | MHC.AU.MED ---
Medical Clearance for Hearing Instrumentation Date: 11/05/23 Patient Name: Maia Marley Date of : 1950 Primary Care Provider: Referring Provider: Nayeli Flores MD We have seen your patient on 11/05/23 and have determined that they are a candidate for amplification (See accompanying report). Specifically, they would benefit from: Hearing aid use in both ears There is a statute that addresses Medical Evaluation Requirements prior to fitting a patient with a hearing aid. According to [place] statute 265 CMR:6.03(1), (a) General. Except as provided in 265 CMR 6.03(1)(b), a pipe setter shall not sell a hearing aid unless the prospective user has presented to the pipe setter a written statement signed by a licensed physician that states that the patient's hearing loss has been medically evaluated and the patient may be considered a candidate for a hearing aid. The medical evaluation must have taken place within the preceding six months. Please note: Due to the [place] Statute referenced above, we cannot accept a signature other than that of a licensed physician. ANALOG CIRCUIT DESIGNER and PA signatures cannot be accepted. I am in agreement with the above recommendation. There is no medical contraindication for hearing instrumentation. Physician Signature Date Physician Name (Printed)
== END 2023-11-05 10:28 | disposition home or self-care (01) ==
LOC: HO.SH 10:27
PROVIDERS: Visit Provider Student in an Organized Health Care Education/Training Program
DX: Z01.118 Encounter for examination of ears and hearing with other abnormal findings (principal); H90.3 Sensorineural hearing loss, bilateral
CPT/HCPCS: 92552; V5275

== ENCOUNTER 2023-12-17 14:00 | Outpatient (REF) | payer MEDICARE, SELFPAY | END 2023-12-17 14:01 | disposition home or self-care (01) | LOC: HO.HAP 14:00 | PROVIDERS: Visit Provider Student in an Organized Health Care Education/Training Program | DX: Z46.1 Encounter for fitting and adjustment of hearing aid (principal); H90.3 Sensorineural hearing loss, bilateral | CPT/HCPCS: V5011; V5020; V5160; V5259; V5266 ==

== ENCOUNTER 2023-12-31 15:04 | Outpatient (REF) | payer MEDICARE, SELFPAY | END 2023-12-31 15:05 | disposition home or self-care (01) | LOC: HO.HAP 15:04 | PROVIDERS: Visit Provider Student in an Organized Health Care Education/Training Program | DX: Z13.89 Encounter for screening for other disorder (principal) ==

== ENCOUNTER 2024-01-09 12:42 | Emergency (ER) | payer MEDICARE, SELFPAY ==
[2024-01-09 13:39] VITALS: BP 173/69; PULSE 75; RESP 16; TEMP 36.4; O2SAT 96; BMI 29.1
--- NOTE | 2024-01-09 13:39 | ED.GENADULT ---
HPI - General Adult General Chief complaint: General Medical Stated complaint: medication Time Seen by Provider: 01/09/24 13:44 Source: patient, RN notes reviewed and old records reviewed Mode of arrival: ambulatory History of Present Illness ED Provider: Liliya Jack PA-C HPI narrative: 73-year-old female with a past medical history cyclical vomiting, diabetes, presenting to the ED stating she ran out of her insulin NovoLog last night. States she has refills at the pharmacy however did not realize the pharmacy would be closed for the and can not flower buncher or picker her prescription until Wednesday. States her point of care was in the 200s this morning. Denies other complaints at present including polyuria/polydipsia. States she will flower buncher or picker her prescriptions on Wednesday Related Data Home Medications ?Medication ?Instructions ?Recorded ?Confirmed sertraline 100 mg tablet 100 mg PO DAILY 02/03/21 11/02/22 aspirin 81 mg chewable tablet 81 mg PO DAILY@1700 04/24/22 11/02/22 dulaglutide 1.5 mg/0.5 mL 1.5 mg subcut WE 04/24/22 11/02/22 subcutaneous pen injector (Trulicity) insulin aspar prot-insulin aspart 42 unit subcut BID 04/24/22 11/02/22 100 unit/mL (70-30) subcutaneous pen (Novolog Mix 70-30FlexPen U-100) pramipexole 0.125 mg tablet 0.125 mg PO DAILY@1800 04/24/22 11/02/22 atorvastatin 40 mg tablet 40 mg PO DAILY 10/31/22 11/02/22 levothyroxine 150 mcg tablet 150 mcg PO DAILY 10/31/22 11/02/22 multivitamin with folic acid 400 1 tab PO DAILY 10/31/22 11/02/22 mcg tablet (Daily-Johny (with folic acid)) Previous Rx's ?Medication ?Instructions ?Recorded amoxicillin 875 mg-potassium 1 tab PO BID #12 tabs 11/01/22 clavulanate 125 mg tablet doxycycline hyclate 100 mg tablet 100 mg PO BID #12 tabs 11/01/22 promethazine 25 mg tablet 25 mg PO TID #14 tabs 11/02/22 epinephrine 0.3 mg/0.3 mL 0.3 mg (0.3 mL) IM Q4H PRN 04/08/23 injection, auto-injector (EpiPen) anaphylaxis #2 ea ondansetron 4 mg disintegrating 4 mg PO Q8H PRN nausea and 10/12/23 tablet vomiting #20 tabs insulin aspar prot-insulin aspart 40 unit (0.4 mL) subcut BID #15 mL 01/09/24 100 unit/mL (70-30) subcutaneous pen (Novolog Mix 70-30FlexPen U-100) Allergies Allergy/AdvReac Type Severity Reaction Status Date / Time adhesive tape AdvReac Blister Verified 01/09/24 13:40 metformin AdvReac Agitated Verified 01/09/24 13:40 Review of Systems Review of Systems: Yes all other systems are reviewed and are negative Constitutional: Constitutional: Reports as per [facility] Past Medical History Attestation statement: The following information was validated with the patient. Source: old records reviewed Medical History Cannabis use disorder Cat bite Anxiety Hypothyroidism Depression Diabetes Surgical History History of carpal tunnel surgery History of ankle surgery History of tonsillectomy and adenoidectomy Family History Family History Other No family history of coronary artery disease Social History Social History Household Members: None Housing: Condominium Do you presently have visiting nurse or other home services: No Alcohol intake: never Patient Tobacco Use Status: Former Tobacco user Tobacco use type: Cigarette Cigarette Packs Per Day: 1 Cigarettes Per Day: 20.0 Years Smoked: 55 Second Hand Smoke Exposure: No Substance Use Type: Marijuana Advance Directives: Yes Advance Directives Information Provided: Yes Advance Directives on File: No service: No Current occupational status: retired Current occupation: rt handed Physical Exam ED Vital Signs: Vital Signs - 24 hr 01/09/24 13:39 Temperature 97.6 F Pulse Rate 75 Respiratory Rate 16 Blood Pressure 173/69 H Pulse Oximetry 96 Oxygen Delivery Method Room Air BMI result Body Mass Index 29.1 Const General: cooperative, healthy appearing and no acute distress Orientation/consciousness: patient oriented x3 Limitations: no limitations HENMT Head: Yes normal to inspection and Yes atraumatic Ears: hearing grossly normal bilaterally General nose exam: Normal external nose present Face and sinus: Yes normal facial exam Eyes General: appearance normal, both eyes and all related structures EOM: EOMs intact bilaterally Neck Neck: Yes normal visual inspection and Yes no meningeal signs Resp Effort & Inspection: normal respiratory effort and no respiratory distress Cardio Rate: regular rate Skin Rashes: no rashes Wounds: no wounds Neuro General: patient oriented x3, tone normal and no meningeal signs Cranial nerves: Yes CN's II-XII intact bilaterally Gait exam (Neuro): Normal gait present Extrem General: Yes normal to inspection Medical Decision Making Medical Decision Making MDM Narrative: 73-year-old female with a past medical history cyclical vomiting, diabetes, presenting to the ED stating she ran out of her insulin NovoLog last night. On exam vital signs stable, NAD, nontoxic appearing, denies complaints at present. Point of care 255 in the ED. Low suspicion for DKA. Plan: Refill prescription Please refer to course for remaining clinical decision making, interpretation of labs/imaging results, and discussions with consultants and/or family members. Results discussed with patient including worrisome signs and symptoms and strict return precautions, and when to return to the emergency department. They verbalized understanding and feel safe for discharge at this time. Differential Diagnosis Differential Diagnoses: The differential diagnosis associated with the presentation includes As above Lab Data Labs: Lab Results 01/09/24 Range/Units 13:48 POC Glucose 255 H (60-115) mg/dL External Record Review External record reviewed: Inpatient record, Office record, Outpatient record, Prior outpatient labs, Prior outpatient radiology, Primary care record and Outside ED record Tests considered The following testing was considered but not selected: As above Prescription Management I considered prescription management with: Other Chronic Conditions Patient?s care impacted by: Other (DM) Social Determinants Patient?s care significantly limited by Social Determinants of Health including: Low income Discharge Plan Discharge Clinical Impression: Medication refill Patient Disposition: Home, Self-Care Additional Instructions: Continue taking medications as prescribed Continue to monitor your blood sugars Follow-up with her doctor Prescriptions: New insulin asp prt-insulin aspart [Novolog Mix 70-30FlexPen U-100] 100 unit/mL (70-30) insulin pen 40 unit subcut BID Qty: 15 0RF Rx Instructions: Inject 40 units subcutaneously every day with breakfast and 42 units subcutaneously with dinner No Action sertraline 100 mg tablet 100 mg PO DAILY aspirin 81 mg tablet,chewable 81 mg PO DAILY@1700 insulin asp prt-insulin aspart [Novolog Mix 70-30FlexPen U-100] 100 unit/mL (70-30) insulin pen 42 unit subcut BID Trulicity 1.5 mg/0.5 mL pen injector 1.5 mg subcut WE pramipexole 0.125 mg tablet 0.125 mg PO DAILY@1800 promethazine 25 mg tablet 25 mg PO TID Qty: 14 0RF atorvastatin 40 mg tablet 40 mg PO DAILY levothyroxine 150 mcg tablet 150 mcg PO DAILY multivitamin with folic acid [Daily-Johny (with folic acid)] 400 mcg tablet 1 tab PO DAILY amoxicillin-pot clavulanate 875-125 mg tablet 1 tab PO BID Qty: 12 0RF doxycycline hyclate 100 mg tablet 100 mg PO BID Qty: 12 0RF epinephrine [EpiPen] 0.3 mg/0.3 mL auto-injector 0.3 mg IM Q4H PRN (Reason: anaphylaxis) Qty: 2 0RF ondansetron 4 mg tablet,disintegrating 4 mg PO Q8H PRN (Reason: nausea and vomiting) Qty: 20 0RF Referrals: Nayeli Bahena MD [Primary Care Provider] - Print Language: Spanish
[2024-01-09 13:52] LABS: Glucose, Whole Blood 255 mg/dL (60-115)
[2024-01-09 13:55] VITALS: BP 173/69; PULSE 75; RESP 16; TEMP 36.4; O2SAT 96
== END 2024-01-09 13:56 | disposition home or self-care (01) ==
PROVIDERS: Emergency Provider Emergency Medicine; PCP Student in an Organized Health Care Education/Training Program
DX: E11.9 Type 2 diabetes mellitus without complications (principal); Z79.4 Long term (current) use of insulin; Z76.0 Encounter for issue of repeat prescription
CPT/HCPCS: 82947; 99282

== ENCOUNTER 2024-02-01 15:17 | Outpatient (REF) | payer MEDICARE, SELFPAY ==
[2024-02-01 16:58] LABS: Hematocrit 35.4 % (37.0-47.0); Hemoglobin 11.8 g/dl (12.0-16.0); Mean Corpuscular HGB Conc 33.3 g/dl (31.0-35.0); Mean Corpuscular Hemoglobin 30.9 pg (27.0-33.0); Mean Corpuscular Volume 92.7 fL (80.0-98.0); Mean Platelet Volume 10.8 fL (9.4-12.3); Platelet Count 243 X10*3/uL (160-400); Red Blood Count 3.82 X10*6/uL (4.20-5.50); White Blood Count 6.8 X10*3/uL (4.8-10.8)
[2024-02-01 17:03] LABS: Estimated Average Glucose 203 mg/dL; Hemoglobin A1c % 8.7 % (<6.0)
[2024-02-01 18:04] LABS: Folate 4.6 ng/mL (> or = 4.0); Vitamin B12 297 pg/mL (200-900)
[2024-02-01 18:36] LABS: Alanine Aminotransferase 16 U/L (0-31); Albumin Level 3.8 g/dL (3.5-5.0); Alkaline Phosphatase 93 U/L (39-117); Anion Gap 11 (12-20); Aspartate Amino Transferase 21 U/L (5-31); Bilirubin Total 0.3 mg/dL (0.0-1.0); Blood Urea Nitrogen 20 mg/dL (9-16); Calcium 9.4 mg/dL (8.4-10.2); Carbon Dioxide 24 mmol/L (22-29); Chloride 107 mmol/L (96-108); Cholesterol 186 mg/dL (<200); Estimated Glomerular Filt Rate > 60; Ferritin 137 ng/mL (10-250); Free T4 (Free Thyroxine) 0.95 ng/dL (0.71-1.85); Glucose Random 208 mg/dL (60-115); HDL Cholesterol 57 mg/dL (>40); Iron 81 mcg/dL (30-160); LDL Cholesterol Calculated 104 mg/dL (<100); Percent Iron Saturation 31 % (15-50); Potassium 4.3 mmol/L (3.3-5.1); Sodium 138 mmol/L (135-145); Total Iron Binding Capacity 262 mcg/dL (228-428); Total Protein 6.4 g/dL (6.5-8.0); Triglycerides 126 mg/dL (<150); Unsaturated Iron Binding 181 ug/dL; Vitamin D 25-OH Total 48.8 ng/mL (>30)
== END 2024-02-01 15:18 | disposition home or self-care (01) ==
LOC: HO.HHCL 15:17
PROVIDERS: Visit Provider Student in an Organized Health Care Education/Training Program
DX: Z00.00 Encounter for general adult medical examination without abnormal findings (principal); Z13.1 Encounter for screening for diabetes mellitus
CPT/HCPCS: 36415; 80053; 80061; 82306; 82607; 82728; 82746; 83036; 83540; 84439; 84443; 85027

== ENCOUNTER 2024-05-04 16:03 | Outpatient (REF) | payer MEDICARE, SELFPAY ==
--- NOTE | ~2024-05-04 | XR_ITS ---
EXAMINATION: XR CHEST CLINICAL INFORMATION: pt w 4 weeks of cough, now improving but still present COMPARISON: Chest 11/02/2022 TECHNIQUE: 2 views of the chest were obtained. FINDINGS: The lungs are well-expanded and clear acute process. The heart size and pulmonary vascularity is normal. There is mild ventral spondylosis dorsal spine. XR/XR chest 2V IMPRESSION: Unremarkable chest exam. Mild mid and lower dorsal spine spondylosis. Electronically signed by: Carlos Ornelas MD 05/04/2024 07:02 PM MICHELA PARHAM
== END 2024-05-04 16:04 | disposition home or self-care (01) ==
LOC: HO.HHCX 16:03
PROVIDERS: Visit Provider Student in an Organized Health Care Education/Training Program
DX: R05.9 Cough, unspecified (principal)
CPT/HCPCS: 71046

== ENCOUNTER → 2024-05-04 16:04 | Outpatient (BNV) | payer MEDICARE, SELFPAY | PROVIDERS: Visit Provider Radiology Diagnostic Radiology | DX: Z00.00 Encounter for general adult medical examination without abnormal findings (principal) | CPT/HCPCS: 71046 ==

== ENCOUNTER 2024-09-20 | Emergency (ER) | payer MEDICARE, SELFPAY ==
[2024-09-20 00:04] VITALS: BP 120/44; PULSE 78; RESP 22; TEMP 37; O2SAT 98
[2024-09-20 00:23] LABS: MANUAL DIFF FLAG NO
[2024-09-20 00:24] LABS: Basophils Absolute Auto 0.1 X10*3/uL (0.0-0.2); Basophils Percent Auto 1.1 % (0-2); Eosinophils Absolute Auto 0.3 X10*3/uL (0.0-0.4); Eosinophils Percent Auto 3.7 % (0-4); Hematocrit 36.3 % (37.0-47.0); Hemoglobin 11.9 g/dl (12.0-16.0); Imm Gran Abs Auto 0.02 X10*3/uL (0.00-0.03); Imm Gran Pct Auto 0.3 % (0.0-0.4); Lymphocytes Absolute Auto 1.8 X10*3/uL (1.2-4.9); Lymphocytes Percent Auto 23.2 % (20-40); Mean Corpuscular HGB Conc 32.8 g/dl (31.0-35.0); Mean Corpuscular Hemoglobin 30.4 pg (27.0-33.0); Mean Corpuscular Volume 92.6 fL (80.0-98.0); Mean Platelet Volume 10.4 fL (9.4-12.3); Monocytes Absolute Auto 0.6 X10*3/uL (0.1-1.2); Monocytes Percent Auto 6.9 % (2-11); Neutrophils Absolute Auto 5.1 x10*3/uL (2.0-8.3); Neutrophils Percent Auto 64.8 % (45-73); Platelet Count 232 X10*3/uL (160-400); Red Blood Count 3.92 X10*6/uL (4.20-5.50); Red Cell Distribution Width 13.5 % (11.0-16.0); White Blood Count 7.9 X10*3/uL (4.8-10.8)
[2024-09-20 00:48] LABS: Alanine Aminotransferase 14 U/L (0-31); Albumin Level 4.2 g/dL (3.5-5.0); Alkaline Phosphatase 76 U/L (39-117); Anion Gap 18 (12-20); Aspartate Amino Transferase 26 U/L (5-31); Bilirubin Total 0.5 mg/dL (0.0-1.0); Blood Urea Nitrogen 24 mg/dL (9-16); Calcium 9.6 mg/dL (8.4-10.2); Carbon Dioxide 22 mmol/L (22-29); Chloride 104 mmol/L (96-108); Creatinine Clr Calc Pharmacy 43.4; Estimated Glomerular Filt Rate 45; Glucose Random 508 mg/dL (60-115); Potassium 4.4 mmol/L (3.3-5.1); Sodium 140 mmol/L (135-145); Total Protein 6.9 g/dL (6.5-8.0)
[2024-09-20 01:07] VITALS: BP 129/53; PULSE 85; RESP 17; TEMP 36.4; O2SAT 97
--- NOTE | 2024-09-20 01:12 | PC.NURSE ---
Addendum entered by Meghna Goddard RN 09/20/24 03:25: pt returned, notably upset, expressing her sugar is making her crazy and she just wants subcue insulin. Pt seen by provider updated on plan to administer 15 units of lispro and recheck sugar in 1/2 hour. Medication administered per jul. Pt stated she can not wait as she feels like she is turning into an angry person because of her sugar and does not want that to happen. Pt continued to yell and this RN attempted to reeducate patient on the importance of being treated and not leaving especially if she was not feeling well. Pt left upset without completing treatment. Addendum entered by Meghna Goddard RN 09/20/24 02:04: pt leaving AMA refusing any treatment. pt states she's waited long enough and just needs an insulin shot so she can be on her way. pt educated and explained on lowering blood sugar. pt upset and leaving against medical advice. Original Note: pt a&ox3 resting in stretcher quietly in no notable distress. VSS, pt denies any pain at this time. pt states she takes novalog 70/30, 42 units in the morning and 42 units at night, she missed today's doses and could not get another refill.
--- NOTE | 2024-09-20 02:57 | ED.GENADULT ---
HPI - General Adult General Chief complaint: General Medical Stated complaint: Insulin Time Seen by Provider: 09/20/24 02:01 Source: patient Mode of arrival: ambulatory Limitations: no limitations History of Present Illness ED Provider: DR. Florez HPI narrative: 74-year-old female history of insulin-dependent diabetes, patient ran out of insulin since yesterday did not have any insulin today, came in today for high blood sugar, patient in the emergency department is refusing IV access, refusing IV fluids, agitated and very contracted, patient is asking to be given her insulin subQ until she sees her primary doctor next day. Related Data Home Medications ?Medication ?Instructions ?Recorded ?Confirmed sertraline 100 mg tablet 100 mg PO DAILY 02/03/21 11/02/22 aspirin 81 mg chewable tablet 81 mg PO DAILY@1700 04/24/22 11/02/22 dulaglutide 1.5 mg/0.5 mL 1.5 mg subcut WE 04/24/22 11/02/22 subcutaneous pen injector (Trulicity) insulin aspar prot-insulin aspart 42 unit subcut BID 04/24/22 11/02/22 100 unit/mL (70-30) subcutaneous pen (Novolog Mix 70-30FlexPen U-100) pramipexole 0.125 mg tablet 0.125 mg PO DAILY@1800 04/24/22 11/02/22 atorvastatin 40 mg tablet 40 mg PO DAILY 10/31/22 11/02/22 levothyroxine 150 mcg tablet 150 mcg PO DAILY 10/31/22 11/02/22 multivitamin with folic acid 400 1 tab PO DAILY 10/31/22 11/02/22 mcg tablet (Daily-Johny (with folic acid)) Previous Rx's ?Medication ?Instructions ?Recorded amoxicillin 875 mg-potassium 1 tab PO BID #12 tabs 11/01/22 clavulanate 125 mg tablet doxycycline hyclate 100 mg tablet 100 mg PO BID #12 tabs 11/01/22 promethazine 25 mg tablet 25 mg PO TID #14 tabs 11/02/22 epinephrine 0.3 mg/0.3 mL 0.3 mg (0.3 mL) IM Q4H PRN 04/08/23 injection, auto-injector (EpiPen) anaphylaxis #2 ea ondansetron 4 mg disintegrating 4 mg PO Q8H PRN nausea and 10/12/23 tablet vomiting #20 tabs insulin aspar prot-insulin aspart 40 unit (0.4 mL) subcut BID #15 mL 01/09/24 100 unit/mL (70-30) subcutaneous pen (Novolog Mix 70-30FlexPen U-100) Allergies Allergy/AdvReac Type Severity Reaction Status Date / Time adhesive tape AdvReac Blister Verified 09/20/24 00:11 metformin AdvReac Agitated Verified 09/20/24 00:11 Review of Systems Review of Systems: All other systems are reviewed and are negative Constitutional: Reports as per HPI and Reports no additional constitutional complaints Eyes: Reports as per HPI and Reports no additional eye complaints Reports system reviewed and no additional complaints, except as documented Cardiovascular: Reports as per HPI and Reports no additional cardiovascular complaints Respiratory: Reports as per HPI and Reports no additional respiratory complaints Gastrointestinal: Reports as per HPI and Reports no additional gastrointestinal complaints Genitourinary: Reports no additional female genitourinary complaints Musculoskeletal: Reports no additional musculoskeletal complaints Skin/Breast: Reports system reviewed and no additional complaints, except as docu Psychiatric: Reports no additional psychiatric complaints Endocrine: Reports no additional endocrine complaints Hematologic/Lymphatic: Reports no additional hematologic/lymphatic complaints Allergic/Immunologic: Reports no additional allergic/immunologic complaints Reports system reviewed and no additional complaints, except as documented and Reports Abnormal speech present [facility] Past Medical History Medical History Cannabis use disorder Cat bite Anxiety Hypothyroidism Depression Diabetes Surgical History History of carpal tunnel surgery History of ankle surgery History of tonsillectomy and adenoidectomy Family History Family History Other No family history of coronary artery disease Social History Social History Household Members: None Housing: Condominium Do you presently have visiting nurse or other home services: No Alcohol intake: never Patient Tobacco Use Status: Former Tobacco user Tobacco use type: Cigarette Cigarette Packs Per Day: 1 Cigarettes Per Day: 20.0 Years Smoked: 55 Smoked in Last 30 Days: Yes Second Hand Smoke Exposure: No Use of substances other than those prescribed or required for medical reasons: Yes Substance Use Type: Marijuana Substance Use Frequency: Daily Advance Directives: No Advance Directives Information Provided: Yes Do you have a plan to hurt others: No Plan service: No Current occupational status: retired Current occupation: rt handed Physical Exam ED Vital Signs: Vital Signs - 24 hr 09/20/24 00:04 09/20/24 01:07 Temperature 98.6 F 97.5 F Pulse Rate 78 85 Respiratory Rate 22 H 17 Blood Pressure 120/44 L 129/53 L Pulse Oximetry 98 97 Oxygen Delivery Method Room Air Room Air BMI result Body Mass Index 30.0 Vital signs have been reviewed and appear to be correct. Blood pressure elevated. Heart rate normal. Respiratory rate normal. Temperature normal. Oxygen saturation normal. Appearance: Alert. Oriented X3. No acute distress. Head: Normal external exam. Normocephalic. Atraumatic. No Dumont signs noted. No raccoon eyes noted Eyes: PERRLA. EOMI. Conjunctiva and sclera normal. Eyelids normal. ENT: TM's Normal. Pharynx normal. Uvula midline. Moist mucous membranes. No trismus noted. No drooling noted. No muffled voice noted. Neck: Normal inspection. Neck supple. FROM. No adenopathy. Thyroid Normal. No meningeal signs. No neck mass noted. CVS: Normal heart rate and rhythm. Heart sound normal. No murmurs noted. Pulses normal throughout. Respiratory: No respiratory distress. Painless inspiration. Breath sounds normal. No wheezes/rales/rhonchi noted. Chest nontender. No accessory muscle usage noted or decreased air movement noted. Abdomen: Soft and nontender. Bowel sounds normal in all 4 quadrants. No distention noted. No organomegaly noted. No visible injury noted. Back: No CVA tenderness. Full range of motion noted. Skin: Skin warm and dry. Normal skin color. Normal skin turgor. No rashes/lesions/lacerations noted. Extremities: No lower extremity edema. Extremities exhibit normal range of motion. Extremities nontender. Neuro: Oriented X 3. Cranial nerve exam: II-XII are grossly intact No motor deficit. No sensory deficit. Reflexes normal. Course Reevaluation(s) Reevaluation #1: Patient is refusing the appropriate way to treat hyperglycemia which is IV fluids and IV insulin with serial POC, patient is only accepting subcu insulin patient take NovoLog at home 42 units in the morning and 42 at night. Time: 03:00 Reevaluation #2: Patient received short-acting insulin 15 unit in the ED, refuses to recheck blood sugar in the ED, patient left before completing treatment and further re-evaluation Time: 03:18 Medications Administered Discontinued Medications Generic Name Dose Route Start Last Admin Trade Name Sami PRN Reason Stop Dose Admin Insulin Human Lispro 15 unit 09/20/24 02:54 09/20/24 03:02 Insulin Lispro 100 Unit/Ml 3 Ml Vial SUBCUT 09/20/24 02:55 15 unit ONCE ONE Administration Medical Decision Making Differential Diagnosis Differential Diagnoses: The differential diagnosis associated with the presentation includes (DKA, hyperglycemia, electrolyte derangement, severe anemia.) Admission/Observation Consideration of admission/observation: Escalation of care including admission/observation considered Lab Data MDM Lab Attestation statement: I reviewed the patient's lab results. 09/20/24 00:15 09/20/24 00:15 Labs: Lab Results 09/20/24 Range/Units 00:15 WBC 7.9 (4.8-10.8) X10*3/uL RBC 3.92 L (4.20-5.50) X10*6/uL Hgb 11.9 L (12.0-16.0) g/dl Hct 36.3 L (37.0-47.0) % MCV 92.6 (80.0-98.0) fL MCH 30.4 (27.0-33.0) pg MCHC 32.8 (31.0-35.0) g/dl RDW 13.5 (11.0-16.0) % Plt Count 232 (160-400) X10*3/uL MPV 10.4 (9.4-12.3) fL Immature Gran % (Auto) 0.3 (0.0-0.4) % Neut % (Auto) 64.8 (45-73) % Lymph % (Auto) 23.2 (20-40) % [place] % (Auto) 6.9 (2-11) % Eos % (Auto) 3.7 (0-4) % Baso % (Auto) 1.1 (0-2) % Lymph # (Auto) 1.8 (1.2-4.9) X10*3/uL [place] # (Auto) 0.6 (0.1-1.2) X10*3/uL Eos # (Auto) 0.3 (0.0-0.4) X10*3/uL Baso # (Auto) 0.1 (0.0-0.2) X10*3/uL Abs Immat Gran (auto) 0.02 (0.00-0.03) X10*3/uL Absolute Neuts (auto) 5.1 (2.0-8.3) x10*3/uL Absolute Nucleated RBC 0.000 (0.0-0.012) X10*3/uL Nucleated RBC % (auto) 0.0 (0.0-0.2) /100WBC Sodium 140 (135-145) mmol/L Potassium 4.4 (3.3-5.1) mmol/L Chloride 104 (96-108) mmol/L Carbon Dioxide 22 (22-29) mmol/L Anion Gap 18 (12-20) BUN 24 H (9-16) mg/dL Creatinine 1.18 (0.5-1.4) mg/dL Estim Creat Clear Calc 43.4 Estimated GFR 45 Random Glucose 508 H* (60-115) mg/dL Calcium 9.6 (8.4-10.2) mg/dL Total Bilirubin 0.5 (0.0-1.0) mg/dL AST 26 (5-31) U/L ALT 14 (0-31) U/L Alkaline Phosphatase 76 (39-117) U/L Total Protein 6.9 (6.5-8.0) g/dL Albumin 4.2 (3.5-5.0) g/dL Discharge Plan Discharge Clinical Impression: Hyperglycemia due to diabetes mellitus Patient Disposition: Left W/O Completing Treatment Instructions: Diabetic Hyperglycemia (ED) Prescriptions: No Action sertraline 100 mg tablet 100 mg PO DAILY aspirin 81 mg tablet,chewable 81 mg PO DAILY@1700 insulin asp prt-insulin aspart [Novolog Mix 70-30FlexPen U-100] 100 unit/mL (70-30) insulin pen 42 unit subcut BID Trulicity 1.5 mg/0.5 mL pen injector 1.5 mg subcut WE pramipexole 0.125 mg tablet 0.125 mg PO DAILY@1800 promethazine 25 mg tablet 25 mg PO TID Qty: 14 0RF atorvastatin 40 mg tablet 40 mg PO DAILY levothyroxine 150 mcg tablet 150 mcg PO DAILY multivitamin with folic acid [Daily-Johny (with folic acid)] 400 mcg tablet 1 tab PO DAILY amoxicillin-pot clavulanate 875-125 mg tablet 1 tab PO BID Qty: 12 0RF doxycycline hyclate 100 mg tablet 100 mg PO BID Qty: 12 0RF epinephrine [EpiPen] 0.3 mg/0.3 mL auto-injector 0.3 mg IM Q4H PRN (Reason: anaphylaxis) Qty: 2 0RF ondansetron 4 mg tablet,disintegrating 4 mg PO Q8H PRN (Reason: nausea and vomiting) Qty: 20 0RF insulin asp prt-insulin aspart [Novolog Mix 70-30FlexPen U-100] 100 unit/mL (70-30) insulin pen 40 unit subcut BID Qty: 15 0RF Rx Instructions: Inject 40 units subcutaneously every day with breakfast and 42 units subcutaneously with dinner Print Language: Malay
[2024-09-20] MEDS: Insulin Lispro 100 UNIT/ML 3 ML VIAL 15 UNIT SUBCUT (03:02)
[2024-09-21 09:13] LABS: Glucose, Whole Blood 487 mg/dL (60-115)
== END 2024-09-20 03:43 | disposition left against medical advice (07) ==
PROVIDERS: Emergency Provider Emergency Medicine; PCP Student in an Organized Health Care Education/Training Program
DX: E11.65 Type 2 diabetes mellitus with hyperglycemia (principal); Z79.899 Other long term (current) drug therapy; Z79.4 Long term (current) use of insulin; Z87.891 Personal history of nicotine dependence
CPT/HCPCS: 36415; 80053; 82947; 85025; 99283; 99284

== ENCOUNTER 2024-09-22 11:45 | Outpatient (REF) | payer MEDICARE, SELFPAY ==
--- NOTE | ~2024-09-22 | XR_ITS ---
EXAMINATION: XR KNEE 3 VIEWS LEFT HISTORY: left knee pain COMPARISON: There are no prior studies available for comparison. FINDINGS: Three views of the left knee are submitted. Osseous mineralization is normal. There is no fracture or dislocation. There is slight narrowing of the medial compartment. The soft tissues are unremarkable. There is no joint effusion. XR/XR knee LT 3V IMPRESSION: Slight narrowing of the medial compartment. Electronically signed by: Bryan Gomez MD 09/22/2024 02:19 PM EDT
--- NOTE | ~2024-09-22 | XR_ITS ---
EXAMINATION: XR HIP 2 OR MORE VIEWS BILATERAL HISTORY: pt with bilateral hip pain COMPARISON: There are no prior studies for comparison. FINDINGS: A single AP view of the pelvis and two views of each hip are submitted. Osseous mineralization is normal. There is no fracture or dislocation. The joint space is maintained. The soft tissues are unremarkable. XR/XR hips TANO min 3V IMPRESSION: Unremarkable examination of the bilateral hips. Electronically signed by: Bryan Gomez MD 09/22/2024 02:23 PM EDT
--- OUTSIDE RECORDS SUMMARY | 2024-09-22 11:54 | XMS_ITS | Encounter Summary ---
Author Organization [employer] Address [address] [place] [address] Care Team Providers Care Rental Car Deliverer Name Role Phone Nayeli Bahena MD Primary Care Pro vider Reason for Visit * Reason Comments Med Refill Encounter Details Date Type Department Care Team ([facility] st Contact Info) Description 07/19/2023 Refill [facility] [address] [place] [address] Rita Pa MD [address] [place], [place] [phone] Social History Tobacco Use Types Packs/Day Years Used Date Smoking Tobacco: Former Cigarettes Smokeless Tobacco: Never Comments:From 05/11 --05/11 PQ T -Started at 11 y of age until 65 y of age -smoked for 54 years -stopped already x 6 years -PQT a year Calc 54 Alcohol Use Standard Drinks/Week Comments Not Currently 0 (1 standard drink = 0.6 oz pure alcohol) hx of binging not any more x last 10 years Depression Answer Date Recorded Patient Health Questionnaire-9 Score 5 10/01/2022 Housing Stability Answer Date Recorded What is your housing situation today? I have [employer] 02/22/[address] you li ve. Do you have problems with any of the following? None of the above 02/22/2023 Food Insecurity Answer Date Recorded Within the past 12 months, y ou worried that your food would run out before you got money to buy more: Never True 02/22/2023 Within the past 12 months,th e food you bought just didn't last and you didn't have enough money to get more: Never True Transportation Answer Date Recorded In the past 12 months, has l ack of transportation kept you from medical appts, meetings, work or from getting things needed for daily living? No 02/22/2023 Utilities Answer Date Recorded In the past 12 months, has t he electric, gas, oil or water company threatened to shut off services in your home? No 02/22/2023 Depression Answer Date Recorded Patient Health Questionnaire-2 Score 2 10/01/2022 Comments Unknown Sex and Gender Information Value Date Recorded Sex Assigned at Female 10/01/2022 10:22 AM EDT Legal Sex Female 1:52 PM EDT Gender Identity Female 10/01/2022 10:22 AM EDT Sexual Orientation Lesbian or Barnes 10/01/2022 10 :56 AM EDT documented as of this encounter Plan of Treatment Upcoming Encounters Date Type Department Care Team (Late st Contact Info) Description 10/30/2024 2:00 PM EDT Office Visit [facility] [address] [place] [phone] Nayeli Bahena MD [address] [place] [phone] documented as of this encounter Visit Diagnoses Not on filedocumented in this encounter Additional Health Concerns Assessment Noted Time PHQ-9 Depression Total Score: 5 10/02/19 10:28 AM EDT documented as of this encounter Care Teams Rental Car Deliverer Relationship Specialty Start Date End Date Nayeli Bahena MD [address] [place] [phone] PCP - General Internal Medicine 09/09/22 documented as of this encounter
--- OUTSIDE RECORDS SUMMARY | 2024-09-22 11:54 | XMS_ITS | Encounter Summary ---
Author Organization [employer] Address [address] [place] [address] Care Team Providers Care Rate And Cost Analyst Name Role Phone Nayeli Bahena MD Primary Care Pro vider Encounter Details Date Type Department Care Team (Late st Contact Info) Description 09/02/2023 Telephone [facility] [address] [place] [address] Nayeli Bahena MD [address] [place] [address] Social History Tobacco Use Types Packs/Day Years [...] Description 10/30/2024 2:00 PM EDT Office Visit [facility] [address] [place] [phone] Nayeli Bahena MD [address] [place] [address] documented as of this encounter Visit Diagnoses Not on filedocumented in this encounter Additional Health Concerns Assessment Noted Time PHQ-9 Depression Total Score: 5 10/02/19 10:28 AM EDT documented as of this encounter Care Teams Rate And Cost Analyst Relationship Specialty Start Date End Date Nayeli Bahena MD [address] [place] [id number] PCP - General Internal Medicine 09/09/22 documented as of this encounter
--- OUTSIDE RECORDS SUMMARY | 2024-09-22 11:54 | XMS_ITS | Encounter Summary ---
Author Organization [employer] Address [address] [facility] 7t [place] [address] Care Team Providers Care Segregator Name Role Phone Nayeli Bahena MD Primary Care Pro vider Reason for Referral * Consultation (Routine) - Authorized Specialty Diagnoses / Procedures Referred By Contac t Referred To Contact Pharmacy Diagnoses Type 2 diabetes mellitus without complications (CMS/HCC) Nayeli Bahena MD [address] [place] [address] Phone: tel: fax: Referral ID Status Reason Start Date Expiration Date Visits Requested Visits Authorized [id number] Authorized Continuity of Care 09/22/2024 09/22/2025 6 6 Encounter Details Date Type Department Care Team (Latest Contact Info) Description 09/22/2024 9:45 AM EDT [facility] [address] [place] [address] [phone] Nayeli Bahena MD [address] [place], [place] [phone] Hip pain, unspecified laterality (Primary Dx); Type 2 diabetes mellitus without complications (CMS/HCC); Chronic pain of left knee Social History Tobacco Use Types Packs/Day Years Used Date Smoking Tobacco: Former Cigarettes Smokeless Tobacco: Never Comments:From 05/11 --05/11 PQ T -Started at 11 y of age until 65 y of age -smoked for 54 years -stopped already x 7 years -PQT a year Calc 54 Alcohol Use Standard Drinks/Week Comments Not Currently 0 (1 standard drink = 0.6 oz pure alcohol) hx of binging not any more x last 10 years Depression Answer Date Recorded Patient Health Questionnaire-9 Score 23 09/22/2024 Patient Health Questionnaire-9 Score 23 09/22/2024 Last PHQ-9: Questionnaire Data Not on file 0 09/22/2024 Housing Stability Answer Date Recorded What is your housing situation today? I have [employer] 10/25/[address] you li ve. Do you have problems with any of the following? None of the above 10/25/2023 Food Insecurity Answer Date Recorded Within the past 12 months, y ou worried that your food would run out before you got money to buy more: Never True 12/13/2023 Within the past 12 months,th e food you bought just didn't last and you didn't have enough money to get more: Never True 09/2023 Transportation Answer Date Recorded In the past 12 months, has l ack of transportation kept you from medical appts, meetings, work or from getting things needed for daily living? No 10/25/2023 Utilities Answer Date Recorded In the past 12 months, has t he electric, gas, oil or water company threatened to shut off services in your home? No 12/13/2023 Depression Answer Date Recorded Patient Health Questionnaire-2 Score 6 09/22/2024 Internet Access Answer Date Recorded Internet Access Q1 Yes 09/22/2024 Internet Access Q2 Not on file 09/22/2024 Comments Unknown Sex and Gender Information Value Date Recorded Sex Assigned at Female 10/01/2022 10:22 AM EDT Legal Sex Female 1:52 PM EDT Gender Identity Female 10/01/2022 10:22 AM EDT Sexual Orientation Lesbian or Barnes 10/01/2022 10 :56 AM EDT documented as of this encounter Last Filed Vital Signs Vital Sign Reading Time Taken Comments Blood Pressure 131/60 09/22/2024 10:05 AM EDT Pulse 75 09/22/2024 10:05 AM EDT Temperature 36.4 ??C (97.5 ??F) 09/22/2024 10:05 AM E DT Respiratory Rate 20 09/22/2024 10:05 AM EDT Oxygen Saturation 94% 09/22/2024 10:05 AM EDT Inhaled Oxygen Concentration - - Weight 87.5 kg (193 lb) 09/22/2024 10:05 AM EDT Height 165.1 cm (5' 5 ) 09/22/2024 10:05 AM EDT Body Mass Index 32.12 09/22/2024 10:05 AM EDT documented in this encounter Functional Status * Over the past 2 weeks, how often have you been bothered by any of the following problems? Question Answer Date of Assessment Author Patient Health Questionnaire -2 Score 6 09/22/2024 10:08 AM KIETT Domitila Varner MA * Little interest or pleasure in doing things Answer Date of Assessment Author Nearly every day 09/22/2024 10:08 AM Domitila Barrios MA * Feeling down, depressed, or hopeless Answer Date of Assessment Author Nearly every day 09/22/2024 10:08 AM Domitila Barrios MA * Trouble falling or staying asleep, or sleeping too much Answer Date of Assessment Author Nearly every day 09/22/2024 10:08 AM Domitila Barrios MA * Feeling tired or having little energy Answer Date of Assessment Author Nearly every day 09/22/2024 10:08 AM Domitila Barrios MA * Poor appetite or overeating Answer Date of Assessment Author Several days 09/22/2024 10:08 AM Domitila Barrios MA * Feeling bad about yourself - or that you are a failure or have let yourself or your family down Answer Date of Assessment Author Nearly every day 09/22/2024 10:08 AM Domitila Barrios MA * Trouble concentrating on things, such as reading the newspaper or watching television Answer Date of Assessment Author Nearly every day 09/22/2024 10:08 AM Domitila Barrios MA * Moving or speaking so slowly that other people could have noticed? Or the opposite - being so fidgety or restless that you have been moving around a lot more than usual. Answer Date of Assessment Author Nearly every day 09/22/2024 10:08 AM Domitila Barrios MA * Thoughts that you would be better off or hurting yourself in some way Answer Date of Assessment Author Several days 09/22/2024 10:08 AM Domitila Barrios MA * Patient Health Questionnaire-9 Score Answer Date of Assessment Author 09/22/2024 10:08 AM Domitila Barrios MA * How difficult have these problems made it for you to do your work, take care of things at home, or get along with other people? Answer Date of Assessment Author Extremely difficult 09/22/2024 10:08 AM EDT Domitila Wahl MA * Over the last 2 weeks, how often have you been bothered by any of the following problems? Question Answer Date of Assessment Author Feeling nervous, anxious, or on edge 3 09/22/2024 10:10 AM KIETT Domitila Varner MA Not being able to stop or co ntrol worrying 3 09/22/2024 10:10 AM Domitila Barrios MA Worrying too much about diff erent things 3 09/22/2024 10:10 AM Domitila Barrios MA Trouble relaxing 3 09/22/2024 10:10 AM Domitila Barrios MA Being so restless that it is hard to sit still 3 09/22/2024 10:10 AM Domitila Barrios MA Becoming easily annoyed or irritable 3 09/22/2024 10:10 AM Domitila Barrios MA Feeling afraid as if somethi ng awful might happen 3 09/22/2024 10:10 AM Domitila Barrios MA AL-7 Total Score 21 09/22/2024 10:10 AM Domitila Barrios MA documented as of this encounter Plan of Treatment Upcoming Encounters Date Type Department Care Team (Late st Contact Info) Description 10/30/2024 2:00 PM EDT [facility] [address] [place] [phone] Nayeli Bahena MD [address] [place], [place] [phone] Scheduled Orders Name Type Priority Associated Diagnoses Orde r Schedule XR Hips Bilateral 3 or 4 Views with or without Pelvis Imaging Routine Hip pain, unspecified laterality Expected: 09/22/2024, Expires: 09/22/2025 XR Knee 3 Views Left Imaging Routine Chronic pain of left knee Expected: 09/22/2024, Expires: 09/22/2025 Scheduled Referrals Name Type Priority Associated Diagnoses Orde r Schedule Referral to Pharmacy MTM Outpatient Referral Routine Type 2 diabetes mellitus without complications (CMS/HCC) Ordered: 09/22/2024 documented as of this encounter Visit Diagnoses Diagnosis Hip pain, unspecified laterality- Primary Type 2 diabetes mellitus without complications (CMS/HCC) Chronic pain of left knee documented in this encounter Additional Health Concerns Assessment Noted Time PHQ-9 Depression Total Score: 025 10:08 AM EDT documented as of this encounter Care Teams Segregator Relationship Specialty Start Date End Date Nayeli Bahena MD [address] [place] [phone] PCP - General Internal Medicine 09/09/22 documented as of this encounter
--- OUTSIDE RECORDS SUMMARY | 2024-09-22 11:54 | XMS_ITS | Encounter Summary ---
Author Organization [employer] Address [address] [facility] [address] 7[address] [place] [address] Care Team Providers Care Inspector Packer Name Role Phone Nayeli Bahena MD Primary Care Pro vider Encounter Details Date Type Department Care Team (Late st Contact Info) Description 09/20/2024 Orders Only [facility] [address] [place], [place] [phone] Rissa Garcia ANP [address] [place], [place] [phone] Social History Tobacco Use Types Packs/Day Years [...] Date Recorded Patient Health Questionnaire-2 Score 2 10/25/2023 Comments Unknown Sex and Gender Information Value Date Recorded Sex Assigned at Female 10/01/2022 10:22 AM EDT Legal Sex Female 1:52 PM EDT Gender Identity Female 10/01/2022 10:22 AM EDT Sexual Orientation Lesbian or Barnes 10/01/2022 10 :56 AM EDT documented as of this encounter Progress Notes * JHON Jimenez - 09/20/2024 10:33 AM EDT error documented in this encounter Plan of Treatment Upcoming Encounters Date Type Department Care Team (Late st Contact Info) Description 10/30/2024 2:00 PM EDT Office Visit [facility] [address] [place] [phone] Nayeli Bahena MD [address] [place] [address] documented as of this encounter Procedures Procedure Name Priority Date/Time Associated Diagnosis Comments GLUCOSE, WHOLE BLOOD Routine 09/20/2024 12:06 AM EDT documented in this encounter Results * (ABNORMAL) Glucose, Whole Blood (09/20/2024 12:06 AM EDT) Glucose, Whole Blood 487() 60 - 115 mg/dL [facility] Comment:METER #: [id number] 09/20/2024 12:0 6 AM EDT 09/21/2024 9:12 AM EDT us Generic External Data Provider LAB BLOOD ORDERAB LES Final Result [facility] [address] [place] [address] [phone] documented in this encounter Visit Diagnoses Not on filedocumented in this encounter Additional Health Concerns Assessment Noted Time PHQ-9 Depression Total Score: 5 10/02/19 10:28 AM EDT documented as of this encounter Care Teams Inspector Packer Relationship Specialty Start Date End Date Nayeli Bahena MD [address] [place] [address] PCP - General Internal Medicine 09/09/22 documented as of this encounter
--- OUTSIDE RECORDS SUMMARY | 2024-09-22 11:54 | XMS_ITS | Encounter Summary ---
Author Organization [employer] Address [address] [facility] 7t [place] [address] Care Team Providers Care Manager Sourcing Name Role Phone Nayeli Bahena MD Primary Care Pro vider Reason for Visit * Reason Comments Med Refill Encounter Details Date Type Department Care Team ([facility] Contact Info) Description 04/29/[address] [facility] [address] [place] [address] Nayeli Bahean MD [address] [place] [address] Health care maintenance Social History Tobacco Use Types Packs/Day Years [...] Description 10/30/2024 2:00 PM EDT Office Visit [facility] [address] [place] [phone] Nayeli Bahena MD [address] [place] [phone] documented as of this encounter Visit Diagnoses Diagnosis Health care maintenance documented in this encounter Additional Health Concerns Assessment Noted Time PHQ-9 Depression Total Score: 5 10/02/19 10:28 AM EDT documented as of this encounter Care Teams Manager Sourcing Relationship Specialty Start Date End Date Nayeli Bahena MD [address] [place] [phone] PCP - General Internal Medicine 09/09/22 documented as of this encounter
--- OUTSIDE RECORDS SUMMARY | 2024-09-22 11:54 | XMS_ITS | Data Portability ---
Author Organization [place] [facility] [place] [facility] Address [address] [place] [address] Care Team Providers Care Dynamometer Mechanic Name Role Phone SHANDRA SUN) Primary Care Provider SHANDRA SUN) Referring Provider Assessment Encounter Date Assessment Date Assessment LastModified by Organization Details LastModified Time 11/26/2017 11/26/2017 Patient returns today in follow-up of her right ankle ORIF. We will Place her in a boot and start gentle toe and ankle range of motion. I will see her back in 4 weeks at which time we will start weightbearing. She is to remain nonweightbearing with elevation in the interim. Aspirin for DVT prophylaxis for the next 4 weeks. carter Not available 11/26/2017 15:30:27 12/24/2017 12/24/2017 Patient returns today in follow-up of her right ankle ORIF. We will start PT in the boot at this point. Slow progression because of her diabetes. Follow up in 2 months to reassess with repeat xrays of the right ankle, weight bearing. Patient inquired about driving and I told her she is not allowed to drive at this point [email or web address] Not available 12/24/2017 14:37:41 02/25/2018 02/25/2018 Patient is now over 3 months out from her right ankle fracture. She is doing very well. She can remove her boot and start weightbearing as tolerated and she is allowed to start driving as long as she is safe and comfortable. I will see her back in 3 months to reassess with repeat x-rays of the right ankle. She refused physical therapy at this point [email or web address] Not available 02/25/2018 15:28:28 Plan of Treatment Reminders Order Date Submit Date Provider Last Modified By Organization Details Last Modified Time Details Appointments None recorded. Lab None recorded. Referral physical therapist referral 2017 018 [email or web address] Not available 9 15:27:39 Procedures None recorded. Surgeries None recorded. Imaging XR, ankle 2017 018 [email or web address] [email or web address] In-Office Order, Internal Use Only DO Not Attach Compendium DO Not Attach Compendium, Do Not Delete/merge, [id number] 15:28:37 XR, ankle 2017 018 [email or web address] In-Office Order, Internal Use Only DO Not Attach Compendium DO Not Attach Compendium, Do Not Delete/merge, [id number] 14:37:42 XR, ankle 2017 018 [email or web address] 1 In-Office Order, Internal Use Only DO Not Attach Compendium DO Not Attach Compendium, Do Not Delete/merge, [id number] 15:52:57 Medication Orders None recorded. Patient TargetsNo targets recorded. Patient InstructionsNo instructions recorded. Reason for Referral Physical Therapist Referral for Closed fracture ankle, bimalleolar, low fibular fracture Referring Physician: Sean Weir, Orthopedic Surgery, Encounter Date: 12/24/2017 Results Created Date Observation Date Name Description Value Unit Range Abnormal Flag Note LastModifiedBy Organization Detail LastModifiedTime 11/15/19 18 11/14/2017 XR, ankle , 3 or more view No observ ation record ed. [address] (Radiology) [address] [place] [address], [id number], 11/24/2017 08:22:21 Result Notes None recorded. Procedures Surgical History None recorded. Imaging Results Imaging Date Name Status LastModified by Organiz ation Details LastModified Time 11/14/2017 XR, ankle, 3 or more view completed [address] (Radiology) [address] [place] [address], [id number], 11/24/2017 08:22:21 Procedure Notes None recorded. Medical Equipment None Reported. Medications Name Sig Start Date Stop Date Status Note LastModified by Organization Details LastModified Time cyclobenzaprin e 10 mg tablet TAKE 1 TABLET (10 MG TOTAL) BY MOUTH DAILY NEEDED FOR MUSCLE SPASMS. active Not Available Not Available No t Available cefpodoxime 200 mg tablet active Not Available Not Availabl e Not Available azithromycin 250 mg tablet active Not Available Not Availabl e Not Available ofloxacin 0.3 % eye drops PLACE 1 DROP INTO THE LEFT EYE 4 (FOUR) TIMES A DAY. active Not Available Not Available No t Available clonazepam 1 mg tablet TAKE 1 TABLET BY MOUTH EVERY DAY IN THE EVENING active Not Available Not Available No t Available tramadol 50 mg tablet TAKE 1 TABLET BY MOUTH EVERY 6 HOURS active Not Available Not Available No t Available simvastatin 40 mg tablet TAKE 1 TABLET (40 MG TOTAL) BY MOUTH NIGHTLY. active Not Available Not Available No t Available prednisolone acetate 1 % eye drops,suspensi on PLACE 1 DROP INTO THE LEFT EYE 4 (FOUR) TIMES A DAY. active Not Available Not Available No t Available oseltamivir 75 mg capsule active Not Available Not Available N ot Available levothyroxine 125 mcg tablet TAKE 1 TABLET BY MOUTH EVERY DAY active Not Available Not Available No t Available levothyroxine 150 mcg tablet active Not Available Not Availab le Not Available pramipexole 0.125 mg tablet TAKE 1 TABLET BY MOUTH AT BEDTIME active Not Available Not Available No t Available gabapentin 300 mg capsule TAKE ONE CAPSULE BY MOUTH AT BEDTIME active Not Available Not Available No t Available Novolog U-100 Insulin aspart 100 unit/mL subcutaneous solution active Not Available Not Available Not Available fluoxetine 20 mg capsule TAKE 3 CAPSULES BY MOUTH EVERY DAY active Not Available Not Available No t Available Novolog Mix 70-30 FlexPen U-100 Insulin 100 unit/mL subcutaneous pen INJECT 32 UNITS DIRECTED 2 (TWO) TIMES A DAY. active Not Available Not Available No t Available Novolog Mix 70-30 U-100 Insulin 100 unit/mL subcutaneous solution INJECT 32 UNITS UNDER THE SKIN 2 (TWO) TIMES A DAY BEFORE MEALS. active Not Available Not Available No t Available Novolog FlexPen U-100 Insulin aspart 100 unit/mL (3 mL) subcutaneous USE 6 UNITS 3 (THREE) TIMES A DAY BEFORE MEALS DIRECTED active Not Available Not Available No t Available ketorolac 0.4 % eye drops PLACE 1 DROP INTO THE LEFT EYE 4 (FOUR) TIMES A DAY. active Not Available Not Available No t Available BD Ultra-Fine Mini Pen Needle 31 gauge x 3/16 TEST 4 TIMES DAILY active Not Available Not Available No t Available BD Insulin Syringe Ultra-Fine 1 mL 30 gauge x 1/2 USE DIRECTED 3 TIMES A DAY active Not Available Not Available No t Available OneTouch Verio test strips CHECK THE GLUCOSE THREE TIMES A DAY, PREMEAL. active Not Available Not Available No t Available OneTouch Delica Lancets 30 gauge USE DIRECTED 4 TIMES A DAY active Not Available Not Available No t Available BD Insulin Syringe Ultra-Fine 1 mL 31 gauge x 5/16 active Not Available Not Available Not Available OneTouch Verio Meter USE DIRECTED active Not Available Not Available No t Available Vitals None Recorded Social History None recorded. Functional Status None recorded. Mental Status None recorded. Family History Nothing Reported. Medical History No medical history recorded. Gynecological HistoryNo gynecological history recorded. Obstetrics History GPAL:G 0 P 0 0 0 0 Past Encounters Encounter ID Performer Location Encounter Start Date Encounter Closed Date Diagnosis/Indication Diagnosis SNOMED-CT Code Diagnosis ICD10 Code Diagnosis Note [id number] [address] [address] 11/26/2017 14:03:38 11/26/2017 15:34:10 Closed fracture ankle, bimalleolar, low fibular fracture 329650680 S82.841D [id number] [address] [address] 12/24/2017 13:48:16 12/24/2017 14:30:41 Disorder of joint of ankle and/or foot 160677147 M25.9 Closed fra cture ankle, bimalleolar, low fibular fracture [id number] S82.841D [id number] [address] [address] 02/25/2018 13:17:50 02/25/2018 14:02:56 Disorder of joint of ankle and/or foot 187135444 M25.9 Closed fra cture ankle, bimalleolar, low fibular fracture 047698854 S82.841D Health Concerns Section Related Observation LastModified by Organization Detai ls LastModified Time None Recorded Concern Status LastModified by Organization Details LastModified Time None Recorded Advance Directives Directive None Recorded Payers Insurance Date Sequence Insurance Name Policy Number Policy Land Covered Member ID Land Member ID Guarantor Name 05/24/2018 1 [place] [facility] Maia Cabral Ayaka [id number] Maia Ayaka 05/24/2018 [employer] - SPECIALITY CLAIMS (MEDICARE DME REGION A) Maia Cabral Ayaka [id number] Maia Ayaka 05/24/2018 2 [place] Maia S Ayaka [id number] Maia Ayaka 05/09/2018 2 [place] Maia Mederios [id number] Maia Ayaka Notes Date Note Type Note Provider Name and Address Organization Details Recorded Time 11/26/2017 text/html Patient returns today in first follow-up of her right ankle ORIF. She is doing well without complaints SEAN WEIR [address] [place] [address], [phone], [facility] 11/30/2017 07:53:32 12/24/2017 text/html Patient returns today 6 weeks out from her right ankle ORIF. She is doing well without [place], [phone], [facility] 12/24/2017 14:37:52 02/25/2018 text/html Patient returns today over 3 months out from her right ankle ORIF. She states she has been driving over the last several weeks despite me telling her not to. She states she is doing well and really does not have any [place], [phone], [facility] 02/25/2018 15:28:47 OBGyn Episode No OBEpisode recorded.
--- OUTSIDE RECORDS SUMMARY | 2024-09-22 11:54 | XMS_ITS | Encounter Summary ---
Author Organization [employer] Address [address] [facility] 7t [place] [address] Care Team Providers Care Regional Sales Director Name Role Phone Nayeli Bahena MD Primary Care Pro vider Reason for Visit * Reason Comments Med Refill Encounter Details Date Type Department Care Team ([facility] st Contact Info) Description 10/24/2022 Refill [facility] [address] [place] [address] Nayeli Bahena MD [address] [place] [address] Social History Tobacco Use Types Packs/Day Years [...] Recorded Patient Health Questionnaire-9 Score 5 10/01/2022 Depression Answer Date Recorded Patient Health Questionnaire-2 Score 2 10/01/2022 Comments Unknown Sex and Gender Information Value Date Recorded Sex Assigned at Female 10/01/2022 10:22 AM EDT Legal Sex Female 1:52 PM EDT Gender Identity Female 10/01/2022 10:22 AM EDT Sexual Orientation Lesbian or Barnes 10/01/2022 10 :56 AM EDT COVID-19 Exposure Response Date Recorded In the last 10 days, have yo u been in contact with someone who was confirmed or suspected to have Coronavirus/COVID-19? No / Unsure 10/01/2022 10:18 AM EDT documented as of this encounter Plan of Treatment Upcoming Encounters Date Type Department Care Team (Late st Contact Info) Description 10/30/2024 2:00 PM EDT Office Visit [facility] [address] [place] [address] Nayeli Bahena MD [address] [place] [phone] documented as of this encounter Visit Diagnoses Not on filedocumented in this encounter Additional Health Concerns Assessment Noted Time PHQ-9 Depression Total Score: 5 10/02/19 10:28 AM EDT documented as of this encounter Care Teams Regional Sales Director Relationship Specialty Start Date End Date Nayeli Bahena MD [address] [place] [address] PCP - General Internal Medicine 09/09/22 documented as of this encounter
--- OUTSIDE RECORDS SUMMARY | 2024-09-22 11:54 | XMS_ITS | Encounter Summary ---
Author Organization [employer] Address [address] [place] [address] Care Team Providers Care Chiseler Head Name Role Phone Nayeli Bahena MD Primary Care Pro vider Reason for Visit * Reason Onset Date Comments Med Refill 09/20/2024 Encounter Details Date Type Department Care Team ([facility] st Contact Info) Description 09/20/2024 Telephone [facility] [address] [place], [place] [phone] April Mitchell RN Med Refill Social History Tobacco Use Types Packs/Day Years [...] AM EDT documented as of this encounter Miscellaneous Notes * Telephone Encounter - April Mitchell RN - 09/20/2024 10:27 AM EDT Pt was seen at the [facility] ED for hyperglycemia due to lack of insulin. Pt ran out of insulin since Wednesday and came to the ED due to high BS. PT BS was recorded to be 508 at the ED. Pt received 15 units of short acting insulin but refused further treatment and re evaluation in the ED. The pt presented to the [facility] front desk manager requesting a refill on the prescribed Novolog Mix 70/30 FlexPen. RN called the pt pharmacy who confirmed that the pt was indeed in need of a new refill from PCP. RN spoke with Rissa Garcia who was agreeable to refilling the pt insulin after reviewing the pt chart. Pt was also agreeable to scheduling a ED F/U with PCP on 09/22/2024 at 945 for further assessment of diabetic management and blood sugar control. documented in this encounter Plan of Treatment Upcoming Encounters Date Type Department Care Team (Late st Contact Info) Description 10/30/2024 2:00 PM EDT Office Visit [facility] [address] [place] [phone] Nayeli Bahena MD [address] [place], [place] [phone] documented as of this encounter Visit Diagnoses Not on filedocumented in this encounter Additional Health Concerns Assessment Noted Time PHQ-9 Depression Total Score: 5 10/02/19 10:28 AM EDT documented as of this encounter Care Teams Chiseler Head Relationship Specialty Start Date End Date Nayeli Bahena MD [address] [place] [id number] PCP - General Internal Medicine 09/09/22 documented as of this encounter
--- OUTSIDE RECORDS SUMMARY | 2024-09-22 11:54 | XMS_ITS | Encounter Summary ---
Author Organization [employer] Address [address] 7[address] [place] [address] Care Team Providers Care Spice Miller Name Role Phone Nayeli Bahena MD Primary Care Pro vider Encounter Details Date Type Department Care Team (Latest Contact Info) Description 09/22/2024 Travel Social History Tobacco Use Types Packs/Day Years [...] AM EDT documented as of this encounter Functional Status * Over the past 2 weeks, how often have you been bothered by any of the following problems? Question Answer Date of Assessment Author Patient Health Questionnaire -2 Score 6 09/22/2024 10:08 AM EDT Domitila Varner MA * Little interest or [...] Assessment Author Extremely difficult 09/22/2024 10:08 AM Domitila Rutherford MA * Over the last 2 weeks, how often have you been bothered by any of the following problems? Question Answer Date of Assessment Author Feeling nervous, anxious, or on edge 3 09/22/2024 10:10 AM Domitila Barrios MA Not being able to stop or [...] Description 10/30/2024 2:00 PM EDT Office Visit [facility] [address] [place] [address] Nayeli Bahena MD [address] [place] [address] documented as of this encounter Visit Diagnoses Not on filedocumented in this encounter Additional Health Concerns Assessment Noted Time PHQ-9 Depression Total Score: 025 10:08 AM EDT documented as of this encounter Care Teams Spice Miller Relationship Specialty Start Date End Date Nayeli Bahena MD [address] [place] [phone] PCP - General Internal Medicine 09/09/22 documented as of this encounter
--- OUTSIDE RECORDS SUMMARY | 2024-09-22 11:54 | XMS_ITS | Encounter Summary ---
Author Organization [employer] Address [address] [facility] 7t [place] [address] Care Team Providers Care Group Director Name Role Phone Nayeli Bahena MD Primary Care Pro vider Reason for Visit * Reason Onset Date Comments CHART PREP 09/21/2024 Encounter Details Date Type Department Care Team ([facility] st Contact Info) Description 09/21/2024 Telephone [facility] [address] [place] [address] Nayeli Bahena MD [address] [place] [address] CHART PREP Social History Tobacco Use Types Packs/Day Years [...] encounter Miscellaneous Notes * Telephone Encounter - Tabitha Soriano MA - 09/21/2024 12:01 PM EDT Chart Prep Labs: not done from 04/11/24 t/c to pt for lab reminder pt said will have them done during visit. Images: done chest x-ray 05/04/24 Referrals: not applicable Vaccines due: not applicable Screenings: eye exam and foot exam Overdue care gaps: A1c, Glucose, SBIRT, SDOH, PHQ-9, AL-7, and Oral health screening documented in this encounter Plan of Treatment Upcoming Encounters Date Type Department Care Team (Late st Contact Info) Description 10/30/2024 2:00 PM EDT Office Visit [facility] [address] [place] [address] Nayeli Bahena MD [address] [place] [address] documented as of this encounter Visit Diagnoses Not on filedocumented in this encounter Additional Health Concerns Assessment Noted Time PHQ-9 Depression Total Score: 5 10/02/19 10:28 AM EDT documented as of this encounter Care Teams Group Director Relationship Specialty Start Date End Date Nayeli Bahena MD [address] [place] [phone] PCP - General Internal Medicine 09/09/22 documented as of this encounter
--- OUTSIDE RECORDS SUMMARY | 2024-09-22 11:55 | XMS_ITS | Encounter Summary ---
Author Organization [employer] Address [address] 7[address] [place] [address] Care Team Providers Care Test Case Developer Name Role Phone Nayeli Bahena MD Primary Care Pro vider Reason for Visit * Reason Comments Med Refill Encounter Details Date Type Department Care Team ([facility] st Contact Info) Description 09/19/2024 Refill [facility] [address] [place], [place] [phone] Rissa Garcia ANP [address] [place], [place] [phone] Type 2 diabetes mellitus without complications (CMS/[facility]) Social History Tobacco Use Types Packs/Day Years [...] encounter Miscellaneous Notes * Telephone Encounter - JHON Jimenez - 09/20/2024 10:57 AM EDT Pt presented to FD upset, agitated and requesting insulin refill - she was seen at [facility] this am with BG 508, refusing IV access or tx other than subcu insulin and also refusing for BG recheck afteradministration. Left w/o completing eval. No UA I could locate for ketones. Asked team to please confirm insulin dosing, advise pt to WIC or back to ED for hyperglycemia, appears also w/ mild TISH, RN scheduled sick visit w/ PCP lyndsey, last seen 04/2024. Has PE next mo. Lab Results Component Value Date HGBA1C 8.7 (H) 02/01/2024 HGBA1C 9.4 (A) 10/25/2023 HGBA1C 8.7 (A) 01/29/2023 HGBA1C 9.0 (A) 12/04/2022 documented in this encounter Plan of Treatment Upcoming Encounters Date Type Department Care Team (Late st Contact Info) Description 10/30/2024 2:00 PM EDT Office Visit [facility] [address] [place] [phone] Nayeli Bahena MD [address] [place] [address] documented as of this encounter Visit Diagnoses Diagnosis Type 2 diabetes mellitus without complications (CMS/HCC) documented in this encounter Additional Health Concerns Assessment Noted Time PHQ-9 Depression Total Score: 5 10/02/19 10:28 AM EDT documented as of this encounter Care Teams Test Case Developer Relationship Specialty Start Date End Date Nayeli Bahena MD [address] [place] [phone] PCP - General Internal Medicine 09/09/22 documented as of this encounter
--- OUTSIDE RECORDS SUMMARY | 2024-09-22 11:55 | XMS_ITS | Encounter Summary ---
Author Organization [employer] Address [address] [facility] 7t [place] [address] Care Team Providers Care Hand Embroiderer Name Role Phone Nayeli Bahena MD Primary Care Pro vider Reason for Visit * Reason Comments Med Refill Encounter Details Date Type Department Care Team ([facility] st Contact Info) Description 02/23/2023 Refill [facility] [address] [place] [address] Nayeli Bahena MD [address] [place] [address] Type 2 diabetes mellitus without complications (CMS/[facility]) Social History Tobacco Use Types Packs/Day [...] Description 10/30/2024 2:00 PM EDT Office Visit [facility] [address] [place] [phone] Nayeli Bahena MD [address] [place] [phone] documented as of this encounter Visit Diagnoses Diagnosis Type 2 diabetes mellitus without complications (CMS/HCC) documented in this encounter Additional Health Concerns Assessment Noted Time PHQ-9 Depression Total Score: 5 10/02/19 10:28 AM EDT documented as of this encounter Care Teams Hand Embroiderer Relationship Specialty Start Date End Date Nayeli Bahena MD [address] [place] [phone] PCP - General Internal Medicine 09/09/22 documented as of this encounter
--- OUTSIDE RECORDS SUMMARY | 2024-09-22 11:55 | XMS_ITS | Encounter Summary ---
Author Organization [employer] Address [address] [place] [address] Care Team Providers Care Stemhole Borer And Topper Name Role Phone Nayeli Bahena MD Primary Care Pro vider Encounter Details Date Type Department Care Team (Late st Contact Info) Description 04/30/2024 Orders Only [facility] [address] [facility] [place] [address] ProviderJanell MD Social History Tobacco Use Types Packs/Day Years [...] Description 10/30/2024 2:00 PM EDT Office Visit [facility] [address] [place] [phone] Nayeli Bahena MD [address] [place] [address] [phone] documented as of this encounter Procedures Procedure Name Priority Date/Time Associated Diagnosis Comments HM FIT DNA/COLOGUARD CANCER SCREENING Routine 01/01/2023 5:50 PM EDT documented in this encounter Results * FIT DNA/Cologuard Cancer Screening (01/01/2023 5:50 PM EDT) Stool us Historical Provider HEALTH MAINTENANCE Final Result documented in this encounter Visit Diagnoses Not on filedocumented in this encounter Additional Health Concerns Assessment Noted Time PHQ-9 Depression Total Score: 5 10/02/19 10:28 AM EDT documented as of this encounter Care Teams Stemhole Borer And Topper Relationship Specialty Start Date End Date Nayeli Bahena MD [address] [place] [address] [phone] PCP - General Internal Medicine 09/09/22 documented as of this encounter
--- OUTSIDE RECORDS SUMMARY | 2024-09-22 11:55 | XMS_ITS | Encounter Summary ---
Author Organization [employer] Address [address] [place] [address] Care Team Providers Care Veneer Sander Name Role Phone Nayeli Bahena MD Primary Care Pro vider Reason for Visit * Reason Comments Med Refill Encounter Details Date Type Department Care Team ([facility] st Contact Info) Description 08/08/2024 Refill [facility] [address] [place], [place] [phone] Rissa Garcia ANP [address] [place], [place] [phone] Social History Tobacco Use Types Packs/Day Years [...] Description 10/30/2024 2:00 PM EDT Office Visit [facility] [address] [place] [phone] Nayeli Bahena MD [address] [place] [phone] documented as of this encounter Visit Diagnoses Not on filedocumented in this encounter Additional Health Concerns Assessment Noted Time PHQ-9 Depression Total Score: 5 10/02/19 10:28 AM EDT documented as of this encounter Care Teams Veneer Sander Relationship Specialty Start Date End Date Nayeli Bahena MD [address] [place] [phone] PCP - General Internal Medicine 09/09/22 documented as of this encounter
--- OUTSIDE RECORDS SUMMARY | 2024-09-22 11:55 | XMS_ITS | Clinical Summary ---
Author Organization [employer] Address [address] [place] [address] Care Team Providers Care Telephone Mechanic Name Role Phone Nayeli Bahena MD Primary Care Pro vider Allergies Active Allergy Reactions Criticality Noted Date Comments Metformin Hallucinations 10/01/2022 Pt reports some mental symptoms w metformin Medications EPINEPHrine (Epipen) 0.3 MG/0.3ML injection syringe Inject 0.3 mL (0.3 mg) as directed every 8 (eight) hours if needed for anaphylaxis. Inject into upper leg. Call 911 after use. 1 each 1 023 Active Agnieszka-Dryl 25 MG tablet TAKE 1 TABLET BY MOUTH EVERY 8 HOURS NEEDED FOR ALLERGIES 30 tablet 1 024 Active pantoprazole (ProtoNix) 20 MG EC tablet Take 20 mg by mouth before breakfast. Do not crush, chew, or split. Active Diclofenac Sodium 1 % gel Apply 1 Application topically if needed each day (neck pain). 50 g 024 Active OneTouch Verio test strip USED TO CHECK SUGAR TWICE A DAY 100 strip 11 024 Active ammonium lactate (Amlactin) 12 % cream APPLY TOPICALLY DAILY NEEDED FOR DRY SKIN 385 g 024 Active Insulin Pen Needle (pen needle 09/22 ) 30G x 8 mm misc Use to inject insulin twice daily 60 each 12 025 2025 Active pramipexole (Mirapex) 0.25 MG tablet Take 1 tablet (0.25 mg) by mouth at bedtime. 90 tablet 025 Active levothyroxine (Synthroid, Levoxyl) 150 MCG tablet Take 1 tablet (150 mcg) by mouth before breakfast. 90 tablet 1 Active SITagliptin (Januvia) 50 MG tablet Take 1 tablet (50 mg) by mouth Once per day. 90 tablet 1 Active atorvastatin (Lipitor) 40 MG tablet Take 1 tablet (40 mg) by mouth in the morning. 90 tablet 1 Active sertraline (Zoloft) 100 MG tablet TAKE 1 TABLET BY MOUTH EVERY MORNING 90 tablet 1 Active Alcohol Swabs (CVS Prep) 70 % pads USE TO CLEAN SKIN DAILY BEFORE CHECKING BLOOD SUGAR 100 each 2 Active insulin aspart protamine-insuli n aspart (NovoLOG MIX 70/30 FLEXPEN) (70-30) 100 UNIT/ML injectionIndicat ions:Type 2 diabetes mellitus without complications (CMS/HCC) INJECT 42 UNITS IN THE MORNING AND 42 UNITS IN THE EVENING 15 mL 11 Active lidocaine-priloc margarita (Emla) 2.5-2.5 % cream Apply topically if needed each day for mild pain. 30 g 2 Active triamcinolone (Kenalog) 0.1 % cream Apply topically if needed in the morning and at bedtime (icthing skin). 30 g 025 Active Alcohol Swabs (CVS Prep) 70 % pads USE TO CLEAN SKIN DAILY BEFORE CHECKING BLOOD SUGAR 100 each 2 023 2024 Discontinued(R eorder (will not trigger notification to Pharmacy)) lidocaine (Lidoderm) 5 % patchIndications :Bilateral hip pain Apply 1 patch topically Once per day. Remove & discard patch within 12 hours or as directed by . 30 patch 2 024 2024 Discontinued(O ther) atorvastatin (Lipitor) 40 MG tablet TAKE 1 TABLET BY MOUTH EVERY DAY IN THE MORNING 90 tablet 1 024 2024 Discontinued(R eorder (will not trigger notification to Pharmacy)) pramipexole (Mirapex) 0.125 MG tablet TAKE 1 TABLET BY MOUTH AT BEDTIME 90 tablet 024 2024 Discontinued(R eorder (will not trigger notification to Pharmacy)) levothyroxine (Synthroid, Levoxyl) 150 MCG tablet TAKE 1 TABLET BY MOUTH EVERY MORNING BEFORE BREAKFAST 90 tablet 024 2024 Discontinued(R eorder (will not trigger notification to Pharmacy)) Januvia 25 MG tablet TAKE 1 TABLET BY MOUTH ONCE DAILY 90 tablet 024 2024 Discontinued(R eorder (will not trigger notification to Pharmacy)) NovoLOG MIX 70/30 FLEXPEN (70-30) 100 UNIT/ML injectionIndicat ions:Type 2 diabetes mellitus without complications (CMS/HCC) INJECT 40 UNITS IN THE MORNING AND 42 UNITS IN THE EVENING 15 mL 2 025 2024 Discontinued sertraline (Zoloft) 100 MG tablet TAKE 1 TABLET BY MOUTH EVERY MORNING 30 tablet 3 025 2024 Discontinued(R eorder (will not trigger notification to Pharmacy)) insulin aspart protamine-insuli n aspart (NovoLOG MIX 70/30 FLEXPEN) (70-30) 100 UNIT/ML injectionIndicat ions:Type 2 diabetes mellitus without complications (CMS/HCC) INJECT 42 UNITS IN THE MORNING AND 42 UNITS IN THE EVENING 15 mL 1 025 2024 Discontinued(R eorder (will not trigger notification to Pharmacy)) Active Problems Problem Noted Date Diagnosed Date Hip pain 04/11/2024 Cough 04/11/2024 Imbalance 12/14/2023 Eosinophilia 01/09/2023 Assessment & Plan (01/30/2023 9:05 PM EDT): From labs ordered today Noted WBC elevated at 13.2 , Eos 22.6% and AEC 3000 from normal 2 mo ago? And noted immature granulocytes ,no anemia seen-likely in setting of unspecified food allergy? From repeated labs in 12/2022, absolute eosinophils are normal as well as WBC. IgE neg, Strongy neg Assessment & Plan (01/09/2023 10:27 PM EDT): From labs ordered today Noted WBC elevated at 13.2 , Eos 22.6% and AEC 3000 from normal 2 mo ago? And noted immature granulocytes ,no anemia seen-likely in setting of unspecified food allergy? -will repeat CBC,strongy titers and smear,food allergy panel today Iron deficiency anemia due to chronic blood loss 12/05/2022 Assessment & Plan (01/30/2023 8:56 PM EDT): She was seen by GI at [facility] 06/2022, and from the consult was thought possible low grade upper GI bleed from Hortencia-Saxena tear vs esophagitis due to vomiting, seems no EGD was done. 12/2022: Hb 12.7 <--- 13<---11.3 <13.2 ,FOBT neg Confirmed that no further anemia has been seen. Denies any melenas, BRBR, nor hematemesis -Advised to avoid any NSAIDs and will not resume ASA that she was taking prophylacticly with no clear indication. -Pt never started taking iron. -Given Hx of hematemesis in 06/2022 patient agreed today to GI referral Assessment & Plan (01/09/2023 10:40 PM EDT): She was seen by GI at [facility] 06/2022, and from the consult was thought possible low grade upper GI bleed from Hortencia-Saxena tear vs esophagitis due to vomiting, seems no EGD was done. 11/2022: Hb 13<---11.3 <13.2 ,FOBT neg Denies any melenas, BRBR, nor hematemesis -Advised to avoid any NSAIDs. -will check w pt if taking iron px at last visit -will stop at next apt and monitor CBC off iron -pt wants to hold on GI referral -will repeat CBC in 2 months Assessment & Plan (12/05/2022 6:22 PM EDT): She was seen by GI at [facility] 06/2022, and from the consult was thought possible low grade upper GI bleed from Hortencia-Saxena tear vs esophagitis due to vomiting, seems no EGD was done. 10/2022: Hb 11.3 <13.2 in 09/2022 Denies any melenas, BRBR, nor hematemesis -Will repeat today CBC, Fe panel. -Referred for FOBT -Advised to avoid any NSAIDs. -If ongoing anemia, will discuss w pt about importance of going to already referred GI, will start iron and pt taking PPis Memory loss 12/05/2022 Assessment & Plan (01/30/2023 8:44 PM EDT): Noted to be very forgetful, and pt confirms having poor memory. Denies Hx of dementia diagnosis. 09/2022 Vit B12 wnl but borderline at 272--started already MVI daily -Requested today to nurse staff to do request for MOCA test -referred already for brain MRI --- [place] checked and image is in PA process. Assessment & Plan (01/09/2023 10:46 PM EDT): Noted to be very forgetful, and pt confirms having poor memory. Denies Hx of dementia diagnosis. 09/2022 Vit B12 wnl but borderline at 272--started already MVI daily -will eval memory at next visit in 4 wk w MOCA test -referred today for brain MRI Assessment & Plan (12/05/2022 6:26 PM EDT): Noted to be very forgetful, and pt confirms having poor memory. Denies Hx of dementia diagnosis. 09/2022 Vit B12 wnl but borderline at 272--started already MVI daily -will eval memory at next visit in 4 wk w MOCA test - if abnormal will refer for brain MRI. Skin lesions 10/29/2022 Assessment & Plan (01/30/2023 8:42 PM EDT): Moles and skin tags -pt wants dermatology referral-sent already Assessment & Plan (01/09/2023 10:47 PM EDT): Moles and skin tags -pt wants dermatology referral-sent already Assessment & Plan (12/05/2022 6:16 PM EDT): Moles and skin tags -pt wants dermatology referral-sent already Assessment & Plan (10/29/2022 7:24 PM EDT): Moles and skin tags -pt wants dermatology referral-sent today History of tobacco abuse 10/01/2022 Assessment & Plan (01/30/2023 8:45 PM EDT): From 05/11 --05/11 PQT -Started at 11 y of age until 65 y of age -smoked for 54 years -stopped already x 6 years -PQT a year Calc 54 -referred to lung ca screening program -no previous CT chest in last year from previous PCP records obtained - will check w pt at next apt if already following w program. Assessment & Plan (01/09/2023 10:46 PM EDT): From 05/11 --05/11 PQT -Started at 11 y of age until 65 y of age -smoked for 54 years -stopped already x 6 years -PQT a year Calc 54 -referred to lung ca screening program -no previous CT chest in last year from previous PCP records obtained. Assessment & Plan (12/05/2022 6:04 PM EDT): From 05/11 --05/11 PQT -Started at 11 y of age until 65 y of age -smoked for 54 years -stopped already x 6 years -PQT a year Calc 54 -referred to lung ca screening program -no previous CT chest in last year from previous PCP records obtained. ---- requested record to [facility] Assessment & Plan (10/29/2022 7:18 PM EDT): From 05/11 --05/11 PQT -Started at 11 y of age until 65 y of age -smoked for 54 years -stopped already x 6 years -PQT a year Calc 54 -referred today to lung ca screening program -no previous CT chest in last year from previous PCP records obtained Assessment & Plan (10/01/2022 7:08 PM EDT): From 05/11 --05/11 PQT -Started at 11 y of age until 65 y of age -smoked for 54 years -stopped already x 6 years -PQT a year Calc 53 -will try to get CT chest image -per pt thinks had it done w her previous PCP - if not done in last year or not able to find records will refer to cardiothor at next visit x screening Health care maintenance 10/01/2022 Assessment & Plan (01/30/2023 8:46 PM EDT): -pap smear : reports mx Neg test in the past-stopped already -MM 11/2022 BIRADS 1, dense. The lifetime risk of breast cancer based on the Tyrer-Cuzick Model is 4%. -DEXA scan : Referred today -hx of neg FOBT: from previous PCP's records--colonoscopy: never-and refusing ,Cologuard 12/2022 Neg -vaccines: s/p covid x3-showed card--s/p here Bivalent dose ,s/p p20 , hep B not immune-s/p 2nd dose-3rd dose in 5 months , did prescription x her px x shingrix vaccine to start series pending to get at pharmacy, PCP records: Tdap 01/2021, 2016, rabies x 2 -has health care proxy-her niece Alice Horner # [phone]--kepw ask pt to bring paper to update in system ------ -pt reports would like to take vesicare ---will discuss at next apt about urinary insentience at next apt -referred today MEDBOX to px -pt interested in switching pharmacy and start MEDBOX -pap smear : reports mx Neg test in the past-stopped already -MM 11/2022 BIRADS 1, dense. The lifetime risk of breast cancer based on the Tyrer-Cuzick Model is 4%. -DEXA 12/2022: Normal bone density based on the lowest T-score value of 0.9 in the total femur -hx of neg FOBT: from previous PCP's records--colonoscopy: never-and refusing ,Cologuard 12/2022 Neg -vaccines: s/p covid x3-showed card--s/p here Bivalent dose ,s/p p20 , hep B not immune-s/p 2nd dose-3rd dose in 5 months , did prescription x her px x shingrix vaccine to start series pending to get at pharmacy, PCP records: Tdap 01/2021, 2016, rabies x 2; Flu vaccine today. -has health care proxy-her niece Alice Horner # [phone]--pfsd ask pt to bring paper to update in system ------ -pt reports would like to take vesicare ---will discuss at next apt about urinary insentience at next apt -referred today MEDBOX to px -pt interested in switching pharmacy and start MEDBOX. Per pt has not received a call for MEDBOX yet. I will refer again today. Assessment & Plan (01/09/2023 10:51 PM EDT): -pap smear : reports mx Neg test in the past-stopped already -MM 11/2022 BIRADS 1, dense. The lifetime risk of breast cancer based on the Tyrer-Cuzick Model is 4%. -DEXA scan : Referred today -hx of neg FOBT: from previous PCP's records--colonoscopy: never-and refusing ,Cologuard 12/2022 Neg -vaccines: s/p covid x3-showed card--s/p here Bivalent dose ,s/p p20 , hep B not immune-s/p 2nd dose-3rd dose in 5 months , did prescription x her px x shingrix vaccine to start series pending to get at pharmacy, PCP records: Tdap 01/2021, P13 2017, rabies x 2 -has health care proxy-her niece Alice Horner # [phone]--wzon ask pt to bring paper to update in system ------ -pt reports would like to take vesicare ---will discuss at next apt about urinary insentience at next apt -referred today MEDBOX to px -pt interested in switching pharmacy and start MEDBOX Assessment & Plan (12/05/2022 6:06 PM EDT): -pap smear : reports mx Neg test in the past-stopped already -MM 11/2022 BIRADS 1, dense. The lifetime risk of breast cancer based on the Tyrer-Cuzick Model is 4%. -DEXA scan : will refer at next apt -hx of neg FOBT: from previous PCP's records--colonoscopy: never-referred already-pd to get apt -[place] printed today again letter x pt of # of clinic however pt is now refusing. Sent for Cologuard test today -vaccines: s/p covid x3-showed card--s/p here Bivalent dose ,s/p p20 , hep B not immune-2nd dose today, did prescription x her px x shingrix vaccine to start series pending to get at pharmacy, PCP records: Tdap 01/2021, 2016, rabies x 2 -has health care proxy-her niece Alice Horner # [phone]--dbwj ask pt to bring paper to update in system Assessment & Plan (10/29/2022 7:26 PM EDT): -pap smear : reports mx Neg test in the past-stopped already -MM not recently in last year-referred already -scheduled x 11/2022 -DEXA scan : will refer at next apt -hx of neg FOBT: from previous PCP's records--colonoscopy: never-referred already-pd to get apt -[place] printed today again letter x pt of # of clinic -vaccines: s/p covid x3-showed card--s/p here Bivalent dose ,today p20 here, hep B not immune-pt interested in vaccination -start series today, did prescription x her px x shingrix vaccine to start series,PCP records: Tdap 01/2021, 2016, rabies x 2 -has health care proxy-her niece Alice Horner # [phone]--lntr ask pt to bring paper to update in system --- -09/2022 Vit B12 wnl but borderline at 272--start MVI daily -will eval memory at future visit Assessment & Plan (10/01/2022 7:22 PM EDT): -pap smear : reports mx Neg test in the past-stopped already -MM not recently in last year-referred today -DEXA scan : reports few years ago was normal-will try to get records otherwise to send at next visit -colonoscopy: never-referred today -vaccines: s/p covid x3-showed card--today here Bivalent dose , will try to get vaccine records from previous PCP -otherwise to start p20,shingrix -will do annual exam -pt will have labs today not in fasting -will refer at future visit to dermatology x mx moles -advised today to schedule apt w dentist ----> requested today to [place] [facility] To obtain last visit note w PCP,images,pap smear,screenings, vaccine records ---- -has health care proxy-her niece Alice Horner # [phone]--pbci ask pt to bring paper to update in system Obesity (BMI 30-39.9) 10/01/2022 Assessment & Plan (01/30/2023 8:36 PM EDT): Advised pt to improve diet and exercise,discussed healthy life style -noted 12 pounds weight loss in the last 3 mo -seems since increase levothyroxine dose as well trying to eat less CH as well GLP1 dose was recently increased, however has increased 6 lb in the last mo. Per pt has been eating a lot of ice cream. -discussed automatic vulcanizing operator referral -refusing x now Assessment & Plan (01/09/2023 10:37 PM EDT): Advised pt to improve diet and exercise,discussed healthy life style -noted 12 pounds weight loss in the last 3 mo -seems since increase levothyroxine dose as well trying to eat less CH as well GLP1 dose was recently increased -discussed automatic vulcanizing operator referral -refusing x now -weight loss is expected as mentioned above, but will closely monitor if there continues to be significant weight loss will evaluate further.Reports feeling well with no alarming symptoms Assessment & Plan (12/05/2022 5:59 PM EDT): Advised pt to improve diet and exercise,discussed healthy life style -noted 10 pounds weight loss in the last 2 mo -seems since increase levothyroxine dose as well trying to eat less CH as well GLP1 dose was recently increased -discussed automatic vulcanizing operator referral -refusing x now -weight loss is expected as mentioned above, but will closely monitor if there continues to be significant weight loss will evaluate further. Assessment & Plan (10/29/2022 7:12 PM EDT): Advised pt to improve diet and exercise,discussed healthy life style -noted 5 pounds weight loss -seems since increase levothyroxine dose as well trying to eat less CH -discussed automatic vulcanizing operator referral -refusing x now -pt on GLP1-increase dose today Assessment & Plan (10/01/2022 7:07 PM EDT): Advised pt to improve diet and exercise,discussed healthy life style -discussed automatic vulcanizing operator referral -refusing x now -pt on GLP1 x DM -may consider to increase dose ? In future Food allergy 10/01/2022 Assessment & Plan (01/30/2023 8:48 PM EDT): Unclear which food gives allergy but causing tongue swelling -continue benadryl has at home and epipen pen -referred to [employer] to eval--has apt for 09/2023---- I will try to call [employer] to get an earlier apt for pt, and will inform her if I am able to. -I requested for a food allergy panel at previous visit, but was not done at lab. Will order at next lab order (IgE neg). Assessment & Plan (01/09/2023 10:41 PM EDT): Unclear which food gives allergy but causing tongue swelling -continue benadryl has at home and epipen pen -referred to [employer] to eval--has apt for 09/2023 Assessment & Plan (12/05/2022 6:07 PM EDT): Unclear which food gives allergy but causing tongue swelling -continue benadryl has at home and epipen pen -referred to [employer] to eval---[place] printed today again letter x pt of # of clinic Assessment & Plan (10/29/2022 7:22 PM EDT): Unclear which food gives allergy but causing tongue swelling -continue benadryl has at home and epipen pen -referred to [employer] to eval---[place] printed today again letter x pt of # of clinic Assessment & Plan (10/01/2022 7:12 PM EDT): Unclear which food gives allergy but causing tongue swelling -continue benadryl has at home and epipen pen -referred today to [employer] to eval Hypothyroidism 10/01/2022 Assessment & Plan (01/30/2023 8:37 PM EDT): From report seems had hyperthyroidism s/p nuclear tx? Now hypothyroid 11/2022 TSH 1.35<--- 15.20 w free T41.31<--- 0.8 -continue levothyroxine 150 mcg daily -repeat TFT in 4 mo Assessment & Plan (01/09/2023 10:36 PM EDT): From report seems had hyperthyroidism s/p nuclear tx? Now hypothyroid 11/2022 TSH 1.35<--- 15.20 w free T41.31<--- 0.8 -continue levothyroxine 150 mcg daily -repeat TFT in 6 mo Assessment & Plan (12/05/2022 6:00 PM EDT): From report seems had hyperthyroidism s/p nuclear tx? Now hypothyroid 09/2022 TSH 15.20 w free T4 0.8 -continue levothyroxine increased with previous abnormal labs last month to 150 from 137 mcg daily -repeat TFT today Assessment & Plan (10/29/2022 7:13 PM EDT): From report seems had hyperthyroidism s/p nuclear tx? Now hypothyroid 09/2022 TSH 15.20 w free T4 0.8 -continue levothyroxine increased with previous abnormal labs last month to 150 from 137 mcg daily -repeat TFT in 2 weeks-ordered today Assessment & Plan (10/01/2022 7:13 PM EDT): From report seems had hyperthyroidism s/p nuclear tx? Now hypothyroid -check TFT -continue levothyroxine current dose Hearing loss 10/01/2022 Assessment & Plan (01/30/2023 8:46 PM EDT): Has ear wax --cleaned already by nurse staff here in 09/2022 -referred to pipe line inspector--Has apt scheduled already x 02/2023 Assessment & Plan (01/09/2023 10:44 PM EDT): Has ear wax --cleaned already by nurse staff here in 09/2022 -referred to pipe line inspector--Has apt scheduled already x 02/2023 Assessment & Plan (12/05/2022 6:15 PM EDT): Has ear wax --cleaned already by nurse staff here in 09/2022 -referred to pipe line inspector--Has apt scheduled already x 02/2023 Assessment & Plan (10/29/2022 7:25 PM EDT): Has ear wax --cleaned already by nurse staff here in 09/2022 -referred to pipe line inspector--Has apt scheduled already x 02/2023 Assessment & Plan (10/01/2022 7:14 PM EDT): Has ear wax --cleaned today by nurse staff here -referred today to pipe line inspector Diabetes due to undrl condition w oth diabetic n euro comp 10/01/2022 Assessment & Plan (01/30/2023 8:39 PM EDT): Pt on chronic insulin -Reports hx of SE w metformin -11/2022 HbA1c 9 <- 8.2 ,total ch 289, HDL 72, LDL 188 ,trig 143 ,microalb neg ASCVD 24.1% ( indication x high dose statins ,no rec x ppx ASA -pt > 70 y of age) -fasting CBGs 200s -Advised at length about diet and to avoid excessive fruit intake. -continue GLP1 - but increase to 4.5 mg weekly--- to start next wk. -continue novolog 70/30 to 40 units PM at night from 35, and continue 35 units AM - atorvastatin 40 mg -discussed in regards hypoglycemic symptoms in which case to call clinic to decrease insulin -monitor CBgs in fasting and 2 h after biggest meals -DM labs in 2 mo -opthalmo 08/2022 Per pt -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 -offered free style vania glucose monitoring but refusing Assessment & Plan (01/09/2023 10:34 PM EDT): Pt on chronic insulin -Reports hx of SE w metformin -11/2022 HbA1c 9 <- 8.2 ,total ch 289, HDL 72, LDL 188 ,trig 143 ,microalb neg ASCVD 24.1% ( indication x high dose statins ,no rec x ppx ASA -pt > 70 y of age) -fasting CBGs 200s -Advised at length about diet and to avoid excessive fruit intake. -continue GLP1 - but increase to 4.5 mg weekly -continue novolog 70/30 to 40 units PM at night from 35, and continue 35 units AM.( explained that only until starts get new GLP 1 higher dose can increase pm insulin dose to 42 but once start higher dose to go back to regular insulin dose - atorvastatin 40 mg -discussed in regards hypoglycemic symptoms in which case to call clinic to decrease insulin -monitor CBgs in fasting and 2 h after biggest meals -DM labs in 2 mo -opthalmo 08/2022 Per pt -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 -offered free style vania glucose monitoring but refusing Assessment & Plan (12/05/2022 6:23 PM EDT): Pt on chronic insulin -Reports hx of SE leach metformin -11/2022 HbA1c 9 <- 8.2 ,total ch 289, HDL 72, LDL 188 ,trig 143 ,microalb neg ASCVD 24.1% ( indication x high dose statins ,no rec x ppx ASA -pt > 70 y of age) -fasting CBGs from 200 to 300. States she is eating a lot of fruits. -Advised at length about diet and to avoid excessive fruit intake. -continue GLP1 - 3 mg -increase novolog 70/30 to 40 units PM at night from 35, and continue 35 units AM. -Will stop simvastatin 40 and start atorvastatin 40 mg HS-advised about change at last visit, not done yet. -discussed in regards hypoglycemic symptoms in which case to call clinic to decrease insulin -monitor CBgs in fasting and 2 h after biggest meals -DM labs in 3 mo -opthalmo 08/2022 Per pt -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 -offered free style vania glucose monitoring but refusing Assessment & Plan (10/29/2022 7:27 PM EDT): Pt on chronic insulin -Reports hx of SE leach metformin 09/2022 hb1AC 8.2 ,total ch 289, HDL 72, LDL 188 ,trig 143 ,microalb neg ASCVD 24.1% ( indication x high dose statins ,no rec x ppx ASA -pt > 70 y of age) -continue GLP1 but increase dose to 3 mg from 1.5 mg weekly and will decrease, novolog 70/30 Dose ( 20% decrease w increase in trulicity) to 35 u BID from 42 U bid -Will stop simvastatin 40 and start atorvastatin 40 mg HS-advised to be compliant -discussed in regards hypoglycemic symptoms in which case to call clinic to decrease insulin if however after next weeks on increase trulicity, CBGs in fasting > 150 to increase insulin BID by 2 units to 37 -f here in 6 weeks to monitor CBgs in fasting and 2 h after biggest meals -DM labs in 3 mo -opthalmo 08/2022 Per pt -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 -will discuss w pt at next visit x free style vania glucose monitoring Assessment & Plan (10/01/2022 7:17 PM EDT): Pt on chronic insulin -Reports hx of SE w metformin -continue GLP1, novolog 70/30 42 U bid -labs today -opthalmo 08/2022 Per pt -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 Restless leg syndrome 10/01/2022 Assessment & Plan (01/30/2023 8:33 PM EDT): -continue pramipexole Assessment & Plan (01/09/2023 10:28 PM EDT): -continue pramipexole Assessment & Plan (12/05/2022 5:57 PM EDT): -continue pramipexole Assessment & Plan (10/29/2022 7:11 PM EDT): -continue pramipexole Assessment & Plan (10/01/2022 7:17 PM EDT): -continue pramipexole Moderate episode of recurrent major depressive d isorder 10/01/2022 Assessment & Plan (01/30/2023 8:42 PM EDT): Hx of depression PHQ9: 5,denies SI -continue sertraline -pt refusing BH referral -will continue to monitor Assessment & Plan (01/09/2023 10:46 PM EDT): Hx of depression PHQ9: 5,denies SI -continue sertraline -pt refusing BH referral -will continue to monitor Assessment & Plan (12/05/2022 6:15 PM EDT): Hx of depression PHQ9: 5,denies SI -continue sertraline -pt refusing BH referral -will continue to monitor Assessment & Plan (10/29/2022 7:23 PM EDT): Hx of depression PHQ9: 5,denies SI -continue sertraline -pt refusing BH referral -will continue to monitor Assessment & Plan (10/01/2022 7:20 PM EDT): Hx of depression PHQ9: 5,denies SI -continue sertraline -pt refusing BH referral -will continue to monitor Encounters Date Type Department Care Team Description 09/22/2024 9:45 AM EDT Office Visit [address] [address] Nayeli Bahena MD Hip pain, unspecified laterality (Primary Dx); Type 2 diabetes mellitus without complications ([facility]); Chronic pain of left knee 09/22/2024 Travel 09/21/[address] [address] Nayeli Bahena MD CHART PREP 09/20/2024 Results Follow-Up [address] [address] Nayeli Bahena MD CBC auto differential, Comprehensive Metabolic Panel 09/20/2024 Orders Only [address] [address] Rissa Garcia, ANP 09/20/[address] [address] April Mitchell, RONALD Med Refill 09/20/2024 Orders Only GENERIC EXTERNAL DATA DEPARTMENT Provider, Generic External Data 09/19/2024 Telephone [facility] MEDICINE [address] [place] [address] Nayeli Bahena MD Med Refill 09/19/2024 Refill [facility] MEDICINE [address] [place] [address] Rissa Garcia ANP Type 2 diabetes mellitus without complications ([facility]) 08/20/2024 Refill [facility] MEDICINE [address] [place] [address] Nayeli Bahena MD 08/08/2024 Refill [facility] MEDICINE [address] [place] [address] Rissa Garcia ANP 07/24/2024 Telephone [facility] MEDICINE [address] [place] [address] Nayeli Bahena MD October recall 07/20/2024 Refill [facility] MEDICINE [address] [place] [address] Rita Pa MD Type 2 diabetes mellitus without complications ([facility]) 07/12/2024 Telephone [facility] MEDICINE [address] [place] [address] Nayeli Bahena MD september recall from Last 3 Months Immunizations Immunization Administration Dates Next Due Hep B, adult 12/13/2023,12/04/2022,10/29/2022 INFLUENZA VACCINE QUADRIVALE NT RECOMBINANT PRESERVATIVE FREE RIV4 02/21/2020 Influenza High-dose Quadriva lent Preservative Free 03/16/2020 Influenza injectable quadriv alent preservative free 01/29/2023,04/24/2022,01/12/2017,2015 Influenza, High Dose Seasona l, Preservative Free 04/05/2019,02/02/2019,03/30/2018,2017 Influenza, seasonal, injecta ble, preservative free 04/11/2024 Pfizer Covid-19 Vaccine 12+ 04/11/2024 Pfizer Covid-19 Vaccine 12+ Bivalent 10/01/2022 Pneumococcal Conjugate PCV 13 07/06/2016 Pneumococcal Conjugate PCV 20 10/29/2022 RSV Bivalent 10/25/2023 Rabies - IM Fibroblast Culture 2021,2020 Tdap 02/03/2021,04/05/2019 Zoster, Recombinant 10/25/2023,02/02/2023 Family History Medical History Relation Name Comments DM2 Maternal Grandfather Relation Name Status Comments Maternal Grandfather Social History Tobacco Use Types Packs/Day Years [...] or Barnes 10/01/2022 10 :56 AM EDT Last Filed Vital Signs Vital Sign Reading [...] Mass Index 32.12 09/22/2024 10:05 AM EDT Plan of Treatment Upcoming Encounters Date Type Department Care Team (Late st Contact Info) Description 10/30/2024 2:00 PM EDT Office Visit [facility] MEDICINE [address] [place] [address] Nayeli Bahena MD [address] [place] [address] Health Maintenance Due Date Last Done Comments CT Colonography 1949 Colonoscopy 1950 Sigmoidoscopy 1949 Diabetes: Foot Exam 1959 Eye Exam 1959 Diabetes: Urine Protein Screening 10/02/2023 10/01/2022 FIT 12/24/2023 12/23/2022 FOBT 01/02/2024 01/01/2023, 12/23/2022 Diabetes: Hemoglobin A1C 05/02/2024 024, 10/25/2023, 01/29/2023, Additional history exists COVID-19 Vaccine ( season) 2024 04/11/2024, 10/01/2022, 07/30/2021, Additional history exists Lipid Panel 01/31/2025 02/01/2024, 10/01/2022 Alcohol/Substance Use Screening 09/22/2025 09/22/2024 Depression Screening 09/22/2025 09/22/2024, 09/23/19 SDOH Screening 09/22/2025 09/22/2024 Tobacco Screening 09/22/2025 09/22/2024 Colorectal Cancer Screening 01/01/2026 FIT DNA/Cologuard 01/01/2026 01/01/2023 DTaP/Tdap/Td Vaccines (3 - Td or Tdap) 02/03/2031 02/03/2021, 04/05/2019 Hepatitis C Screening Completed 10/01/2022 Pneumococcal Vaccine: 50+ Years Completed 10/29/2022, 07/06/2016 RSV Patients and Patients Aged 60 years or older Completed 10/25/2023 Zoster Vaccines Completed 10/25/2023, 02/02/2023 Hepatitis B Vaccines Completed 12/13/2023, 12/04/2022, 10/29/2022 Influenza Vaccine Completed 04/11/2024, , 04/24/2022, Additional history exists HIB Vaccines Aged Out No longer eligi ble based on patient's age to complete this topic HPV Vaccines Aged Out No longer eligi ble based on patient's age to complete this topic Hepatitis A Vaccines Aged Out No long er eligible based on patient's age to complete this topic IPV Vaccines Aged Out No longer eligi ble based on patient's age to complete this topic Meningococcal B Vaccine Aged Out No l onger eligible based on patient's age to complete this topic Meningococcal Vaccine Aged Out No ny keyana eligible based on patient's age to complete this topic RSV under 20 months Aged Out No longe r eligible based on patient's age to complete this topic Rotavirus Vaccines Aged Out No longer eligible based on patient's age to complete this topic Procedures Procedure Name Priority Date/Time Associated Diagnosis Comments COMPREHENSIVE METABOLIC PANEL Routine 09/20/2024 12:15 AM EDT CBC WITH AUTO DIFFERENTIAL Routine 09/20/2024 12:15 AM EDT GLUCOSE, WHOLE BLOOD Routine 09/20/2024 12:06 AM EDT HEMOGLOBIN A1C Routine 02/01/2024 3:21 PM EDT Annual physical exam LIPID PANEL, STANDARD Routine 02/01/2024 3:21 PM EDT Annual physical exam HM FIT DNA/COLOGUARD CANCER SCREENING Routine 01/01/2023 5:50 PM EDT FECAL GLOBIN BY IMMUNOCHEMISTRY Routine 12/23/2022 12:00 AM EDT Anemia, unspecified type HEPATITIS C AB W/REFL TO HCV RNA, QN, PCR Routine 10/01/2022 12:43 PM EDT ALBUMIN, RANDOM URINE W/O CREATININE Routine 10/01/2022 12:43 PM EDT from Last 3 Months or Most Recently Relevant to Health Maintenance Results * (ABNORMAL) CBC auto differential (09/20/2024 12:15 AM EDT) White Blood Count 7.9 4.8 - 10.8 X10*3/uL [facility] Red Blood Count 3.92(L) 4.20 - 5.50 X10*6/uL [facility] Hemoglobin 11.9(L) 12.0 - 16.0 g/dl [facility] Hematocrit 36.3(L) 37.0 - 47.0 % [facility] Mean Corpuscular Volume 92.6 80.0 - 98.0 fL [facility] Mean Corpuscular Hemoglobin 30.4 27.0 - 33.0 pg [facility] Mean Corpuscular HGB Conc 32.8 31.0 - 35.0 g/dl [facility] Red Cell Distribution Width 13.5 11.0 - 16.0 % [facility] Platelet Count 232 160 - 400 X10*3/uL [facility] Mean Platelet Volume 10.4 9.4 - 12.3 fL [facility] Neutrophils Percent Auto 64.8 45 - 73 % [facility] Imm Gran Pct Auto 0.3 0.0 - 0.4 % [facility] Lymphocytes Percent Auto 23.2 20 - 40 % [facility] Monocytes Percent Auto 6.9 2 - 11 % [facility] Eosinophils Percent Auto 3.7 0 - 4 % [facility] Basophils Percent Auto 1.1 0 - 2 % [facility] NRBC Pct Auto 0.0 0.0 - 0.2 /100WBC [facility] Neutrophils Absolute Auto 5.1 2.0 - 8.3 x10*3/uL [facility] Imm Gran Abs Auto 0.02 0.00 - 0.03 X10*3/uL [facility] Lymphocytes Absolute Auto 1.8 1.2 - 4.9 X10*3/uL [facility] Monocytes Absolute Auto 0.6 0.1 - 1.2 X10*3/uL [facility] Eosinophils Absolute Auto 0.3 0.0 - 0.4 X10*3/uL [facility] Basophils Absolute Auto 0.1 0.0 - 0.2 X10*3/uL [facility] NRBC Abs Auto 0.000 0.0 - 0.012 X10*3/uL [facility] 09/20/2024 12:1 5 AM EDT 09/20/2024 12:21 AM EDT us Generic External Data Provider LAB BLOOD ORDERAB LES Final Result [facility] [address] [place] [phone] * (ABNORMAL) Comprehensive Metabolic Panel (09/20/2024 12:15 AM EDT) Sodium 140 135 - 145 mmol/L [facility] Potassium 4.4 3.3 - 5.1 mmol/L [facility] Chloride 104 96 - 108 mmol/L [facility] Carbon Dioxide 22 22 - 29 mmol/L [facility] Anion Gap 18 12 - 20 [facility] Urea Nitrogen (BUN) 24(H) 9 - 16 mg/dL [facility] Creatinine, Serum 1.18 0.5 - 1.4 mg/dL [facility] Creatinine Clr Calc Pharmacy 43.4 [facility] Comment:Provided height and weight: 165.1 cm,81.647 kg.eGFR (calculated from the MDRD study equation) and eCrCl(calculated from the Cockcroft-Gault equation) are based ondifferent parameters and may not yield comparable results.If eCrCl result is absurd, please check patient'sheight/weight. Estimated Glomerular Filt Rate 45 [facility] Comment:Chronic Kidney Disea se: Estimated GFR < 60 mL/min/1.45d6Pcltco Kidney Disease: Estimated GFR < 15 mL/min/1.73m2 Glucose 508(HH) 60 - 115 mg/dL [facility] Comment:Critical value for t est(s): GLUCR Results called to nael back by: ALL Person calling: VYASRID Date: [id number] Calcium 9.6 8.4 - 10.2 mg/dL [facility] Bilirubin, Total 0.5 0.0 - 1.0 mg/dL [facility] Aspartate Amino Transferase 26 5 - 31 U/L [facility] Alanine Aminotransferase 14 0 - 31 U/L [facility] Total Protein 6.9 6.5 - 8.0 g/dL [facility] Albumin Level 4.2 3.5 - 5.0 g/dL [facility] Alkaline Phosphatase 76 39 - 117 U/L [facility] 09/20/2024 12:1 5 AM EDT 09/20/2024 12:21 AM EDT us Generic External Data Provider LAB BLOOD ORDERAB LES Final Result [facility] [address] [place] [phone] * (ABNORMAL) Glucose, Whole Blood (09/20/2024 12:06 AM EDT) Glucose, Whole Blood 487(HH) 60 - 115 mg/dL [facility] Comment:METER #: [id number] 09/20/2024 12:0 6 AM EDT 09/21/2024 9:12 AM EDT us Generic External Data Provider LAB BLOOD ORDERAB LES Final Result Performing Organization Address City/[facility]/ZIP Co de Phone Number [facility] [address] [place] [address] [phone] * (ABNORMAL) Hemoglobin A1c (02/01/2024 3:21 PM EDT) Hemoglobin A1c 8.7(H) <6.0 % [facility] Comment:Hemoglobin A1C Refer ence Range Adults: 4.8 - 6.0 % Non diabetic: < 6.0 % Goal: < 7.0 %Additional Action Suggested: > 8.0 %Note: Hemoglobin A1c results are invalid for patients with abnormal amounts of HbF. Blood transfusions may impact the HbA1c concentration in the patient sample. Estimated Average Glucose 203 mg/dL [facility] Comment:eAG = Estimated ave rage glucose which is %A1C expressed asaverage glucose, using the formula of the G0P-KayathxCfgzrff Glucose study (ADAG), Diabetes Care, Vol.31,#8,Dec. 2007 Blood Venous blood specimen / Unknown 02/01/2024 3:21 PM EDT 02/01/2024 4:51 PM EDT us Nayeli Flores MD LAB BLOOD ORDERAB LES Final Result [facility] [address] [place] [phone] [phone] * (ABNORMAL) Lipid Panel, Standard (02/01/2024 3:21 PM EDT) Triglycerides 126 <150 mg/dL [facility] Comment:Desirable Triglyceri de: less than 150 mg/dLBorderline High Triglyceride 150-199 mg/dLHigh Triglyceride: 200-499 mg/dLVery High Triglyceride: greater than or equal to 5OO mg/dL Cholesterol 186 <200 mg/dL [facility] Comment:Desirable Cholestero l: less than 200 mg/dLBorderline High Cholesterol: 200-239 mg/dLHigh Cholesterol: greater than 239 mg/dL LDL Cholesterol Calculated 104(H) <100 mg/dL [facility] Comment:Desirable LDL: less than 100 mg/dLNear Optimal/Above Optimal LDL: 110- 129 mg/dLBorderline High LDL: 130-159 mg/dLHigh LDL: 160-189 mg/dLVery High LDL: greater than or equal to 190 mg/dL HDL Cholesterol 57 >40 mg/dL [facility] Comment:Desirable HDL: great er than 40 mg/dL Note: This HDL assay may give artificially low results in patients with liver disease. Blood Venous blood specimen / Unknown 02/01/2024 3:21 PM EDT 02/01/2024 4:51 PM EDT Nayeli Flores MD LAB BLOOD ORDERAB LES Final Result [facility] [address] [place] [address] [phone] * FIT DNA/Cologuard Cancer Screening (01/01/2023 5:50 PM EDT) Stool Historical Provider HEALTH MAINTENANCE Final Result * Fecal Globin by Immunochemistry (12/23/2022 12:00 AM EDT) Fecal Globin By Immunochemistry SEE NOTE [facility] Comment:FECAL GLOBIN BY IMMU NOCHEMISTRY Micro Number: [id number] Test Status: Final Specimen Source: Insure (tm) fobt test card Specimen Quality: Adequate Fecal Globin: Not DetectedTHIS TEST WAS PERFORMED AT:[facility] [place] [phone] MUÑOZ MD Stool Rectal contents / Unknown 12/23/2022 12/23/2022 Nayeli Flores MD LAB BODY FLUIDS A ND STOOLS ORDERABLES Final Result Performing Organization Address City/[facility]/ZIP Co de Phone Number [facility] [address] [place] [address] [phone] * Hepatitis C Antibody with Reflex to HCV, RNA, Quantitative, Real-Time PCR (10/01/2022 12:43 PM EDT) Hepatitis C Antibody NON-REACT ELVIE NON-REACT ELVIE [facility] [employer] Index 0.07 <1.00 [facility] [employer] [facility] Comment: HCV antibody was non-reactive. There is no laboratory evidence of HCV infection. In most cases, no further action is required. However, if recent HCV exposure is suspected, a test for HCV RNA (test code 76916) is suggested. For additional information please refer to http://education.[employer]/faq/WSD50b9 (This link is being provided for informational/ educational purposes only.) 10/01/2022 12:4 3 PM EDT 10/01/2022 12:46 PM EDT Narrative [facility] - 10/07/2022 2:09 AM EDT FASTING:NO FASTING: NO Nayeli Flores MD LAB BLOOD ORDERAB LES Final Result Performing Organization Address [facility] Co de Phone Number [facility] [address], [place] [address] [facility] [place] [employer] [address] [place] [phone] * Albumin, Random Urine W/O Creatinine (10/01/2022 12:43 PM EDT) Pathologist [facility] Albumin, Urine <0.2 See Note: mg/dL [facility] [place] [employer] Comment: Reference Range: Reference Range Not established [facility] [employer] [place] [employer] Comment: The ADA defines abnormalities in albumin excretion as follows: Albuminuria Category ? Result (mcg/mg creatinine) Normal to Mildly increased ?<30 Moderately increased ?30-299 Severely increased ?> OR = 300 The ADA recommends that at least two of three specimens collected within a 3-6 month period be abnormal before considering a patient to be within a diagnostic category. 10/01/2022 12:4 3 PM EDT 10/01/2022 12:46 PM EDT Narrative [facility] - 10/07/2022 2:09 AM EDT FASTING:NO FASTING: NO us Nayeli Flores MD LAB URINE ORDERAB LES Final Result [facility] [address], [place] [phone] [facility] [address] [place] [phone] from Last 3 Months or Most Recently Relevant to Health Maintenance Insurance [facility] Care Teams Telephone Mechanic Relationship Specialty Start Date End Date Nayeli Bahena MD [address] [place], [place] [phone] PCP - General Internal Medicine 09/09/22
--- OUTSIDE RECORDS SUMMARY | 2024-09-22 11:55 | XMS_ITS | Encounter Summary ---
Author Organization [employer] Address [address] [facility] [address]t [place] [address] Care Team Providers Care Desk Director Name Role Phone Nayeli Bahena MD Primary Care Pro vider Reason for Visit * Reason Onset Date Comments Med Refill 09/02/2023 Encounter Details Date Type Department Care Team ([facility] st Contact Info) Description 09/02/2023 Telephone [facility] [address] [place] [address] Nayeli Bahena MD [address] [place] [address] Med Refill Social History Tobacco Use Types [...] encounter Miscellaneous Notes * Telephone Encounter - Amarilys Miranda LPN - 09/02/2023 10:41 AM EDT Medication was sent to [facility] on 08/24/23 with 3 refills. * Telephone Encounter - Mildred Almaraz - 09/02/2023 10:35 AM EDT TC from pt requesting medication refill. Medications needing refill : NovoLOG MIX 70/30 FLEXPEN (70-30) 100 UNIT/ML injection To be sent to: [facility] - [place], [place] - [address] [place] [address] documented in this encounter Plan of Treatment Upcoming Encounters Date Type Department Care Team (Late st Contact Info) Description 10/30/2024 2:00 PM EDT Office Visit [facility] MED[facility] [address] [place] [address] Nayeli Bahena MD [address] [place] [address] documented as of this encounter Visit Diagnoses Not on filedocumented in this encounter Additional Health Concerns Assessment Noted Time PHQ-9 Depression Total Score: 5 10/02/19 10:28 AM EDT documented as of this encounter Care Teams Desk Director Relationship Specialty Start Date End Date Nayeli Bahena MD [address] [place] [phone] PCP - General Internal Medicine 09/09/22 documented as of this encounter
--- OUTSIDE RECORDS SUMMARY | 2024-09-22 11:55 | XMS_ITS | Encounter Summary ---
Author Organization [employer] Address [address] [facility] [address] [place] [address] Care Team Providers Care Rrt Name Role Phone Nayeli Bahena MD Primary Care Pro vider Reason for Visit * Reason Onset Date Comments Med Change Request Prior Authorization 09/03/2023 Encounter Details Date Type Department Care Team (Late st Contact Info) Description 09/03/2023 Refill [facility] [address] [place] [address] Nayeli Bahena MD [address] [place] [address] Social History Tobacco Use Types Packs/Day Years [...] encounter Miscellaneous Notes * Telephone Encounter - Karla Clark - 09/06/2023 2:58 PM EDT PA RX GENERATED FOR [employer] . FAXED TO [employer] FOR APPROVAL AND SCAN TO MEDIA. * Telephone Encounter - Karla Clark - 09/06/2023 2:57 PM EDT ----- Message from Nayeli Flores MD sent at 09/06/2023 1:50 PM EDT ----- Maximilian Acosta ,here is the note I put and prescription -thanks * Telephone Encounter - Karla Clark - 09/06/2023 9:31 AM EDT PA RX GENERATED PLACED AT PCP DESK FOR REVIEW AND SIGNATURE. ONCE SIGNED WILL BE FAXED TO [employer] FOR APPROVAL AND SCAN TO MEDIA. documented in this encounter Plan of Treatment Upcoming Encounters Date Type Department Care Team (Late st Contact Info) Description 10/30/2024 2:00 PM EDT Office Visit [facility] MEDICINE [address] [place] [phone] Nayeli Bahena MD [address] [place] [address] documented as of this encounter Visit Diagnoses Not on filedocumented in this encounter Additional Health Concerns Assessment Noted Time PHQ-9 Depression Total Score: 5 10/02/19 10:28 AM EDT documented as of this encounter Care Teams Rrt Relationship Specialty Start Date End Date Nayeli Bahena MD [address] [place] [address] PCP - General Internal Medicine 09/09/22 documented as of this encounter
--- OUTSIDE RECORDS SUMMARY | 2024-09-22 11:55 | XMS_ITS | Encounter Summary ---
Author Organization [employer] Address [address] 7[address] [place] [address] Care Team Providers Care Drop Forge Operator Name Role Phone Nayeli Bahena MD Primary Care Pro vider Reason for Visit * Reason Comments Med Refill Encounter Details Date Type Department Care Team ([facility] st Contact Info) Description 02/17/2023 Refill [facility] [address] [place] [address] Nayeli Hassan MD [address] [place] [address] Social History Tobacco Use Types Packs/Day Years [...] housing situation today? I have quoc johns 02/15/[address] you li ve. Do you have problems with any of the following? None of the above 02/15/2023 Food Insecurity Answer Date Recorded Within the past 12 months, y ou worried that your food would run out before you got money to buy more: Never True 02/15/2023 Within the past 12 months,th e food you bought just didn't last and you didn't have enough money to get more: Never True 01/2023 Transportation Answer Date Recorded In the past 12 months, has l ack of transportation kept you from medical appts, meetings, work or from getting things needed for daily living? No 02/15/2023 Utilities Answer Date Recorded In the past 12 months, has t he electric, gas, oil or water company threatened to shut off services in your home? No 02/15/2023 Depression Answer Date Recorded Patient Health Questionnaire-2 [...] Description 10/30/2024 2:00 PM EDT Office Visit [facility] [address] [place] [phone] Nayeli Bahena MD [address] [place] [phone] documented as of this encounter Visit Diagnoses Not on filedocumented in this encounter Additional Health Concerns Assessment Noted Time PHQ-9 Depression Total Score: 5 10/02/19 10:28 AM EDT documented as of this encounter Care Teams Drop Forge Operator Relationship Specialty Start Date End Date Nayeli Bahena MD [address] [place] [id number] PCP - General Internal Medicine 09/09/22 documented as of this encounter
--- OUTSIDE RECORDS SUMMARY | 2024-09-22 11:55 | XMS_ITS | Encounter Summary ---
Author Organization [employer] Address [address] [facility] 7t [place] [address] Care Team Providers Care Quality Consultant Name Role Phone Nayeli Bahena MD Primary Care Pro vider Reason for Visit * Reason Comments Med Refill Encounter Details Date Type Department Care Team ([facility] Contact Info) Description 03/04/2023 Refill [facility] [address] [place] [address] Nayeli Bahena MD [address] [place] [address] Social History Tobacco Use Types Packs/Day Years [...] Description 10/30/2024 2:00 PM EDT Office Visit [facility] [address] [place] [phone] Nayeli Bahena MD [address] [place] [phone] documented as of this encounter Visit Diagnoses Not on filedocumented in this encounter Additional Health Concerns Assessment Noted Time PHQ-9 Depression Total Score: 5 10/02/19 10:28 AM EDT documented as of this encounter Care Teams Quality Consultant Relationship Specialty Start Date End Date Nayeli Bahena MD [address] [place] [phone] PCP - General Internal Medicine 09/09/22 documented as of this encounter
--- OUTSIDE RECORDS SUMMARY | 2024-09-22 11:55 | XMS_ITS | Encounter Summary ---
Author Organization [employer] Address [address] [facility] 7t [place] [address] Care Team Providers Care Director Employee Safety And Health Name Role Phone Nayeli Bahena MD Primary Care Pro vider Encounter Details Date Type Department Care Team (Latest Contact Info) Description 09/20/2024 Results Follow-Up [facility] [address] [place] [address] Nayeli Bahena MD 230 [place] [address] CBC auto differential, Comprehensive Metabolic Panel Social History Tobacco Use Types Packs/Day Years [...] awful might happen 3 09/22/2024 10:10 AM EDT Domitila Varner MA AL-7 Total Score 21 09/22/2024 10:10 AM EDT Domitila Varner MA documented as of this encounter Miscellaneous Notes * Result Encounter Note - Nayeli Flores MD - 09/20/2024 4:09 PM EDT Labs done by outside provider documented in this encounter Plan of Treatment Upcoming Encounters Date Type Department Care Team (Late st Contact Info) Description 10/30/2024 2:00 PM EDT Office Visit [facility] [address] [place] [phone] Nayeli Bahena MD [address] [place] [phone] documented as of this encounter Visit Diagnoses Not on filedocumented in this encounter Additional Health Concerns Assessment Noted Time PHQ-9 Depression Total Score: 5 10/02/19 23 10:28 AM EDT documented as of this encounter Care Teams Director Employee Safety And Health Relationship Specialty Start Date End Date Nayeli Bahena MD [address] [place] [address] PCP - General Internal Medicine 09/09/22 documented as of this encounter
--- OUTSIDE RECORDS SUMMARY | 2024-09-22 11:55 | XMS_ITS | Encounter Summary ---
Author Organization [employer] Address [address] [facility] 7t [place] [address] Care Team Providers Care Flat Finisher Name Role Phone Nayeli Bahena MD Primary Care Pro vider Reason for Visit * Reason Comments Med Refill Encounter Details Date Type Department Care Team ([facility] st Contact Info) Description 03/15/2023 Refill [facility] [address] [place] [address] Nayeli Bahena MD 230 [place] [address] Type 2 diabetes mellitus without complications (CMS/[facility]) Social History Tobacco Use Types Packs/Day Years [...] Description 10/30/2024 2:00 PM EDT Office Visit [facility] [address] [place] [address] Nayeli Bahena MD [address] [place] [address] documented as of this encounter Visit Diagnoses Diagnosis Type 2 diabetes mellitus without complications (CMS/HCC) documented in this encounter Additional Health Concerns Assessment Noted Time PHQ-9 Depression Total Score: 5 10/02/19 10:28 AM EDT documented as of this encounter Care Teams Flat Finisher Relationship Specialty Start Date End Date Nayeli Bahena MD [address] [place] [address] PCP - General Internal Medicine 09/09/22 documented as of this encounter
--- OUTSIDE RECORDS SUMMARY | 2024-09-22 11:55 | XMS_ITS | Encounter Summary ---
Author Organization [employer] Address [address] [facility] 7t [place] [address] Care Team Providers Care Cultural Historian Name Role Phone Nayeli Bahena MD Primary Care Pro vider Encounter Details Date Type Department Care Team (Late st Contact Info) Description 09/20/2024 Orders Only GENERIC EXTERNAL DATA DEPARTMENT Provider, Generic External Data Social History Tobacco Use Types Packs/Day Years [...] 2:00 PM EDT Office Visit [facility] [address] [place], [place] [phone] Nayeli Bahena MD [address] [place], [place] [phone] documented as of this encounter Procedures Procedure Name Priority Date/Time Associated Diagnosis Comments CBC WITH AUTO DIFFERENTIAL Routine 09/20/2024 12:15 AM EDT COMPREHENSIVE METABOLIC PANEL Routine 09/20/2024 12:15 AM EDT documented in this encounter Results * (ABNORMAL) Comprehensive Metabolic Panel (09/20/2024 12:15 AM EDT) Sodium 140 135 - 145 mmol/L [facility] Potassium 4.4 3.3 - 5.1 mmol/L [facility] Chloride 104 96 - 108 mmol/L [facility] Carbon Dioxide 22 22 - 29 mmol/L [facility] Anion Gap 18 12 - 20 [facility] Urea Nitrogen (BUN) 24(H) 9 - 16 mg/dL [facility] Creatinine, Serum 1.18 0.5 - 1.4 mg/dL [facility] Creatinine Clr Calc Pharmacy 43.4 [facility] Comment:Provided height and weight: 165.1 cm,81.647 kg.eGFR (calculated from the MDRD study equation) and eCrCl(calculated from the Cockcroft-Gault equation) are based ondifferent parameters and may not yield comparable results.If eCrCl result is absurd, please check patient'sheight/weight. Estimated Glomerular Filt Rate 45 [facility] Comment:Chronic Kidney Disea se: Estimated GFR < 60 mL/min/1.47o1Ebewpl Kidney Disease: Estimated GFR < 15 mL/min/1.73m2 Glucose 508(HH) 60 - 115 mg/dL [facility] Comment:Critical value for t est(s): GLUCR Results called to nael back by: ALL Person calling: VYASRID Date: [id number] Calcium 9.6 8.4 - 10.2 mg/dL [facility] Bilirubin, Total 0.5 0.0 - 1.0 mg/dL [facility] Aspartate Amino Transferase 26 5 - 31 U/L [facility] Alanine Aminotransferase 14 0 - 31 U/L [facility] Total Protein 6.9 6.5 - 8.0 g/dL [facility] Albumin Level 4.2 3.5 - 5.0 g/dL [facility] Alkaline Phosphatase 76 39 - 117 U/L [facility] 09/20/2024 12:1 5 AM EDT 09/20/2024 12:21 AM EDT us Generic External Data Provider LAB BLOOD ORDERAB LES Final Result [facility] [address] [place] [address] [phone] * (ABNORMAL) CBC auto differential (09/20/2024 12:15 AM EDT) White Blood Count 7.9 4.8 - 10.8 X10*3/uL [facility] Red Blood Count 3.92(L) 4.20 - 5.50 X10*6/uL [facility] Hemoglobin 11.9(L) 12.0 - 16.0 g/dl [facility] Hematocrit 36.3(L) 37.0 - 47.0 % [facility] Mean Corpuscular Volume 92.6 80.0 - 98.0 fL [facility] Mean Corpuscular Hemoglobin 30.4 27.0 - 33.0 pg [facility] Mean Corpuscular HGB Conc 32.8 31.0 - 35.0 g/dl [facility] Red Cell Distribution Width 13.5 11.0 - 16.0 % [facility] Platelet Count 232 160 - 400 X10*3/uL [facility] Mean Platelet Volume 10.4 9.4 - 12.3 fL [facility] Neutrophils Percent Auto 64.8 45 - 73 % [facility] Imm Gran Pct Auto 0.3 0.0 - 0.4 % [facility] Lymphocytes Percent Auto 23.2 20 - 40 % [facility] Monocytes Percent Auto 6.9 2 - 11 % [facility] Eosinophils Percent Auto 3.7 0 - 4 % [facility] Basophils Percent Auto 1.1 0 - 2 % [facility] NRBC Pct Auto 0.0 0.0 - 0.2 /100WBC [facility] Neutrophils Absolute Auto 5.1 2.0 - 8.3 x10*3/uL [facility] Imm Gran Abs Auto 0.02 0.00 - 0.03 X10*3/uL [facility] Lymphocytes Absolute Auto 1.8 1.2 - 4.9 X10*3/uL [facility] Monocytes Absolute Auto 0.6 0.1 - 1.2 X10*3/uL [facility] Eosinophils Absolute Auto 0.3 0.0 - 0.4 X10*3/uL [facility] Basophils Absolute Auto 0.1 0.0 - 0.2 X10*3/uL [facility] NRBC Abs Auto 0.000 0.0 - 0.012 X10*3/uL [facility] 09/20/2024 12:1 5 AM EDT 09/20/2024 12:21 AM EDT us Generic External Data Provider LAB BLOOD ORDERAB LES Final Result [facility] [address] [place] [phone] [phone] documented in this encounter Visit Diagnoses Not on filedocumented in this encounter Additional Health Concerns Assessment Noted Time PHQ-9 Depression Total Score: 5 10/02/19 10:28 AM EDT documented as of this encounter Care Teams Cultural Historian Relationship Specialty Start Date End Date Nayeli Bahena MD [address] [place] [address] [place] [address] PCP - General Internal Medicine 09/09/22 documented as of this encounter
--- OUTSIDE RECORDS SUMMARY | 2024-09-22 11:55 | XMS_ITS | Encounter Summary ---
Author Organization [email or web address] Address [address] [facility] 7t [place] [address] Care Team Providers Care Trimming Inspector Name Role Phone Nayeli Bahena MD Primary Care Pro vider Reason for Visit * Reason Onset Date Comments Med Refill 09/19/2024 Encounter Details Date Type Department Care Team ([facility] st Contact Info) Description 09/19/2024 Telephone [facility] [address] [place] [address] Nayeli Bahena MD [address] [place] [address] Med Refill Social History Tobacco Use Types [...] Answer Date Recorded Patient Health Questionnaire-9 Score 09/22/2024 Patient Health Questionnaire-9 Score 23 09/22/2024 [...] Author Nearly every day 09/22/2024 10:08 AM KIETT Domitila Varner MA * Feeling down, depressed, or hopeless Answer Date of Assessment Author Nearly every day 09/22/2024 10:08 AM Domitila Barrios MA * Trouble falling or staying asleep, or sleeping too much Answer Date of Assessment Author Nearly every day 09/22/2024 10:08 AM KIETT Domitila Varner MA * Feeling tired or having little [...] annoyed or irritable 3 09/22/2024 10:10 AM EDT Domitila Varner MA Feeling afraid as if somethi ng awful might happen 3 09/22/2024 10:10 AM EDT Domitila Varner MA AL-7 Total Score 21 09/22/2024 10:10 AM EDT Domitila Varner MA documented as of this encounter Miscellaneous Notes * Telephone Encounter - Toma Aceves - 09/20/2024 10:16 AM EDT Tc from pt requesting status on medication refill. Base Draw Operator contacted RN and was advised will contactpharmacy and speak with pt PCP. Base Draw Operator advise pt. Pt stated will come in to [facility]. * Telephone Encounter - Amarilys Miranda LPN - 09/19/2024 11:46 AM EDT Medication pended to PCP. * Telephone Encounter - Toma Acevse - 09/19/2024 11:44 AM EDT TC from pt requesting medication refill. Medications needing refill : NovoLOG MIX 70/30 FLEXPEN (70-30) 100 UNIT/ML injection To be sent to: [facility]/pharmacy #[id number] documented in this encounter Plan of Treatment Upcoming Encounters Date Type Department Care Team (Late st Contact Info) Description 10/30/2024 2:00 PM EDT Office Visit [facility] [address] [place], [place] [phone] Nayeli Bahena MD [address] [place] [address] documented as of this encounter Visit Diagnoses Not on filedocumented in this encounter Additional Health Concerns Assessment Noted Time PHQ-9 Depression Total Score: 5 10/02/19 23 10:28 AM EDT documented as of this encounter Care Teams Trimming Inspector Relationship Specialty Start Date End Date Nayeli Bahena MD [address] [place] [phone] PCP - General Internal Medicine 09/09/22 documented as of this encounter
== END 2024-09-22 11:46 | disposition home or self-care (01) ==
LOC: HO.HHCX 11:45
PROVIDERS: PCP Student in an Organized Health Care Education/Training Program; Visit Provider Student in an Organized Health Care Education/Training Program
DX: M25.562 Pain in left knee (principal); M25.552 Pain in left hip; M25.551 Pain in right hip; G89.29 Other chronic pain
CPT/HCPCS: 73522; 73562

== ENCOUNTER → 2024-09-22 11:47 | Outpatient (BNV) | payer MEDICARE, SELFPAY | PROVIDERS: PCP Student in an Organized Health Care Education/Training Program; Visit Provider Radiology Diagnostic Radiology | DX: M25.551 Pain in right hip (principal); M25.552 Pain in left hip; M25.862 Other specified joint disorders, left knee | CPT/HCPCS: 73522; 73562 ==

== ENCOUNTER 2024-10-03 13:46 | Outpatient (REF) | payer SELFPAY ==
--- OUTSIDE RECORDS SUMMARY | 2024-10-03 14:02 | XMS_ITS | Encounter Summary ---
Author Organization [employer] Address [address] [facility] [address] 7t [place] [address] Care Team Providers Care Qi Specialist Name Role Phone Nayeli Bahena MD Primary Care Pro vider Reason for Visit * Reason Comments Med Refill Encounter Details Date Type Department Care Team ([facility] st Contact Info) Description 07/19/2023 Refill [facility] [address] [place] [address] Rita Pa MD 230 [place], [place] [phone] Social History Tobacco Use Types Packs/Day Years [...] PM EDT Office Visit [facility] [address] [place] [address] Nayeli Bahena MD [address] [place] [address] documented as of this encounter Visit Diagnoses Not on filedocumented in this encounter Additional Health Concerns Assessment Noted Time PHQ-9 Depression Total Score: 5 10/02/19 10:28 AM EDT documented as of this encounter Care Teams Qi Specialist Relationship Specialty Start Date End Date Nayeli Bahena MD [address] [place] [phone] PCP - General Internal Medicine 09/09/22 documented as of this encounter
--- NOTE | 2024-10-03 15:20 | MHC.AU.HA3 ---
Hearing Instrument Follow-Up- Binaural Date of Visit: 10/03/24 Right Ear: Make, Model, Color, Serial Number: Danette Leigho [id number] ITC SN: [id number] Color: [place] [employer] Professor Of Biostatistics Repair Warranty: 01/10/2027 Research Professor Of Biostatistics Loss and Damage Warranty: 01/10/2027 [facility] Service Plan: 12/16/2024 Battery Size: 312 Type of Wax Guard: Cerustop Dispensed By: [facility] Date of Fittin12/17/2023 Left Ear: Make, Model, Color, Serial Number: Phonak Reeseo [id number] ITC SN: [id number] Color: [place] [employer] Professor Of Biostatistics Repair Warranty: 01/10/2027 Research Professor [employer] Biostatistics Loss and Damage Warranty: 01/10/2027 [facility] Service Plan: 12/16/2024 Battery Size: 312 Type of Wax Guard: Cerustop Dispensed By: [facility] Date of Fittin12/17/2023 Follow-Up Summary: Recently noticed more feedback from HAs, sound quality increases/decreases randomly, and wax guards do not stay in. Otoscopy revealed nearly occluding cerumen, bilaterally, likely contributing to new feedback concerns. Will have wax removed at next PCP appt in October. After some discussion, volume concerns seem to occur when notifications happen from cellphone. Advised can disconnect or turn off notifications; however, Maia opted to continue to use as is for now. Wax guard systems in both HAs broken. Maia did not want to be without both HAs so will send one out at a time. Sent right JOE to [employer] When it returns, Maia will lemon picker right JOE and drop off left JOE to be sent out. Recommendations: Patient will be contacted when materials have arrived. Diagnosis Code(s): Primary Diagnosis: H90.3 Bilateral Sensorineural Hearing Loss Signature: Provider: Eddie Dick, [facility]
== END 2024-10-03 13:47 | disposition home or self-care (01) ==
LOC: HO.HAP 13:46
PROVIDERS: Visit Provider Student in an Organized Health Care Education/Training Program
DX: Z13.89 Encounter for screening for other disorder (principal)

== ENCOUNTER 2024-10-20 12:53 | Outpatient (REF) | payer SELFPAY ==
--- OUTSIDE RECORDS SUMMARY | 2024-10-20 13:18 | XMS_ITS | Data Portability ---
Author Organization [place] [facility] [place] [facility] Address [address] [place] [address] Care Team Providers Care Real Estate Coordinator Name Role Phone SHANDRA SUN) Primary Care [...] None recorded. Imaging XR, ankle 2017 018 [email or web address] In-Office Order, Internal Use Only DO Not Attach Compendium DO Not Attach Compendium, Do Not Delete/merge, [id number] 15:28:37 XR, ankle 2017 018 [email or web address] In-Office Order, Internal Use Only DO Not Attach Compendium DO Not Attach Compendium, Do Not Delete/merge, [id number] 14:37:42 XR, ankle 2017 018 [email or web address] 1 In-Office Order, Internal Use Only DO Not Attach Compendium DO Not Attach Compendium, Do Not Delete/merge, [id number] 15:52:57 Medication Orders None recorded. Patient [...] more view No observ ation record ed. [email or web address] (Radiology) [address] [place] [address], [address], 11/24/2017 08:22:21 Result Notes None recorded. Medical Equipment None Reported. [...] Syringe Ultra-Fine 1 mL 31 gauge x 09/22 active Not Available Not Available Not Available [...] SNOMED-CT Code Diagnosis ICD10 Code Diagnosis Note [id number] [address] [address] 11/26/2017 14:03:38 11/26/2017 15:34:10 Closed fracture ankle, bimalleolar, low fibular fracture 296115709 S82.841D 324410 [address] [address] 12/24/2017 13:48:16 12/24/2017 14:30:41 Disorder of joint of ankle and/or foot 701783730 M25.9 Closed fra cture ankle, bimalleolar, low fibular fracture 425112193 S82.841D 279657 [address] [address] 02/25/2018 13:17:50 02/25/2018 14:02:56 Disorder of joint of ankle and/or foot 807153855 M25.9 Closed fra cture ankle, bimalleolar, low fibular fracture 701684623 S82.841D Health Concerns Section Related Observation LastModified by Organization Detai ls LastModified Time None Recorded Concern Status LastModified by Organization Details LastModified Time None Recorded Advance Directives Directive None Recorded Payers Insurance Date Sequence Insurance Name Policy Number Policy Land Covered Member ID Land Member ID Guarantor Name 05/24/2018 1 [place] [employer] Maia Marley [id number] Maia Marley 05/24/2018 [place] - SPECIALITY CLAIMS (MEDICARE [facility] A) Maia Marley [id number] Maia Marley 05/24/2018 2 [place] [facility] Maia Cabral Ay[place] [id number] Maia Ayaka 05/09/2018 2 [place] [facility] Maia Mederios [id number] Maia Ayaka Notes Date Note Type Note Provider Name and Address Organization Details Recorded Time 11/26/2017 text/html Patient returns today in first follow-up of her right ankle ORIF. She is doing well without complaints [place], [phone], [facility] 11/30/2017 07:53:32 12/24/2017 text/html Patient returns today 6 weeks out from her right ankle ORIF. She is doing well [place], [phone], [facility] 12/24/2017 14:37:52 02/25/2018 text/html Patient returns today over 3 months out from her right ankle ORIF. She states she has been driving over the last several weeks despite me telling her not to. She states she is doing well and really does not have any [place], [phone], [facility] 02/25/2018 15:28:47 OBGyn Episode No OBEpisode recorded.
== END 2024-10-20 12:54 | disposition home or self-care (01) ==
LOC: HO.HAP 12:53
PROVIDERS: Visit Provider Student in an Organized Health Care Education/Training Program
DX: Z13.89 Encounter for screening for other disorder (principal)

== ENCOUNTER 2024-11-03 13:22 | Outpatient (REF) | payer SELFPAY ==
--- OUTSIDE RECORDS SUMMARY | 2024-11-03 13:51 | XMS_ITS | Encounter Summary ---
Author Organization [employer] Address [address] [facility] [address] 7[address] [place] [address] Care Team Providers Care Land Title Examiner Name Role Phone Nayeli Bahena MD Primary Care Pro vider Reason for Visit * Reason Comments Med Refill Encounter Details Date Type Department Care Team ([facility] st Contact Info) Description 07/19/2023 Refill [facility] [address] [place] [address] Rita Pa MD [address] [place], [place] [phone] Social History Tobacco Use Types Packs/Day Years [...] Care Team (Late st Contact Info) Description 12/08/2024 11:30 AM EDT Medication Management [address] [address] Denise Fuchs PharmD [address] [place] [phone] 01/09/2025 2:00 PM EDT Clinical Support [address] [address] 01/17/2025 2:45 PM EDT Office Visit [address] [address] Nayeli Bahena MD [address] [place] [address] documented as of this encounter Visit Diagnoses Not on filedocumented in this encounter Additional Health Concerns Assessment Noted Time PHQ-9 Depression Total Score: 5 10/02/19 10:28 AM EDT documented as of this encounter Care Teams Land Title Examiner Relationship Specialty Start Date End Date Nayeli Bahena MD [address] [place] [phone] PCP - General Internal Medicine 09/09/22 documented as of this encounter
== END 2024-11-03 13:23 | disposition home or self-care (01) ==
LOC: HO.HAP 13:22
PROVIDERS: Visit Provider Student in an Organized Health Care Education/Training Program
DX: Z13.89 Encounter for screening for other disorder (principal)

== ENCOUNTER 2024-12-25 11:53 | Inpatient (IN) | payer MEDICARE, SELFPAY ==
[2024-12-25] VITALS (16 sets, daily range): BP systolic 98–174; BP diastolic 32–77; PULSE 82–104; RESP 12–24; TEMP 36.2–36.8; O2SAT 92–100; BMI 28.7
--- NOTE | ~2024-12-25 | XR_ITS ---
EXAMINATION: XR CHEST CLINICAL INFORMATION: vomiting, r/o aspiration, SOB COMPARISON: May 04, 2024 TECHNIQUE: Frontal view of the chest was obtained. FINDINGS: Patchy opacity right upper hemithorax. No pleural effusion. No pneumothorax. Pulmonary reticular pattern. Degenerative changes in the acromioclavicular joints. Level thoracic spondylosis. Cardiomediastinal silhouette size is normal. XR/XR chest 1V IMPRESSION: Questionable airspace disease, right upper lung lobe. Multilevel spondylosis. Electronically signed by: Soto Feng MD 12/25/2024 01:00 PM EDT
--- NOTE | 2024-12-25 12:08 | ED.GENADULT ---
HPI - General Adult General Chief complaint: Nausea/Vomiting/Diarrhea Stated complaint: N/V X3D,BS 60 PER EMS Time Seen by Provider: 12/25/24 12:07 Source: patient, EMS and RN notes reviewed Mode of arrival: EMS Limitations: no limitations History of Present Illness ED Provider: Gila Salcido PA-C HPI narrative: This is a 74-year-old female, with a past medical history of insulin dependent diabetes, hypothyroidism, anxiety, who presents emergency department with concerns of nausea, vomiting, and diarrhea for the last 4 days. Patient states that she recently was started on Mounjaro and believes that this is contributing to her symptoms. Patient states that she has started on Mounjaro about 1 month ago, increased about 1 week ago. States that every time that she is on these medications they make her very ill. She also admits that she has not been using her insulin as prescribed given her symptoms and she is not eating as much. Denies any fevers, chills, she does endorse some shortness of breath, no chest pain. She denies any bloody or black stool. No hemoptysis. No abdominal pain, no other complaints or concerns at this time. MD complaint: Nausea, vomiting, diarrhea Onset (ago): day(s) Pain Consistency: constant Relieving factors: none Exacerbating factors: none Associated symptoms: denies other symptoms Treatments prior to arrival: none Related Data Home Medications ?Medication ?Instructions ?Recorded ?Confirmed sertraline 100 mg tablet 100 mg PO DAILY@1200 02/03/21 11/02/22 aspirin 81 mg chewable tablet 81 mg PO DAILY@1700 04/24/22 11/02/22 dulaglutide 1.5 mg/0.5 mL 1.5 mg subcut WE 04/24/22 11/02/22 subcutaneous pen injector (Trulicity) insulin aspar prot-insulin aspart 42 unit subcut DAILY 04/24/22 11/02/22 100 unit/mL (70-30) subcutaneous pen (Novolog Mix 70-30FlexPen U-100) pramipexole 0.125 mg tablet 0.125 mg PO DAILY@1800 04/24/22 11/02/22 atorvastatin 40 mg tablet 40 mg PO DAILY 10/31/22 11/02/22 levothyroxine 150 mcg tablet 150 mcg PO DAILY@0600 10/31/22 11/02/22 multivitamin with folic acid 400 1 tab PO DAILY 10/31/22 11/02/22 mcg tablet (Daily-Johny (with folic acid)) insulin aspar prot-insulin aspart 40 unit subcut BEDTIME 12/25/24 100 unit/mL (70-30) subcutaneous pen (Novolog Mix 70-30FlexPen U-100) sitagliptin phosphate 50 mg tablet 50 mg PO DAILY 12/25/24 (Januvia) tirzepatide 5 mg/0.5 mL 5 mg subcut QWEEK 12/25/24 subcutaneous pen injector (Mounjaro) Previous Rx's ?Medication ?Instructions ?Recorded promethazine 25 mg tablet 25 mg PO TID #14 tabs 11/02/22 epinephrine 0.3 mg/0.3 mL 0.3 mg (0.3 mL) IM Q4H PRN 04/08/23 injection, auto-injector (EpiPen) anaphylaxis #2 ea ondansetron 4 mg disintegrating 4 mg PO Q8H PRN nausea and 10/12/23 tablet vomiting #20 tabs Allergies Allergy/AdvReac Type Severity Reaction Status Date / Time adhesive tape AdvReac Blister Verified 12/25/24 12:17 metformin AdvReac Agitated Verified 12/25/24 12:17 Review of Systems Review of Systems: Yes all other systems are reviewed and are negative Constitutional: Constitutional: Reports as per [facility] Past Medical History Medical History Cannabis use disorder Cat bite Anxiety Hypothyroidism Depression Diabetes Surgical History History of carpal tunnel surgery History of ankle surgery History of tonsillectomy and adenoidectomy Family History Family History Other No family history of coronary artery disease Social History Social History Household Members: None Housing: Condominium Do you presently have visiting nurse or other home services: No Alcohol intake: never Patient Tobacco Use Status: Former Tobacco user Tobacco use type: Cigarette Cigarette Packs Per Day: 1 Cigarettes Per Day: 20.0 Years Smoked: 55 Second Hand Smoke Exposure: No Substance Use Type: Marijuana Advance Directives: No Advance Directives Information Provided: Yes Do you have a plan to hurt others: No Plan service: No Current occupational status: retired Current occupation: rt handed Physical Exam ED Vital Signs: Vital Signs - 24 hr 12/25/24 12:05 12/25/24 12:43 12/25/24 12:59 Temperature 97.1 F Pulse Rate 87 84 82 Respiratory Rate 17 19 15 Blood Pressure 153/77 H 160/48 H 165/70 H Pulse Oximetry 98 99 100 Oxygen Delivery Method Room Air Room Air Fraction of Inspired Oxygen 12/25/24 13:30 12/25/24 13:35 12/25/24 14:19 Temperature Pulse Rate 86 92 Respiratory Rate 12 15 Blood Pressure 143/65 H 174/59 H Pulse Oximetry 99 100 Oxygen Delivery Method Room Air Room Air Fraction of Inspired Oxygen 12/25/24 14:47 12/25/24 15:05 12/25/24 15:33 Temperature Pulse Rate 99 104 H 102 H Respiratory Rate 16 18 20 Blood Pressure 143/34 H 166/57 H 148/47 H Pulse Oximetry 97 97 99 Oxygen Delivery Method Room Air Room Air Room Air Fraction of Inspired Oxygen 12/25/24 16:06 Temperature 98.2 F Pulse Rate 99 Respiratory Rate 21 H Blood Pressure 147/50 H Pulse Oximetry 98 Oxygen Delivery Method Room Air Fraction of Inspired Oxygen 21 BMI result Body Mass Index 28.7 Const General: cooperative, comfortable and no acute distress Orientation/consciousness: patient oriented x3 Limitations: no limitations [facility] Head: Yes normal to inspection, Yes normocephalic and Yes atraumatic Ears: hearing grossly normal bilaterally General nose exam: Normal external nose present Face and sinus: Yes normal facial exam Mouth: Normal oral and palatal mucosa present, oropharynx normal and moist mucous membranes Throat: Yes posterior oropharynx normal Eyes General: appearance normal, both eyes and all related structures Eyelids: Yes eyelids normal Conjunctivae: conjunctivae normal Sclerae: sclerae normal Pupils: Equal, round and reactive pupils present EOM: EOMs intact bilaterally Neck Neck: Yes normal visual inspection, Yes full ROM and Yes no lymphadenopathy Lymphatic: no lymphadenopathy noted Chest Chest palpation & inspection: normal inspection of the chest Resp Effort & Inspection: normal respiratory effort and able to speak in complete sentences Auscultation: clear to auscultation bilaterally, no crackles, no rales, no rhonchi and no wheezes Cardio Rate: regular rate Rhythm: regular rhythm Heart sounds: S1 normal heart sound present and S2 normal heart sound present GI Other: Abdomen is soft, nontender, nondistended Inspection: Yes normal to inspection Skin General skin exam: no rashes or lesions noted Trauma: no lacerations or abrasions Wounds: no wounds Neuro General: patient oriented x3 and moves all extremities Cranial nerves: Yes Equal, round and reactive pupils present Extrem General: Yes normal to inspection Right upper extremity: normal to inspection Left upper extremity: normal to inspection Right lower extremity: normal to inspection Left lower extremity: normal to inspection Medications Administered Generic Name Dose Route Start Last Admin Trade Name Freq PRN Reason Stop Dose Admin Enoxaparin Sodium 40 mg 12/25/24 18:00 12/25/24 17:47 Enoxaparin Sodium 40 Mg/0.4 Ml Syringe SUBCUT 40 mg Q24H VITALIY Administration Insulin Human Regular 100 unit in 100 mls @ 8 mls/hr 12/25/24 17:15 12/25/24 17:27 Myxredlin IVCONT 8 unit/hr .[id number] VITALIY 8 mls/hr Protocol Administration 8 UNIT/HR Ondansetron HCl 4 mg 12/25/24 17:33 12/25/24 17:47 Ondansetron Hcl 4 Mg/2 Ml Vial IVPUSH 4 mg Q8H PRN Administration Nausea and Vomiting Discontinued Medications Generic Name Dose Route Start Last Admin Trade Name Freq PRN Reason Stop Dose Admin Ceftriaxone Sodium 1 gm 12/25/24 13:13 12/25/24 13:43 Ceftriaxone Sodium 1 Gm Vial IVPUSH 12/25/24 13:14 1 gm ONCE ONE Administration Droperidol 0.625 mg 12/25/24 13:09 12/25/24 13:25 Droperidol 5 Mg/2 Ml Vial IVPUSH 12/25/24 13:10 0.625 mg ONCE ONE Administration Droperidol 1.25 mg 12/25/24 14:10 12/25/24 14:47 Droperidol 5 Mg/2 Ml Vial IVPUSH 12/25/24 14:11 1.25 mg ONCE ONE Administration Lactated Ringer's 1,000 mls @ 999 mls/hr 12/25/24 12:18 12/25/24 13:57 Lr IV 12/25/24 13:18 Infused .Q1H1M ONE Infusion Lactated Ringer's 1,000 mls @ 999 mls/hr 12/25/24 12:48 12/25/24 14:08 Lr IV 12/25/24 13:48 Infused .Q1H1M ONE Infusion Doxycycline Hyclate 100 mg/ 250 mls @ 166.67 mls/hr 12/25/24 13:13 12/25/24 15:20 Sodium Chloride IV 12/25/24 14:42 Infused ONCE ONE Infusion Sodium Chloride 1,000 mls @ 500 mls/hr 12/25/24 14:11 12/25/24 16:57 Ns IV 12/25/24 16:10 Not Given .Q2H ONE Sodium Chloride 500 mls @ 500 mls/hr 12/25/24 15:45 12/25/24 15:56 Ns IV 12/25/24 16:44 Not Given .Q1H ONE Sodium Chloride 500 mls @ 500 mls/hr 12/25/24 14:14 12/25/24 14:47 Ns IV 12/25/24 15:13 Infused .Q1H VITALIY Infusion Insulin Human Lispro 5 unit 12/25/24 14:36 12/25/24 14:47 Insulin Lispro 100 Unit/Ml 3 Ml Vial SUBCUT 12/25/24 14:37 5 unit ONCE ONE Administration Insulin Human Lispro 10 unit 12/25/24 15:23 12/25/24 15:39 Insulin Lispro 100 Unit/Ml 3 Ml Vial SUBCUT 12/25/24 15:24 10 unit ONCE ONE Administration Insulin Human Regular 5 unit 12/25/24 14:30 12/25/24 14:48 Insulin Regular, Human 100 Unit/Ml 10 Ml Vial IVPUSH 12/25/24 14:31 5 unit ONCE ONE Administration Insulin Human Regular 10 unit 12/25/24 15:23 12/25/24 15:39 Insulin Regular, Human 100 Unit/Ml 10 Ml Vial IVPUSH 12/25/24 15:24 10 unit ONCE ONE Administration Ondansetron HCl 4 mg 12/25/24 12:19 12/25/24 12:37 Ondansetron Hcl 4 Mg/2 Ml Vial IVPUSH 12/25/24 12:20 4 mg ONCE ONE Administration Medical Decision Making Medical Decision Making MDM Narrative: This is a 74-year-old female, with a past medical history of insulin dependent diabetes, hypothyroidism, anxiety, who presents emergency department with concerns of nausea, vomiting, and diarrhea for the last 4 days. On arrival, patient is alert and oriented x4, patient with vomit on her clothing. Differential diagnoses include DKA, hyperglycemia, electrolyte derangement, dehydration, arrhythmia, ACS. Will obtain point of care glucose as patient's point of care en route was 600. Course: 12:25 PM 12/25/2024 (Gila Salcido PA-C): Point of care glucose in department is greater than 600. Will obtain labs, EKG, chest x-ray, VBG, beta hydroxybutyrate. We will start on IV lactated Ringer's. Holding off on insulin until we have chemistry back. 1:02 PM 12/25/2024 (Gila Salcido PA-C): VBG returns, she is not acidotic. CBC returns, she does have slight leukocytosis at 12.3. Awaiting chemistry. 1:22 PM 12/25/2024 (Gila Salcido PA-C): Chemistry still pending however critical bands at 17. X-ray does return revealing questionable airspace disease in the right upper lung lobe. We will obtain lactic and cultures. Given possible pneumonia on chest x-ray, will treat with ceftriaxone and doxycycline. Patient re-evaluated, patient is still vomiting. I discussed this with my attending physician, Dr. Feldman, who recommends treating with droperidol as she does have a history of cyclical vomiting syndrome and cannabis use disorder. Infection is suspected at this time therefore sepsis alert was initiated. She is already receiving IV lactated Ringer's. 2:26 PM 12/25/2024 (Gila Salcido PA-C): Chemistry returns, revealing anion gap at 30, carbon dioxide 13, BUN elevated at 35 with a creatinine of 1.17. Beta hydroxybutyrate still pending at this time. Repeat point of care glucose after receiving 2 L of LR reveal glucose is >600 still. Lactic acidosis at 4.7. She has already received 2 L of LR as, added 500 cc of normal saline. 4:57 PM 12/25/2024 (Gila Salcido PA-C): Repeat lactic 4.1. Patient has received 15 mg of subcu insulin, and 15 mg of IV insulin. We repeated the BMP patient's carbon dioxide 11, anion gap worsened 231, glucose increased to 574. Discussed with my attending physician, Dr. Feldman. Given that she has had worsening metabolic derangements, patient would likely need to start on a insulin drip. Patient's nausea has resolved. Spoke to [facility], Dr. Hernandez, transfer to the ICU initiated. Differential Diagnosis Differential Diagnoses: The differential diagnosis associated with the presentation includes See above Admission/Observation Consideration of admission/observation: Escalation of care including admission/observation considered Patient requiring admission. Consult Healthcare Provider Management of the patient was discussed with: [employer] Engineer Dr. Hernandez, [facility] Lab Data MDM Lab Attestation statement: I reviewed the patient's lab results. See MDM and course 12/25/24 12:32 12/25/24 16:28 Labs: Lab Results 12/25/24 12/25/24 12/25/24 Range/Units 12:20 12:32 12:37 WBC 12.3 H (4.8-10.8) X10*3/uL RBC 4.40 (4.20-5.50) X10*6/uL Hgb 13.5 (12.0-16.0) g/dl Hct 40.5 (37.0-47.0) % MCV 92.0 (80.0-98.0) fL MCH 30.7 (27.0-33.0) pg MCHC 33.3 (31.0-35.0) g/dl RDW 13.2 (11.0-16.0) % Plt Count 282 (160-400) X10*3/uL MPV 10.4 (9.4-12.3) fL Immature Gran % (Auto) Cancelled Neut % (Auto) Cancelled Lymph % (Auto) Cancelled [place] % (Auto) Cancelled Eos % (Auto) Cancelled Baso % (Auto) Cancelled Lymph # (Auto) Cancelled [place] # (Auto) Cancelled Eos # (Auto) Cancelled Baso # (Auto) Cancelled Abs Immat Gran (auto) Cancelled Absolute Neuts (auto) Cancelled Absolute Nucleated RBC 0.000 (0.0-0.012) X10*3/uL Nucleated RBC % (auto) 0.0 (0.0-0.2) /100WBC Neutrophils % (Manual) 58 (45-73) % Band Neutrophils % 17 H (3-5) % Lymphocytes % (Manual) 14 L (20-40) % Atypical Lymphs % (Man) 2 (0-6) % Monocytes % (Manual) 7 (2-11) % Eosinophils % (Manual) 2 (0-4) % Abs Neuts (Manual) 9.2 H (2.0-8.3) X10*3/uL Lymphocytes # (Manual) 1.7 (1.2-4.9) X10*3/uL Atyp Lymphs # (Manual) 0.2 x10*3/uL Monocytes # (Manual) 0.9 (0.1-1.2) X10*3/uL Eosinophils # (Manual) 0.2 (0.0-0.4) X10*3/uL Toxic Granulation PRESENT Toxic Vacuolation PRESENT Dohle Bodies PRESENT Platelet Estimate NORMAL (NORMAL) Plt Morphology Comment NORMAL RBC Morphology NOTED [place] Cells 3+ (>5) /OIF VBG pH 7.34 (7.32-7.43) VBG pCO2 22 mmHg VBG pO2 59 mmHg VBG HCO3 12 L (22-26) mmol/L VBG O2 Saturation 85.0 % VBG Base Excess -10.8 mmol/L Sodium (135-145) mmol/L Potassium (3.3-5.1) mmol/L Chloride (96-108) mmol/L Carbon Dioxide (22-29) mmol/L Anion Gap (12-20) BUN (9-16) mg/dL Creatinine (0.5-1.4) mg/dL Estim Creat Clear Calc Estimated GFR POC Glucose > 600 H* (60-115) mg/dL Random Glucose (60-115) mg/dL Lactic Acid (0.5-2.0) mmol/L Lactic Acid F/U @ 2Hr (0.5-2.0) mmol/L Calcium (8.4-10.2) mg/dL Magnesium (1.6-2.6) mg/dL Total Bilirubin (0.0-1.0) mg/dL Direct Bilirubin (0.0-0.5) mg/dL AST (5-31) U/L ALT (0-31) U/L Alkaline Phosphatase (39-117) U/L Troponin I High Sens 5.7 D (<3.5-17.0) ng/L Total Protein (6.5-8.0) g/dL Albumin (3.5-5.0) g/dL Lipase (8-78) U/L Beta-Hydroxybutyrate (0.02-0.27) mmol/L Urine Color Urine Appearance Urine pH (5.0-9.0) Ur Specific [place] (1.005-1.025) Urine Protein (Neg-Trace) mg/dL Urine Glucose (UA) (Negative) mg/dL Urine Ketones (Negative) mg/dL Urine Blood (Negative) Urine Nitrite (Negative) Ur Leukocyte Esterase (Negative) Urine RBC (0-2) /HPF Urine WBC (0-5) /HPF Ur Squamous Epith Cells (0-2) /HPF Urine Bacteria (None Seen) Hyaline Casts (0-2) /LPF Influenza Type A (PCR) (Negative) Influenza Type B (PCR) (Negative) RSV RNA Qual (PCR) (Negative) SARS-CoV-2 RNA (RT-PCR) (Negative) 12/25/24 12/25/24 12/25/24 Range/Units 12:38 13:32 14:11 WBC (4.8-10.8) X10*3/uL RBC (4.20-5.50) X10*6/uL Hgb (12.0-16.0) g/dl Hct (37.0-47.0) % MCV (80.0-98.0) fL MCH (27.0-33.0) pg MCHC (31.0-35.0) g/dl RDW (11.0-16.0) % Plt Count (160-400) X10*3/uL MPV (9.4-12.3) fL Immature Gran % (Auto) Neut % (Auto) Lymph % (Auto) [place] % (Auto) Eos % (Auto) Baso % (Auto) Lymph # (Auto) [place] # (Auto) Eos # (Auto) Baso # (Auto) Abs Immat Gran (auto) Absolute Neuts (auto) Absolute Nucleated RBC (0.0-0.012) X10*3/uL Nucleated RBC % (auto) (0.0-0.2) /100WBC Neutrophils % (Manual) (45-73) % Band Neutrophils % (3-5) % Lymphocytes % (Manual) (20-40) % Atypical Lymphs % (Man) (0-6) % Monocytes % (Manual) (2-11) % Eosinophils % (Manual) (0-4) % Abs Neuts (Manual) (2.0-8.3) X10*3/uL Lymphocytes # (Manual) (1.2-4.9) X10*3/uL Atyp Lymphs # (Manual) x10*3/uL Monocytes # (Manual) (0.1-1.2) X10*3/uL Eosinophils # (Manual) (0.0-0.4) X10*3/uL Toxic Granulation Toxic Vacuolation Dohle Bodies Platelet Estimate (NORMAL) Plt Morphology Comment RBC Morphology Tad Cells /OIF VBG pH (7.32-7.43) VBG pCO2 mmHg VBG pO2 mmHg VBG HCO3 (22-26) mmol/L VBG O2 Saturation % VBG Base Excess mmol/L Sodium 138 (135-145) mmol/L Potassium 4.8 (3.3-5.1) mmol/L Chloride 100 (96-108) mmol/L Carbon Dioxide 13 L (22-29) mmol/L Anion Gap 30 H (12-20) BUN 35 H (9-16) mg/dL Creatinine 1.17 (0.5-1.4) mg/dL Estim Creat Clear Calc 42.9 Estimated GFR 45 POC Glucose > 600 H* (60-115) mg/dL Random Glucose 678 H* (60-115) mg/dL Lactic Acid 4.7 H* (0.5-2.0) mmol/L Lactic Acid F/U @ 2Hr (0.5-2.0) mmol/L Calcium 9.1 (8.4-10.2) mg/dL Magnesium 1.8 (1.6-2.6) mg/dL Total Bilirubin 0.7 (0.0-1.0) mg/dL Direct Bilirubin 0.3 (0.0-0.5) mg/dL AST 15 (5-31) U/L ALT < 6 (0-31) U/L Alkaline Phosphatase 83 (39-117) U/L Troponin I High Sens (<3.5-17.0) ng/L Total Protein 6.3 L (6.5-8.0) g/dL Albumin 4.0 (3.5-5.0) g/dL Lipase < 4 L (8-78) U/L Beta-Hydroxybutyrate 8.36 H (0.02-0.27) mmol/L Urine Color Yellow Urine Appearance Clear Urine pH 5.0 (5.0-9.0) Ur Specific [place] >= 1.030 H (1.005-1.025) Urine Protein Negative (Neg-Trace) mg/dL Urine Glucose (UA) >=1000 H (Negative) mg/dL Urine Ketones 80 (Negative) mg/dL Urine Blood Negative (Negative) Urine Nitrite Negative (Negative) Ur Leukocyte Esterase Negative (Negative) Urine RBC 0-2 (0-2) /HPF Urine WBC 0-5 (0-5) /HPF Ur Squamous Epith Cells 0-2 (0-2) /HPF Urine Bacteria Trace (None Seen) Hyaline Casts 0-2 (0-2) /LPF Influenza Type A (PCR) NEGATIVE (Negative) Influenza Type B (PCR) NEGATIVE (Negative) RSV RNA Qual (PCR) NEGATIVE (Negative) SARS-CoV-2 RNA (RT-PCR) NEGATIVE (Negative) 12/25/24 12/25/24 12/25/24 Range/Units 15:22 16:06 16:10 WBC (4.8-10.8) X10*3/uL RBC (4.20-5.50) X10*6/uL Hgb (12.0-16.0) g/dl Hct (37.0-47.0) % MCV (80.0-98.0) fL MCH (27.0-33.0) pg MCHC (31.0-35.0) g/dl RDW (11.0-16.0) % Plt Count (160-400) X10*3/uL MPV (9.4-12.3) fL Immature Gran % (Auto) Neut % (Auto) Lymph % (Auto) [place] % (Auto) Eos % (Auto) Baso % (Auto) Lymph # (Auto) [place] # (Auto) Eos # (Auto) Baso # (Auto) Abs Immat Gran (auto) Absolute Neuts (auto) Absolute Nucleated RBC (0.0-0.012) X10*3/uL Nucleated RBC % (auto) (0.0-0.2) /100WBC Neutrophils % (Manual) (45-73) % Band Neutrophils % (3-5) % Lymphocytes % (Manual) (20-40) % Atypical Lymphs % (Man) (0-6) % Monocytes % (Manual) (2-11) % Eosinophils % (Manual) (0-4) % Abs Neuts (Manual) (2.0-8.3) X10*3/uL Lymphocytes # (Manual) (1.2-4.9) X10*3/uL Atyp Lymphs # (Manual) x10*3/uL Monocytes # (Manual) (0.1-1.2) X10*3/uL Eosinophils # (Manual) (0.0-0.4) X10*3/uL Toxic Granulation Toxic Vacuolation Dohle Bodies Platelet Estimate (NORMAL) Plt Morphology Comment RBC Morphology Tad Cells /OIF VBG pH (7.32-7.43) VBG pCO2 mmHg VBG pO2 mmHg VBG HCO3 (22-26) mmol/L VBG O2 Saturation % VBG Base Excess mmol/L Sodium (135-145) mmol/L Potassium (3.3-5.1) mmol/L Chloride (96-108) mmol/L Carbon Dioxide (22-29) mmol/L Anion Gap (12-20) BUN (9-16) mg/dL Creatinine (0.5-1.4) mg/dL Estim Creat Clear Calc Estimated GFR POC Glucose 579 H* 480 H* (60-115) mg/dL Random Glucose (60-115) mg/dL Lactic Acid (0.5-2.0) mmol/L Lactic Acid F/U @ 2Hr 4.1 H* (0.5-2.0) mmol/L Calcium (8.4-10.2) mg/dL Magnesium (1.6-2.6) mg/dL Total Bilirubin (0.0-1.0) mg/dL Direct Bilirubin (0.0-0.5) mg/dL AST (5-31) U/L ALT (0-31) U/L Alkaline Phosphatase (39-117) U/L Troponin I High Sens (<3.5-17.0) ng/L Total Protein (6.5-8.0) g/dL Albumin (3.5-5.0) g/dL Lipase (8-78) U/L Beta-Hydroxybutyrate (0.02-0.27) mmol/L Urine Color Urine Appearance Urine pH (5.0-9.0) Ur Specific [place] (1.005-1.025) Urine Protein (Neg-Trace) mg/dL Urine Glucose (UA) (Negative) mg/dL Urine Ketones (Negative) mg/dL Urine Blood (Negative) Urine Nitrite (Negative) Ur Leukocyte Esterase (Negative) Urine RBC (0-2) /HPF Urine WBC (0-5) /HPF Ur Squamous Epith Cells (0-2) /HPF Urine Bacteria (None Seen) Hyaline Casts (0-2) /LPF Influenza Type A (PCR) (Negative) Influenza Type B (PCR) (Negative) RSV RNA Qual (PCR) (Negative) SARS-CoV-2 RNA (RT-PCR) (Negative) 12/25/24 12/25/24 12/25/24 Range/Units 16:28 16:53 17:26 WBC (4.8-10.8) X10*3/uL RBC (4.20-5.50) X10*6/uL Hgb (12.0-16.0) g/dl Hct (37.0-47.0) % MCV (80.0-98.0) fL MCH (27.0-33.0) pg MCHC (31.0-35.0) g/dl RDW (11.0-16.0) % Plt Count (160-400) X10*3/uL MPV (9.4-12.3) fL Immature Gran % (Auto) Neut % (Auto) Lymph % (Auto) [place] % (Auto) Eos % (Auto) Baso % (Auto) Lymph # (Auto) [place] # (Auto) Eos # (Auto) Baso # (Auto) Abs Immat Gran (auto) Absolute Neuts (auto) Absolute Nucleated RBC (0.0-0.012) X10*3/uL Nucleated RBC % (auto) (0.0-0.2) /100WBC Neutrophils % (Manual) (45-73) % Band Neutrophils % (3-5) % Lymphocytes % (Manual) (20-40) % Atypical Lymphs % (Man) (0-6) % Monocytes % (Manual) (2-11) % Eosinophils % (Manual) (0-4) % Abs Neuts (Manual) (2.0-8.3) X10*3/uL Lymphocytes # (Manual) (1.2-4.9) X10*3/uL Atyp Lymphs # (Manual) x10*3/uL Monocytes # (Manual) (0.1-1.2) X10*3/uL Eosinophils # (Manual) (0.0-0.4) X10*3/uL Toxic Granulation Toxic Vacuolation Dohle Bodies Platelet Estimate (NORMAL) Plt Morphology Comment RBC Morphology Tad Cells /OIF VBG pH (7.32-7.43) VBG pCO2 mmHg VBG pO2 mmHg VBG HCO3 (22-26) mmol/L VBG O2 Saturation % VBG Base Excess mmol/L Sodium 143 (135-145) mmol/L Potassium 4.1 (3.3-5.1) mmol/L Chloride 105 (96-108) mmol/L Carbon Dioxide 11 L (22-29) mmol/L Anion Gap 31 H (12-20) BUN 32 H (9-16) mg/dL Creatinine 1.16 (0.5-1.4) mg/dL Estim Creat Clear Calc 43.3 Estimated GFR 46 POC Glucose 483 H* 492 H* (60-115) mg/dL Random Glucose 574 H* (60-115) mg/dL Lactic Acid (0.5-2.0) mmol/L Lactic Acid F/U @ 2Hr (0.5-2.0) mmol/L Calcium 8.9 (8.4-10.2) mg/dL Magnesium (1.6-2.6) mg/dL Total Bilirubin (0.0-1.0) mg/dL Direct Bilirubin (0.0-0.5) mg/dL AST (5-31) U/L ALT (0-31) U/L Alkaline Phosphatase (39-117) U/L Troponin I High Sens (<3.5-17.0) ng/L Total Protein (6.5-8.0) g/dL Albumin (3.5-5.0) g/dL Lipase (8-78) U/L Beta-Hydroxybutyrate (0.02-0.27) mmol/L Urine Color Urine Appearance Urine pH (5.0-9.0) Ur Specific [place] (1.005-1.025) Urine Protein (Neg-Trace) mg/dL Urine Glucose (UA) (Negative) mg/dL Urine Ketones (Negative) mg/dL Urine Blood (Negative) Urine Nitrite (Negative) Ur Leukocyte Esterase (Negative) Urine RBC (0-2) /HPF Urine WBC (0-5) /HPF Ur Squamous Epith Cells (0-2) /HPF Urine Bacteria (None Seen) Hyaline Casts (0-2) /LPF Influenza Type A (PCR) (Negative) Influenza Type B (PCR) (Negative) RSV RNA Qual (PCR) (Negative) SARS-CoV-2 RNA (RT-PCR) (Negative) Independent Interpretation I performed an independent interpretation of an: EKG Interpretation: EKG normal sinus rhythm at a ventricular rate of 82 beats per minute, SD interval 126, QT QTC 386/450, no STEMI. Radiology Impression Discussion of test interpretation with radiology: I have reviewed the radiologist's reading. Radiologist Impression: EXAMINATION: XR CHEST CLINICAL INFORMATION: vomiting, r/o aspiration, SOB COMPARISON: May 04, 2024 TECHNIQUE: Frontal view of the chest was obtained. FINDINGS: Patchy opacity right upper hemithorax. No pleural effusion. No pneumothorax. Pulmonary reticular pattern. Degenerative changes in the acromioclavicular joints. Level thoracic spondylosis. Cardiomediastinal silhouette size is normal. XR/XR chest 1V IMPRESSION: Questionable airspace disease, right upper lung lobe. Multilevel spondylosis. Electronically signed by: Soto Feng MD 12/25/2024 01:00 PM EDT Dictated By: Soto Gee MD Chronic Conditions Patient?s care impacted by: Other (Diabetes) Critical Care Time Critical Care Time Critical Care Time: Yes Total Critical Care Time: 84 Attestation: I have personally provided critical care time exclusive of time spent on separately billable procedures. Time includes review of lab data, radiology results, discussion with consultants, and monitoring for potential decompensation. Intervention performed as documented. Discharge Plan Discharge Clinical Impression: DKA (diabetic ketoacidosis), Cannabinoid hyperemesis syndrome, Pneumonia, Sepsis Patient Disposition: Admitted As Inpatient Interventions: Admission Worksheet (ED) Last Done: 12/25/24 17:47
--- NOTE | 2024-12-25 12:16 | ECG_ITS ---
Test Reason : WEAKNESS Blood Pressure : */* mmHG Vent. Rate : 82 BPM Atrial Rate : 82 BPM P-R Int : 126 ms QRS Dur : 84 ms QT Int : 386 ms P-R-T Axes : 76 7 69 degrees QTcB Int : 450 ms Baseline wander Normal sinus rhythm Normal ECG When compared with ECG of 12-Oct-2023 07:23, Difficult to compare due to baseline wander Referred By: Gila Salcido Electronically Signed By: GIL MO MD
[2024-12-25 12:25] LABS: Glucose, Whole Blood > 600 mg/dL (60-115)
[2024-12-25] MEDS: Lactated Ringers 1,000 ML 999 ML IV ×4 (12:35→18:00)
[2024-12-25 12:37] LABS: Hematocrit 40.5 % (37.0-47.0); Hemoglobin 13.5 g/dl (12.0-16.0); Mean Corpuscular HGB Conc 33.3 g/dl (31.0-35.0); Mean Corpuscular Hemoglobin 30.7 pg (27.0-33.0); Mean Corpuscular Volume 92.0 fL (80.0-98.0); NRBC Abs Auto 0.000 X10*3/uL (0.0-0.012); NRBC Pct Auto 0.0 /100WBC (0.0-0.2); Platelet Count 282 X10*3/uL (160-400); Red Blood Count 4.40 X10*6/uL (4.20-5.50); White Blood Count 12.3 X10*3/uL (4.8-10.8)
--- NOTE | 2024-12-25 12:40 | PC.NURSE ---
biba from home c/o n/v/d/weakness x 3 days. pt reporting recently starting mounjaro x 1 week ago. POC via EMS 600mg/dL. upon EMS arrival - POC reading high. pt reports decrease in scheduled insulin administration d/t feeling unwell. upon ED arrival - pt a&ox4. vss and up to date. nsr on the conveyor monitor. pt placed on end tital. 18gIV placed in the right AC - additional 18gIV placed in the left forearm - labs obtained/sent to lab. IVF/medication administered per provider order. provider notified/aware that pt is critical. pt in to see patient. plan of care ongoing. call paris placed within reach.
[2024-12-25 12:41] LABS: VBG HCO3 12 mmol/L (22-26); VBG O2 % Saturation 85.0 %
[2024-12-25 12:42] LABS: Venous Blood Gas Refer to POC result
[2024-12-25 12:45] LABS: Appearance Urine Clear; Glucose Urine UA >=1000 mg/dL (Negative); PH 5.0 (5.0-9.0); Specific Gravity - Urine >= 1.030 (1.005-1.025); UMIC TRIGGER UACC YES
[2024-12-25 13:05] LABS: Troponin-I High Sensitivity 5.7 ng/L (<3.5-17.0)
[2024-12-25 13:11] LABS: Neutrophils Percent Manual 58 % (45-73)
[2024-12-25 13:12] LABS: Atypical Lymph Absolute Manual 0.2 x10*3/uL; Atypical Lymphs Percent Manual 2 % (0-6); Band Neutrophils Percent 17 % (3-5); Eosinophils Absolute Manual 0.2 X10*3/uL (0.0-0.4); Eosinophils Percent Manual 2 % (0-4); Lymphocytes Absolute Manual 1.7 X10*3/uL (1.2-4.9); Lymphocytes Percent Manual 14 % (20-40); Monocytes Absolute Manual 0.9 X10*3/uL (0.1-1.2); Monocytes Percent Manual 7 % (2-11); Neutrophils Absolute Manual 9.2 X10*3/uL (2.0-8.3)
[2024-12-25 13:13] LABS: Burr Cells 3+ (>5) /OIF; Dohle Bodies PRESENT; RBC Morphology NOTED; Toxic Granulation PRESENT; Toxic Vacuolation PRESENT
[2024-12-25 13:26] LABS: Resp Syncy Virus RNA Qual PCR NEGATIVE (Negative); SARS COV2 PCR INHOUSE NEGATIVE (Negative)
--- NOTE | 2024-12-25 13:50 | PC.NURSE ---
sepsis workup initiated. cultures/labs obtained/sent to lab by tech. IVF/abx administered per provider order. vital signs remain stable/up to date. plan of care ongoing. call paris placed within reach.
[2024-12-25 14:07] LABS: Alanine Aminotransferase < 6 U/L (0-31); Albumin Level 4.0 g/dL (3.5-5.0); Alkaline Phosphatase 83 U/L (39-117); Anion Gap 30 (12-20); Aspartate Amino Transferase 15 U/L (5-31); Blood Urea Nitrogen 35 mg/dL (9-16); Calcium 9.1 mg/dL (8.4-10.2); Carbon Dioxide 13 mmol/L (22-29); Chloride 100 mmol/L (96-108); Creatinine Clr Calc Pharmacy 42.9; Estimated Glomerular Filt Rate 45; Lipase < 4 U/L (8-78); Magnesium 1.8 mg/dL (1.6-2.6); Potassium 4.8 mmol/L (3.3-5.1); Sodium 138 mmol/L (135-145); Total Protein 6.3 g/dL (6.5-8.0)
--- OUTSIDE RECORDS SUMMARY | 2024-12-25 14:08 | XMS_ITS | Encounter Summary ---
Author Organization [employer] Address [address] [place] [address] Care Team Providers Care Crime Scene Technician Name Role Phone Nayeli Bahena MD Primary Care Pro vider Reason for Visit * Reason Comments Med Refill Encounter Details Date Type Department Care Team ([facility] st Contact Info) Description 07/19/2023 Refill [facility] [address] [place] [address] Rita Pa MD [address] [place], [place] [phone] Social History Tobacco Use Types Packs/Day Years [...] Care Team (Late st Contact Info) Description 01/09/2025 2:00 PM EDT Clinical Support [facility] [address] [place] [phone] 01/18/2025 3:00 PM EDT Office Visit [facility] [address] [place] [phone] Nayeli Bahena MD [address] [place] [phone] documented as of this encounter Visit Diagnoses Not on filedocumented in this encounter Additional Health Concerns Assessment Noted Time PHQ-9 Depression Total Score: 5 10/02/19 10:28 AM EDT documented as of this encounter Care Teams Crime Scene Technician Relationship Specialty Start Date End Date Nayeli Bahena MD [address] [place] [phone] PCP - General Internal Medicine 09/09/22 documented as of this encounter
--- OUTSIDE RECORDS SUMMARY | 2024-12-25 14:08 | XMS_ITS | Clinical Summary ---
Author Organization [address] [facility] Address [address] [place] [address] Phone Care Team Providers Care Public Safety Telecommunicator Name Role Phone Nayeli Bahena MD Primary Care Pro vider Social History Tobacco Use Types Packs/Day Years Used Date Smoking Tobacco: Never Assessed Comments Unknown Sex and Gender Information Value Date Recorded Sex Assigned at Not on file Legal Sex Female 11:40 AM EDT Gender Identity Not on file Sexual Orientation Not on file Plan of Treatment Upcoming Encounters Date Type Department Care Team (Late st Contact Info) Description 01/17/2025 1:30 PM EDT Consult Orthopedic Surgery - [place] [id number] [phone] Rohit Schwab DPM [address] [address] Health Maintenance Due Date Last Done Comments Diabetes: Annual GFR (Glomer ular Filtration Rate) 1949 Diabetes: Annual Foot Exam 1959 Diabetes: Annual Retina Eye Exam 1959 DTaP,Tdap,and Td Vaccines (1 - Tdap) 02/07/1968 Pneumococcal Vaccine: 50+ Ye ars (1 of 2 - PCV) 02/07/1968 Zoster Vaccines (1 of 2) 1999 COVID-19 Vaccine (2023-2 5 season) 2024 RSV Immunization Adult Patie nts (1 - 1-dose 75+ series) 02/07/2024 Cholesterol Screening (Lipid Panel) 03/04/2024 Colorectal Cancer Screening: Colonoscopy 03/04/2024 Falls Risk Assessment 03/04/2024 Hepatitis C Screening 03/04/2024 Medicare Annual Wellness Visit 03/04/2024 Osteoporosis Screening (Bone Density Screening) 03/04/2024 Social Influencers of Health Screening 03/04/2024 Depression Screening 05/10/2024 Diabetes: Annual Urine Albumin-Creatinine Ratio (uACR) 11/02/2024 Diabetes: Blood Sugar Contro l Test (HGBA1C) 11/02/2024 Influenza Vaccine (#1) 2025 HIB Vaccines Aged Out No longer eligi ble based on patient's age to complete this topic HPV Vaccines Aged Out No longer eligi ble based on patient's age to complete this topic Hepatitis A Vaccines Aged Out No long er eligible based on patient's age to complete this topic Hepatitis B Vaccines Aged Out No long er eligible based on patient's age to complete this topic IPV Vaccines Aged Out No longer eligi ble based on patient's age to complete this topic MMR Vaccines Aged Out No longer eligi ble based on patient's age to complete this topic Meningococcal ACWY Vaccine Aged Out N o longer eligible based on patient's age to complete this topic Meningococcal B Vaccine Aged Out No l onger eligible based on patient's age to complete this topic RSV Immunization Patients Un link 20 months Aged Out No longer eligible b ased on patient's age to complete this topic Varicella Vaccines Aged Out No longer eligible based on patient's age to complete this topic Insurance MEDICAID - [place] [employer] [address] [place] [address] Care Teams Public Safety Telecommunicator Relationship Specialty Start Date End Date Nayeli Bahena MD [address] [facility] [address] [place] [phone] PCP - General 11/23/23
--- OUTSIDE RECORDS SUMMARY | 2024-12-25 14:08 | XMS_ITS | Patient Health Record ---
Author Organization [facility] Address [address] [place] Santos [id number] Care Team Providers Care Economics Instructor Name Role Phone Point, Beatriz Primary Care Provider Sammy Collado Unavailable [phone] Allergies Allergen (clinical drug ingredient) Drug/Non Drug Allergy documented on EMR Reaction Allergy Type Onset Date Status metformin Metformin HCl Unknown Drug Allergy Act hair Adhesive Tape Unknown Drug Allergy Act hair Reason For Referral No Information Medications Medication SIG (Take, Route, Frequency, Duration) Notes Start Date End Date Status NovoLOG Mix 70/30 Ac tive Levothyroxine Sodium Active clonazePAM Active NovoLOG Active Cyclobenzaprine HCl Active Pramipexole Dihydrochloride Active Simvastatin Active Gabapentin Active Sertraline HCl Activ e NovoLIN 70/30 Active Social History Tobacco Use: Social History Observation Description Date Details (start date - stop date) Current Smoker NA - NA Smoking Question Answer Notes Are you a: current smoker How often do you smoke cigarettes? every day How many cigarettes a day do you smoke? 5 or les s How soon after you wake up d o you smoke your first cigarette? 31-60 min Are you interested in quitting? Thinking about q uitting Additional Findings: Tobacco User Light cigarett e smoker ((1-9 cigs/day) Problems Problem Type SNOMED Code ICD Code Onset Dates Problem Status W/U Status Risk Notes Problem Type II diabetes mellitus without complication (656947410) Diabetes mellitus without mention of complication, type II or unspecified type, not stated as uncontrolled (250.00) Active confirmed (Francisco Javier-) Problem Callosity (902395067) Corns and callosities (700) Active confirmed (Francisco Javier-) Problem 78252657 Type 2 diabetes mellitus with diabetic polyneuropathy, without long-term current use of insulin (E11.42) Active confirmed Problem 960991475 Foreign body in right foot, initial encounter (S90.851A) Active confirmed Plan Of Treatment No Information Insurance Providers Payer Name Payer Address Payer Phone Subscriber Number Group Number Insured Name Patient Relationship to Insured Coverage Start Date Coverage End Date [address] [id number] Maia Marley Self - patient is the insured Medical (General) History Medical History History ICD Code type I diabetes hypercholesterolemia Hypothyroidism Surgical History Surgery Date(Month/Year) Hospitalization History Reason Date(Month/Year) diabetes 2018
[2024-12-25 14:15] LABS: Glucose, Whole Blood > 600 mg/dL (60-115)
--- NOTE | 2024-12-25 14:20 | PC.NURSE ---
repeat POC s/p IVF bolus displays >600mg/dL. provider notified/aware of results.
--- NOTE | 2024-12-25 14:50 | PC.NURSE ---
medication administered per provider order. effectiveness pending.
--- NOTE | 2024-12-25 15:23 | PC.NURSE ---
repeat POC obtained s/p insulin administration displays 579mg/dL. LANG cantu notified/aware.
[2024-12-25 15:24] LABS: Glucose, Whole Blood 579 mg/dL (60-115)
[2024-12-25 15:36] LABS: Reflex Lactate? Lactic Acid Added
[2024-12-25 16:09] LABS: Glucose, Whole Blood 480 mg/dL (60-115)
[2024-12-25 16:36] LABS: ~Lactic Acid-LAB USE ONLY 4.1 mmol/L (0.5-2.0)
[2024-12-25 16:51] LABS: Anion Gap 31 (12-20); Blood Urea Nitrogen 32 mg/dL (9-16); Calcium 8.9 mg/dL (8.4-10.2); Carbon Dioxide 11 mmol/L (22-29); Chloride 105 mmol/L (96-108); Creatinine Clr Calc Pharmacy 43.3; Estimated Glomerular Filt Rate 46; Potassium 4.1 mmol/L (3.3-5.1); Sodium 143 mmol/L (135-145)
[2024-12-25 16:57] LABS: Glucose, Whole Blood 483 mg/dL (60-115)
[2024-12-25] MEDS: Insulin Regular/NS 100 UNIT/100 ML PLAST..BAG 8 UNIT IVCONT (17:27)
[2024-12-25 17:30] LABS: Glucose, Whole Blood 492 mg/dL (60-115)
--- NOTE | 2024-12-25 17:31 | PC.NURSE ---
POC Glucose obtained immediately prior to insulin gtt initiation. Insulin gtt 8units/hr. See MAR for [facility] titration protocol. VSS. Will continue to monitor
--- NOTE | 2024-12-25 17:36 | PM.CCHP ---
History of Present Illness Date of Service: 12/25/24 Chief Complaint: Diarrhea 74 years old lady with past medical history of insulin-dependent diabetes mellitus, hypothyroidism, anxiety is brought into the ED due to nausea, vomiting along with diarrhea for about the past 4 days. She was started on Mounjaro recently. She started having multiple episodes of diarrhea 3-4 episodes, nonbloody, watery because of which which she stopped her nighttime insulin dose as she was not eating anything much. Today her labs were significant for DKA with bicarb of 12 and anion gap of 32 so insulin drip was started and admitted to medical ICU Review of Systems Constitutional: Constitutional: Denies body ache(s) and Denies chills Eyes: Eyes: Denies exophthalmos and Denies change in vision ENT: Denies bleeding gums and Denies halitosis Cardiovascular: Cardiovascular: Denies Abdominal Cramping after Meds, Denies Abdominal Distension, Denies chest pain at rest and Denies chest pain with activity Respiratory: Respiratory: Denies no additional respiratory complaints, Denies change in phlegm color and Denies chest congestion Gastrointestinal: Gastrointestinal: Reports abdominal pain, Denies melena, Reports GI cramping and Reports loose stools Genitourinary: Genitourinary: Denies abnormal vaginal bleeding and Reports amenorrhea Musculoskeletal: Musculoskeletal: Denies back pain, Denies myalgias and Denies atrophy Neurologic: Denies behavioral changes Psychiatric: Psychiatric: Denies anxiety and Denies behavioral changes PMFSH Past Medical History Medical History Cannabis use disorder Cat bite Anxiety Hypothyroidism Depression Diabetes Family History Family History Other No family history of coronary artery disease Surgical History Surgical History History of carpal tunnel surgery History of ankle surgery History of tonsillectomy and adenoidectomy Social History Social History Household Members: None [facility] Do you presently have visiting nurse or other home services: No Alcohol intake: never Patient Tobacco Use Status: Former Tobacco user Tobacco use type: Cigarette Cigarette Packs Per Day: 1 Cigarettes Per Day: 20.0 Years Smoked: 55 Second Hand Smoke Exposure: No Substance Use Type: Marijuana Advance Directives: No Advance Directives Information Provided: Yes Do you have a plan to hurt others: No Plan service: No Current occupational status: retired Current occupation: rt handed Meds Allergies Allergy/AdvReac Type Severity Reaction Status Date / Time adhesive tape AdvReac Blister Verified 12/25/24 12:17 metformin AdvReac Agitated Verified 12/25/24 12:17 Active Medications: Current Medications Dextrose (Dextrose 50 % 25 Gm/50 Ml Syringe) 25 gm IVPUSH Q30M PRN PRN Reason: BG < 70 Enoxaparin Sodium (Enoxaparin Sodium 40 Mg/0.4 Ml Syringe) 40 mg SUBCUT Q24H VITALIY Famotidine (Famotidine/Pf 20 Mg/2 Ml Vial) 20 mg IVPUSH BID VITALIY Insulin Human Regular (Myxredlin) 100 unit in 100 mls @ 8 mls/hr IVCONT .[id number] VITALIY; Protocol Last Admin: 12/25/24 17:27 Dose: 8 unit/hr, 8 mls/hr Ondansetron HCl (Ondansetron Hcl 4 Mg/2 Ml Vial) 4 mg IVPUSH Q8H PRN PRN Reason: Nausea and Vomiting Home Medications ?Medication ?Instructions ?Recorded ?Confirmed ?Last Taken ?Type sertraline 100 mg tablet 100 mg PO DAILY@1200 02/03/21 11/02/22 04/23/22 History aspirin 81 mg chewable tablet 81 mg PO DAILY@1700 04/24/22 11/02/22 04/23/22 History dulaglutide 1.5 mg/0.5 mL 1.5 mg subcut WE 04/24/22 11/02/22 04/22/22 History subcutaneous pen injector (Trulicity) insulin aspar prot-insulin aspart 42 unit subcut DAILY 04/24/22 11/02/22 04/23/22 History 100 unit/mL (70-30) subcutaneous pen (Novolog Mix 70-30FlexPen U-100) pramipexole 0.125 mg tablet 0.125 mg PO DAILY@1800 04/24/22 11/02/22 04/23/22 History atorvastatin 40 mg tablet 40 mg PO DAILY 10/31/22 11/02/22 Unknown History levothyroxine 150 mcg tablet 150 mcg PO DAILY@0600 10/31/22 11/02/22 Unknown History multivitamin with folic acid 400 1 tab PO DAILY 10/31/22 11/02/22 Unknown History mcg tablet (Daily-Johny (with folic acid)) insulin aspar prot-insulin aspart 40 unit subcut BEDTIME 12/25/24 Unknown History 100 unit/mL (70-30) subcutaneous pen (Novolog Mix 70-30FlexPen U-100) sitagliptin phosphate 50 mg tablet 50 mg PO DAILY 12/25/24 Unknown History (Ayden) tirzepatide 5 mg/0.5 mL 5 mg subcut QWEEK 12/25/24 Unknown History subcutaneous pen injector (Mounjaro) Physical Exam Vital Signs: Vital Signs: Last Vital Signs Temp 98.2 F 12/25/24 16:06 Pulse 91 12/25/24 17:33 Resp 13 12/25/24 17:33 BP 145/61 H 12/25/24 17:33 Pulse Ox 98 12/25/24 17:33 O2 Del Method Room Air 12/25/24 17:33 FiO2 21 12/25/24 16:06 BMI result Body Mass Index 28.7 General: Elderly lady in mild acute distress, ill appearing and tired appearing Nutritional Appearance: well nourished and overweight Eyes: appearance normal, both eyes and all related structures; Alignment and Position: alignment normal and position normal Neck: No lymphadenopathy, no thyromegaly Resp: bilateral air entry equal, occasional added sounds present Cardio: Regular rate, regular rhythm; Heart sounds: S1 normal heart sound present and S2 normal heart sound present GI: soft, nontender, no guarding, no hepatosplenomegaly : bladder normal to inspection, bladder normal to palpation, no renal angle tenderness Skin: no rashes or lesions noted and elasticity normal Neuro: oriented to person, oriented to place, oriented to time and moves all extremities Results Labs 12/25/24 12:32 12/25/24 16:28 Labs: Laboratory Results - last 24 hr 12/25/24 12/25/24 12/25/24 12:20 12:32 12:37 MCV 92.0 MCH 30.7 MCHC 33.3 RDW 13.2 Plt Count 282 MPV 10.4 Immature Gran % (Auto) Cancelled Neut % (Auto) Cancelled Lymph % (Auto) Cancelled [place] % (Auto) Cancelled Eos % (Auto) Cancelled Baso % (Auto) Cancelled Lymph # (Auto) Cancelled [place] # (Auto) Cancelled Eos # (Auto) Cancelled Baso # (Auto) Cancelled Abs Immat Gran (auto) Cancelled Absolute Neuts (auto) Cancelled Absolute Nucleated RBC 0.000 Nucleated RBC % (auto) 0.0 Neutrophils % (Manual) 58 Band Neutrophils % 17 H Lymphocytes % (Manual) 14 L Atypical Lymphs % (Man) 2 Monocytes % (Manual) 7 Eosinophils % (Manual) 2 Abs Neuts (Manual) 9.2 H Lymphocytes # (Manual) 1.7 Atyp Lymphs # (Manual) 0.2 Monocytes # (Manual) 0.9 Eosinophils # (Manual) 0.2 Toxic Granulation PRESENT Toxic Vacuolation PRESENT Dohle Bodies PRESENT Platelet Estimate NORMAL Plt Morphology Comment NORMAL RBC Morphology NOTED [place] Cells 3+ (>5) VBG pH 7.34 VBG pCO2 22 VBG pO2 59 VBG HCO3 12 L VBG O2 Saturation 85.0 VBG Base Excess -10.8 Anion Gap Estim Creat Clear Calc Estimated GFR POC Glucose > 600 H* Random Glucose Lactic Acid Lactic Acid F/U @ 2Hr Calcium Magnesium Total Bilirubin Direct Bilirubin AST ALT Alkaline Phosphatase Total Protein Albumin Lipase Beta-Hydroxybutyrate Urine Color Urine Appearance Urine pH Ur Specific [place] Urine Protein Urine Glucose (UA) Urine Ketones Urine Blood Urine Nitrite Ur Leukocyte Esterase Urine RBC Urine WBC Ur Squamous Epith Cells Urine Bacteria Hyaline Casts Influenza Type A (PCR) Influenza Type B (PCR) RSV RNA Qual (PCR) SARS-CoV-2 RNA (RT-PCR) 12/25/24 12/25/24 12/25/24 12:38 13:32 14:11 MCV MCH MCHC RDW Plt Count MPV Immature Gran % (Auto) Neut % (Auto) Lymph % (Auto) [place] % (Auto) Eos % (Auto) Baso % (Auto) Lymph # (Auto) [place] # (Auto) Eos # (Auto) Baso # (Auto) Abs Immat Gran (auto) Absolute Neuts (auto) Absolute Nucleated RBC Nucleated RBC % (auto) Neutrophils % (Manual) Band Neutrophils % Lymphocytes % (Manual) Atypical Lymphs % (Man) Monocytes % (Manual) Eosinophils % (Manual) Abs Neuts (Manual) Lymphocytes # (Manual) Atyp Lymphs # (Manual) Monocytes # (Manual) Eosinophils # (Manual) Toxic Granulation Toxic Vacuolation Dohle Bodies Platelet Estimate Plt Morphology Comment RBC Morphology [place] Cells VBG pH VBG pCO2 VBG pO2 VBG HCO3 VBG O2 Saturation VBG Base Excess Anion Gap 30 H Estim Creat Clear Calc 42.9 Estimated GFR 45 POC Glucose > 600 H* Random Glucose 678 H* Lactic Acid 4.7 H* Lactic Acid F/U @ 2Hr Calcium 9.1 Magnesium 1.8 Total Bilirubin 0.7 Direct Bilirubin 0.3 AST 15 ALT < 6 Alkaline Phosphatase 83 Total Protein 6.3 L Albumin 4.0 Lipase < 4 L Beta-Hydroxybutyrate 8.36 H Urine Color Yellow Urine Appearance Clear Urine pH 5.0 Ur Specific [place] >= 1.030 H Urine Protein Negative Urine Glucose (UA) >=1000 H Urine Ketones 80 Urine Blood Negative Urine Nitrite Negative Ur Leukocyte Esterase Negative Urine RBC 0-2 Urine WBC 0-5 Ur Squamous Epith Cells 0-2 Urine Bacteria Trace Hyaline Casts 0-2 Influenza Type A (PCR) NEGATIVE Influenza Type B (PCR) NEGATIVE RSV RNA Qual (PCR) NEGATIVE SARS-CoV-2 RNA (RT-PCR) NEGATIVE 12/25/24 12/25/24 12/25/24 15:22 16:06 16:10 MCV MCH MCHC RDW Plt Count MPV Immature Gran % (Auto) Neut % (Auto) Lymph % (Auto) [place] % (Auto) Eos % (Auto) Baso % (Auto) Lymph # (Auto) [place] # (Auto) Eos # (Auto) Baso # (Auto) Abs Immat Gran (auto) Absolute Neuts (auto) Absolute Nucleated RBC Nucleated RBC % (auto) Neutrophils % (Manual) Band Neutrophils % Lymphocytes % (Manual) Atypical Lymphs % (Man) Monocytes % (Manual) Eosinophils % (Manual) Abs Neuts (Manual) Lymphocytes # (Manual) Atyp Lymphs # (Manual) Monocytes # (Manual) Eosinophils # (Manual) Toxic Granulation Toxic Vacuolation Dohle Bodies Platelet Estimate Plt Morphology Comment RBC Morphology [place] Cells VBG pH VBG pCO2 VBG pO2 VBG HCO3 VBG O2 Saturation VBG Base Excess Anion Gap Estim Creat Clear Calc Estimated GFR POC Glucose 579 H* 480 H* Random Glucose Lactic Acid Lactic Acid F/U @ 2Hr 4.1 H* Calcium Magnesium Total Bilirubin Direct Bilirubin AST ALT Alkaline Phosphatase Total Protein Albumin Lipase Beta-Hydroxybutyrate Urine Color Urine Appearance Urine pH Ur Specific [place] Urine Protein Urine Glucose (UA) Urine Ketones Urine Blood Urine Nitrite Ur Leukocyte Esterase Urine RBC Urine WBC Ur Squamous Epith Cells Urine Bacteria Hyaline Casts Influenza Type A (PCR) Influenza Type B (PCR) RSV RNA Qual (PCR) SARS-CoV-2 RNA (RT-PCR) 12/25/24 12/25/24 12/25/24 16:28 16:53 17:26 MCV MCH MCHC RDW Plt Count MPV Immature Gran % (Auto) Neut % (Auto) Lymph % (Auto) [place] % (Auto) Eos % (Auto) Baso % (Auto) Lymph # (Auto) [place] # (Auto) Eos # (Auto) Baso # (Auto) Abs Immat Gran (auto) Absolute Neuts (auto) Absolute Nucleated RBC Nucleated RBC % (auto) Neutrophils % (Manual) Band Neutrophils % Lymphocytes % (Manual) Atypical Lymphs % (Man) Monocytes % (Manual) Eosinophils % (Manual) Abs Neuts (Manual) Lymphocytes # (Manual) Atyp Lymphs # (Manual) Monocytes # (Manual) Eosinophils # (Manual) Toxic Granulation Toxic Vacuolation Dohle Bodies Platelet Estimate Plt Morphology Comment RBC Morphology [place] Cells VBG pH VBG pCO2 VBG pO2 VBG HCO3 VBG O2 Saturation VBG Base Excess Anion Gap 31 H Estim Creat Clear Calc 43.3 Estimated GFR 46 POC Glucose 483 H* 492 H* Random Glucose 574 H* Lactic Acid Lactic Acid F/U @ 2Hr Calcium 8.9 Magnesium Total Bilirubin Direct Bilirubin AST ALT Alkaline Phosphatase Total Protein Albumin Lipase Beta-Hydroxybutyrate Urine Color Urine Appearance Urine pH Ur Specific [place] Urine Protein Urine Glucose (UA) Urine Ketones Urine Blood Urine Nitrite Ur Leukocyte Esterase Urine RBC Urine WBC Ur Squamous Epith Cells Urine Bacteria Hyaline Casts Influenza Type A (PCR) Influenza Type B (PCR) RSV RNA Qual (PCR) SARS-CoV-2 RNA (RT-PCR) Imaging Radiologist's Impressions: Impressions Chest X-Ray 12/25/24 11:39 IMPRESSION: Questionable airspace disease, right upper lung lobe. Multilevel spondylosis. Electronically signed by: Soto Feng MD 12/25/2024 01:00 PM EDT Assessment and Plan (1) Cannabis use disorder: Status: Acute (2) Coffee ground emesis: Status: Acute (3) DKA (diabetic ketoacidosis): Qualifiers: Diabetes mellitus complication detail: without coma Diabetes mellitus type: type 1 Qualified Code(s): E10.10 - Type 1 diabetes mellitus with ketoacidosis without coma Status: Inactive Plan Diabetic ketoacidosis: Secondary to noncompliance to insulin due to diarrhea, toxicology positive for marijuana We will give him 2 more L of LR boluses We will start the patient on insulin drip and titrated according to given blood sugars We will get BMP q.4 hours, Mag, phos q.4 hours. We will stop the insulin drip if the potassium is less than 3.3, we will do potassium supplements with the fluids of the K is less than 5.5 We will keep him NPO until the gap closes CXR clear, Urinalysis no cells Prophylaxis: Heparin, famotidine
--- NOTE | 2024-12-25 17:51 | PC.NURSE ---
Report called to Ash CARDENAS. Transported to ICU with this RN. Insulin gtt running. VSS. ICU MD at bedside.
--- NOTE | 2024-12-25 18:08 | PC.NURSE ---
Pt transported by Juan C with transport and this RN and Nathalia CARDENAS. Ash CARDENAS take over care.
[2024-12-25 18:13] LABS: Reflex Lactate? 2 Y
[2024-12-25 18:27] LABS: Glucose, Whole Blood 390 mg/dL (60-115)
[2024-12-25 19:16] LABS: Alanine Aminotransferase 13 U/L (0-31); Albumin Level 4.0 g/dL (3.5-5.0); Alkaline Phosphatase 79 U/L (39-117); Anion Gap 22 (12-20); Aspartate Amino Transferase 18 U/L (5-31); Blood Urea Nitrogen 31 mg/dL (9-16); Calcium 8.9 mg/dL (8.4-10.2); Carbon Dioxide 18 mmol/L (22-29); Chloride 108 mmol/L (96-108); Creatinine Clr Calc Pharmacy 42.2; Estimated Glomerular Filt Rate 44; Magnesium 1.8 mg/dL (1.6-2.6); Potassium 4.0 mmol/L (3.3-5.1); Sodium 144 mmol/L (135-145); Total Protein 6.3 g/dL (6.5-8.0); ~Lactic Acid-LAB USE ONLY 2.5 mmol/L (0.5-2.0)
[2024-12-25 19:21] LABS: Glucose, Whole Blood 344 mg/dL (60-115)
--- NOTE | 2024-12-25 19:25 | PHA.MEDREC ---
Addendum entered by Wendi Robertson [facility] 12/25/24 19:33: [facility] reviewed Addendum entered by Phillip Barnett 12/25/24 19:29: Asked pt about Januvia and she was not entirely sure if she still takes that medication or not at this time; I kept it confirm on the med rec since last fill was 09/22/24 for 90 days. Original Note: Pharmacy Consult ? Medication Reconciliation Pharmacy has completed the medication reconciliation. Spoke with pt and she was a poor historian with her medications but was able to confirm her Novolog insulin; pt states she takes 42 units in the morning and at bedtime at this time. I called pt HCP (Lakeisha) and she informed me she is the pt sister but doesn't know anything about the pt medications either. I utilized claims to confirm the rest of the med rec.
[2024-12-25 20:31] LABS: Glucose, Whole Blood 277 mg/dL (60-115)
[2024-12-25] MEDS: Dextrose 5 % and Lactated Ring 1,000 ML 100 ML IVCONT (20:37)
[2024-12-25] MEDS: Potassium Phosphate/NS 15 MMOL/250 ML PLAST..BAG 62.5 MMOL IV (21:00)
[2024-12-25 21:12] LABS: Glucose, Whole Blood 252 mg/dL (60-115)
[2024-12-25 22:04] LABS: Glucose, Whole Blood 237 mg/dL (60-115)
[2024-12-25 23:06] LABS: Glucose, Whole Blood 233 mg/dL (60-115)
[2024-12-25 23:13] LABS: Alanine Aminotransferase 8 U/L (0-31); Albumin Level 3.7 g/dL (3.5-5.0); Alkaline Phosphatase 70 U/L (39-117); Anion Gap 19 (12-20); Aspartate Amino Transferase 20 U/L (5-31); Blood Urea Nitrogen 29 mg/dL (9-16); Calcium 8.5 mg/dL (8.4-10.2); Carbon Dioxide 20 mmol/L (22-29); Chloride 109 mmol/L (96-108); Creatinine Clr Calc Pharmacy 47.4; Estimated Glomerular Filt Rate 51; Magnesium 1.7 mg/dL (1.6-2.6); Potassium 4.6 mmol/L (3.3-5.1); Sodium 143 mmol/L (135-145); Total Protein 6.0 g/dL (6.5-8.0)
[2024-12-26] VITALS (14 sets, daily range): BP systolic 106–143; BP diastolic 35–67; PULSE 77–90; RESP 11–25; TEMP 36.3–37.9; O2SAT 91–99; BMI 28.4
[2024-12-26 00:11] LABS: Glucose, Whole Blood 197 mg/dL (60-115)
[2024-12-26] MEDS: Magnesium Sulfate/H2O 2 GM/50 ML PIGGYBACK IV (00:11)
[2024-12-26 01:05] LABS: Glucose, Whole Blood 202 mg/dL (60-115)
[2024-12-26 02:02] LABS: Glucose, Whole Blood 185 mg/dL (60-115)
[2024-12-26 02:18] LABS: Alanine Aminotransferase 8 U/L (0-31); Albumin Level 3.7 g/dL (3.5-5.0); Alkaline Phosphatase 71 U/L (39-117); Anion Gap 16 (12-20); Aspartate Amino Transferase 17 U/L (5-31); Blood Urea Nitrogen 27 mg/dL (9-16); Calcium 8.7 mg/dL (8.4-10.2); Carbon Dioxide 21 mmol/L (22-29); Chloride 110 mmol/L (96-108); Creatinine Clr Calc Pharmacy 47.9; Estimated Glomerular Filt Rate 51; Magnesium 2.0 mg/dL (1.6-2.6); Potassium 4.2 mmol/L (3.3-5.1); Sodium 143 mmol/L (135-145); Total Protein 5.9 g/dL (6.5-8.0)
[2024-12-26 03:04] LABS: Glucose, Whole Blood 150 mg/dL (60-115)
[2024-12-26 04:14] LABS: Glucose, Whole Blood 129 mg/dL (60-115)
[2024-12-26 05:42] LABS: Glucose, Whole Blood 142 mg/dL (60-115)
[2024-12-26] MEDS: Dextrose 5 % and Lactated Ring 1,000 ML 100 ML IVCONT (06:15)
[2024-12-26 06:23] LABS: MANUAL DIFF FLAG NO
[2024-12-26 06:28] LABS: Glucose, Whole Blood 144 mg/dL (60-115)
[2024-12-26 06:28] LABS: Hematocrit 33.1 % (37.0-47.0); Hemoglobin 11.3 g/dl (12.0-16.0); Imm Gran Abs Auto 0.08 X10*3/uL (0.00-0.03); Imm Gran Pct Auto 0.6 % (0.0-0.4); Lymphocytes Absolute Auto 2.0 X10*3/uL (1.2-4.9); Mean Corpuscular HGB Conc 34.1 g/dl (31.0-35.0); Mean Corpuscular Hemoglobin 31.4 pg (27.0-33.0); Mean Corpuscular Volume 91.9 fL (80.0-98.0); NRBC Abs Auto 0.000 X10*3/uL (0.0-0.012); NRBC Pct Auto 0.0 /100WBC (0.0-0.2); Platelet Count 224 X10*3/uL (160-400); Red Blood Count 3.60 X10*6/uL (4.20-5.50); White Blood Count 13.9 X10*3/uL (4.8-10.8)
[2024-12-26 06:45] LABS: Alanine Aminotransferase < 6 U/L (0-31); Albumin Level 3.2 g/dL (3.5-5.0); Alkaline Phosphatase 63 U/L (39-117); Anion Gap 13 (12-20); Aspartate Amino Transferase 22 U/L (5-31); Blood Urea Nitrogen 26 mg/dL (9-16); Calcium 9.0 mg/dL (8.4-10.2); Carbon Dioxide 23 mmol/L (22-29); Chloride 112 mmol/L (96-108); Creatinine Clr Calc Pharmacy 53.7; Estimated Glomerular Filt Rate 59; Magnesium 2.0 mg/dL (1.6-2.6); Potassium 3.8 mmol/L (3.3-5.1); Sodium 144 mmol/L (135-145); Total Protein 5.2 g/dL (6.5-8.0)
[2024-12-26 07:11] LABS: Glucose, Whole Blood 152 mg/dL (60-115)
[2024-12-26 08:12] LABS: Glucose, Whole Blood 191 mg/dL (60-115)
[2024-12-26] MEDS: Insulin Glargine,Hum.rec.anlog 100 UNIT/ML 10 ML VIAL 40 UNIT SUBCUT (08:43)
--- NOTE | 2024-12-26 09:02 | PM.CCPN ---
Subjective Subjective Date of Service: 12/26/24 Interval History: Blood sugars better, gap Close twice. Critical Care Time (minutes): 35 Physical Exam Vital Signs: Vital Signs: Last Vital Signs Temp 98.1 F 12/26/24 04:00 Pulse 81 12/26/24 08:00 Resp 12 12/26/24 08:00 BP 115/45 L 12/26/24 08:00 Pulse Ox 94 12/26/24 08:00 O2 Del Method Room Air 12/26/24 08:00 O2 Flow Rate 1 12/26/24 07:00 FiO2 21 12/26/24 01:00 BMI result Body Mass Index 28.4 General: Elderly lady in no acute distress, ill appearing and tired appearing Nutritional Appearance: well nourished and normal weight Eyes: appearance normal, both eyes and all related structures; Alignment and Position: alignment normal and position normal Neck: No lymphadenopathy, no thyromegaly Resp: bilateral air entry equal, occasional added sounds present Cardio: Regular rate, regular rhythm; Heart sounds: S1 normal heart sound present and S2 normal heart sound present GI: soft, nontender, no guarding, no hepatosplenomegaly : bladder normal to inspection, bladder normal to palpation, no renal angle tenderness Skin: no rashes or lesions noted and elasticity normal Neuro: oriented to person, oriented to place, oriented to time and moves all extremities Objective Data Labs 12/26/24 06:13 12/26/24 09:41 Labs: Laboratory Results - last 24 hr 12/25/24 12/25/24 12/25/24 12:20 12:32 12:37 WBC 12.3 H RBC 4.40 Hgb 13.5 Hct 40.5 MCV 92.0 MCH 30.7 MCHC 33.3 RDW 13.2 Plt Count 282 MPV 10.4 Immature Gran % (Auto) Cancelled Neut % (Auto) Cancelled Lymph % (Auto) Cancelled Dougherty % (Auto) Cancelled Eos % (Auto) Cancelled Baso % (Auto) Cancelled Lymph # (Auto) Cancelled [place] # (Auto) Cancelled Eos # (Auto) Cancelled Baso # (Auto) Cancelled Abs Immat Gran (auto) Cancelled Absolute Neuts (auto) Cancelled Absolute Nucleated RBC 0.000 Nucleated RBC % (auto) 0.0 Neutrophils % (Manual) 58 Band Neutrophils % 17 H Lymphocytes % (Manual) 14 L Atypical Lymphs % (Man) 2 Monocytes % (Manual) 7 Eosinophils % (Manual) 2 Abs Neuts (Manual) 9.2 H Lymphocytes # (Manual) 1.7 Atyp Lymphs # (Manual) 0.2 Monocytes # (Manual) 0.9 Eosinophils # (Manual) 0.2 Toxic Granulation PRESENT Toxic Vacuolation PRESENT Dohle Bodies PRESENT Platelet Estimate NORMAL Plt Morphology Comment NORMAL RBC Morphology NOTED [place] Cells 3+ (>5) VBG pH 7.34 VBG pCO2 22 VBG pO2 59 VBG HCO3 12 L VBG O2 Saturation 85.0 VBG Base Excess -10.8 Sodium Potassium Chloride Carbon Dioxide Anion Gap BUN Creatinine Estim Creat Clear Calc Estimated GFR POC Glucose > 600 H* Random Glucose Lactic Acid Lactic Acid F/U @ 2Hr Lactic Acid F/U @ 4Hr Calcium Phosphorus Magnesium Total Bilirubin Direct Bilirubin AST ALT Alkaline Phosphatase Troponin I High Sens 5.7 D Total Protein Albumin Lipase Beta-Hydroxybutyrate Urine Color Urine Appearance Urine pH Ur Specific [place] Urine Protein Urine Glucose (UA) Urine Ketones Urine Blood Urine Nitrite Ur Leukocyte Esterase Urine RBC Urine WBC Ur Squamous Epith Cells Urine Bacteria Hyaline Casts Influenza Type A (PCR) Influenza Type B (PCR) RSV RNA Qual (PCR) SARS-CoV-2 RNA (RT-PCR) 12/25/24 12/25/24 12/25/24 12:38 13:32 14:11 WBC RBC Hgb Hct MCV MCH MCHC RDW Plt Count MPV Immature Gran % (Auto) Neut % (Auto) Lymph % (Auto) Doug[place] % (Auto) Eos % (Auto) Baso % (Auto) Lymph # (Auto) [place] # (Auto) Eos # (Auto) Baso # (Auto) Abs Immat Gran (auto) Absolute Neuts (auto) Absolute Nucleated RBC Nucleated RBC % (auto) Neutrophils % (Manual) Band Neutrophils % Lymphocytes % (Manual) Atypical Lymphs % (Man) Monocytes % (Manual) Eosinophils % (Manual) Abs Neuts (Manual) Lymphocytes # (Manual) Atyp Lymphs # (Manual) Monocytes # (Manual) Eosinophils # (Manual) Toxic Granulation Toxic Vacuolation Dohle Bodies Platelet Estimate Plt Morphology Comment RBC Morphology [place] Cells VBG pH VBG pCO2 VBG pO2 VBG HCO3 VBG O2 Saturation VBG Base Excess Sodium 138 Potassium 4.8 Chloride 100 Carbon Dioxide 13 L Anion Gap 30 H BUN 35 H Creatinine 1.17 Estim Creat Clear Calc 42.9 Estimated GFR 45 POC Glucose > 600 H* Random Glucose 678 H* Lactic Acid 4.7 H* Lactic Acid F/U @ 2Hr Lactic Acid F/U @ 4Hr Calcium 9.1 Phosphorus Magnesium 1.8 Total Bilirubin 0.7 Direct Bilirubin 0.3 AST 15 ALT < 6 Alkaline Phosphatase 83 Troponin I High Sens Total Protein 6.3 L Albumin 4.0 Lipase < 4 L Beta-Hydroxybutyrate 8.36 H Urine Color Yellow Urine Appearance Clear Urine pH 5.0 Ur Specific [place] >= 1.030 H Urine Protein Negative Urine Glucose (UA) >=1000 H Urine Ketones 80 Urine Blood Negative Urine Nitrite Negative Ur Leukocyte Esterase Negative Urine RBC 0-2 Urine WBC 0-5 Ur Squamous Epith Cells 0-2 Urine Bacteria Trace Hyaline Casts 0-2 Influenza Type A (PCR) NEGATIVE Influenza Type B (PCR) NEGATIVE RSV RNA Qual (PCR) NEGATIVE SARS-CoV-2 RNA (RT-PCR) NEGATIVE 12/25/24 12/25/24 12/25/24 15:22 16:06 16:10 WBC RBC Hgb Hct MCV MCH MCHC RDW Plt Count MPV Immature Gran % (Auto) Neut % (Auto) Lymph % (Auto) [place] % (Auto) Eos % (Auto) Baso % (Auto) Lymph # (Auto) [place] # (Auto) Eos # (Auto) Baso # (Auto) Abs Immat Gran (auto) Absolute Neuts (auto) Absolute Nucleated RBC Nucleated RBC % (auto) Neutrophils % (Manual) Band Neutrophils % Lymphocytes % (Manual) Atypical Lymphs % (Man) Monocytes % (Manual) Eosinophils % (Manual) Abs Neuts (Manual) Lymphocytes # (Manual) Atyp Lymphs # (Manual) Monocytes # (Manual) Eosinophils # (Manual) Toxic Granulation Toxic Vacuolation Dohle Bodies Platelet Estimate Plt Morphology Comment RBC Morphology Tad Cells VBG pH VBG pCO2 VBG pO2 VBG HCO3 VBG O2 Saturation VBG Base Excess Sodium Potassium Chloride Carbon Dioxide Anion Gap BUN Creatinine Estim Creat Clear Calc Estimated GFR POC Glucose 579 H* 480 H* Random Glucose Lactic Acid Lactic Acid F/U @ 2Hr 4.1 H* Lactic Acid F/U @ 4Hr Calcium Phosphorus Magnesium Total Bilirubin Direct Bilirubin AST ALT Alkaline Phosphatase Troponin I High Sens Total Protein Albumin Lipase Beta-Hydroxybutyrate Urine Color Urine Appearance Urine pH Ur Specific [place] Urine Protein Urine Glucose (UA) Urine Ketones Urine Blood Urine Nitrite Ur Leukocyte Esterase Urine RBC Urine WBC Ur Squamous Epith Cells Urine Bacteria Hyaline Casts Influenza Type A (PCR) Influenza Type B (PCR) RSV RNA Qual (PCR) SARS-CoV-2 RNA (RT-PCR) 12/25/24 12/25/24 12/25/24 16:28 16:53 17:26 WBC RBC Hgb Hct MCV MCH MCHC RDW Plt Count MPV Immature Gran % (Auto) Neut % (Auto) Lymph % (Auto) [place] % (Auto) Eos % (Auto) Baso % (Auto) Lymph # (Auto) [place] # (Auto) Eos # (Auto) Baso # (Auto) Abs Immat Gran (auto) Absolute Neuts (auto) Absolute Nucleated RBC Nucleated RBC % (auto) Neutrophils % (Manual) Band Neutrophils % Lymphocytes % (Manual) Atypical Lymphs % (Man) Monocytes % (Manual) Eosinophils % (Manual) Abs Neuts (Manual) Lymphocytes # (Manual) Atyp Lymphs # (Manual) Monocytes # (Manual) Eosinophils # (Manual) Toxic Granulation Toxic Vacuolation Dohle Bodies Platelet Estimate Plt Morphology Comment RBC Morphology Tad Cells VBG pH VBG pCO2 VBG pO2 VBG HCO3 VBG O2 Saturation VBG Base Excess Sodium 143 Potassium 4.1 Chloride 105 Carbon Dioxide 11 L Anion Gap 31 H BUN 32 H Creatinine 1.16 Estim Creat Clear Calc 43.3 Estimated GFR 46 POC Glucose 483 H* 492 H* Random Glucose 574 H* Lactic Acid Lactic Acid F/U @ 2Hr Lactic Acid F/U @ 4Hr Calcium 8.9 Phosphorus Magnesium Total Bilirubin Direct Bilirubin AST ALT Alkaline Phosphatase Troponin I High Sens Total Protein Albumin Lipase Beta-Hydroxybutyrate Urine Color Urine Appearance Urine pH Ur Specific [place] Urine Protein Urine Glucose (UA) Urine Ketones Urine Blood Urine Nitrite Ur Leukocyte Esterase Urine RBC Urine WBC Ur Squamous Epith Cells Urine Bacteria Hyaline Casts Influenza Type A (PCR) Influenza Type B (PCR) RSV RNA Qual (PCR) SARS-CoV-2 RNA (RT-PCR) 12/25/24 12/25/24 12/25/24 18:24 18:46 19:17 WBC RBC Hgb Hct MCV MCH MCHC RDW Plt Count MPV Immature Gran % (Auto) Neut % (Auto) Lymph % (Auto) [place] % (Auto) Eos % (Auto) Baso % (Auto) Lymph # (Auto) [place] # (Auto) Eos # (Auto) Baso # (Auto) Abs Immat Gran (auto) Absolute Neuts (auto) Absolute Nucleated RBC Nucleated RBC % (auto) Neutrophils % (Manual) Band Neutrophils % Lymphocytes % (Manual) Atypical Lymphs % (Man) Monocytes % (Manual) Eosinophils % (Manual) Abs Neuts (Manual) Lymphocytes # (Manual) Atyp Lymphs # (Manual) Monocytes # (Manual) Eosinophils # (Manual) Toxic Granulation Toxic Vacuolation Dohle Bodies Platelet Estimate Plt Morphology Comment RBC Morphology [place] Cells VBG pH VBG pCO2 VBG pO2 VBG HCO3 VBG O2 Saturation VBG Base Excess Sodium 144 Potassium 4.0 Chloride 108 Carbon Dioxide 18 L Anion Gap 22 H BUN 31 H Creatinine 1.19 Estim Creat Clear Calc 42.2 Estimated GFR 44 POC Glucose 390 H* 344 H Random Glucose 363 H* Lactic Acid Lactic Acid F/U @ 2Hr Lactic Acid F/U @ 4Hr 2.5 H* Calcium 8.9 Phosphorus 2.4 L Magnesium 1.8 Total Bilirubin 0.2 Direct Bilirubin AST 18 ALT 13 Alkaline Phosphatase 79 Troponin I High Sens Total Protein 6.3 L Albumin 4.0 Lipase Beta-Hydroxybutyrate Urine Color Urine Appearance Urine pH Ur Specific [place] Urine Protein Urine Glucose (UA) Urine Ketones Urine Blood Urine Nitrite Ur Leukocyte Esterase Urine RBC Urine WBC Ur Squamous Epith Cells Urine Bacteria Hyaline Casts Influenza Type A (PCR) Influenza Type B (PCR) RSV RNA Qual (PCR) SARS-CoV-2 RNA (RT-PCR) 12/25/24 12/25/24 12/25/24 20:27 21:09 22:01 WBC RBC Hgb Hct MCV MCH MCHC RDW Plt Count MPV Immature Gran % (Auto) Neut % (Auto) Lymph % (Auto) [place] % (Auto) Eos % (Auto) Baso % (Auto) Lymph # (Auto) [place] # (Auto) Eos # (Auto) Baso # (Auto) Abs Immat Gran (auto) Absolute Neuts (auto) Absolute Nucleated RBC Nucleated RBC % (auto) Neutrophils % (Manual) Band Neutrophils % Lymphocytes % (Manual) Atypical Lymphs % (Man) Monocytes % (Manual) Eosinophils % (Manual) Abs Neuts (Manual) Lymphocytes # (Manual) Atyp Lymphs # (Manual) Monocytes # (Manual) Eosinophils # (Manual) Toxic Granulation Toxic Vacuolation Dohle Bodies Platelet Estimate Plt Morphology Comment RBC Morphology [place] Cells VBG pH VBG pCO2 VBG pO2 VBG HCO3 VBG O2 Saturation VBG Base Excess Sodium Potassium Chloride Carbon Dioxide Anion Gap BUN Creatinine Estim Creat Clear Calc Estimated GFR POC Glucose 277 H 252 H 237 H Random Glucose Lactic Acid Lactic Acid F/U @ 2Hr Lactic Acid F/U @ 4Hr Calcium Phosphorus Magnesium Total Bilirubin Direct Bilirubin AST ALT Alkaline Phosphatase Troponin I High Sens Total Protein Albumin Lipase Beta-Hydroxybutyrate Urine Color Urine Appearance Urine pH Ur Specific [place] Urine Protein Urine Glucose (UA) Urine Ketones Urine Blood Urine Nitrite Ur Leukocyte Esterase Urine RBC Urine WBC Ur Squamous Epith Cells Urine Bacteria Hyaline Casts Influenza Type A (PCR) Influenza Type B (PCR) RSV RNA Qual (PCR) SARS-CoV-2 RNA (RT-PCR) 12/25/24 12/25/24 12/26/24 22:52 23:02 00:00 WBC RBC Hgb Hct MCV MCH MCHC RDW Plt Count MPV Immature Gran % (Auto) Neut % (Auto) Lymph % (Auto) [place] % (Auto) Eos % (Auto) Baso % (Auto) Lymph # (Auto) [place] # (Auto) Eos # (Auto) Baso # (Auto) Abs Immat Gran (auto) Absolute Neuts (auto) Absolute Nucleated RBC Nucleated RBC % (auto) Neutrophils % (Manual) Band Neutrophils % Lymphocytes % (Manual) Atypical Lymphs % (Man) Monocytes % (Manual) Eosinophils % (Manual) Abs Neuts (Manual) Lymphocytes # (Manual) Atyp Lymphs # (Manual) Monocytes # (Manual) Eosinophils # (Manual) Toxic Granulation Toxic Vacuolation Dohle Bodies Platelet Estimate Plt Morphology Comment RBC Morphology [place] Cells VBG pH VBG pCO2 VBG pO2 VBG HCO3 VBG O2 Saturation VBG Base Excess Sodium 143 Potassium 4.6 Chloride 109 H Carbon Dioxide 20 L Anion Gap 19 BUN 29 H Creatinine 1.06 Estim Creat Clear Calc 47.4 Estimated GFR 51 POC Glucose 233 H 197 H Random Glucose 266 H Lactic Acid Lactic Acid F/U @ 2Hr Lactic Acid F/U @ 4Hr Calcium 8.5 Phosphorus 2.7 Magnesium 1.7 Total Bilirubin 0.3 Direct Bilirubin AST 20 ALT 8 Alkaline Phosphatase 70 Troponin I High Sens Total Protein 6.0 L Albumin 3.7 Lipase Beta-Hydroxybutyrate Urine Color Urine Appearance Urine pH Ur Specific [place] Urine Protein Urine Glucose (UA) Urine Ketones Urine Blood Urine Nitrite Ur Leukocyte Esterase Urine RBC Urine WBC Ur Squamous Epith Cells Urine Bacteria Hyaline Casts Influenza Type A (PCR) Influenza Type B (PCR) RSV RNA Qual (PCR) SARS-CoV-2 RNA (RT-PCR) 12/26/24 12/26/24 12/26/24 01:01 01:49 01:57 WBC RBC Hgb Hct MCV MCH MCHC RDW Plt Count MPV Immature Gran % (Auto) Neut % (Auto) Lymph % (Auto) [place] % (Auto) Eos % (Auto) Baso % (Auto) Lymph # (Auto) [place] # (Auto) Eos # (Auto) Baso # (Auto) Abs Immat Gran (auto) Absolute Neuts (auto) Absolute Nucleated RBC Nucleated RBC % (auto) Neutrophils % (Manual) Band Neutrophils % Lymphocytes % (Manual) Atypical Lymphs % (Man) Monocytes % (Manual) Eosinophils % (Manual) Abs Neuts (Manual) Lymphocytes # (Manual) Atyp Lymphs # (Manual) Monocytes # (Manual) Eosinophils # (Manual) Toxic Granulation Toxic Vacuolation Dohle Bodies Platelet Estimate Plt Morphology Comment RBC Morphology Tad Cells VBG pH VBG pCO2 VBG pO2 VBG HCO3 VBG O2 Saturation VBG Base Excess Sodium 143 Potassium 4.2 Chloride 110 H Carbon Dioxide 21 L Anion Gap 16 BUN 27 H Creatinine 1.05 Estim Creat Clear Calc 47.9 Estimated GFR 51 POC Glucose 202 H 185 H Random Glucose 215 H Lactic Acid Lactic Acid F/U @ 2Hr Lactic Acid F/U @ 4Hr Calcium 8.7 Phosphorus 3.0 Magnesium 2.0 Total Bilirubin 0.3 Direct Bilirubin AST 17 ALT 8 Alkaline Phosphatase 71 Troponin I High Sens Total Protein 5.9 L Albumin 3.7 Lipase Beta-Hydroxybutyrate Urine Color Urine Appearance Urine pH Ur Specific [place] Urine Protein Urine Glucose (UA) Urine Ketones Urine Blood Urine Nitrite Ur Leukocyte Esterase Urine RBC Urine WBC Ur Squamous Epith Cells Urine Bacteria Hyaline Casts Influenza Type A (PCR) Influenza Type B (PCR) RSV RNA Qual (PCR) SARS-CoV-2 RNA (RT-PCR) 12/26/24 12/26/24 12/26/24 03:01 04:08 05:37 WBC RBC Hgb Hct MCV MCH MCHC RDW Plt Count MPV Immature Gran % (Auto) Neut % (Auto) Lymph % (Auto) [place] % (Auto) Eos % (Auto) Baso % (Auto) Lymph # (Auto) [place] # (Auto) Eos # (Auto) Baso # (Auto) Abs Immat Gran (auto) Absolute Neuts (auto) Absolute Nucleated RBC Nucleated RBC % (auto) Neutrophils % (Manual) Band Neutrophils % Lymphocytes % (Manual) Atypical Lymphs % (Man) Monocytes % (Manual) Eosinophils % (Manual) Abs Neuts (Manual) Lymphocytes # (Manual) Atyp Lymphs # (Manual) Monocytes # (Manual) Eosinophils # (Manual) Toxic Granulation Toxic Vacuolation Dohle Bodies Platelet Estimate Plt Morphology Comment RBC Morphology [place] Cells VBG pH VBG pCO2 VBG pO2 VBG HCO3 VBG O2 Saturation VBG Base Excess Sodium Potassium Chloride Carbon Dioxide Anion Gap BUN Creatinine Estim Creat Clear Calc Estimated GFR POC Glucose 150 H 129 H 142 H Random Glucose Lactic Acid Lactic Acid F/U @ 2Hr Lactic Acid F/U @ 4Hr Calcium Phosphorus Magnesium Total Bilirubin Direct Bilirubin AST ALT Alkaline Phosphatase Troponin I High Sens Total Protein Albumin Lipase Beta-Hydroxybutyrate Urine Color Urine Appearance Urine pH Ur Specific [place] Urine Protein Urine Glucose (UA) Urine Ketones Urine Blood Urine Nitrite Ur Leukocyte Esterase Urine RBC Urine WBC Ur Squamous Epith Cells Urine Bacteria Hyaline Casts Influenza Type A (PCR) Influenza Type B (PCR) RSV RNA Qual (PCR) SARS-CoV-2 RNA (RT-PCR) 12/26/24 12/26/24 12/26/24 06:13 06:26 07:07 WBC 13.9 H RBC 3.60 L Hgb 11.3 L Hct 33.1 L MCV 91.9 MCH 31.4 MCHC 34.1 RDW 13.3 Plt Count 224 MPV 10.4 Immature Gran % (Auto) 0.6 H Neut % (Auto) 73.3 H Lymph % (Auto) 14.3 L [place] % (Auto) 9.6 Eos % (Auto) 2.1 Baso % (Auto) 0.1 Lymph # (Auto) 2.0 [place] # (Auto) 1.3 H Eos # (Auto) 0.3 Baso # (Auto) 0.0 Abs Immat Gran (auto) 0.08 H Absolute Neuts (auto) 10.2 H Absolute Nucleated RBC 0.000 Nucleated RBC % (auto) 0.0 Neutrophils % (Manual) Band Neutrophils % Lymphocytes % (Manual) Atypical Lymphs % (Man) Monocytes % (Manual) Eosinophils % (Manual) Abs Neuts (Manual) Lymphocytes # (Manual) Atyp Lymphs # (Manual) Monocytes # (Manual) Eosinophils # (Manual) Toxic Granulation Toxic Vacuolation Dohle Bodies Platelet Estimate Plt Morphology Comment RBC Morphology Tad Cells VBG pH VBG pCO2 VBG pO2 VBG HCO3 VBG O2 Saturation VBG Base Excess Sodium 144 Potassium 3.8 Chloride 112 H Carbon Dioxide 23 Anion Gap 13 BUN 26 H Creatinine 0.93 Estim Creat Clear Calc 53.7 Estimated GFR 59 POC Glucose 144 H 152 H Random Glucose 160 H Lactic Acid Lactic Acid F/U @ 2Hr Lactic Acid F/U @ 4Hr Calcium 9.0 Phosphorus 2.9 Magnesium 2.0 Total Bilirubin 0.3 Direct Bilirubin AST 22 ALT < 6 Alkaline Phosphatase 63 Troponin I High Sens Total Protein 5.2 L Albumin 3.2 L Lipase Beta-Hydroxybutyrate Urine Color Urine Appearance Urine pH Ur Specific [place] Urine Protein Urine Glucose (UA) Urine Ketones Urine Blood Urine Nitrite Ur Leukocyte Esterase Urine RBC Urine WBC Ur Squamous Epith Cells Urine Bacteria Hyaline Casts Influenza Type A (PCR) Influenza Type B (PCR) RSV RNA Qual (PCR) SARS-CoV-2 RNA (RT-PCR) 12/26/24 08:08 WBC RBC Hgb Hct MCV MCH MCHC RDW Plt Count MPV Immature Gran % (Auto) Neut % (Auto) Lymph % (Auto) [place] % (Auto) Eos % (Auto) Baso % (Auto) Lymph # (Auto) [place] # (Auto) Eos # (Auto) Baso # (Auto) Abs Immat Gran (auto) Absolute Neuts (auto) Absolute Nucleated RBC Nucleated RBC % (auto) Neutrophils % (Manual) Band Neutrophils % Lymphocytes % (Manual) Atypical Lymphs % (Man) Monocytes % (Manual) Eosinophils % (Manual) Abs Neuts (Manual) Lymphocytes # (Manual) Atyp Lymphs # (Manual) Monocytes # (Manual) Eosinophils # (Manual) Toxic Granulation Toxic Vacuolation Dohle Bodies Platelet Estimate Plt Morphology Comment RBC Morphology Tad Cells VBG pH VBG pCO2 VBG pO2 VBG HCO3 VBG O2 Saturation VBG Base Excess Sodium Potassium Chloride Carbon Dioxide Anion Gap BUN Creatinine Estim Creat Clear Calc Estimated GFR POC Glucose 191 H Random Glucose Lactic Acid Lactic Acid F/U @ 2Hr Lactic Acid F/U @ 4Hr Calcium Phosphorus Magnesium Total Bilirubin Direct Bilirubin AST ALT Alkaline Phosphatase Troponin I High Sens Total Protein Albumin Lipase Beta-Hydroxybutyrate Urine Color Urine Appearance Urine pH Ur Specific [place] Urine Protein Urine Glucose (UA) Urine Ketones Urine Blood Urine Nitrite Ur Leukocyte Esterase Urine RBC Urine WBC Ur Squamous Epith Cells Urine Bacteria Hyaline Casts Influenza Type A (PCR) Influenza Type B (PCR) RSV RNA Qual (PCR) SARS-CoV-2 RNA (RT-PCR) Progress Note: A&P Assessment and plan (1) Cannabinoid hyperemesis syndrome: Status: Acute (2) Cannabis use disorder: Status: Acute (3) DKA (diabetic ketoacidosis): Status: Acute Plan Diabetic ketoacidosis: Secondary to noncompliance to insulin due to diarrhea, toxicology positive for marijuana Resolved, anion gap closed thrice. She is on NovoLog [id number] units b.i.d. at home. We will start her on Lantus 40 units in the morning along with sliding scale and can adjust as needed. We will start her on diabetic diet CXR clear, Urinalysis no cells Cyclical vomiting syndrome: from marijuana will add sucralfate 1g QID in addition to famotidine BID and Zofran PRN On sertraline 100 mg Hypothyroidism: We will restart home levothyroxine Diabetic diet ordered Prophylaxis: Heparin, famotidine Quality Stroke Does the patient have a stroke diagnosis?: No VTE Prior VTE?: No VTE Risk Level:: Medical - low VTE Device Contraindication: N/A - Device Ordered VTE Drug Contraindication: N/A - Med Ordered
[2024-12-26 09:06] LABS: Glucose, Whole Blood 189 mg/dL (60-115)
[2024-12-26 10:15] LABS: Glucose, Whole Blood 188 mg/dL (60-115)
[2024-12-26 10:21] LABS: Alanine Aminotransferase 8 U/L (0-31); Albumin Level 3.7 g/dL (3.5-5.0); Alkaline Phosphatase 73 U/L (39-117); Anion Gap 14 (12-20); Aspartate Amino Transferase 22 U/L (5-31); Blood Urea Nitrogen 23 mg/dL (9-16); Calcium 8.6 mg/dL (8.4-10.2); Carbon Dioxide 24 mmol/L (22-29); Chloride 111 mmol/L (96-108); Creatinine Clr Calc Pharmacy 49.9; Estimated Glomerular Filt Rate 54; Magnesium 2.0 mg/dL (1.6-2.6); Potassium 3.9 mmol/L (3.3-5.1); Sodium 145 mmol/L (135-145); Total Protein 5.8 g/dL (6.5-8.0)
[2024-12-26 11:44] LABS: Glucose, Whole Blood 264 mg/dL (60-115)
[2024-12-26] MEDS: Sucralfate Oral Suspension 1 GM/10 ML ORAL.SUSP PO ×3 (11:53→20:52)
--- NOTE | 2024-12-26 14:16 | PC.NURSE ---
Pt received via wheelchair to room 372 from the ICU. Pt oriented to the room and call paris system, A&Ox4 Able to transfer from wheelchair to bed with stand by assist
--- NOTE | 2024-12-26 15:00 | HE.ICUCC ---
ICU Critical Care Nursing Note: shift eval 7am-1410 Neuro: Patient alert and oriented. Hard of hearing. Cardiac: SR - BP stable. Resp: Patient desat to mid 80's while sleeping. Per O2 order - 1 liter nasal cannula applied with good effect. Patient persistent cough / nausea / dry heaving. Denies SOB. Lungs clear. GI/: Dry heaving, persistent nausea - medicated with zofran and carafate (per JUL) with good effect - patient able to rest post medical assistant supervisor for a couple hours. Diet advanced once off drip - tolerating PO fluids. Patient voiding with purewick with no issue. Endocrine: Blood sugars maintained consistent, within goal range & GAP closed per AM labs - plan of care per Dr Hernandez, give lantus per order and turn off insulin drip & fluids one hour post lantus admin. POC and insulin coverage changed to be with meals. Patient tolerated and given insulin coverage per protocol. Integumentary/Musculoskeletal: Patient moving independently in bed. Psychosocial (family etc.): Plan of course discussed with patient and sisterLakeisha updated as well about transfer and patient condition. Plan of care: Transfer ordered to Med-Surg at 10:25am. Report given to Shelbi CARDENAS at 1350 - patient tranferred to Med-surg via wheelchair with transport staff at 1410.
[2024-12-26 15:45] LABS: Alanine Aminotransferase 12 U/L (0-31); Albumin Level 3.4 g/dL (3.5-5.0); Alkaline Phosphatase 68 U/L (39-117); Anion Gap 11 (12-20); Aspartate Amino Transferase 25 U/L (5-31); Blood Urea Nitrogen 21 mg/dL (9-16); Calcium 8.4 mg/dL (8.4-10.2); Carbon Dioxide 27 mmol/L (22-29); Chloride 108 mmol/L (96-108); Creatinine Clr Calc Pharmacy 49.9; Estimated Glomerular Filt Rate 54; Magnesium 1.9 mg/dL (1.6-2.6); Potassium 3.8 mmol/L (3.3-5.1); Sodium 142 mmol/L (135-145); Total Protein 5.5 g/dL (6.5-8.0)
--- NOTE | 2024-12-26 15:48 | MHC.CM.PN ---
Met with pt to review d/c planning needs: pt resides alone, has no current services and states her sister, Lakeisha is her HCP - copy requested. Pt has a working glucometer and was recently started on new DM medications. Discussed [facility] for assistance w/DM management: pt not certain at this time. No referrals made. May need transportation to home. CM to follow.
[2024-12-26 16:02] LABS: Glucose, Whole Blood 195 mg/dL (60-115)
--- NOTE | 2024-12-26 16:54 | PC.NURSE ---
Pt refusing bed and chair alarms , educated on need for safety and to call for out of bed assist
[2024-12-26 17:53] LABS: Alanine Aminotransferase 12 U/L (0-31); Albumin Level 3.6 g/dL (3.5-5.0); Alkaline Phosphatase 72 U/L (39-117); Anion Gap 14 (12-20); Aspartate Amino Transferase 27 U/L (5-31); Blood Urea Nitrogen 21 mg/dL (9-16); Calcium 8.7 mg/dL (8.4-10.2); Carbon Dioxide 26 mmol/L (22-29); Chloride 108 mmol/L (96-108); Creatinine Clr Calc Pharmacy 49.0; Estimated Glomerular Filt Rate 53; Magnesium 2.1 mg/dL (1.6-2.6); Potassium 3.8 mmol/L (3.3-5.1); Sodium 144 mmol/L (135-145); Total Protein 5.8 g/dL (6.5-8.0)
[2024-12-26 20:29] LABS: Glucose, Whole Blood 194 mg/dL (60-115)
[2024-12-26 21:52] LABS: Alanine Aminotransferase 9 U/L (0-31); Albumin Level 3.5 g/dL (3.5-5.0); Alkaline Phosphatase 72 U/L (39-117); Anion Gap 12 (12-20); Aspartate Amino Transferase 21 U/L (5-31); Blood Urea Nitrogen 19 mg/dL (9-16); Calcium 8.4 mg/dL (8.4-10.2); Carbon Dioxide 26 mmol/L (22-29); Chloride 108 mmol/L (96-108); Creatinine Clr Calc Pharmacy 49.9; Estimated Glomerular Filt Rate 54; Magnesium 2.0 mg/dL (1.6-2.6); Potassium 3.9 mmol/L (3.3-5.1); Sodium 142 mmol/L (135-145); Total Protein 5.6 g/dL (6.5-8.0)
[2024-12-27 03:53] VITALS: BP 140/63; PULSE 78; RESP 18; TEMP 37; O2SAT 93
[2024-12-27] MEDS: guaiFENesin LA 600 MG TAB.ER.12H PO (04:44)
--- NOTE | 2024-12-27 05:00 | PC.NURSE ---
pt having difficult time sleeping d/t cough making her gag and spit up phlegm. Very uncomfortable. Provider Armond notified at 0230, guiafenesin ordered. Administered to pt at 0444 - effectiveness pending
[2024-12-27 06:00] VITALS: BMI 28.5
[2024-12-27 07:19] VITALS: BP 150/68; PULSE 75; RESP 12; TEMP 36.4; O2SAT 94
[2024-12-27 07:30] LABS: Glucose, Whole Blood 339 mg/dL (60-115)
[2024-12-27] MEDS: Sucralfate Oral Suspension 1 GM/10 ML ORAL.SUSP PO ×4 (08:03→21:21)
[2024-12-27] MEDS: Insulin Glargine,Hum.rec.anlog 100 UNIT/ML 10 ML VIAL 40 UNIT SUBCUT (08:04)
[2024-12-27 09:48] LABS: MANUAL DIFF FLAG NO
[2024-12-27 09:51] LABS: Hematocrit 36.4 % (37.0-47.0); Hemoglobin 12.1 g/dl (12.0-16.0); Imm Gran Abs Auto 0.31 X10*3/uL (0.00-0.03); Imm Gran Pct Auto 2.2 % (0.0-0.4); Lymphocytes Absolute Auto 1.2 X10*3/uL (1.2-4.9); Mean Corpuscular HGB Conc 33.2 g/dl (31.0-35.0); Mean Corpuscular Hemoglobin 30.9 pg (27.0-33.0); Mean Corpuscular Volume 92.9 fL (80.0-98.0); NRBC Abs Auto 0.000 X10*3/uL (0.0-0.012); NRBC Pct Auto 0.0 /100WBC (0.0-0.2); Platelet Count 205 X10*3/uL (160-400); Red Blood Count 3.92 X10*6/uL (4.20-5.50); White Blood Count 14.2 X10*3/uL (4.8-10.8)
[2024-12-27 10:20] LABS: Magnesium 1.9 mg/dL (1.6-2.6)
[2024-12-27 10:21] LABS: Anion Gap 20 (12-20); Blood Urea Nitrogen 17 mg/dL (9-16); Calcium 8.8 mg/dL (8.4-10.2); Carbon Dioxide 22 mmol/L (22-29); Chloride 102 mmol/L (96-108); Creatinine Clr Calc Pharmacy 58.1; Estimated Glomerular Filt Rate > 60; Potassium 4.0 mmol/L (3.3-5.1); Sodium 140 mmol/L (135-145)
[2024-12-27 11:32] LABS: Glucose, Whole Blood 256 mg/dL (60-115)
--- NOTE | 2024-12-27 12:28 | HO.PM.IMPN ---
Subjective Subjective Date of Service: 12/27/24 Interval History: Pleasant 74-year-old female. This morning, reports nausea and some vomiting. This has been occurring for some time. Also reports loose stool. Reports lower diarrhea several days prior to admission; much better and improving now. Patient denies any abdominal pain, altered mental status. No difficulty with breathing. Minimal appetite Review of Systems Review of Systems: Yes all other systems are reviewed and are negative Physical Exam Exam: Exam: General: A&O x3, oriented to time place person and situation, comfortable, no pain Cardiac: S1, S2 auscultated with no S3/4, no MRG. Well perfused. Respiratory: Normal breath sounds auscultated throughout all lung zones, without wheezing, rales. Normal rate. GI/ : No abdominal pain on palpation, no masses or distentions. MSK: Normal ambulation without pain at bony prominences or musculature Neurological: Normal neurological examination on overview, without obvious CN II-XII abnormalities. Vital Signs: Vital Signs: Last Vital Signs Temp 97.6 F 12/27/24 07:19 Pulse 75 12/27/24 07:19 Resp 12 12/27/24 07:19 BP 150/68 H 12/27/24 07:19 Pulse Ox 94 12/27/24 07:19 O2 Del Method Room Air 12/27/24 07:19 O2 Flow Rate 1 12/26/24 15:21 FiO2 21 12/26/24 01:00 BMI result Body Mass Index 28.5 Objective Data Active Medications Acetaminophen (Acetaminophen 325 Mg Tablet) 650 mg PO Q6H PRN PRN Reason: Pain, Mild 1-3,fever,headache Last Admin: 12/26/24 19:27 Dose: 650 mg Documented By: TAHIR Atorvastatin Calcium (Atorvastatin Calcium 40 Mg Tablet) 40 mg PO DAILY [facility] Last Admin: 12/27/24 08:03 Dose: 40 mg Documented By: LIDIA Dextrose (Dextrose 50 % 25 Gm/50 Ml Syringe) 25 gm IVPUSH Q30M PRN PRN Reason: BG < 70 Dextrose (Dextrose 50 % 25 Gm/50 Ml Syringe) 25 gm IVPUSH Q15M PRN; Protocol PRN Reason: per Hypoglycemia Standing Ord. Enoxaparin Sodium (Enoxaparin Sodium 40 Mg/0.4 Ml Syringe) 40 mg SUBCUT Q24H [facility] Last Admin: 12/26/24 17:45 Dose: 40 mg Documented By: YURY Famotidine (Famotidine/Pf 20 Mg/2 Ml Vial) 20 mg IVPUSH BID [facility] Last Admin: 12/27/24 08:03 Dose: 20 mg Documented By: LIDIA Glucose (Glucose Gel 15 Gm Gel..Gram.) 15 gm PO Q15M PRN; Protocol PRN Reason: per Hypoglycemia Standing Ord. Insulin Glargine (Insulin Glargine,Hum.Rec.Anlog 100 Unit/Ml 10 Ml Vial) 30 unit SUBCUT BID [facility] Levothyroxine Sodium (Levothyroxine Sodium 150 Mcg Tablet) 150 mcg PO DAILY@0600 [facility] Last Admin: 12/27/24 05:40 Dose: 150 mcg Documented By: TAHIR Ondansetron HCl (Ondansetron Hcl 4 Mg/2 Ml Vial) 4 mg IVPUSH Q8H PRN PRN Reason: Nausea and Vomiting Last Admin: 12/27/24 08:06 Dose: 4 mg Documented By: LIDIA Pramipexole Dihydrochloride (Pramipexole Di-Hcl 0.25 Mg Tablet) 0.25 mg PO BEDTIME [facility] Last Admin: 12/26/24 20:52 Dose: 0.25 mg Documented By: TAHIR Sertraline HCl (Sertraline Hcl 100 Mg Tablet) 100 mg PO DAILY@1200 [facility] Last Admin: 12/27/24 12:12 Dose: 100 mg Documented By: LIDIA Sucralfate (Sucralfate Oral Suspension 1 Gm/10 Ml Oral.Susp) 1 gm PO QIDACHS [facility] Last Admin: 12/27/24 12:12 Dose: 1 gm Documented By: LIDIA Labs 12/27/24 09:42 12/27/24 09:42 Labs: Laboratory Results - last 24 hr 12/26/24 12/26/24 12/26/24 15:15 15:55 17:20 MCV MCH MCHC RDW Plt Count MPV Immature Gran % (Auto) Neut % (Auto) Lymph % (Auto) Page % (Auto) Eos % (Auto) Baso % (Auto) Lymph # (Auto) Page # (Auto) Eos # (Auto) Baso # (Auto) Abs Immat Gran (auto) Absolute Neuts (auto) Absolute Nucleated RBC Nucleated RBC % (auto) Anion Gap 11 L 14 Estim Creat Clear Calc 49.9 49.0 Estimated GFR 54 53 POC Glucose 195 H Random Glucose 233 H 212 H Calcium 8.4 8.7 Phosphorus 1.8 L 1.8 L Magnesium 1.9 2.1 Total Bilirubin 0.3 0.3 AST 25 27 ALT 12 12 Alkaline Phosphatase 68 72 Total Protein 5.5 L 5.8 L Albumin 3.4 L 3.6 12/26/24 12/26/24 12/27/24 20:25 21:31 07:26 MCV MCH MCHC RDW Plt Count MPV Immature Gran % (Auto) Neut % (Auto) Lymph % (Auto) Page % (Auto) Eos % (Auto) Baso % (Auto) Lymph # (Auto) Page # (Auto) Eos # (Auto) Baso # (Auto) Abs Immat Gran (auto) Absolute Neuts (auto) Absolute Nucleated RBC Nucleated RBC % (auto) Anion Gap 12 Estim Creat Clear Calc 49.9 Estimated GFR 54 POC Glucose 194 H 339 H Random Glucose 225 H Calcium 8.4 Phosphorus 1.9 L Magnesium 2.0 Total Bilirubin 0.3 AST 21 ALT 9 Alkaline Phosphatase 72 Total Protein 5.6 L Albumin 3.5 12/27/24 12/27/24 09:42 11:28 MCV 92.9 MCH 30.9 MCHC 33.2 RDW 13.4 Plt Count 205 MPV 10.4 Immature Gran % (Auto) 2.2 H Neut % (Auto) 84.2 H Lymph % (Auto) 8.2 L Page % (Auto) 4.4 Eos % (Auto) 0.6 Baso % (Auto) 0.4 Lymph # (Auto) 1.2 Page # (Auto) 0.6 Eos # (Auto) 0.1 Baso # (Auto) 0.1 Abs Immat Gran (auto) 0.31 H Absolute Neuts (auto) 12.0 H Absolute Nucleated RBC 0.000 Nucleated RBC % (auto) 0.0 Anion Gap 20 Estim Creat Clear Calc 58.1 Estimated GFR > 60 POC Glucose 256 H Random Glucose 349 H Calcium 8.8 Phosphorus 2.8 Magnesium 1.9 Total Bilirubin AST ALT Alkaline Phosphatase Total Protein Albumin Microbiology Microbiology Results: Microbiology 12/25/24 13:42 Blood Culture - Preliminary Blood - Venous No growth after 24 hours. 12/25/24 13:32 Blood Culture - Preliminary Blood - Venous No growth after 24 hours. Assessment and Plan (1) Cannabinoid hyperemesis syndrome: Status: Acute (2) DKA (diabetic ketoacidosis): Status: Acute (3) Pneumonia: Status: Acute (4) Sepsis: Status: Acute Plan 74-year-old female, with a background history of insulin-dependent type 2 diabetes mellitus, hypothyroidism, anxiety, presented to the emergency room with nausea vomiting and diarrhea for 4 days, admitted to MICU with diabetic ketoacidosis. Diabetic ketoacidosis Type 2 diabetes mellitus Medication noncompliance The patient was started on Mounjaro in the outpatient setting, with subsequent diarrhea. Furthermore, noncompliance in the outpatient setting to insulin. Patient was started on insulin drip, admitted to MICU. Transferred out of the MICU after gap closed. Has persistent electrolyte dysfunction. Glucose remains uncontrolled PLAN - POC glucose t.i.d. & nocte - encourage p.o. intake fluid - increase glargine from 40u SQ OD to 30u b.i.d. SQ - monitor electrolytes closely - Diabetic diet Cyclical vomiting syndrome MDD/anxiety Marijuana use Possible secondary component due to Mounjaro used in the outpatient setting. PLAN - famotidine b.i.d. - Zofran p.r.n. - sucralfate 1 g q.i.d. - continue sertraline Hypothyroidism Continue home levothyroxine [employer] - VTE: Enoxaparin 40 mg - CODE STATUS: Full - DIET: Diabetic diet Total time managing care of this patient today: 35 minutes. Quality Stroke Does the patient have a stroke diagnosis?: No VTE Prior VTE?: No VTE Risk Level:: Medical - low VTE Device Contraindication: N/A - Device Ordered VTE Drug Contraindication: N/A - Med Ordered
[2024-12-27 15:23] VITALS: BP 152/66; PULSE 69; RESP 18; TEMP 36.4; O2SAT 96
[2024-12-27 16:17] LABS: Glucose, Whole Blood 249 mg/dL (60-115)
[2024-12-27 19:40] VITALS: BP 151/66; PULSE 71; RESP 18; TEMP 36.3; O2SAT 94
[2024-12-27 19:54] LABS: Glucose, Whole Blood 247 mg/dL (60-115)
[2024-12-27] MEDS: Insulin Glargine,Hum.rec.anlog 100 UNIT/ML 10 ML VIAL 30 UNIT SUBCUT (21:22)
[2024-12-28] VITALS (7 sets, daily range): BP systolic 103–174; BP diastolic 49–84; PULSE 61–69; RESP 12–18; TEMP 36.2–37.2; O2SAT 91–97; BMI 32.1
[2024-12-28 05:46] LABS: MANUAL DIFF FLAG NO
[2024-12-28 06:11] LABS: Anion Gap 13 (12-20); Blood Urea Nitrogen 13 mg/dL (9-16); Calcium 9.1 mg/dL (8.4-10.2); Carbon Dioxide 32 mmol/L (22-29); Chloride 101 mmol/L (96-108); Creatinine Clr Calc Pharmacy 54.4; Estimated Glomerular Filt Rate 60; Magnesium 2.0 mg/dL (1.6-2.6); Potassium 5.0 mmol/L (3.3-5.1); Sodium 141 mmol/L (135-145)
[2024-12-28 06:15] LABS: Hematocrit 38.6 % (37.0-47.0); Hemoglobin 12.8 g/dl (12.0-16.0); Imm Gran Abs Auto 0.34 X10*3/uL (0.00-0.03); Imm Gran Pct Auto 2.9 % (0.0-0.4); Lymphocytes Absolute Auto 2.6 X10*3/uL (1.2-4.9); Mean Corpuscular HGB Conc 33.2 g/dl (31.0-35.0); Mean Corpuscular Hemoglobin 30.6 pg (27.0-33.0); Mean Corpuscular Volume 92.3 fL (80.0-98.0); NRBC Abs Auto 0.000 X10*3/uL (0.0-0.012); NRBC Pct Auto 0.0 /100WBC (0.0-0.2); Platelet Count 256 X10*3/uL (160-400); Red Blood Count 4.18 X10*6/uL (4.20-5.50); White Blood Count 11.7 X10*3/uL (4.8-10.8)
[2024-12-28 07:41] LABS: Glucose, Whole Blood 167 mg/dL (60-115)
[2024-12-28] MEDS: Insulin Glargine,Hum.rec.anlog 100 UNIT/ML 10 ML VIAL 30 UNIT SUBCUT ×2 (08:42→21:09)
[2024-12-28] MEDS: Sucralfate Oral Suspension 1 GM/10 ML ORAL.SUSP PO ×4 (08:45→21:09)
[2024-12-28 11:13] LABS: Glucose, Whole Blood 164 mg/dL (60-115)
--- NOTE | 2024-12-28 12:16 | HO.PM.IMPN ---
Subjective Subjective Date of Service: 12/28/24 Interval History: Patient woken from sleep for evaluation. She feels well, with improvement in her nausea and vomiting. The patient denies abdominal pain. Urinating well, stooling well. She reports mild appetite is however gradually improving. She is eager to be discharged Review of Systems Review of Systems: Yes all other systems are reviewed and are negative Physical Exam Exam: Exam: General: A&O x3, oriented to time place person and situation, comfortable, no pain Cardiac: S1, S2 auscultated with no S3/4, no MRG. Well perfused. Respiratory: Normal breath sounds auscultated throughout all lung zones, without wheezing, rales. Normal rate. GI/ : No abdominal pain on palpation, no masses or distentions. MSK: Normal ambulation without pain at bony prominences or musculature Neurological: Normal neurological examination on overview, without obvious CN II-XII abnormalities. Vital Signs: Vital Signs: Last Vital Signs Temp 98.9 F 12/28/24 07:14 Pulse 61 12/28/24 07:14 Resp 12 12/28/24 07:14 BP 154/69 H 12/28/24 07:14 Pulse Ox 95 12/28/24 07:14 O2 Del Method Room Air 12/28/24 07:14 O2 Flow Rate 1 12/26/24 15:21 FiO2 21 12/26/24 01:00 BMI result Body Mass Index 32.1 Objective Data Active Medications Acetaminophen (Acetaminophen 325 Mg Tablet) 650 mg PO Q6H PRN PRN Reason: Pain, Mild 1-3,fever,headache Last Admin: 12/28/24 09:51 Dose: 650 mg Documented By: KIKO Atorvastatin Calcium (Atorvastatin Calcium 40 Mg Tablet) 40 mg PO DAILY [facility] Last Admin: 12/28/24 08:42 Dose: 40 mg Documented By: KIKO Dextrose (Dextrose 50 % 25 Gm/50 Ml Syringe) 25 gm IVPUSH Q30M PRN PRN Reason: BG < 70 Dextrose (Dextrose 50 % 25 Gm/50 Ml Syringe) 25 gm IVPUSH Q15M PRN; Protocol PRN Reason: per Hypoglycemia Standing Ord. Enoxaparin Sodium (Enoxaparin Sodium 40 Mg/0.4 Ml Syringe) 40 mg SUBCUT Q24H [facility] Last Admin: 12/27/24 17:12 Dose: 40 mg Documented By: LIDIA Famotidine (Famotidine/Pf 20 Mg/2 Ml Vial) 20 mg IVPUSH BID [facility] Last Admin: 12/28/24 08:42 Dose: 20 mg Documented By: KIKO Glucose (Glucose Gel 15 Gm Gel..Gram.) 15 gm PO Q15M PRN; Protocol PRN Reason: per Hypoglycemia Standing Ord. Insulin Glargine (Insulin Glargine,Hum.Rec.Anlog 100 Unit/Ml 10 Ml Vial) 30 unit SUBCUT BID [facility] Last Admin: 12/28/24 08:42 Dose: 30 unit Documented By: KIKO Levothyroxine Sodium (Levothyroxine Sodium 150 Mcg Tablet) 150 mcg PO DAILY@0600 [facility] Last Admin: 12/28/24 05:19 Dose: 150 mcg Documented By: JORGE Ondansetron HCl (Ondansetron Hcl 4 Mg/2 Ml Vial) 4 mg IVPUSH Q8H PRN PRN Reason: Nausea and Vomiting Last Admin: 12/28/24 12:00 Dose: 4 mg Documented By: KIKO Pramipexole Dihydrochloride (Pramipexole Di-Hcl 0.25 Mg Tablet) 0.25 mg PO BEDTIME [facility] Last Admin: 12/27/24 21:21 Dose: 0.25 mg Documented By: JORGE Sertraline HCl (Sertraline Hcl 100 Mg Tablet) 100 mg PO DAILY@1200 [facility] Last Admin: 12/28/24 12:00 Dose: 100 mg Documented By: KIKO Sucralfate (Sucralfate Oral Suspension 1 Gm/10 Ml Oral.Susp) 1 gm PO QIDACHS [facility] Last Admin: 12/28/24 12:00 Dose: 1 gm Documented By: KIKO Labs 12/28/24 05:28 12/28/24 05:28 Labs: Laboratory Results - last 24 hr 12/27/24 12/27/24 12/28/24 16:09 19:51 05:28 MCV 92.3 MCH 30.6 MCHC 33.2 RDW 13.1 Plt Count 256 MPV 10.7 Immature Gran % (Auto) 2.9 H Neut % (Auto) 65.2 Lymph % (Auto) 21.8 Dale % (Auto) 7.3 Eos % (Auto) 2.2 Baso % (Auto) 0.6 Lymph # (Auto) 2.6 Dale # (Auto) 0.9 Eos # (Auto) 0.3 Baso # (Auto) 0.1 Abs Immat Gran (auto) 0.34 H Absolute Neuts (auto) 7.6 Absolute Nucleated RBC 0.000 Nucleated RBC % (auto) 0.0 Anion Gap 13 Estim Creat Clear Calc 54.4 Estimated GFR 60 POC Glucose 249 H 247 H Random Glucose 195 H Calcium 9.1 Phosphorus 2.0 L Magnesium 2.0 12/28/24 12/28/24 07:17 11:06 MCV MCH MCHC RDW Plt Count MPV Immature Gran % (Auto) Neut % (Auto) Lymph % (Auto) Dale % (Auto) Eos % (Auto) Baso % (Auto) Lymph # (Auto) Dale # (Auto) Eos # (Auto) Baso # (Auto) Abs Immat Gran (auto) Absolute Neuts (auto) Absolute Nucleated RBC Nucleated RBC % (auto) Anion Gap Estim Creat Clear Calc Estimated GFR POC Glucose 167 H 164 H Random Glucose Calcium Phosphorus Magnesium Microbiology Microbiology Results: Microbiology 12/25/24 13:42 Blood Culture - Preliminary Blood - Venous No growth after 48 hours. 12/25/24 13:32 Blood Culture - Preliminary Blood - Venous No growth after 48 hours. Assessment and Plan (1) Cannabinoid hyperemesis syndrome: Status: Acute (2) Cannabis use disorder: Status: Acute (3) DKA (diabetic ketoacidosis): Status: Acute Plan 74-year-old female, with a background history of insulin-dependent type 2 diabetes mellitus, hypothyroidism, anxiety, presented to the emergency room with nausea vomiting and diarrhea for 4 days, admitted to MICU with diabetic ketoacidosis, transferred to medical unit 12/27. Diabetic ketoacidosis Type 2 diabetes mellitus Medication noncompliance The patient was started on Mounjaro in the outpatient setting, with subsequent diarrhea. Furthermore, noncompliance in the outpatient setting to insulin. Patient was started on insulin drip, admitted to MICU. Transferred out of the MICU after gap closed. Has persistent electrolyte dysfunction. Glucose remains uncontrolled. Adjusted glargine to 30 b.i.d. SQ PLAN - POC glucose t.i.d. & nocte - encourage p.o. intake fluid - increase glargine from 40u SQ OD to 30u b.i.d. SQ - monitor electrolytes closely - Diabetic diet Cyclical vomiting syndrome MDD/anxiety Marijuana use Possible secondary component due to Mounjaro used in the outpatient setting. PLAN - famotidine b.i.d. - Zofran p.r.n. - sucralfate 1 g q.i.d. - continue sertraline Hypothyroidism Continue home levothyroxine [employer] - VTE: Enoxaparin 40 mg - CODE STATUS: Full - DIET: Diabetic diet Total time managing care of this patient today: 35 minutes. Quality Stroke Does the patient have a stroke diagnosis?: No VTE Prior VTE?: No VTE Risk Level:: Medical - low VTE Device Contraindication: N/A - Device Ordered VTE Drug Contraindication: N/A - Med Ordered
[2024-12-28 16:21] LABS: Glucose, Whole Blood 192 mg/dL (60-115)
[2024-12-28 20:37] LABS: Glucose, Whole Blood 149 mg/dL (60-115)
[2024-12-29 03:01] VITALS: BP 155/67; PULSE 84; RESP 16; TEMP 36.3; O2SAT 96
[2024-12-29 06:00] VITALS: BMI 31.7
[2024-12-29 06:41] LABS: MANUAL DIFF FLAG NO
[2024-12-29 06:59] LABS: Hematocrit 40.3 % (37.0-47.0); Hemoglobin 14.0 g/dl (12.0-16.0); Imm Gran Abs Auto 0.25 X10*3/uL (0.00-0.03); Imm Gran Pct Auto 2.7 % (0.0-0.4); Lymphocytes Absolute Auto 2.4 X10*3/uL (1.2-4.9); Mean Corpuscular HGB Conc 34.7 g/dl (31.0-35.0); Mean Corpuscular Hemoglobin 31.0 pg (27.0-33.0); Mean Corpuscular Volume 89.4 fL (80.0-98.0); NRBC Abs Auto 0.000 X10*3/uL (0.0-0.012); NRBC Pct Auto 0.0 /100WBC (0.0-0.2); Platelet Count 209 X10*3/uL (160-400); Red Blood Count 4.51 X10*6/uL (4.20-5.50); White Blood Count 9.2 X10*3/uL (4.8-10.8)
[2024-12-29 07:13] LABS: Anion Gap 15 (12-20); Blood Urea Nitrogen 10 mg/dL (9-16); Calcium 8.5 mg/dL (8.4-10.2); Carbon Dioxide 29 mmol/L (22-29); Chloride 102 mmol/L (96-108); Creatinine Clr Calc Pharmacy 66.0; Estimated Glomerular Filt Rate > 60; Magnesium 1.9 mg/dL (1.6-2.6); Potassium 3.3 mmol/L (3.3-5.1); Sodium 143 mmol/L (135-145)
[2024-12-29 07:25] VITALS: BP 157/72; PULSE 72; RESP 16; TEMP 36; O2SAT 96
[2024-12-29 07:29] LABS: Glucose, Whole Blood 99 mg/dL (60-115)
[2024-12-29 08:28] VITALS: BP 157/72
[2024-12-29] MEDS: Sucralfate Oral Suspension 1 GM/10 ML ORAL.SUSP PO ×4 (08:28→21:40)
[2024-12-29] MEDS: Insulin Glargine,Hum.rec.anlog 100 UNIT/ML 10 ML VIAL 30 UNIT SUBCUT ×2 (08:29→21:41)
[2024-12-29 11:43] LABS: Glucose, Whole Blood 111 mg/dL (60-115)
--- NOTE | 2024-12-29 12:58 | P.PNIM_ITS ---
Subjective Subjective Date of Service: 12/29/24 Interval History: Nausea and vomiting significantly improved as compared to yesterday. Has an improved appetite, and requesting to intake p.o.. POC glucose has significantly improved as compared to yesterday. Review of Systems Review of Systems: Yes all other systems are reviewed and are negative Physical Exam 2 Exam: Exam: General: A&O x3, oriented to time place person and situation, comfortable, no pain Cardiac: S1, S2 auscultated with no S3/4, no MRG. Well perfused. Respiratory: Normal breath sounds auscultated throughout all lung zones, without wheezing, rales. Normal rate. GI/ : No abdominal pain on palpation, no masses or distentions. MSK: Normal ambulation without pain at bony prominences or musculature Neurological: Normal neurological examination on overview, without obvious CN II-XII abnormalities. Vital Signs: Vital Signs: Last Vital Signs Temp 96.8 F 12/29/24 07:25 Pulse 72 12/29/24 07:25 Resp 16 12/29/24 07:25 BP 157/72 H 12/29/24 08:28 Pulse Ox 96 12/29/24 07:25 O2 Del Method Room Air 12/29/24 07:25 O2 Flow Rate 1 12/26/24 15:21 FiO2 21 12/26/24 01:00 BMI result Body Mass Index 31.7 Objective Data Active Medications Acetaminophen (Acetaminophen 325 Mg Tablet) 650 mg PO Q6H PRN PRN Reason: Pain, Mild 1-3,fever,headache Last Admin: 12/29/24 10:25 Dose: 650 mg Documented By: KIKO Amlodipine Besylate (Amlodipine Besylate 10 Mg Tablet) 10 mg PO DAILY [facility]; Protocol Last Admin: 12/29/24 08:28 Dose: 10 mg Documented By: KIKO Atorvastatin Calcium (Atorvastatin Calcium 40 Mg Tablet) 40 mg PO DAILY [facility] Last Admin: 12/29/24 08:28 Dose: 40 mg Documented By: KIKO Dextrose (Dextrose 50 % 25 Gm/50 Ml Syringe) 25 gm IVPUSH Q30M PRN PRN Reason: BG < 70 Dextrose (Dextrose 50 % 25 Gm/50 Ml Syringe) 25 gm IVPUSH Q15M PRN; Protocol PRN Reason: per Hypoglycemia Standing Ord. Enoxaparin Sodium (Enoxaparin Sodium 40 Mg/0.4 Ml Syringe) 40 mg SUBCUT Q24H [facility] Last Admin: 12/28/24 17:08 Dose: 40 mg Documented By: KIKO Famotidine (Famotidine/Pf 20 Mg/2 Ml Vial) 20 mg IVPUSH BID [facility] Last Admin: 12/29/24 08:28 Dose: 20 mg Documented By: KIKO Glucose (Glucose Gel 15 Gm Gel..Gram.) 15 gm PO Q15M PRN; Protocol PRN Reason: per Hypoglycemia Standing Ord. Insulin Glargine (Insulin Glargine,Hum.Rec.Anlog 100 Unit/Ml 10 Ml Vial) 30 unit SUBCUT BID [facility] Last Admin: 12/29/24 08:29 Dose: 30 unit Documented By: KIKO Levothyroxine Sodium (Levothyroxine Sodium 150 Mcg Tablet) 150 mcg PO DAILY@0600 [facility] Last Admin: 12/29/24 05:52 Dose: 150 mcg Documented By: JOSE Metoclopramide HCl (Metoclopramide Hcl 10 Mg/2 Ml Vial) 5 mg IVPUSH Q8H PRN PRN Reason: nausea, vomiting Last Admin: 12/29/24 11:57 Dose: 5 mg Documented By: KIKO Ondansetron HCl (Ondansetron Hcl 4 Mg/2 Ml Vial) 4 mg IVPUSH Q4H PRN PRN Reason: Nausea and Vomiting Last Admin: 12/29/24 05:55 Dose: 4 mg Documented By: JOSE Pramipexole Dihydrochloride (Pramipexole Di-Hcl 0.25 Mg Tablet) 0.25 mg PO BEDTIME [facility] Last Admin: 12/28/24 21:09 Dose: 0.25 mg Documented By: MARVIN Senna (Sennosides 8.6 Mg Tablet) 8.6 mg PO DAILY PRN PRN Reason: Constipation Last Admin: 12/29/24 11:57 Dose: 8.6 mg Documented By: KIKO Sertraline HCl (Sertraline Hcl 100 Mg Tablet) 100 mg PO DAILY@1200 [facility] Last Admin: 12/29/24 11:57 Dose: 100 mg Documented By: KIKO Sucralfate (Sucralfate Oral Suspension 1 Gm/10 Ml Oral.Susp) 1 gm PO QIDACHS [facility] Last Admin: 12/29/24 11:57 Dose: 1 gm Documented By: KIKO Labs 12/29/24 06:24 12/29/24 06:24 Labs: Laboratory Results - last 24 hr 12/28/24 12/28/24 12/29/24 15:58 20:25 06:24 MCV 89.4 MCH 31.0 MCHC 34.7 RDW 13.0 Plt Count 209 MPV 10.2 Immature Gran % (Auto) 2.7 H Neut % (Auto) 59.9 Lymph % (Auto) 25.8 [place] % (Auto) 8.7 Eos % (Auto) 2.2 Baso % (Auto) 0.7 Lymph # (Auto) 2.4 [place] # (Auto) 0.8 Eos # (Auto) 0.2 Baso # (Auto) 0.1 Abs Immat Gran (auto) 0.25 H Absolute Neuts (auto) 5.5 Absolute Nucleated RBC 0.000 Nucleated RBC % (auto) 0.0 Anion Gap 15 Estim Creat Clear Calc 66.0 Estimated GFR > 60 POC Glucose 192 H 149 H Random Glucose 98 Calcium 8.5 D Phosphorus 2.4 L Magnesium 1.9 12/29/24 12/29/24 07:24 11:31 MCV MCH MCHC RDW Plt Count MPV Immature Gran % (Auto) Neut % (Auto) Lymph % (Auto) [place] % (Auto) Eos % (Auto) Baso % (Auto) Lymph # (Auto) [place] # (Auto) Eos # (Auto) Baso # (Auto) Abs Immat Gran (auto) Absolute Neuts (auto) Absolute Nucleated RBC Nucleated RBC % (auto) Anion Gap Estim Creat Clear Calc Estimated GFR POC Glucose 99 111 Random Glucose Calcium Phosphorus Magnesium Assessment and Plan (1) Cannabinoid hyperemesis syndrome: Status: Acute (2) DKA (diabetic ketoacidosis): Status: Acute (3) Cyclical vomiting: Status: Acute Plan 74-year-old female, with a background history of insulin-dependent type 2 diabetes mellitus, hypothyroidism, anxiety, presented to the emergency room with nausea vomiting and diarrhea for 4 days, admitted to MICU with diabetic ketoacidosis, transferred to medical unit 12/27. Diabetic ketoacidosis Type 2 diabetes mellitus Medication noncompliance The patient was started on Mounjaro in the outpatient setting, with subsequent diarrhea. Furthermore, noncompliance in the outpatient setting to insulin. Patient was started on insulin drip, admitted to MICU. Transferred out of the MICU after gap closed. Has persistent electrolyte dysfunction. Glucose remains uncontrolled. Adjusted glargine to 30 b.i.d. SQ PLAN - POC glucose t.i.d. & nocte - encourage p.o. intake fluid - increase glargine from 40u SQ OD to 30u b.i.d. SQ - monitor electrolytes closely - Diabetic diet Cyclical vomiting syndrome MDD/anxiety Marijuana use Possible secondary component due to Mounjaro used in the outpatient setting. PLAN - famotidine b.i.d. - Zofran p.r.n. - sucralfate 1 g q.i.d. - continue sertraline Hypothyroidism Continue home levothyroxine [employer] - VTE: Enoxaparin 40 mg - CODE STATUS: Full - DIET: Diabetic diet Total time managing care of this patient today: 35 minutes. Quality Stroke Does the patient have a stroke diagnosis?: No VTE Prior VTE?: No VTE Risk Level:: Medical - low VTE Device Contraindication: N/A - Device Ordered VTE Drug Contraindication: N/A - Med Ordered
[2024-12-29 15:12] VITALS: BP 117/77; PULSE 73; RESP 20; TEMP 36.5; O2SAT 97
[2024-12-29 16:53] LABS: Glucose, Whole Blood 114 mg/dL (60-115)
[2024-12-29 19:31] VITALS: BP 121/60; PULSE 64; RESP 20; TEMP 36.4; O2SAT 94
[2024-12-29 21:03] LABS: Glucose, Whole Blood 201 mg/dL (60-115)
--- NOTE | 2024-12-29 23:00 | PC.NURSE ---
This RN resumed care at 1900, on assessment pt reports no pain states I feel great, so much better than when I got here. LSC/BSx4, soft and non-tender, Meds given per JUL. pt requested a diabetic pudding as a snack. Pt is in no apparent distress at this time, Will continue to reassess, Bed in lowest position, & call paris within reach.
[2024-12-30 03:27] VITALS: BP 121/58; PULSE 59; RESP 15; TEMP 36.1; O2SAT 93
[2024-12-30 06:00] VITALS: BMI 32.4
[2024-12-30 06:28] LABS: Hematocrit 39.0 % (37.0-47.0); Hemoglobin 13.4 g/dl (12.0-16.0); Imm Gran Abs Auto 0.24 X10*3/uL (0.00-0.03); Imm Gran Pct Auto 2.0 % (0.0-0.4); Lymphocytes Absolute Auto 4.6 X10*3/uL (1.2-4.9); MANUAL DIFF FLAG SCAN; Mean Corpuscular HGB Conc 34.4 g/dl (31.0-35.0); Mean Corpuscular Hemoglobin 31.2 pg (27.0-33.0); Mean Corpuscular Volume 90.7 fL (80.0-98.0); NRBC Abs Auto 0.000 X10*3/uL (0.0-0.012); NRBC Pct Auto 0.0 /100WBC (0.0-0.2); Platelet Count 249 X10*3/uL (160-400); Red Blood Count 4.30 X10*6/uL (4.20-5.50); SCAN SMEAR FLAG 1; White Blood Count 11.9 X10*3/uL (4.8-10.8)
[2024-12-30 06:41] LABS: Anion Gap 12 (12-20); Blood Urea Nitrogen 14 mg/dL (9-16); Calcium 8.8 mg/dL (8.4-10.2); Carbon Dioxide 34 mmol/L (22-29); Chloride 101 mmol/L (96-108); Creatinine Clr Calc Pharmacy 59.9; Estimated Glomerular Filt Rate > 60; Magnesium 2.0 mg/dL (1.6-2.6); Potassium 3.8 mmol/L (3.3-5.1); Sodium 143 mmol/L (135-145)
[2024-12-30 07:05] VITALS: BP 133/62; PULSE 66; RESP 14; TEMP 36.1; O2SAT 98
[2024-12-30 07:18] LABS: Glucose, Whole Blood 65 mg/dL (60-115)
[2024-12-30] MEDS: Insulin Glargine,Hum.rec.anlog 100 UNIT/ML 10 ML VIAL 30 UNIT SUBCUT (08:23)
[2024-12-30] MEDS: Sucralfate Oral Suspension 1 GM/10 ML ORAL.SUSP PO ×2 (08:23→11:42)
[2024-12-30 11:03] LABS: Glucose, Whole Blood 205 mg/dL (60-115)
--- NOTE | 2024-12-30 11:20 | P.DS_ITS ---
DS: Providers Provider Date of Service: 12/30/24 Date of admission: 12/25/24 17:33 Date of discharge: 12/30/24 Primary care physician: Unknown Physician Attending physician on discharge: Chapito Jeffers DS: Diagnosis Discharge Diagnosis (1) Cannabinoid hyperemesis syndrome: Status: Acute (2) DKA (diabetic ketoacidosis): Status: Acute (3) Cyclical vomiting: Status: Acute DS: Summary Hospital Course Hospital Course: 74-year-old female, with a background history of insulin-dependent type 2 diabetes mellitus, hypothyroidism, anxiety, presented to the emergency room with nausea vomiting and diarrhea for 4 days, admitted to MICU with diabetic ketoacidosis, transferred to medical unit 12/27. Diabetic ketoacidosis Type 2 diabetes mellitus Medication noncompliance The patient was started on Mounjaro in the outpatient setting, with subsequent diarrhea. She also inhales cannabis multiple times a day. Furthermore, noncompliance in the outpatient setting to insulin. Suffered with nausea, vomiting, diarrhea, with inability to intake p.o.. She discontinued taking her insulin entirely as a result. On admission to hospital, it was noted that she was in diabetic ketoacidosis, requiring admission to medical ICU. She was started on a medical drip, with progressive improvement in closing of her anion gap. Has persistent electrolyte dysfunction during admission; which has now resolved. Adjusted glargine to 30 b.i.d. SQ, with improvement in stabilization of her glucose on the medical floor. Impression: Diabetic ketoacidosis was likely precipitated in the setting of vomiting nausea and diarrhea (contributed by cyclical hyperemesis syndrome in the setting of heavy cannabis use), likely brought on by use of GLP-1 in the community. She is currently hemodynamically stable, and back to clinical baseline. Status at Discharge Functional status at discharge: independent ambulation Overall status at discharge: patient is back to baseline Time Attestation Total time managing care of this patient today: 35 mintues. Discharge Coordination Time (in mins): 15 Quality: Safe Use of Opioids Does Pt have an Active Cancer Diagnosis on the Problem List?: No Quality: Stroke Does the patient have a stroke diagnosis?: No Physical Exam Exam: Exam: General: A&O x3, oriented to time place person and situation, comfortable, no pain Cardiac: S1, S2 auscultated with no S3/4, no MRG. Well perfused. Respiratory: Normal breath sounds auscultated throughout all lung zones, without wheezing, rales. Normal rate. GI/ : No abdominal pain on palpation, no masses or distentions. MSK: Normal ambulation without pain at bony prominences or musculature Neurological: Normal neurological examination on overview, without obvious CN II-XII abnormalities. Vital Signs: Vital Signs: Last Vital Signs Temp 97.0 F 12/30/24 07:05 Pulse 66 12/30/24 07:05 Resp 14 12/30/24 07:05 BP 133/62 12/30/24 07:05 Pulse Ox 98 12/30/24 07:05 O2 Del Method Room Air 12/30/24 07:05 O2 Flow Rate 1 12/26/24 15:21 FiO2 21 12/26/24 01:00 BMI result Body Mass Index 32.4 DS: Data Data Completed and Pending Completed studies during hospitalization [Text1]: Procedures Drainage of Right Hand Subcutaneous Tissue and Fascia, Open Approach (02/03/21) Labs on day of discharge: Laboratory Results - last 24 hr 12/29/24 12/29/24 12/29/24 11:31 16:28 20:57 WBC RBC Hgb Hct MCV MCH MCHC RDW Plt Count MPV Immature Gran % (Auto) Neut % (Auto) Lymph % (Auto) Phillips % (Auto) Eos % (Auto) Baso % (Auto) Lymph # (Auto) Phillips # (Auto) Eos # (Auto) Baso # (Auto) Abs Immat Gran (auto) Absolute Neuts (auto) Absolute Nucleated RBC Nucleated RBC % (auto) Smear Tech's Comments Sodium Potassium Chloride Carbon Dioxide Anion Gap BUN Creatinine Estim Creat Clear Calc Estimated GFR POC Glucose 111 114 201 H Random Glucose Calcium Phosphorus Magnesium 12/30/24 12/30/24 12/30/24 06:05 07:11 11:00 WBC 11.9 H RBC 4.30 Hgb 13.4 Hct 39.0 MCV 90.7 MCH 31.2 MCHC 34.4 RDW 13.2 Plt Count 249 MPV 9.8 Immature Gran % (Auto) 2.0 H Neut % (Auto) 45.8 Lymph % (Auto) 38.9 Phillips % (Auto) 8.7 Eos % (Auto) 4.1 H Baso % (Auto) 0.5 Lymph # (Auto) 4.6 Phillips # (Auto) 1.0 Eos # (Auto) 0.5 H Baso # (Auto) 0.1 Abs Immat Gran (auto) 0.24 H Absolute Neuts (auto) 5.4 Absolute Nucleated RBC 0.000 Nucleated RBC % (auto) 0.0 Smear Tech's Comments VERIFIED Sodium 143 Potassium 3.8 Chloride 101 Carbon Dioxide 34 H Anion Gap 12 BUN 14 Creatinine 0.89 Estim Creat Clear Calc 59.9 Estimated GFR > 60 POC Glucose 65 205 H Random Glucose 79 Calcium 8.8 Phosphorus 2.9 Magnesium 2.0 Preliminary micro results at discharge 12/25/24 13:42 Blood Culture - Preliminary Blood - Venous No growth after 48 hours. 12/25/24 13:32 Blood Culture - Preliminary Blood - Venous No growth after 48 hours. Discharge Plan Discharge Anticipated Discharge Date/Time: 12/30/24 11:25 Patient Disposition: Home, Self-Care Discharge Diagnosis: Diabetic ketoacidosis; nausea vomiting diarrhea; intolerant of intake p.o. secondary to cannabis hyperemesis syndrome and likely iatrogenic GLP 1 use. Referrals: Physician,Unknown J [Primary Care Provider, Medical] - 1 Week Discharge Medications: Continued sertraline 100 mg tablet 100 mg PO DAILY@1200 insulin asp prt-insulin aspart [Novolog Mix 70-30FlexPen U-100] 100 unit/mL (70-30) insulin pen 42 unit subcut BID atorvastatin 40 mg tablet 40 mg PO DAILY levothyroxine 150 mcg tablet 150 mcg PO DAILY@0600 multivitamin with folic acid [Daily-Johny (with folic acid)] 400 mcg tablet 1 tab PO DAILY Januvia 50 mg tablet 50 mg PO DAILY pramipexole 0.25 mg tablet 0.25 mg PO BEDTIME Discontinued Mounjaro 5 mg/0.5 mL pen injector 5 mg subcut TH Discharge Orders: Discharge Order (Routine); Ordered 12/30/24 Ordered By: Chapito Jeffers Diet: Advance to usual diet Activity on Discharge: As tolerated Stand Alone Forms: Patient Portal Discharge page Print Language: Indonesian Care Plan Goals: Follow-up PCP within 1 week of discharge Follow-up endocrinology within 2 week of discharge Encourage compliance with medications Health Concerns: Daily marijuana use Type 2 diabetes mellitus Plan of Treatment: As above Assessment: Back to clinical baseline. Hemodynamically stable and ready for discharge
--- NOTE | 2024-12-30 11:34 | MHC.CM.PN ---
PT CLEARED TO [facility] TODAY WITH NO SERVICES [facility]SPORT WILL BE ARRANGED
[2024-12-30 12:06] VITALS: BP 128/61; PULSE 75; RESP 14; TEMP 36.3; O2SAT 94
--- NOTE | 2025-02-20 09:24 | P.CDIM_ITS ---
PROVIDER RESPONSE TEXT: To clarify, the appropriate diagnosis supported by the clinical indicators: After stud, Sepsis has been ruled out QUERY TEXT: >>> Provider Instructions - Do not remove this line >>> PHYSICIAN'S DOCUMENTATION REQUEST Date of Query: 01/11/2025 01:31 PM EDT Patient Name: Maia Marley Admit Date: 12/25/2024 Dear Chapito Jeffers MD, A review of the medical record indicates additional documentation may be needed. Please review below and update the documentation accordingly. Documentation on progress note dated 12/25/24 included the diagnosis of sepsis. The patient's infectious clinical indicators include: pulse 99 WBC 12.3 lactic acid 4.7 Recognized standard criteria for this condition and other infectious definitions includes: Sepsis Systemic manifestations of infection, with 2 or more SIRS criteria which include: Fever > 100.4?F or hypothermia < 96.8?F Leukocytosis - WBC > 12,000 or leukopenia, WBC < 4,000, or > 10% bands Tachycardia- > 90 beats/minute Tachypnea- RR > 20 breaths/minute or PaCO2 < 32mmHg Source: [employer] Manual 2013 Documentation should include the known or suspected organism, and the underlying infection, such as UTI or pneumonia Based on the above information and the recognized standard for sepsis, could you please clarify if this diagnoses is still accurate and reflective of the patient's condition to ensure quality of the medical record. <<< Provider Instructions - Do not remove this line <<< Sepsis is/was present and is a clinical diagnosis After stud, Sepsis has been ruled out Other (explain) Clinically unable to determine (explain) >>> Contact Info - Do not remove this line>>> Thank you, Yocasta Mcghee RN Use of terms such as suspected, likely, concern for, or probable (associated with a specific diagnosis that is being evaluated, monitored, or treated as if it exists) are acceptable and can be coded in the inpatient setting, when documented at the time of discharge. Please use your independent medical judgment in providing your response. THIS QUERY IS PART OF THE PERMANENT MEDICAL RECORD <<< Contact Info - Do not remove this line <<< >>> Disclaimer - Do no remove this line>>> Extension: [phone] <<< Disclaimer - Do not remove this line<<<
== END 2024-12-30 12:11 | disposition home or self-care (01) | DRG 639 ==
LOC: HO.ED 13:17 → HO.EDOVER 17:38 → HO.ICU 17:45 → HO.S3 12-26 13:40
PROVIDERS: Emergency Medicine; Physician Assistant Medical; Admitting Provider Internal Medicine Critical Care Medicine; Emergency Provider Emergency Medicine; Visit Provider Hospitalist
DX: E11.10 Type 2 diabetes mellitus with ketoacidosis without coma (principal); E03.9 Hypothyroidism, unspecified; F12.90 Cannabis use, unspecified, uncomplicated; R11.2 Nausea with vomiting, unspecified; F41.9 Anxiety disorder, unspecified; F32.9 Major depressive disorder, single episode, unspecified; T38.3X6A Underdosing of insulin and oral hypoglycemic [antidiabetic] drugs, initial encounter; T38.3X5A Adverse effect of insulin and oral hypoglycemic [antidiabetic] drugs, initial encounter; Z20.822 Contact with and (suspected) exposure to COVID-19; Z87.891 Personal history of nicotine dependence; Z79.4 Long term (current) use of insulin; Z79.890 Hormone replacement therapy; Z79.899 Other long term (current) drug therapy
CPT/HCPCS: 36415; 71045; 80048; 80053; 80076; 81001; 82010; 82803; 82947; 83605; 83690; 83735; 84100; 84484; 85007; 85025; 85027; 87040; 87637; 93005; 99285; J0696; J1271; J1308; J1650; J1790; J2405; J2765; J3475; J7120

== ENCOUNTER → 2024-12-25 12:16 | Outpatient (BNV) | payer MEDICARE, SELFPAY | PROVIDERS: Emergency Provider Emergency Medicine; Visit Provider Radiology Diagnostic Radiology | DX: R06.02 Shortness of breath (principal); R11.10 Vomiting, unspecified; M47.814 Spondylosis without myelopathy or radiculopathy, thoracic region | CPT/HCPCS: 71045 ==

== ENCOUNTER → 2024-12-25 12:16 | Outpatient (BNV) | payer MEDICARE, SELFPAY | PROVIDERS: Admitting Provider Internal Medicine Critical Care Medicine; Emergency Provider Emergency Medicine; Visit Provider Internal Medicine Cardiovascular Disease | DX: R53.1 Weakness (principal) | CPT/HCPCS: 93010 ==

== ENCOUNTER → 2024-12-25 17:33 | Outpatient (BNV) | payer MEDICARE, SELFPAY | PROVIDERS: Admitting Provider Internal Medicine Critical Care Medicine; Emergency Provider Emergency Medicine; Visit Provider Internal Medicine Critical Care Medicine | DX: E11.10 Type 2 diabetes mellitus with ketoacidosis without coma (principal); R11.2 Nausea with vomiting, unspecified; F12.90 Cannabis use, unspecified, uncomplicated | CPT/HCPCS: 99291 ==

== ENCOUNTER → 2024-12-25 17:33 | Outpatient (BNV) | payer MEDICARE, SELFPAY | PROVIDERS: Admitting Provider Internal Medicine Critical Care Medicine; Emergency Provider Emergency Medicine; Visit Provider Hospitalist | DX: E11.10 Type 2 diabetes mellitus with ketoacidosis without coma (principal); R11.2 Nausea with vomiting, unspecified; F12.90 Cannabis use, unspecified, uncomplicated | CPT/HCPCS: 99232 ==